=== PATIENT | female | born 1960 | race Caucasian/White ===

== ENCOUNTER 2021-08-14 13:55 | Inpatient (IN) | payer BC, OTHER ==
[2021-08-14] VITALS (10 sets, daily range): BP systolic 138–186; BP diastolic 81–96
[~2021-08-14] VITALS: Ht 165 cm; Wt 87.2 kg
--- OUTSIDE RECORDS SUMMARY | 2021-08-14 17:59 | XMS REPORT ---
Author Author [place] - [facility], Nursing Organization [facility], Nursing Address [address] [place] [id number] Phone [phone] Care Team Providers Care Insurance Writer Name Role Phone Anisha Napier Terrell Menchaca Attending Jade Suárez NURSE Assessment Admit Date Assessm ent Date Assessment 08/11/2021 021 Chacho is a 60yoF who presented to the ED this evening via PV w/ complaint of difficulty breathing/SOB, recently swabbed + for covid at facility in [place], [place], and is now being admitted to hospital pending acceptance and transfer to outside facility for higher level of care.Severe Sepsis // COVID // Respiratory Pqbarbjh10/9/21:- cont supplemental O2 via FM and NC--instructed nurses to add up to 2 more NC's, and place at pts mouth, if needed to help maintain sats)- NS IVF at 250/hour for a total of 1L- dexamethasone 6mg QD; remdesivir 200mg x 1 today, followed by 100mg QD x 4d- enoxaparin 40mg QD for VTE prophylaxis- ceftriaxone 1g QD (broad spectrum abx coverage per sepsis protocol)- CT PE ordered for this morning to r/o embolism- repeat lactate, BMP, and trop this morning- rapid covid swab here in ED was negative, will thus contact [facility] to obtain pts recent positive swab results and have them fax to us- strict instructions provided to nursing with regards to when to contact provider--at this point in time we are trying to avoid intubation however, should pt desat/decompensate, then intubation will prove necessaryOther chronic ejdyjsnlqh84/9/21:- cont home meds (escitalopram, metoprolol, and levothyroxine)Disposition: Inpatient admission pending acceptance at outlying facility for transfer to higher level of care.COVID +FULL CODEDVT prophylaxis: EnoxaparinE/M: 88503.Supervising Physician: Dr. Terrell Menchaca. 08/11/2021 Anneliese Flor is a 60yoF who presented to the ED this evening via PV w/ complaint of difficulty breathing/SOB, recently swabbed + for covid at facility in [place], [place], and is now being admitted to hospital pending acceptance and transfer to outside facility for higher level of care.Severe Sepsis // COVID-19 // Hypoxic Respiratory Plcvlry77/9/21:- cont supplemental O2 via FM and NC--instructed nurses to add up to 2 more NC's, and place at pts mouth, if needed to help maintain sats)- NS IVF at 250/hour for a total of 1L- dexamethasone 6mg QD; remdesivir 200mg x 1 today, followed by 100mg QD x 4d- enoxaparin 40mg QD for VTE prophylaxis- ceftriaxone 1g QD (broad spectrum abx coverage per sepsis protocol)- CT PE ordered for this morning to r/o embolism- repeat lactate, BMP, and trop this morning- rapid covid swab here in ED was negative, will thus contact [facility] to obtain pts recent positive swab results and have them fax to us- strict instructions provided to nursing with regards to when to contact provider--at this point in time we are trying to avoid intubation however, should pt desat/decompensate, then intubation will prove /9/21 (update):- pt re-evaluated. This is a risky management situation. [facility] has been unable to find a medical ICU bed for this patient despite a multi-State search. She could yet decompensate further. Other options include trial of BiPAP and intubation. Either scenario is problematic if there is no ICU bed available for her elsewhere. This am, she desaturated to about 84%. But, with a duoneb and repositioning, her O2 sat recovered. Fortunately, her O2 sat has been holding in the mid-90's today on NRB at 15 lpm and NC at 8 to 10 liters per minute. We do not have a true high flow O2 setup at our facility.- flu swab to f/u concomitant influenza- we obtained a copy of her COVID-19 testing done a few days ago at [facility] and it confirms her COVID-19 positive state.- Troponin mildly elevated. This is consistent with her severe sepsis and present hypoxia. Start aspirin 81 mg daily.- D dimer elevated. I (Nikolai) had hoped she could have a CT chest PE protocol today. However, she is not stable enough to put through the CT scanner. She desaturates with mild movement. She will tolerate lying supine. Will fully anticoagulate empirically for now to cover possible PE.-Start Vitamin D3 and zinc supplements- I reviewed UpToDate for current inpatient recommendations. Will obtain baricitinib to start tomorrow. The following are not recommended: Ivermectin and fluvoxamine.- Lactic acid improving. She is perfusion extremities much better.- Give additional IVF (LR).- give scheduled duoneb and prn albuterol- repeat CMP, CBC, lactic acid tomorrow am.Other chronic jirqazhlwl96/9/21:- cont home meds (escitalopram, metoprolol, and levothyroxine)Disposition: Inpatient admission pending acceptance at outlying facility for transfer to higher level of care.COVID +FULL CODEDVT prophylaxis: EnoxaparinE/M: no additional code 08/11/2021 021 Chacho is a 60yoF who presented to the ED this evening via PV w/ complaint of difficulty breathing/SOB, recently swabbed + for covid at facility in [place], [place], and is now being admitted to hospital pending acceptance and transfer to outside facility for higher level of care.Severe Sepsis // COVID-19 // Hypoxic Respiratory Suubjgp08/9/21:- cont supplemental O2 via FM and NC--instructed nurses to add up to 2 more NC's, and place at pts mouth, if needed to help maintain sats)- NS IVF at 250/hour for a total of 1L- dexamethasone 6mg QD; remdesivir 200mg x 1 today, followed by 100mg QD x 4d- enoxaparin 40mg QD for VTE prophylaxis- ceftriaxone 1g QD (broad spectrum abx coverage per sepsis protocol)- CT PE ordered for this morning to r/o embolism- repeat lactate, BMP, and trop this morning- rapid covid swab here in ED was negative, will thus contact [facility] to obtain pts recent positive swab results and have them fax to us- strict instructions provided to nursing with regards to when to contact provider--at this point in time we are trying to avoid intubation however, should pt desat/decompensate, then intubation will prove enzjqytdy80/9/21 (update):- pt re-evaluated. This is a risky management situation. [facility] has been unable to find a medical ICU bed for this patient despite a multi-State search. She could yet decompensate further. Other options include trial of BiPAP and intubation. Either scenario is problematic if there is no ICU bed available for her elsewhere. This am, she desaturated to about 84%. But, with a duoneb and repositioning, her O2 sat recovered. Fortunately, her O2 sat has been holding in the mid-90's today on NRB at 15 lpm and NC at 8 to 10 liters per minute. We do not have a true high flow O2 setup at our facility.- flu swab to f/u concomitant influenza- we obtained a copy of her COVID-19 testing done a few days ago at [facility] and it confirms her COVID-19 positive state.- Troponin mildly elevated. This is consistent with her severe sepsis and present hypoxia. Start aspirin 81 mg daily.- D dimer elevated. I (Nikolai) had hoped she could have a CT chest PE protocol today. However, she is not stable enough to put through the CT scanner. She desaturates with mild movement. She will tolerate lying supine. Will fully anticoagulate empirically for now to cover possible PE.-Start Vitamin D3 and zinc supplements- I reviewed UpToDate for current inpatient recommendations. Will obtain baricitinib to start tomorrow. The following are not recommended: Ivermectin and fluvoxamine.- Lactic acid improving. She is perfusion extremities much better.- Give additional IVF (LR).- give scheduled duoneb and prn albuterol- repeat CMP, CBC, lactic acid tomorrow am.08/12/21:- She seems to be improved compared to yesterday. Subjectively starting to feel mildly stronger; photophobia improving; has been weaned off the nasal cannula O2 component; transaminase levels improving; anion gap has closed.- However, she is still quite ill: still requiring O2 by NRB at 15 lpm; desaturating easily with mild exertion; lactic acid still elevated; leukocytosis remains elevated; still having episodes of desaturation.- She is still at significant risk for decompensation and should still be at higher level of care in an ICU setting.- We thought we had an ICU bed available to her in [place], but it filled with another patient. Our nursing staff has been calling hospitals trying to find a bed, as has [facility]. We will continue t to treat her to best of our capabilities.- waiting for baricitinib to arrive- restart IVF support- repeat labs in am: cbc, bmp, lactic acid- add on troponin to this morning's blood work.Other chronic tuhmwcezll47/9/21:- cont home meds (escitalopram, metoprolol, and levothyroxine)Disposition: Inpatient admission pending acceptance at outlying facility for transfer to higher level of care.COVID +FULL CODEDVT prophylaxis: Enoxaparin anticoagulationE/M: 01487 08/11/2021 Anneliese Flor is a 60yoF who presented to the ED this evening via PV w/ complaint of difficulty breathing/SOB, recently swabbed + for covid at facility in [place], [place], and is now being admitted to hospital pending acceptance and transfer to outside facility for higher level of care.Severe Sepsis // COVID-19 // Hypoxic Respiratory Fpwbjsu82/9/21:- cont supplemental O2 via FM and NC--instructed nurses to add up to 2 more NC's, and place at pts mouth, if needed to help maintain sats)- NS IVF at 250/hour for a total of 1L- dexamethasone 6mg QD; remdesivir 200mg x 1 today, followed by 100mg QD x 4d- enoxaparin 40mg QD for VTE prophylaxis- ceftriaxone 1g QD (broad spectrum abx coverage per sepsis protocol)- CT PE ordered for this morning to r/o embolism- repeat lactate, BMP, and trop this morning- rapid covid swab here in ED was negative, will thus contact [facility] to obtain pts recent positive swab results and have them fax to us- strict instructions provided to nursing with regards to when to contact provider--at this point in time we are trying to avoid intubation however, should pt desat/decompensate, then intubation will prove nejxnvnli11/9/21 (update):- pt re-evaluated. This is a risky management situation. [employer] has been unable to find a medical ICU bed for this patient despite a multi-State search. She could yet decompensate further. Other options include trial of BiPAP and intubation. Either scenario is problematic if there is no ICU bed available for her elsewhere. This am, she desaturated to about 84%. But, with a duoneb and repositioning, her O2 sat recovered. Fortunately, her O2 sat has been holding in the mid-90's today on NRB at 15 lpm and NC at 8 to 10 liters per minute. We do not have a true high flow O2 setup at our facility.- flu swab to f/u concomitant influenza- we obtained a copy of her COVID-19 testing done a few days ago at [facility] and it confirms her COVID-19 positive state.- Troponin mildly elevated. This is consistent with her severe sepsis and present hypoxia. Start aspirin 81 mg daily.- D dimer elevated. I (Nikolai) had hoped she could have a CT chest PE protocol today. However, she is not stable enough to put through the CT scanner. She desaturates with mild movement. She will tolerate lying supine. Will fully anticoagulate empirically for now to cover possible PE.-Start Vitamin D3 and zinc supplements- I reviewed UpToDate for current inpatient recommendations. Will obtain baricitinib to start tomorrow. The following are not recommended: Ivermectin and fluvoxamine.- Lactic acid improving. She is perfusion extremities much better.- Give additional IVF (LR).- give scheduled duoneb and prn albuterol- repeat CMP, CBC, lactic acid tomorrow am.08/12/21:- She seems to be improved compared to yesterday. Subjectively starting to feel mildly stronger; photophobia improving; has been weaned off the nasal cannula O2 component; transaminase levels improving; anion gap has closed.- However, she is still quite ill: still requiring O2 by NRB at 15 lpm; desaturating easily with mild exertion; lactic acid still elevated; leukocytosis remains elevated; still having episodes of desaturation.- She is still at significant risk for decompensation and should still be at higher level of care in an ICU setting.- We thought we had an ICU bed available to her in [place], but it filled with another patient. Our nursing staff has been calling hospitals trying to find a bed, as has [facility]. We will continue t to treat her to best of our capabilities.- waiting for baricitinib to arrive- restart IVF support- repeat labs in am: cbc, bmp, lactic acid- add on troponin to this morning's blood work.08/13/21:- O2 requirement about the same (15 lpm NRB, 10 lpm NC). Repositioning seems to help when she desaturates.- lactic acid still mildly elevated at 2.4 today.- Not able to take much by mouth because desaturates when mask moved to side partially and briefly.- We still have not been able to secure an ICU bed for her in [place] or any surrounding state. [facility] tells us they have tried at over 160 hospitals. They will start again tomorrow.08/14/21:- Has worsened overnight. O2 need has increased. Hypoxic to mid 80's despite are attempt at 35 lpm O2 (we do not have a true high flow set up).- I opted to try 3/4 proning to see if this would improve her oxygenation.- SHe was given furosemide this am in setting of desaturation. The combination of diureseis and partial proning has worked well today with O2 sat into mid 90's and we have been able to stop one of the Nasal cannulas.- As of this afternoon, she has been accepted to [facility] in [place], [place] by Dr. Morton to the medical ICU. He advises we NOT intubate her, if at all possible, and to try to replicate for her transport what we are doing here.F/E/N:08/13/21:- Is at nutritional risk. Not taking in much orally. Albumin low. Try Ensure Clear sips.- URine concentrated. Start D5W at 60 ml/hr for some dextrose and free water.- check BMP and lactic acid in am.Other chronic gaphmsuidq54/9/21:- cont home meds (escitalopram, metoprolol, and levothyroxine)Disposition: Inpatient admission pending acceptance at outlying facility for transfer to higher level of care.COVID +FULL CODEDVT prophylaxis: Enoxaparin anticoagulationE/M: 02757 (over 30 minutes spent on this discharge). Patient Targets Encounter Date Ins tructions Goals 08/11/2021 n/a Hospital Discharge Diagnosis Diagnosis Name Leonie lua SNOMED-CT Code Diagnosis Effective Date(s) dyspnea [id number] 08/11/2021 - Active respiratory distress [id number] 08/11/2021 - Active SARS-CoV-2 [id number] 08/11/2021 - Active hypoxia [id number] 08/11/2021 - Active acute respiratory failure [id number] 08/11/2021 - Active sepsis [id number] 08/11/2021 - Active Hospital Course Admission Date: 08/11/21 Discharge Date: 08/14/21 HPI: per admission note: ""Chacho is a 60yoF who presents to the ED this evening via PV w/ complaint of difficulty breathing/SOB. Pt states that she tested positive for covid at an outside facility in [place], [place] this past Sunday (08/06/21) and, until tonight, she was feeling okay and had no significant complaints, however she awakened this evening with severe dyspnea. She endorses some recent diarrhea and a mild cough and ST, but is otherwise without complaint. Her regular PCP is Dr. Anjana Sosa ([place], [place]). Pt denies any PMH of significant cardiac, pulmonary, hematologic, or neurologic diseases. Only medications she is on are escitalopram, levothyroxine, and metoprolol. She is NOT covid immunized. She is a FULL CODE. She states that she is fine with transfer as well as intubation, if necessary." SUMMARY OF HOSPITAL COURSE: Chacho is a 60yoF who presented to the ED this evening via PV w/ complaint of difficulty breathing/SOB, recently swabbed + for covid at facility in [place], [place], and was admitted to [facility] for management of hypoxic respiratory failure due to COVID-19, pending acceptance and transfer to outside facility for higher level of care. Severe Sepsis // COVID-19 // Hypoxic Respiratory Failure. Admitted her after we were unable to find an ICU bed for her. Has been hypoxic this entire stay. We do not have a true high flow O2 setup. We have used NRB at 15 lpm PLUS nasal cannula at 10 lpm. This am, she was hypoxic to 83% despite the NRB PLUS 2 NC's under the mask for total of 35 lpm). We attempted 3/4 proning and gave her Furosemide. The combination of diuresis and partialy proning allowed O2 to rise to mid 90's and we were able to stop one of the NCs. We have attempted to find an ICU for three days. Today she has been accepted to [facility] in [place], [place], to ICU by Dr. Morton. - she has received dexamethasone, remdesivir, baricitinib, vitamin D3 and Zinc. - This physician was concerned about possibility of PE. She was never stable enough to go through our CT scanner. So has been empirically fulling anticoagulated with enoxaparin. - Has been on Ceftriaxone empirically - she is protein malnourished. Not taking in much orally - desaturates with brief attempts. Albumin low. Other chronic conditions 08/11/21: - continued home meds (escitalopram, metoprolol, and levothyroxine) Hospital Discharge Instructions Patient Instructions n/a Patient Goals None recorded. Plan of Treatment Reminders Order Date Submit Date Provider Details Appointments None recorded. Lab None recorded. Referral None recorded. Procedures None recorded. Surgeries None recorded. Imaging None recorded. Medications 1 ML enoxaparin sodium 100 MG/ML Prefilled Syringe 08/11/2021 12:56:23 08/11/2021 19:42:00 [id number] 76 milligram every 12 hours 1 ML enoxaparin sodium 100 MG/ML Prefilled Syringe 08/11/2021 12:56:23 08/12/2021 07:32:00 lhamel3 76 milligram every 12 hours 1 ML enoxaparin sodium 100 MG/ML Prefilled Syringe 08/11/2021 12:56:23 08/12/2021 20:35:00 [id number] 76 milligram every 12 hours 1 ML enoxaparin sodium 100 MG/ML Prefilled Syringe 08/11/2021 12:56:23 08/13/2021 08:15:00 zwands 7 6 milligram every 12 hours 1 ML enoxaparin sodium 100 MG/ML Prefilled Syringe 08/11/2021 12:56:23 08/13/2021 21:03:00 [email or web address] 76 milligram every 12 hours 1 ML enoxaparin sodium 100 MG/ML Prefilled Syringe 08/11/2021 12:56:23 08/14/2021 08:43:00 tbrack1 76 milligram every 12 hours 08/13/2021 04:39:51 08/12/2021 21:30:00 hmccollum 2 times per day 08/13/2021 04:39:51 08/13/2021 08:16:00 zwands 2 times per day 08/13/2021 04:39:51 08/13/2021 21:03:00 [email or web address] 2 times per day 08/13/2021 04:39:51 08/14/2021 08:51:00 tbrack1 2 times per day 24 HR metoprolol succinate 25 MG Extended Release Oral Tablet 08/11/2021 07:00:39 08/11/2021 07:35:00 clawellin 50 milligram every day 24 HR metoprolol succinate 25 MG Extended Release Oral Tablet 08/11/2021 07:00:39 08/12/2021 07:32:00 lhamel3 50 milligram every day 24 HR metoprolol succinate 25 MG Extended Release Oral Tablet 08/11/2021 07:00:39 08/13/2021 08:16:00 zwands 5 0 milligram every day 24 HR metoprolol succinate 25 MG Extended Release Oral Tablet 08/11/2021 07:00:39 08/14/2021 08:43:00 tbrack1 50 milligram every day albuterol 0.833 MG/ML / ipratropium bromide 0.167 MG/ML Inhalation Solution 08/11/2021 10:41:19 08/11/2021 09:08:00 clawellin 3 milliliter once 1 ML dexamethasone phosphate 10 MG/ML Injection 08/11/2021 05:55:10 08/12/2021 03:10:00 [email or web address] 6 milligram every day for 10 days 1 ML dexamethasone phosphate 10 MG/ML Injection 08/11/2021 05:55:10 08/13/2021 02:33:00 hmccollum 6 milligram every day for 10 days 1 ML dexamethasone phosphate 10 MG/ML Injection 08/11/2021 05:55:10 08/14/2021 03:05:00 [email or web address] 6 milligram every day for 10 days melatonin 3 MG Oral Tablet 08/14/2021 04:28:28 08/14/2021 03:29:00 [email or web address] 3 milligram once 08/11/2021 04:45:03 08/11/2021 04:14:00 [email or web address] 1 gram once 08/11/2021 04:44:39 08/11/2021 04:14:00 [email or web address] 500 milliliter once albuterol 0.833 MG/ML / ipratropium bromide 0.167 MG/ML Inhalation Solution 08/11/2021 12:56:32 08/11/2021 13:06:00 clawellin 3 milliliter 4 times per day albuterol 0.833 MG/ML / ipratropium bromide 0.167 MG/ML Inhalation Solution 08/11/2021 12:56:32 08/11/2021 17:04:00 clawellin 3 milliliter 4 times per day albuterol 0.833 MG/ML / ipratropium bromide 0.167 MG/ML Inhalation Solution 08/11/2021 12:56:32 08/11/2021 21:38:00 [id number] 3 milliliter 4 times per day albuterol 0.833 MG/ML / ipratropium bromide 0.167 MG/ML Inhalation Solution 08/11/2021 12:56:32 08/12/2021 07:32:00 lhamel3 3 milliliter 4 times per day albuterol 0.833 MG/ML / ipratropium bromide 0.167 MG/ML Inhalation Solution 08/11/2021 12:56:32 08/12/2021 20:35:00 [email or web address] 3 milliliter 4 times per day albuterol 0.833 MG/ML / ipratropium bromide 0.167 MG/ML Inhalation Solution 08/11/2021 12:56:32 08/13/2021 08:15:00 zwands 3 milliliter 4 times per day 08/11/2021 05:53:53 08/11/2021 06:20:00 zwands 200 milligram once 08/11/2021 06:29:56 08/12/2021 07:32:00 [email or web address] 100 milligram once 08/11/2021 05:58:15 08/12/2021 03:14:00 [email or web address] 1 gram every day 08/11/2021 05:58:15 08/13/2021 02:33:00 hmccollum 1 gram every day 08/11/2021 05:58:15 08/14/2021 03:05:00 [email or web address] 1 gram every day 08/12/2021 14:44:00 08/12/2021 13:46:00 [email or web address] 1000 milliliter once 08/11/2021 12:52:06 08/12/2021 14:00:00 lhamel3 4 milligram every day for 14 days 08/11/2021 12:52:06 08/13/2021 08:15:00 zwands 4 milligram every day for 14 days 08/11/2021 12:52:06 08/14/2021 08:43:00 tbrack1 4 milligram every day for 14 days 08/13/2021 19:42:23 08/13/2021 21:03:00 [email or web address] 100 milligram every 24 hours for 3 d oses 08/11/2021 12:56:27 08/11/2021 11:30:00 clawellin 50 milligram every day 08/11/2021 12:56:27 08/12/2021 07:33:00 lhamel3 50 milligram every day 08/11/2021 12:56:27 08/13/2021 08:16:00 zwands 50 milligram every day 08/11/2021 12:56:27 08/14/2021 08:43:00 tbrack1 50 milligram every day acetaminophen 325 MG Oral Tablet [Tylenol] 08/11/2021 07:10:45 08/11/2021 06:10:00 [id number] 650 milligram every 6 hours acetaminophen 325 MG Oral Tablet [Tylenol] 08/11/2021 07:10:45 08/14/2021 03:30:00 [email or web address] 650 milligram every 6 hours escitalopram 10 MG Oral Tablet 08/11/2021 07:00:30 08/11/2021 07:35:00 clawellin 10 milligram every day escitalopram 10 MG Oral Tablet 08/11/2021 07:00:30 08/12/2021 07:32:00 [email or web address] 10 milligram every day escitalopram 10 MG Oral Tablet 08/11/2021 07:00:30 08/13/2021 08:15:00 zwands 10 milligram every day escitalopram 10 MG Oral Tablet 08/11/2021 07:00:30 08/14/2021 08:43:00 tbrack1 10 milligram every day dexamethasone phosphate 4 MG/ML Injectable Solution 08/11/2021 04:14:06 08/11/2021 02:33:00 [email or web address] 6 milligram once levothyroxine sodium 0.025 MG Oral Tablet 08/11/2021 07:00:45 08/11/2021 07:35:00 clawellin 50 microgram every day levothyroxine sodium 0.025 MG Oral Tablet 08/11/2021 07:00:45 08/12/2021 07:32:00 lhamel3 50 microgram every day levothyroxine sodium 0.025 MG Oral Tablet 08/11/2021 07:00:45 08/13/2021 08:16:00 zwands 50 microgram every day levothyroxine sodium 0.025 MG Oral Tablet 08/11/2021 07:00:45 08/14/2021 08:43:00 tbrack1 50 microgram every day 4 ML furosemide 10 MG/ML Injection 08/14/2021 06:01:59 08/14/2021 05:04:00 [email or web address] 40 milligram once 08/13/2021 17:23:51 08/13/2021 16:42:00 [email or web address] 738 milliliter for 24 hours 120 ACTUAT albuterol 0.1 MG/ACTUAT / ipratropium bromide 0.02 MG/ACTUAT Inhalation Mercedita [Combivent] 08/13/2021 13:38:41 08/13/2021 12:50:00 zwands 1 puff 4 times per day 120 ACTUAT albuterol 0.1 MG/ACTUAT / ipratropium bromide 0.02 MG/ACTUAT Inhalation Mercedita [Combivent] 08/13/2021 13:38:41 08/13/2021 16:42:00 zwands 1 puff 4 times per day 120 ACTUAT albuterol 0.1 MG/ACTUAT / ipratropium bromide 0.02 MG/ACTUAT Inhalation Mercedita [Combivent] 08/13/2021 13:38:41 08/13/2021 21:02:00 [email or web address] 1 puff 4 times per day 120 ACTUAT albuterol 0.1 MG/ACTUAT / ipratropium bromide 0.02 MG/ACTUAT Inhalation Mercedita [Combivent] 08/13/2021 13:38:41 08/14/2021 08:43:00 tbrack1 1 puff 4 times per day 120 ACTUAT albuterol 0.1 MG/ACTUAT / ipratropium bromide 0.02 MG/ACTUAT Inhalation Mercedita [Combivent] 08/13/2021 13:38:41 08/14/2021 12:33:00 zwands 1 puff 4 times per day 08/12/2021 14:44:01 08/12/2021 19:15:00 clawellin 1000 milliliter once 0.4 ML enoxaparin sodium 100 MG/ML Prefilled Syringe 08/11/2021 05:30:17 08/11/2021 04:40:00 [id number] 40 milligram once 08/11/2021 12:56:11 08/11/2021 11:30:00 clawellin DAILY 08/11/2021 12:56:11 08/12/2021 07:33:00 [email or web address] DAILY 08/11/2021 12:56:11 08/13/2021 08:16:00 zwands DAILY 08/11/2021 12:56:11 08/14/2021 08:43:00 [email or web address] DAILY aspirin 81 MG Delayed Release Oral Tablet 08/11/2021 12:09:07 08/11/2021 11:30:00 [email or web address] 81 milligram every day aspirin 81 MG Delayed Release Oral Tablet 08/11/2021 12:09:07 08/12/2021 07:32:00 [email or web address] 81 milligram every day aspirin 81 MG Delayed Release Oral Tablet 08/11/2021 12:09:07 08/13/2021 08:15:00 zwands 81 milligram every day aspirin 81 MG Delayed Release Oral Tablet 08/11/2021 12:09:07 08/14/2021 08:42:00 [email or web address] 81 milligram every day [id number] 200 ACTUAT albuterol 0.09 MG/ACTUAT Metered Dose Inhaler 08/13/2021 13:39:18 08/13/2021 17:38:00 zwands 2 puff every 2 hours [id number] 200 ACTUAT albuterol 0.09 MG/ACTUAT Metered Dose Inhaler 08/13/2021 13:39:18 08/14/2021 05:04:00 [email or web address] 2 puff every 2 hours 08/11/2021 06:31:48 08/11/2021 06:40:00 [email or web address] 500 milliliter once 08/11/2021 12:09:20 08/11/2021 11:30:00 [email or web address] 1000 milliliter once Goals Section Goal Description Status Start Date Updated by Updated on Patient verbalizes strategies for coping with anxiety None Recorded Goal not achieved 08/11/2021 Bella Garcia 08/11 Patient states improved anxiety level None Recorded Goal not achieved 08/11/2021 [facility]21 Patient is free from dyspnea None Recorded Goal not achieved 08/11/2021 [facility] 08/11/2021 Patient is free from signs and symptoms of respiratory distress None Recorded Goal not achieved 08/11/2021 [facility] 08/11 Patient respiratory status at baseline None Recorded Goal not achieved 08/11/2021 [facility] 08/11/2021 Patient clears secretions independently None Recorded Goal not achieved 08/11/2021 [facility] 08/11/2021 Patient manages secretions with minimal assistance None Recorded Goal not achieved 08/11/2021 [facility] 08/11/2021 Patient performs ADLs at baseline ability None Recorded Goal not achieved 08/11/2021 [facility] 08/11/2021 Patient demonstrates increased activity tolerance each day None Recorded Goal not achieved 08/11/2021 [facility] 08/11 Patient or caregiver verbalizes understa nding of specific topic None Recorded Goal not achieved 08/11/2021 [facility] 08/11 Patient or caregiver is motivated to learn None Recorded Goal not achieved 08/11/2021 [facility] 08/11/2021 Health Concerns Section Related Observation None Recorded Concern Status Updated by Updated on Anxiety:Vague, uneasy feeling of discomf ort or dread accompanied by an autonomic response (the source often nonspecific or unknown to the individual); a feeling of apprehension caused by anticipation of danger. It is an alerting signal that warns of impending danger and enables the individual to take measures to deal with the threat.) Active Bella Garcia 08/11 Ineffective breathing pattern:Inspiratio n and/or expiration that does not provide adequate ventilation Active Bella Garcia 08/11/2021 Ineffective airway clearance:Inability t o clear secretions or obstructions from the respiratory tract to maintain a clear airway Active Bella Garcia tess 08/11/2021 Activity intolerance:Insufficient physio logical or psychological energy to endure or complete required or desired daily activities Active Bella Garcia tess 08/11/2021 Deficient knowledge:Absence or deficienc y of cognitive information related to a specific topic Active Bella Garcia 08/11 Results Date Name Description Value Unit Range Abnormal Flag Prov ider Detail 08/11/2021 Lactat e [Moles/volume] in Serum or Plasma LACTATE 8.8 mmol/L 0.5-2.1 [facility] [address] [place] [address], [id number], 08/11/2021 Manual Differential panel - Blood SEG. NEUTROPHILS 85 % 44-68 [facility] [address] [place] [address], [id number], 08/11/2021 Manual Differential panel - Blood BAND NEUTROPHILS 6 % 0-[address], [address], 08/11/2021 Manual Differential panel - Blood LYMPHOCYTES 4 % 25-44 [facility] [address] [place] [address], [address], 08/11/2021 Manual Differential panel - Blood MONOCYTE 5 % 0-8 [facility] [address] [place] [address], [id number], 08/11/2021 Manual Differential panel - Blood EOSINOPHIL 0 % 0-[address], [address], 08/11/2021 Manual Differential panel - Blood BASOPHILS 0 % 0-3 [facility] [address] [place], [address], 08/11/2021 SARS-C oV-2 (COVID-19) RNA [Presence] in Unspecified specimen by DEBBIE with probe detection RAPID COVID-19 NEGATIVE NEGATIVE [facility] [address] [place], [address], 08/11/2021 Fibrin D-dimer FEU [Mass/volume] in Platelet poor plasma DDIMER 4.77 mg/L 0.17-0.59 [facility] [address] [place], [address], 08/11/2021 Gas pa seferino - Arterial blood ABG DRAW SITE Right Radial [facility] [address] [place] [address], [id number], 08/11/2021 Gas pa seferino - Arterial blood PH 7.46 pH 7.35-7.45 [facility] [address] [place] [address], [address], 08/11/2021 Gas pa seferino - Arterial blood PCO2 31 mmHg 30-50 [facility] [address] [place] [address], 26[address], 08/11/2021 Gas pa seferino - Arterial blood PO2 61 mmHg 70-700 [facility] [address] [place], [address], 08/11/2021 Gas pa seferino - Arterial blood TOTAL CO2 23 mmol/L 22-29 [facility] [address] [place], [address], 08/11/2021 Gas pa seferino - Arterial blood HCO3- BICARBONATE 22 mmol/L 18-23 [facility] [address] [place] [address], [address], 08/11/2021 Gas pa seferino - Arterial blood BASE EXCESS - 1.1 mmol/L -2.0-3.0 [facility] [address] [place] [address], [address]80[address], 08/11/2021 Gas pa seferino - Arterial blood O2 SATURATION 93 % 90-100 [facility] [address] [place] [address], [address], 08/11/2021 CBC W Auto Differential panel - Blood WHITE BLOOD CELL COUNT 11.5 x10^3/UL 4.0-10.5 [facility] [address] [place] [address], [address], 08/11/2021 CBC W Auto Differential panel - Blood RED BLOOD CELL COUNT 4.47 x10^6/UL 3.90-5.20 [facility] [address] [place] [address], [address], 08/11/2021 CBC W Auto Differential panel - Blood HEMOGLOBIN 14.2 g/dL 12.0-16.0 [facility] [address] [place] [address], 298[address], 08/11/2021 CBC W Auto Differential panel - Blood HEMATOCRIT 43 % 37-47 [facility] [address] [place] [address], 490[address], 08/11/2021 CBC W Auto Differential panel - Blood MCV 95 fL 78- 100 [facility] [address] [place] [address], [address], 08/11/2021 CBC W Auto Differential panel - Blood MCH 32 pg 27- 31 [facility] [address] [place] [address], [address], 08/11/2021 CBC W Auto Differential panel - Blood MCHC 33 g/dL 32-36 [facility] [address] [place] [address], 6[address], 08/11/2021 CBC W Auto Differential panel - Blood RDW 14.1 % 11.5-14.0 [facility] [address] [place] [address], [address], 08/11/2021 CBC W Auto Differential panel - Blood PLATELET COUNT 202 x10^3/UL 150-400 [facility] [address] [place], [address], 08/11/2021 CBC W Auto Differential panel - Blood MPV 10.8 fL 7.5-11.5 [facility] [address] [place], [address], 08/11/2021 CBC W Auto Differential panel - Blood REFLEX DIFF YES YES [facility] [address] [place], [address], 08/11/2021 Compre hensive metabolic 1999 panel - Serum or Plasma SODIUM 136 mmol/L 137-145 [facility] [address] [place], [address], 08/11/2021 Compre hensive metabolic 1999 panel - Serum or Plasma POTASSIUM 4.3 mmol/L 3.5-5.1 [facility] [address] [place], [address], 08/11/2021 Compre hensive metabolic 2000 panel - Serum or Plasma CHLORIDE 102 mmol/L 98-107 [facility] [address] [place], [address], 08/11/2021 Compre hensive metabolic 1999 panel - Serum or Plasma CARBON DIOXIDE 15 mmol/L 22-30 [facility] [address] [place], [address], 08/11/2021 Compre hensive metabolic 2000 panel - Serum or Plasma ANION GAP 23 mmol/L 8-18 [facility] [address] [place], [address], 08/11/2021 Compre hensive metabolic 2000 panel - Serum or Plasma GLUCOSE 148 mg/dL 74-106 [facility] [address] [place], [address], 08/11/2021 Compre hensive metabolic 2000 panel - Serum or Plasma BUN 17 mg/dL 7-17 [facility] [address] [place], [address], 08/11/[address] metabolic [address] panel - Serum or Plasma CREATININE 1.20 mg/dL 0.52-1.04 [facility] [address] [place], [address], 08/11/[address] metabolic 1999 panel - Serum or Plasma BUN/CREAT RATIO 14.2 CALC 4.0-25.0 [facility] [address] [place], [address], 08/11/[address] metabolic 1999 panel - Serum or Plasma CALCIUM 8.8 mg/dL 8.4-10.2 [facility] [address] [place], [address], 08/11/[address] metabolic 1999 panel - Serum or Plasma TOTAL PROTEIN 7.2 g/dL 6.3-8.2 [facility] [address] [place], [address], 08/11/[address] metabolic 1999 panel - Serum or Plasma ALBUMIN 3.6 g/dL 3.5-5.0 [facility] [address] [place], [address], 08/11/[address] metabolic 1999 panel - Serum or Plasma GLOBULIN 3.6 g/dL_(calc) 2.0-5.0 [facility] [address] [place], [address], 08/11/[address] metabolic 1999 panel - Serum or Plasma ALBUMIN/GLOBULIN RATIO 1.0 CALC 1.1-2.5 [facility] [address] [place], [address], 08/11/[address] metabolic 1999 panel - Serum or Plasma ALTV (SGPT) 120 U/L <35 [facility] [address] [place], [address], 08/11/2021 Compre [address] metabolic 1999 panel - Serum or Plasma AST (SGOT) 222 U/L 14-36 [facility] [address] [place], [address], 08/11/[address] metabolic 1999 panel - Serum or Plasma ALK. PHOSPHATASE 213 U/L 38-126 [facility] [address] [place], [address], 08/11/[address] metabolic 1999 panel - Serum or Plasma TOTAL BILIRUBIN 1.1 mg/dL 0.2-1.3 [facility] [address] [place], [address], 08/11/2021 Compre [address] metabolic 1999 panel - Serum or Plasma OSMOLALITY 286 mOsm/Kg_(calc) 274-300 [facility] [address] [place], [address], 08/11/2021 Compre [address] metabolic 1999 panel - Serum or Plasma EGFR 59 mL/min/1.86m2 >59 [facility] [address] [place], [address], 08/11/2021 Compre [address] metabolic 1999 panel - Serum or Plasma EGFR NON 49 mL/min/1.86m2 >59 [facility] [address] [place], [address], 08/11/2021 Erythr ocyte sedimentation rate by Westergren method ESR 22 mm/hr 0-30 [facility] [address] [place], [address], 08/11/2021 Tropon in T.cardiac [Mass/volume] in Serum or Plasma TROPONIN-T 0.042 ng/mL <0.010 [facility] [address] [place], [address], 08/11/2021 Tropon in T.cardiac [Mass/volume] in Serum or Plasma TROPONIN-T 0.036 ng/mL <0.010 [facility] [address] [place], [address], 08/11/2021 Urinal ysis complete panel - Urine COLOR DARK YELLOW YELLOW [facility] [address] [place], [address], 08/11/2021 Urinal ysis complete panel - Urine APPEARANCE Slightly Cloudy CLEAR [facility] [address] [place], [address], 08/11/2021 Urinal ysis complete panel - Urine SPECIFIC GRAVITY 1.020 1.010-1.035 [facility] [address] [place], [address], 08/11/2021 Urinal ysis complete panel - Urine PH 6.0 5.0- 8.0 [facility] [address] [place], [address], 08/11/2021 Urinal ysis complete panel - Urine UGLUCOSE Negative NEGATIVE [facility] [address] [place], [address], 08/11/2021 Urinal ysis complete panel - Urine KETONE 1+ NEGATIVE [facility] [address] [place], [address], 08/11/2021 Urinal ysis complete panel - Urine UPROTEIN 2+ NEGATIVE [facility] [address] [place], [address], 08/11/2021 Urinal ysis complete panel - Urine UBILIRUBIN 1+ NEGATIVE [facility] [address] [place], [address], 08/11/2021 Urinal ysis complete panel - Urine UROBILINOGEN 1.0 E.U./dL 0.2 E.U./DL -1.0 E.U./DL [facility] [address] [place], [address], 08/11/2021 Urinal ysis complete panel - Urine UBLOOD Negative NEGATIVE [facility] [address] [place], [address], 08/11/2021 Urinal ysis complete panel - Urine NITRITE Negative NEGATIVE [facility] [address] [place], [address], 08/11/2021 Urinal ysis complete panel - Urine LEUKOCYTES Negative NEGATIVE [facility] [address] [place], [address], 08/11/2021 Urinal ysis complete panel - Urine URINE SOURCE: Catheter [facility] [address] [place], [address], 08/11/2021 Urinal ysis complete panel - Urine REFLEXED CULTURE NO NO [facility] [address] [place], [address], 08/11/2021 Urinal ysis complete panel - Urine URINE WBC 0-2 /HPF /HPF 0-5 /HPF [facility] [address] [place], [address], 08/11/2021 Urinal ysis complete panel - Urine URINE RBC 0-2 /HPF /HPF 0-2 /HPF [facility] [address] [place], [address], 08/11/2021 Urinal ysis complete panel - Urine EPITHELIAL CELLS RARE /LPF /LPF NONE SEEN-FEW /LPF [facility] [address] [place], [address], 08/11/2021 Urinal ysis complete panel - Urine BACTERIA NONE SEEN /HPF NONE SEEN [facility] [address] [place], [address], 08/11/2021 Urinal ysis complete panel - Urine MUCUS FEW /LPF /LPF NONE SEEN [facility] [address] [place], [address], 08/11/2021 Urinal ysis complete panel - Urine TRANSITIONAL EPITHELIAL RARE /LPF /LPF NONE SEEN [facility] [address] [place], [address], 08/11/2021 Magnes ium [Mass/volume] in Serum or Plasma MAGNESIUM 2.4 mg/dL 1.6-2.3 [facility] [address] [place], [address], 08/11/2021 Prothr ombin time (PT) PT 11.4 SEC 9.3-10.9 [facility] [address] [place], [address], 08/11/2021 Prothr ombin time (PT) INR 1.13 RATIO 1.00-3.50 [facility] [address] [place], [address], 08/11/2021 activa catie partial thromboplastin time PTT 23.4 SEC 22.9-28.7 [facility] [address] [place], [address], 08/11/2021 Basic metabolic 2000 panel - Serum or Plasma SODIUM 140 mmol/L 137-145 [facility] [address] [place], [address], 08/11/2021 Basic metabolic 2000 panel - Serum or Plasma POTASSIUM 3.8 mmol/L 3.5-5.1 [facility] [address] [place], [address], 08/11/2021 Basic metabolic 2000 panel - Serum or Plasma CHLORIDE 107 mmol/L 98-107 [facility] [address] [place], [address], 08/11/2021 Basic metabolic 2000 panel - Serum or Plasma CARBON DIOXIDE 22 mmol/L 22-30 [facility] [address] [place], [address], 08/11/2021 Basic metabolic 1999 panel - Serum or Plasma ANION GAP 15 mmol/L 8-18 [facility] [address] [place], [address], 08/11/2021 Basic metabolic 1999 panel - Serum or Plasma GLUCOSE 128 mg/dL 74-106 [facility] [address] [place], [address], 08/11/2021 Basic metabolic 1999 panel - Serum or Plasma BUN 17 mg/dL 7-17 [facility] [address] [place], [address], 08/11/2021 Basic metabolic 1999 panel - Serum or Plasma CREATININE 1.00 mg/dL 0.52-1.04 [facility] [address] [place] [address], [address], 08/11/2021 Basic metabolic 1999 panel - Serum or Plasma BUN/CREAT RATIO 17.0 CALC 4.0-25.0 [facility] [address] [place] [address], [address], 08/11/2021 Basic metabolic 1999 panel - Serum or Plasma CALCIUM 8.2 mg/dL 8.4-10.2 [facility] [address] [place] [address], [address], 08/11/2021 Basic metabolic 1999 panel - Serum or Plasma OSMOLALITY 293 mOsm/Kg_(calc) 274-300 [facility] [address] [place], [address], 08/11/2021 Basic metabolic 1999 panel - Serum or Plasma EGFR 73 mL/min/1.86m2 >59 [facility] [address] [place], [address], 08/11/2021 Basic metabolic 1999 panel - Serum or Plasma EGFR NON 60 mL/min/1.86m2 >59 [facility] [address] [place], [address], 08/11/2021 Lactat e [Moles/volume] in Serum or Plasma LACTATE 3.8 mmol/L 0.5-2.1 [facility] [address] [place], [address], 08/11/2021 Influe nza virus A+B Ag [Presence] in Unspecified specimen INFLUENZA A NEGATIVE NEGATIVE [facility] [address] [place], [address], 08/11/2021 Influe nza virus A+B Ag [Presence] in Unspecified specimen INFLUENZA B NEGATIVE NEGATIVE [facility] [address] [place], [address], 08/12/2021 Tropon in T.cardiac [Mass/volume] in Serum or Plasma TROPONIN-T <0.010 ng/mL <0.010 [facility] [address] [place] [address], [address], 08/12/2021 Manual Differential panel - Blood SEG. NEUTROPHILS 90 % 44-68 [facility] [address] [place] [address], [address], 08/12/2021 Manual Differential panel - Blood BAND NEUTROPHILS 5 % 0-6 [facility] [address] [place] [address], [address], 08/12/2021 Manual Differential panel - Blood LYMPHOCYTES 4 % 25-44 [facility] [address] [place] [address], [address], 08/12/2021 Manual Differential panel - Blood MONOCYTE 1 % 0-8 [facility] [address] [place] [address], [address], 08/12/2021 Manual Differential panel - Blood EOSINOPHIL 0 % 0-5 [facility] [address] [place] [address], [address], 08/12/2021 Manual Differential panel - Blood BASOPHILS 0 % 0-3 [facility] [address] [place] [address], [address], 08/12/2021 Lactat e [Moles/volume] in Serum or Plasma LACTATE 2.1 mmol/L 0.5-2.1 [facility] [address] [place] [address], [address], 08/12/2021 Manual Differential panel - Blood SEG. NEUTROPHILS 90 % 44-68 [facility] [address] [place] [address], 860[address], 08/12/2021 Manual Differential panel - Blood BAND NEUTROPHILS 5 % 0-6 [facility] [address] [place] [address], 880[address], 08/12/2021 Manual Differential panel - Blood LYMPHOCYTES 4 % 25-44 [facility] [address] [place] [address], 00102, 08/12/2021 Manual Differential panel - Blood MONOCYTE 1 % 0-8 [facility] [address] [place] [address], [address], 08/12/2021 Manual Differential panel - Blood EOSINOPHIL 0 % 0-5 [facility] [address] [place] [address], 13[address], 08/12/2021 Manual Differential panel - Blood BASOPHILS 0 % 0-3 [facility] [address] [place] [address], [address], 08/12/2021 CBC W Auto Differential panel - Blood WHITE BLOOD CELL COUNT 11.5 x10^3/UL 4.0-10.5 [facility] [address] [place] [address], [address], 08/12/2021 CBC W Auto Differential panel - Blood RED BLOOD CELL COUNT 4.08 x10^6/UL 3.90-5.20 [facility] [address] [place] [address], [address], 08/12/2021 CBC W Auto Differential panel - Blood HEMOGLOBIN 12.9 g/dL 12.0-16.0 [facility] [address] [place] [address], [address], 08/12/2021 CBC W Auto Differential panel - Blood HEMATOCRIT 39 % 37-47 [facility] [address] [place] [address], [address], 08/12/2021 CBC W Auto Differential panel - Blood MCV 96 fL 78- 100 [facility] [address] [place] [address], 130[address], 08/12/2021 CBC W Auto Differential panel - Blood MCH 32 pg 27- 31 [facility] [address] [place] [address], [address], 08/12/2021 CBC W Auto Differential panel - Blood MCHC 33 g/dL 32-36 [facility] [address] [place] [address], [address]99, 08/12/2021 CBC W Auto Differential panel - Blood RDW 14.2 % 11.5-14.0 [facility] [address] [place] [address], 00881, 08/12/2021 CBC W Auto Differential panel - Blood PLATELET COUNT 168 x10^3/UL 150-400 [facility] [address] [place] [address], 13279, 08/12/2021 CBC W Auto Differential panel - Blood MPV 10.6 fL 7.5-11.5 [facility] [address] [place] [address], 80770, 08/12/2021 CBC W Auto Differential panel - Blood REFLEX DIFF YES YES [facility] [address] [place] [address], 07903, 08/12/2021 CBC W Auto Differential panel - Blood WHITE BLOOD CELL COUNT 13.2 x10^3/UL 4.0-10.5 [facility] [address] [place], [address], 08/12/2021 CBC W Auto Differential panel - Blood RED BLOOD CELL COUNT 3.70 x10^6/UL 3.90-5.20 [facility] [address] [place], [address], 08/12/2021 CBC W Auto Differential panel - Blood HEMOGLOBIN 11.6 g/dL 12.0-16.0 [facility] [address] [place] [address], 29468, 08/12/2021 CBC W Auto Differential panel - Blood HEMATOCRIT 36 % 37-47 [facility] [address] [place] [address], 822[address], 08/12/2021 CBC W Auto Differential panel - Blood MCV 97 fL 78- 100 [facility] [address] [place] [address], 028[address], 08/12/2021 CBC W Auto Differential panel - Blood MCH 31 pg 27- 31 [facility] [address] [place] [address], 966[address], 08/12/2021 CBC W Auto Differential panel - Blood MCHC 32 g/dL 32-36 [facility] [address] [place] [address], 98[address], 08/12/2021 CBC W Auto Differential panel - Blood RDW 14.2 % 11.5-14.0 [facility] [address] [place] [address], [address], 08/12/2021 CBC W Auto Differential panel - Blood PLATELET COUNT 173 x10^3/UL 150-400 [facility] [address] [place] [address], 864[address], 08/12/2021 CBC W Auto Differential panel - Blood MPV 10.4 fL 7.5-11.5 [facility] [address] [place] [address], 80647, 08/12/2021 CBC W Auto Differential panel - Blood REFLEX DIFF YES YES [facility] [address] [place], [address], 08/12/2021 Lactat e [Moles/volume] in Serum or Plasma LACTATE 4.3 mmol/L 0.5-2.1 [facility] [address] [place], [address], 08/12/2021 Compre hensive metabolic 1999 panel - Serum or Plasma SODIUM 142 mmol/L 137-145 [facility] [address] [place], [address], 08/12/2021 Compre hensive metabolic 1999 panel - Serum or Plasma POTASSIUM 4.0 mmol/L 3.5-5.1 [facility] [address] [place], [address], 08/12/2021 Compre hensive metabolic 1999 panel - Serum or Plasma CHLORIDE 110 mmol/L 98-107 [facility] [address] [place], [address], 08/12/2021 Compre hensive metabolic 1999 panel - Serum or Plasma CARBON DIOXIDE 21 mmol/L 22-30 [facility] [address] [place], [address], 08/12/2021 Compre hensive metabolic 1999 panel - Serum or Plasma ANION GAP 15 mmol/L 8-18 [facility] [address] [place], [address], 08/12/2021 Compre hensive metabolic 1999 panel - Serum or Plasma GLUCOSE 133 mg/dL 74-106 [facility] [address] [place], [address], 08/12/2021 Compre hensive metabolic 1999 panel - Serum or Plasma BUN 19 mg/dL 7-17 [facility] [address] [place], [address], 08/12/[address] T[address] 1999 panel - Serum or Plasma CREATININE 0.80 mg/dL 0.52-1.04 [facility] [address] [place], [address], 08/12/[address] metabolic 1999 panel - Serum or Plasma BUN/CREAT RATIO 23.8 CALC 4.0-25.0 [facility] [address] [place], [address], 08/12/[address] metabolic 1999 panel - Serum or Plasma CALCIUM 8.1 mg/dL 8.4-10.2 [facility] [address] [place], [address], 08/12/[address] metabolic 1999 panel - Serum or Plasma TOTAL PROTEIN 5.6 g/dL 6.3-8.2 [facility] [address] [place], [address], 08/12/[address] T[address] 1999 panel - Serum or Plasma ALBUMIN 2.8 g/dL 3.5-5.0 [facility] [address] [place], [address], 08/12/[address] metabolic 1999 panel - Serum or Plasma GLOBULIN 2.8 g/dL_(calc) 2.0-5.0 [facility] [address] [place], [address], 08/12/[address] metabolic 1999 panel - Serum or Plasma ALBUMIN/GLOBULIN RATIO 1.0 CALC 1.1-2.5 [facility] [address] [place], [address], 08/12/[address] metabolic 1999 panel - Serum or Plasma ALTV (SGPT) 80 U/L <35 [facility] [address] [place], [address], 08/12/2021 Compre hensive metabolic 1999 panel - Serum or Plasma AST (SGOT) 80 U/L 14-36 [facility] [address] [place], [address], 08/12/2021 Compre [address] metabolic 1999 panel - Serum or Plasma ALK. PHOSPHATASE 223 U/L 38-126 [facility] [address] [place], [address], 08/12/[address] metabolic 1999 panel - Serum or Plasma TOTAL BILIRUBIN 0.7 mg/dL 0.2-1.3 [facility] [address] [place], [address], 08/12/[address] metabolic 1999 panel - Serum or Plasma OSMOLALITY 298 mOsm/Kg_(calc) 274-300 [facility] [address] [place], [address], 08/12/[address] metabolic 1999 panel - Serum or Plasma EGFR 95 mL/min/1.86m2 >59 [facility] [address] [place], [address], 08/12/2021 Compre [address] metabolic 1999 panel - Serum or Plasma EGFR NON 78 mL/min/1.86m2 >59 [facility] [address] [place], [address], 08/13/2021 Lactat e [Moles/volume] in Serum or Plasma LACTATE 2.4 mmol/L 0.5-2.1 [facility] [address] [place], [address], 08/13/2021 Manual Differential panel - Blood SEG. NEUTROPHILS 84 % 44-68 [facility] [address] [place], [address], 08/13/2021 Manual Differential panel - Blood BAND NEUTROPHILS 6 % 0-6 [facility] [address] [place], [address], 08/13/2021 Manual Differential panel - Blood LYMPHOCYTES 7 % 25-44 [facility] [address] [place] [address], [address], 08/13/2021 Manual Differential panel - Blood MONOCYTE 3 % 0-8 [facility] [address] [place] [address], [address], 08/13/2021 Manual Differential panel - Blood EOSINOPHIL 0 % 0-5 [facility] [address] [place] [address], [address], 08/13/2021 Manual Differential panel - Blood BASOPHILS 0 % 0-3 [facility] [address] [place] [address], [address], 08/13/2021 CBC W Auto Differential panel - Blood WHITE BLOOD CELL COUNT 13.8 x10^3/UL 4.0-10.5 [facility] [address] [place] [address], [address], 08/13/2021 CBC W Auto Differential panel - Blood RED BLOOD CELL COUNT 4.05 x10^6/UL 3.90-5.20 [facility] [address] [place] [address], [address], 08/13/2021 CBC W Auto Differential panel - Blood HEMOGLOBIN 12.6 g/dL 12.0-16.0 [facility] [address] [place] [address], [id number], 08/13/2021 CBC W Auto Differential panel - Blood HEMATOCRIT 39 % 37-47 [facility] [address] [place] [address], [address], 08/13/2021 CBC W Auto Differential panel - Blood MCV 95 fL 78- 100 [facility] [address] [place] [address], [address], 08/13/2021 CBC W Auto Differential panel - Blood MCH 31 pg 27- 31 [facility] [address] [place] [address], [address], 08/13/2021 CBC W Auto Differential panel - Blood MCHC 33 g/dL 32-36 [facility] [address] [place] [address], [address], 08/13/2021 CBC W Auto Differential panel - Blood RDW 14.2 % 11.5-14.0 [facility] [address] [place] [address], [address], 08/13/2021 CBC W Auto Differential panel - Blood PLATELET COUNT 217 x10^3/UL 150-400 [facility] [address] [place] [address], [address], 08/13/2021 CBC W Auto Differential panel - Blood MPV 10.6 fL 7.5-11.5 [facility] [address] [place] [address], [address], 08/13/2021 CBC W Auto Differential panel - Blood REFLEX DIFF YES YES [facility] [address] [place] [address], [address], 08/13/2021 Basic metabolic 1999 panel - Serum or Plasma SODIUM 141 mmol/L 137-145 [facility] [address] [place] [address], [address], 08/13/2021 Basic metabolic 2000 panel - Serum or Plasma POTASSIUM 3.7 mmol/L 3.5-5.1 [facility] [address] [place] [address], [address], 08/13/2021 Basic metabolic 2000 panel - Serum or Plasma CHLORIDE 108 mmol/L 98-107 [facility] [address] [place] [address], [address], 08/13/2021 Basic metabolic 2000 panel - Serum or Plasma CARBON DIOXIDE 27 mmol/L 22-30 [facility] [address] [place] [address], [address], 08/13/2021 Basic metabolic 2000 panel - Serum or Plasma ANION GAP 10 mmol/L 8-18 [facility] [address] [place], [address], 08/13/2021 Basic metabolic 1999 panel - Serum or Plasma GLUCOSE 144 mg/dL 74-106 [facility] [address] [place], [address], 08/13/2021 Basic metabolic 1999 panel - Serum or Plasma BUN 27 mg/dL 7-17 [facility] [address] [place], [address], 08/13/2021 Basic metabolic 1999 panel - Serum or Plasma CREATININE 0.90 mg/dL 0.52-1.04 [facility] [address] [place], [address], 08/13/2021 Basic metabolic 1999 panel - Serum or Plasma BUN/CREAT RATIO 30.0 CALC 4.0-25.0 [facility] [address] [place], [address], 08/13/2021 Basic metabolic 1999 panel - Serum or Plasma CALCIUM 8.5 mg/dL 8.4-10.2 [facility] [address] [place], [address], 08/13/2021 Basic metabolic 1999 panel - Serum or Plasma OSMOLALITY 300 mOsm/Kg_(calc) 274-300 [facility] [address] [place], [address], 08/13/2021 Basic metabolic 1999 panel - Serum or Plasma EGFR 83 mL/min/1.86m2 >59 [facility] [address] [place], [address], 08/13/2021 Basic metabolic 1999 panel - Serum or Plasma EGFR NON 68 mL/min/1.86m2 >59 [facility] [address] [place], [address], 08/14/2021 Basic metabolic 1999 panel - Serum or Plasma SODIUM 140 mmol/L 137-145 [facility] [address] [place], [address], 08/14/2021 Basic metabolic 1999 panel - Serum or Plasma POTASSIUM 4.2 mmol/L 3.5-5.1 [facility] [address] [place], [address], 08/14/2021 Basic metabolic 1999 panel - Serum or Plasma CHLORIDE 106 mmol/L 98-107 [facility] [address] [place], [address], 08/14/2021 Basic metabolic 1999 panel - Serum or Plasma CARBON DIOXIDE 27 mmol/L 22-30 [facility] [address] [place], [address], 08/14/2021 Basic metabolic 1999 panel - Serum or Plasma ANION GAP 11 mmol/L 8-18 [facility] [address] [place], [address], 08/14/2021 Basic metabolic 1999 panel - Serum or Plasma GLUCOSE 158 mg/dL 74-106 [facility] [address] [place], [address], 08/14/2021 Basic metabolic 1999 panel - Serum or Plasma BUN 27 mg/dL 7-17 [facility] [address] [place], [address], 08/14/2021 Basic metabolic 1999 panel - Serum or Plasma CREATININE 0.90 mg/dL 0.52-1.04 [facility] [address] [place], [address], 08/14/2021 Basic metabolic 1999 panel - Serum or Plasma BUN/CREAT RATIO 30.0 CALC 4.0-25.0 [facility] [address] [place], [address], 08/14/2021 Basic metabolic 1999 panel - Serum or Plasma CALCIUM 7.9 mg/dL 8.4-10.2 [facility] [address] [place], [address], 08/14/2021 Basic metabolic 2000 panel - Serum or Plasma OSMOLALITY 298 mOsm/Kg_(calc) 274-300 [facility] [address] [place], [address], 08/14/2021 Basic metabolic 2000 panel - Serum or Plasma EGFR 83 mL/min/1.86m2 >59 [facility] [address] [place], [address], 08/14/2021 Basic metabolic 2000 panel - Serum or Plasma EGFR NON 68 mL/min/1.86m2 >59 [facility] [address] [place], [address], 08/14/2021 Lactat e [Moles/volume] in Serum or Plasma LACTATE 3.0 mmol/L 0.5-2.1 [facility] [address] [place], [address], EKG study No observation recorded. XR Chest Single view PDF [facility] [address] [place], [address], EKG study No observation recorded. XR Chest Single view PDF [facility] [address] [place], [address], Problems Name Status Last Modified Date Onset Date Resolution Date Laterality Problem Type dyspnea Active 08/11/2021 021 respiratory distress Active 08/11/2021 021 SARS-CoV-2 Active 08/11/2021 021 hypoxia Active 08/11/2021 021 acute respiratory failure Active 08/11/2021 08/11/2021 sepsis Active 08/11/2021 021 Procedures Surgical History None recorded. Imaging Results Imaging Date Name Performed by Statu s 08/14/2021 XR Chest Single view active 08/11/2021 EKG study Information not available active 08/12/2021 EKG study Information not available active 08/11/2021 XR Chest Single view active Performed Procedures None recorded. Procedure Notes None recorded. Planned Procedures None recorded. Medical Equipment None Reported. Allergies Name Reaction Severity Status Onset Category morphine active Medication Allergy Admission Medications Name Sig Start Date Stop Da te Status Note escitalopram 10 MG Oral Tablet active estradiol micronized (bulk) 100 % powder active levothyroxine sodium 0.05 MG Oral Tablet active 24 HR metoprolol succinate 50 MG Extended Release Oral Tablet active mupirocin 0.02 MG/MG Topical Ointment active Hospital Discharge Medications Medication reconcillation has not been compl eted. Home medications Name Sig Start Date Stop Da te Status Note escitalopram 10 MG Oral Tablet active estradiol micronized (bulk) 100 % powder active levothyroxine sodium 0.05 MG Oral Tablet active 24 HR metoprolol succinate 50 MG Extended Release Oral Tablet active mupirocin 0.02 MG/MG Topical Ointment active Vitals Date Recorded Body weight Diastolic blood pressure Systolic blood pressure 6992-67-12H69:58 56963.96 g 81 149 Date Recorded Puls e rate Oxygen saturation in Arterial blood by P ulse oximetry Body temperature 4057-86-01G08:59 61 99 98.1 F Date Recorded Resp iratory rate 0274-66-44U85:46 30 breaths per minute Date Recorded Resp iratory rate 7038-52-96A63:01 24 breaths per minute Date Recorded Resp iratory rate 9650-04-49U84:55 32 breaths per minute Date Recorded Resp iratory rate Respiratory rate 7911-37-05S58:54 38 breaths per minute 38 breaths per minute Date Recorded Resp iratory rate 4743-72-81E77:58 24 breaths per minute Date Recorded Resp iratory rate 5581-45-17X90:52 20 breaths per minute Date Recorded Resp iratory rate 8531-91-22V05:40 16 breaths per minute Date Recorded Resp iratory rate 1031-06-30V09:28 22 breaths per minute Date Recorded Resp iratory rate 9607-43-41U47:40 28 breaths per minute Date Recorded Resp iratory rate 8675-53-15M65:50 26 breaths per minute Date Recorded Resp iratory rate 9660-92-66C87:19 24 breaths per minute Date Recorded Resp iratory rate 8566-60-98U94:57 26 breaths per minute Date Recorded Resp iratory rate 6502-65-90U96:27 36 breaths per minute Date Recorded Resp iratory rate 4613-29-77I56:43 30 breaths per minute Date Recorded Resp iratory rate 6800-58-60L65:52 24 breaths per minute Date Recorded Resp iratory rate 6501-85-40W34:39 30 breaths per minute Date Recorded Resp iratory rate 4546-37-87F52:43 24 breaths per minute Date Recorded Resp iratory rate 3212-42-30V44:57 26 breaths per minute Date Recorded Resp iratory rate 4747-29-32H60:29 24 breaths per minute Date Recorded Resp iratory rate 1238-24-08I67:12 22 breaths per minute Date Recorded Resp iratory rate 2606-48-69R52:24 22 breaths per minute Date Recorded Resp iratory rate 1259-08-21B58:31 24 breaths per minute Date Recorded Resp iratory rate 4795-59-32D23:24 26 breaths per minute Date Recorded Resp iratory rate 2482-77-56S61:37 24 breaths per minute Date Recorded Resp iratory rate 6606-84-69V77:31 28 breaths per minute Date Recorded Resp iratory rate 4421-67-50L32:30 24 breaths per minute Date Recorded Resp iratory rate 6292-97-31U33:54 26 breaths per minute Date Recorded Resp iratory rate 4319-93-88L72:45 26 breaths per minute Date Recorded Resp iratory rate 0724-68-29J95:45 28 breaths per minute Date Recorded Resp iratory rate 0377-43-15K18:20 24 breaths per minute Date Recorded Resp iratory rate 7337-46-77V98:21 20 breaths per minute Date Recorded Resp iratory rate 9055-85-22G89:21 28 breaths per minute Date Recorded Resp iratory rate 2815-55-19A84:21 24 breaths per minute Date Recorded Resp iratory rate 1028-28-25F17:24 28 breaths per minute Date Recorded Resp iratory rate 3915-72-28S39:56 40 breaths per minute Date Recorded Resp iratory rate 1124-81-78V51:01 33 breaths per minute Date Recorded Resp iratory rate 5887-30-65E49:47 38 breaths per minute Date Recorded Resp iratory rate 2116-35-02X83:56 24 breaths per minute Date Recorded Resp iratory rate 1635-57-15H36:40 38 breaths per minute Social History None recorded. Functional Status None recorded. Mental Status None recorded. Family History Nothing Reported. Immunizations None recorded. Past Encounters Encounter Date Leonie gnosis Name Diagnosis SNOMED-CT Code Diagnosis Effective Date(s) 08/11/2021 - 08/14/2021 [facility] [address], Ph. dyspnea [id number] 08/11/2021 - Active respiratory dist ress 739029539 08/11/20 21 - Active SARS-CoV-2 283822991 08/11/20 21 - Active hypoxia 855199430 08/11/20 21 - Active acute respirator y failure 61233156 1 - Active sepsis 23178683 1 - Active 04/15/2021 - 04/16/2021 [facility], Outpatient Lab/Rad: [address] [place] [address], Ph. 2020 - 08/27/2020 [facility], Outpatient Lab/Rad: [address] [place] [address], Ph. 02/11/2020 - 02/12/2020 [facility], Outpatient Lab/Rad: [address] [place] [address], Ph. 2019 - 08/27/2019 [facility], Outpatient Lab/Rad: [address] [place] [address], Ph. 02/19/2019 - 02/20/2019 [facility], Outpatient Lab/Rad: [address] [place] [address], Ph. 07/18/2018 - 07/19/2018 [facility], Outpatient Lab/Rad: [address] [place] [address], Ph. 01/30/2018 - 01/31/2018 [facility], Outpatient Lab/Rad: [address] [place] [address], Ph. 07/12/2017 - 07/13/2017 [facility], Outpatient Lab/Rad: [address] [place] [address], Ph.
--- NOTE | 2021-08-14 18:12 | Tele-ICU Consult ---
History of Present Illness History of Present Illness Date Seen by Provider: Aug 14, 2021 Time Seen by Provider: 17:49 Date of Admission This virtual visit was conducted using real time audio/video. Thank you for asking us to see this patient for respiratory insufficiency due to Covid pna. Unvaccinated. Recent events: Transferred from OSH PMH: htn SH: smoking history N FH: Non-contributory ROS: limited by patient's clinical condition, but as in HPI PE: Obese. Currently undistressed. VSS. O2 97% sat on BiPAP 15/7 100%. HEENT: No obvious masses, adenopathy or JVD. Chest: clear to auscultation. CV: RRR S1 S2 No murmur or added sounds. Abd: Non-tender. Bowel sounds Y. : Unremarkable. [employer] EXECUTIVE/psychiatric: Grossly intact. No obvious focal findings. Extremities: No edema. Capillary refill < 3 seconds. Skin: unremarkable. Results: none currently available.. Available chart/ vitals / labs / images to be reviewed. Video assessment done using teleICU camera, rest of exam as per RN. A/P: Respiratory insufficiency: Continue present management with Dex., Remdes. BDs, BiPAP Monitor for increasing oxygenation needs and/or need for intubation. Critical Care: critically ill patient. Add Esdras., PPI. Discussed with HERBERTH Kothari. Asked RN to reach out to eICU if any questions or concerns later. Time spent with patient/coordination of care with other health professionals (mins): Allergies and Home Medications Allergies Coded Allergies: No Allergy Information Available (Unverified , 08/14/21) Review of Systems Constitutional: see HPI EENTM: see HPI Respiratory: see HPI Cardiovascular: see HPI Gastrointestinal: see HPI Genitourinary: see HPI Musculoskeletal: see HPI Skin: see HPI Psychiatric/Neurological: See HPI All Other Systems Reviewed Negative Unless Noted: Yes Sepsis Event Evaluation Height, Weight, BMI Height: '" Weight: lbs. oz. kg; BMI Method: Exam Exam Patient acknowledged, consented, and participated in this virtual visit which was conducted using real time audio/video Height & Weight Height: '" Weight: lbs. oz. kg; BMI Method: General Appearance: Obese Peripheral Pulses: 1+ Dorsalis Pedis (R), 1+ Left Dors-Pedis (L) (See free text.) Assessment/Plan Assessment/Plan See free text. Critical Care: Critically Ill Patient TRACY ROWE MD Aug 14, 2021 18:12
[2021-08-14] MEDS ORDERED: MELATONIN 3 MG TABLET PO PRN (18:15)
[2021-08-14] MEDS ORDERED: ONDANSETRON 4 MG (ZOFRAN) ORAL DISSOLVE TAB PO PRN (18:15)
[2021-08-14] MEDS ORDERED: ANTACID SUSP 30 ML UDC (MYLANTA) PO PRN (18:15)
[2021-08-14] MEDS ORDERED: ONDANSETRON 4 MG/2 ML (SDV) Z0FRAN IV PRN (18:15)
[2021-08-14] MEDS ORDERED: guaiFENesin/DM (ROBITUSSIN DM) 10 ML UDC PO PRN (18:15)
[2021-08-14] MEDS ORDERED: diphenhydrAMINE 25 MG TAB (BENADRYL) PO PRN (18:15)
[2021-08-14] MEDS ORDERED: polyethylene glycoL POWDER 17 GM (MIRALAX) PACK PO PRN (18:15)
[2021-08-14 18:16] LABS: ABG BASE EXCESS -0.2 MMOL/L (-2.5-2.5); ABG OXYGEN SATURATION 98 % (94-100); ABG PCO2 36 MMHG (35-45); ABG PH 7.44 (7.37-7.43); ABG PO2 113 MMHG (79-93); ABG TCO2 24.6 MMOL/L (21.0-31.0)
[2021-08-14 18:17] LABS: ALLENS TEST POSITIVE; INSPIRED O2 100& BIPAP; PATIENT TEMP 37.1; VENTILATOR NO
[2021-08-14] MEDS ORDERED: RT-ALBUTEROL HFA 8.5 GM INHALER IH PRN (19:00)
--- NOTE | 2021-08-14 19:27 | Diagnostic Imaging Report ---
INDICATION: Covid infection. EXAMINATION: Portable AP view of the chest was obtained. COMPARISON: There is no previous study for comparison. FINDINGS: Heart size at the upper limits of normal. There is diffuse groundglass density throughout the lungs. No lobar consolidation, pneumothorax or definite pleural effusion is seen. IMPRESSION: Diffuse bilateral groundglass density would be compatible with pneumonitis from Covid infection. Dictated by: Dictated on workstation # [id number]
[2021-08-14] MEDS: DOCUSATE SODIUM 100 MG (COLACE) CAP PO SCH (20:05)
[2021-08-14] MEDS: SENNOSIDES 8.6 MG (SENOKOT) TAB PO SCH (20:06)
[2021-08-14] MEDS: inSUlin ASPART (NovoLOG) 1 UNIT/0.01 ML (CHARGE PER UNIT) SC SCH (20:06)
[2021-08-14 20:13] LABS: ABG BASE EXCESS 0.4 MMOL/L (-2.5-2.5); ABG OXYGEN SATURATION 96 % (94-100); ABG PCO2 31 MMHG (35-45); ABG PH 7.49 (7.37-7.43); ABG PO2 86 MMHG (79-93); ABG TCO2 24.3 MMOL/L (21.0-31.0)
[2021-08-14 20:15] LABS: ALLENS TEST YES-POS; INSPIRED O2 80%; PATIENT TEMP 37.5; VENTILATOR NO
[2021-08-14] MEDS ORDERED: ENOXAPARIN 40 MG/0.4 ML (LOVENOX) SYR SC SCH (21:00)
--- NOTE | 2021-08-14 21:08 | History & Physical-Hospitalist ---
History of Present Illness HPI/Chief Complaint Chacho Sandoval is a 60 year old female with PMH HTN, hypothyroidism, depression, who was transferred from [place], [place] with acute respiratory failure due to COVID-19. She was admitted there to a critical access hospital. Her oxygen requirement worsened and they could no longer support her. No beds were available anywhere near their facility and [facility] assisted with locating a bed at our facility. She was transferred by fixed wing plane to ambulance. She was transported on BiPAP. She has been sick for a little over a week. She has had fevers. She has been short of breath and coughing. She denies chest pain. She has not had nausea, vomiting, or diarrhea. Her appetite has been poor. She is unvaccinated. She was being treated with Decadron, Remdesivir, Baricitinib, and antibiotics. Source: patient Exam Limitations: no limitations Date Seen 08/14/21 Time Seen by a Provider: 19:15 Attending Physician Daria Alfonso MD PCP No,Local Physician Referring Physician Date of Admission Aug 14, 2021 at 17:49 Home Medications & Allergies Home Medications Reviewed patient Home Medication Reconciliation performed by pharmacy medication reconciliations nitriles lab technician and/or nursing. Patients Allergies have been reviewed. Allergies Allergies Coded Allergies No Allergy Information Available (Ezqdsfipeu63/12/21) Past Hglqfil-Zgwuaq-Hlkobn Hx Past Medical History Hypertension Hypothyroidsim Depression Family Medical History No Pertinent Family Hx Review of Systems Constitutional: fever, malaise EENTM: no symptoms reported Respiratory: cough, short of breath Cardiovascular: no symptoms reported Gastrointestinal: no symptoms reported Genitourinary: no symptoms reported Musculoskeletal: no symptoms reported Skin: no symptoms reported Psychiatric/Neurological: No Symptoms Reported Physical Exam Physical Exam Vital Signs Vital Signs - First Documented 08/14/21 08/14/21 08/14/21 17:56 18:00 18:20 Temp 37.1 Pulse 90 Resp 19 B/P (MAP) 186/87 (106) Pulse Ox 91 O2 Delivery NIV Bilevel O2 Flow Rate 100.00 FiO2 100 Capillary Refill : Height, Weight, BMI Height: '" Weight: lbs. oz. kg; 29.20 BMI Method: General Appearance: No Apparent Distress, WD/WN HEENT: PERRL/EOMI, Other (wearing BiPAP mask) Neck: Normal Inspection, Supple Respiratory: Lungs Clear, Normal Breath Sounds, No Respiratory Distress, Other (wearing BiPAP) Cardiovascular: Regular Rate, Rhythm, No Edema, No Murmur, Normal Peripheral Pulses Gastrointestinal: Normal Bowel Sounds, Non Tender, Soft Extremity: Normal Inspection, Non Tender, No Pedal Edema Neurologic/Psychiatric: Alert, No Motor/Sensory Deficits, Normal Mood/Affect Skin: Normal Color, Warm/Dry Results Results/Procedures Labs Patient resulted labs reviewed. Imaging: Reviewed Imaging Report Assessment/Plan Admission Diagnosis Acute respiratory failure due to COVID-19 Admission Status: Inpatient Order (span 2 midnights) Reason for Inpatient Admission: Respiratory failure Assessment and Plan Acute respiratory failure due to COVID-19 COVID+ at outside facility Decadron Stop Baricitinib Actemra ordered for tomorrow morning, risks/benefits/EUA use discussed and patient agrees Check procalcitonin Check ddimer Requiring BiPAP High risk for intubation TeleICU consulted HTN Hypothyroidism Depression Hold home meds for now DVT prophylaxis: Lovenox Critical Care Critically Ill Patient Diagnosis/Problems Diagnosis/Problems (1) Acute respiratory failure due to COVID-19 Status: Acute DARIA ALFONSO MD Aug 14, 2021 21:07
[2021-08-14] MEDS: RT-ALBUTEROL HFA 8.5 GM INHALER IH SCH (21:22)
--- NOTE | 2021-08-14 21:37 | Tele-ICU Progress Note ---
Progress Note Called by the nurse to review ABG. Reviewed. Ac hypoxic resp failure 2/2 COVID-19 pneumonia unvaccinated. On BIPAP. Continue on 100% O2 . Continue on BiPAP, no increased WOB. D/W the bedside nurse to encourage prone position. Interventions Major-Hypoxemia - evaluation and management Focused Exam Height, Weight, BMI Height: '" Weight: lbs. oz. kg; 29.20 BMI Method: FEDE LEES MD Aug 14, 2021 21:37
[2021-08-15] VITALS (49 sets, daily range): BP systolic 114–171; BP diastolic 64–104
[2021-08-15] MEDS: ACETAMINOPHEN 325 MG TABLET PO PRN ×2 (00:38→08:16)
[2021-08-15 01:16] LABS: BASOPHILS % (AUTO) 0 % (0-10); EOSINOPHILS % (AUTO) 0 % (0-10); HEMATOCRIT 38 % (35-52); HEMOGLOBIN 12.7 g/dL (11.5-16.0); LYMPHOCYTES # (AUTO) 1.1 10^3/uL (1.0-4.0); LYMPHOCYTES % (AUTO) 7 % (12-44); MEAN CORPUSCULAR HEMOGLOBIN 31 pg (25-34); MEAN CORPUSCULAR HGB CONC 33 g/dL (32-36); MEAN CORPUSCULAR VOLUME 94 fL (80-99); MEAN PLATELET VOLUME 10.7 fL (9.0-12.2); MONOCYTES # (AUTO) 0.6 10^3/uL (0.0-1.0); MONOCYTES % (AUTO) 4 % (0-12); NEUTROPHILS # (AUTO) 13.3 10^3/uL (1.8-7.8); NEUTROPHILS % (AUTO) 87 % (42-75); PLATELET COUNT 213 10^3/uL (130-400); WHITE BLOOD COUNT 15.3 10^3/uL (4.3-11.0)
[2021-08-15 01:19] LABS: POTASSIUM 3.9 MMOL/L (3.6-5.0)
[2021-08-15 01:25] LABS: CREATININE SERUM 0.87 MG/DL (0.60-1.30)
[2021-08-15 01:27] LABS: MAGNESIUM 2.5 MG/DL (1.6-2.4)
[2021-08-15 01:31] LABS: LYMPHOCYTES % (MANUAL) 7 %; MONOCYTES % (MANUAL) 2 %; NEUTROPHILS % (MANUAL) 91 %; RBC MORPH NORMAL
[2021-08-15] MEDS: RT-ALBUTEROL HFA 8.5 GM INHALER IH SCH ×6 (02:51→21:24)
[2021-08-15] MEDS: inSUlin ASPART (NovoLOG) 1 UNIT/0.01 ML (CHARGE PER UNIT) SC SCH ×4 (06:48→21:05)
[2021-08-15] MEDS: MAGNESIUM 1 GM/100 ML IVPB 100 ML IV SCH (06:48)
[2021-08-15] MEDS: KCL 20 MEQ TAB (K-DUR) PO SCH (06:48)
[2021-08-15] MEDS: POTASSIUM CL 10MEQ/50ML IVPB 50 ML IV SCH (06:48)
[2021-08-15] MEDS: ENOXAPARIN 80 MG/0.8 ML (LOVENOX) SYR SC SCH ×2 (08:17→21:05)
[2021-08-15] MEDS: DOCUSATE SODIUM 100 MG (COLACE) CAP PO SCH ×2 (08:17→21:04)
[2021-08-15] MEDS: SENNOSIDES 8.6 MG (SENOKOT) TAB PO SCH ×2 (08:17→21:04)
[2021-08-15] MEDS ORDERED: TOCILIZUMAB INJECTION (NON-FOR 400 MG, TOCILIZUMAB INJECTION 200 MG in NS (IVPB) 70 ML IV NR (09:00)
[2021-08-15] MEDS ORDERED: ENOXAPARIN 40 MG/0.4 ML (LOVENOX) SYR SC SCH (09:00)
[2021-08-15] MEDS ORDERED: TOCILIZUMAB INJECTION (NON-FOR 400 MG, TOCILIZUMAB INJECTION 200 MG in NS (IVPB) 70 ML IV ONE (09:00)
--- NOTE | 2021-08-15 09:57 | Progress Note - Hospitalist ---
Subjective HPI/CC On Admission Date Seen by Provider: Aug 15, 2021 Time Seen by Provider: 10:00 Chacho Sandoval is a 60 year old female with PMH HTN, hypothyroidism, depression, who was transferred from [place], [place] with acute respiratory failure due to COVID-19. She was admitted there to a critical access hospital. Her oxygen re quirement worsened and they could no longer support her. No beds were available anywhere near their facility and [place] [facility] assisted with locating a bed at our facility. She was transferred by fixed wing plane to ambulance. She was transported on BiPAP. She has been sick for a little over a week. She has had fevers. She has been short of breath and coughing. She denies chest pain. She has not had nausea, vomiting, or diarrhea. Her appetite has been poor. She is unvaccinated. She was being treated with Decadron, Remdesivir, Baricitinib, and antibiotics. Subjective/Events-last exam Pt had a picc line placed Flew in from [facility] Maxed on BiPAP Actemra was received Elevated D-dimer was noted and CT scan of the chest was ordered, results pending BiPAP settings were 17/03 Review of Systems General: Fatigue, Malaise Pulmonary: Dyspnea Focused Exam Lactate Level 08/15/21 00:46: Lactic Acid Level 2.06*H 08/15/21 05:36: Lactic Acid Level 1.99 Objective Exam Vital Signs Vital Signs Date Time Temp Pulse Resp B/P (MAP) Pulse Ox O2 Delivery O2 Flow Rate FiO2 08/16/21 04:00 96 NIV Bilevel 95 08/16/21 04:00 65 27 158/92 (122) 95.00 08/16/21 00:00 36.1 Capillary Refill : General Appearance: Anxious, Chronically ill, Mild Distress Respiratory: No Accessory Muscle Use, No Respiratory Distress, Decreased Breath Sounds, Other (BiPAP) Cardiovascular: Regular Rate, Rhythm Neurologic/Psychiatric: Alert Results/Procedures Lab Laboratory Tests 08/16/21 04:00 Patient resulted labs reviewed. Imaging: Reviewed Imaging Report Assessment/Plan Assessment and Plan Assess & Plan/Chief Complaint Acute respiratory failure due to COVID-19 COVID+ at outside facility Decadron Stopped Baricitinib Actemra given risks/benefits/EUA use discussed and patient agrees Check procalcitonin Checked ddimer and greater than [address] angio Requiring BiPAP High risk for intubation TeleICU consulted HTN Hypothyroidism Depression Hold home meds for now DVT prophylaxis: Lovenox Critical Care Critically Ill Patient NEREYDA WALDROP DO Aug 15, 2021 09:57
[2021-08-15] MEDS ORDERED: NS 100 ML (IVPB) BAG IV ONE (10:00)
[2021-08-15] MEDS ORDERED: HOLD METFORMIN - RECEIVED CONTRAST 20 ML VIAL IV SCH (10:00)
[2021-08-15] MEDS ORDERED: IOHEXOL 350 MG/ML 100 ML (OMNIPAQUE 350) VIAL IV ONE (10:00)
[2021-08-15] MEDS ORDERED: CATHETER FLUSH 10 ML SYR IV PRN (10:00)
--- NOTE | 2021-08-15 11:00 | Diagnostic Imaging Report ---
PROCEDURE: CT angiography of the chest with contrast. TECHNIQUE: Multiple contiguous axial images were obtained through the chest after uneventful bolus administration of intravenous contrast. 3D reconstructed CTA MIP acquisitions were also performed. Auto Exposure Controls were utilized during the CT exam to meet ALARA standards for radiation dose reduction. INDICATION: COVID 19 positive with elevated D-dimer. No prior studies are available for comparison. Evaluation of pulmonary arterial system is without evidence of thromboembolism. No definite filling defects are seen within central, lobar segmental branches. The thoracic aorta is of normal caliber. There is no dissection. There is trace bilateral effusions. No axillary lymphadenopathy is identified. There are some prominent lymph nodes within the mediastinum in the paratracheal and AP window. No hilar lymphadenopathy is seen. Parenchymal evaluation demonstrates extensive groundglass infiltrates involving bilateral upper lobes and bilateral lower lobes. There is some more significant parenchymal consolidation with air bronchograms in the right lower lobe. Upper abdomen is unremarkable. IMPRESSION: 1. No definite evidence of pulmonary embolus or thoracic aortic dissection. 2. Trace bilateral pleural effusions and mediastinal lymphadenopathy. 3. Extensive bilateral groundglass and airspace infiltrates in the upper and lower lobes consistent with COVID 19 pneumonia. Report was faxed to [facility] by carlos at 10:59AM. Dictated by: Dictated on workstation # [id number]
--- NOTE | 2021-08-15 12:12 | Tele-ICU Progress Note ---
Subjective Date Seen by a Provider: Aug 15, 2021 Time Seen by a Provider: 12:12 Sepsis Event Evaluation Height, Weight, BMI Height: '" Weight: lbs. oz. kg; 29.20 BMI Method: Focused Exam Lactate Level 08/15/21 00:46: Lactic Acid Level 2.06*H 08/15/21 05:36: Lactic Acid Level 1.99 Exam Exam Patient acknowledged, consented, and participated in this virtual visit which was conducted using real time audio/video Vital Signs Date Time Temp Pulse Resp B/P (MAP) Pulse Ox O2 Delivery O2 Flow Rate FiO2 08/15/21 11:30 35.6 08/15/21 10:27 70 34 97 100.00 08/15/21 10:16 36.3 08/15/21 08:30 NIV Bilevel 100 08/15/21 08:00 37.8 08/15/21 08:00 77 35 161/86 (102) 81 08/15/21 07:45 74 41 81 08/15/21 07:30 75 27 NIV Bilevel 100.00 08/15/21 07:07 78 32 94 100.00 08/15/21 07:00 71 08/15/21 07:00 74 39 155/82 (105) 92 NIV Bilevel 100.00 08/15/21 06:00 71 159/79 (105) 92 NIV Bilevel 100.00 08/15/21 05:00 74 12 142/85 (104) 92 NIV Bilevel 100.00 08/15/21 04:00 93 NIV Bilevel 100 08/15/21 04:00 65 37 131/76 (94) 92 NIV Bilevel 100.00 08/15/21 03:00 65 37 124/64 (79) 91 NIV Bilevel 100.00 08/15/21 02:52 67 30 94 100.00 08/15/21 02:00 65 37 116/80 (84) 93 NIV Bilevel 100.00 08/15/21 01:52 37.3 08/15/21 01:08 36.3 08/15/21 01:00 76 29 146/79 (91) 97 NIV Bilevel 100.00 08/15/21 01:00 79 08/15/21 00:38 37.7 08/15/21 00:00 61 33 145/84 (104) 91 NIV Bilevel 100.00 08/15/21 00:00 37.6 08/15/21 00:00 96 NIV Bilevel 100 08/14/21 23:00 61 34 151/94 (113) 91 NIV Bilevel 100.00 08/14/21 22:00 62 38 150/89 (106) 91 NIV Bilevel 100.00 08/14/21 21:30 64 38 138/87 (112) 94 NIV Bilevel 100.00 08/14/21 21:22 62 33 93 100.00 08/14/21 20:30 61 34 146/86 (109) 93 NIV Bilevel 100.00 08/14/21 20:07 37.5 NIV Bilevel 100.00 08/14/21 20:00 94 NIV Bilevel 100 08/14/21 19:15 62 40 153/88 (109) 91 NIV Bilevel 80.00 08/14/21 19:00 74 08/14/21 19:00 NIV Bilevel 80.00 08/14/21 18:30 NIV Bilevel 100 08/14/21 18:20 37.1 71 97 100 08/14/21 18:11 71 44 97 100.00 08/14/21 18:07 77 08/14/21 18:00 74 18 162/96 (123) 91 NIV Bilevel 100.00 08/14/21 17:56 90 19 186/87 (106) NIV Bilevel 100.00 I & O 08/15/21 07:00 Intake Total 700 ml Output Total 675 ml Balance 25 ml Height & Weight Height: '" Weight: lbs. oz. kg; 29.20 BMI Method: General Appearance: No Apparent Distress, WD/WN HEENT: PERRL/EOMI, Other (wearing BiPAP mask) Neck: Normal Inspection, Supple Respiratory: Lungs Clear, Normal Breath Sounds, No Respiratory Distress, Other (wearing BiPAP) Cardiovascular: Regular Rate, Rhythm, No Edema, No Murmur, Normal Peripheral Pulses Peripheral Pulses: 1+ Dorsalis Pedis (R), 1+ Left Dors-Pedis (L) (See free text.) Extremity: Normal Inspection, Non Tender, No Pedal Edema Neurologic/Psychiatric: Alert, No Motor/Sensory Deficits, Normal Mood/Affect Skin: Normal Color, Warm/Dry Results Lab Laboratory Tests 08/15/21 00:46 Assessment/Plan Assessment/Plan (Tele-ICU Physician , Progress Note ) Available chart/ vitals / labs / Images reviewed Video assessment done using teleICU camera, rest of exam as per RN Discussed with RN , EXAM PER RN Events overnight : FEBRILE FiO2 - 100% I/O = even Drips: Pressors: �, hemodynamically stable Consultants: Hospital course: (08/14) 60yr old female admitted with Covid pneumonia, TRANSFER [facility] OTHER FACILITY 08/03- BIPAP16/7 100%, RR 35 TV 700 , MV 25 , CTA - NO PE A/P AHRF / ARDS due to severe COVID19 - BIPAP16/7 100%, RR 35 TV 700 , MV 25 -prone position if able - conservative fluid strategy (aim for even or negative fluid balance [id number]-6/COVID-19 PNA - TRANSFER FTO OTHER FACILITY --Remdesivir ? no records --Dexamethasone / -- s/p [id number]/ 13 ( ? received Baricitinib on other hospital ? ( will start on Acyclovir for HSV/VZV prophylaxis after Tocilizumab- 30 days 400 po bid ) -Hypercoagulable state , DDIMER= 20 on -> ( no evidence of large PE on CT 08/15 ) monitor for superimposed bact PNA -PCT0.17 , OFF abx , CT with atelectasis vs RLL infiltrate - follow Hyperglycemia - ISS , close f/up on steroids Lines : PICC 08/15 (Central Line Necessity Reviewed) Wright: � OG: Nutrition: po Analgesia: Anxiety/ delirium VTE Prophylaxis: ulises 80 bid Stress Ulcer Prophylaxis: Plans in collaboration with bedside consultants and IM MDs. Discussed with RN to reach out if any questions or concerns A total of 35 minutes of critical care time was devoted to this patient today, required to treat and/or prevent further deterioration of critical care condition ( as above) . ZEB BERG MD Aug 15, 2021 12:12
[2021-08-15] MEDS: ACYCLOVIR 400 MG TABLET (ZOVIRAX) PO SCH (21:05)
[2021-08-16] VITALS (27 sets, daily range): BP systolic 132–168; BP diastolic 43–103
[2021-08-16] MEDS: RT-ALBUTEROL HFA 8.5 GM INHALER IH SCH ×6 (02:32→22:20)
[2021-08-16 04:11] LABS: BASOPHILS % (AUTO) 0 % (0-10); EOSINOPHILS % (AUTO) 0 % (0-10); HEMATOCRIT 37 % (35-52); HEMOGLOBIN 12.6 g/dL (11.5-16.0); LYMPHOCYTES # (AUTO) 0.8 10^3/uL (1.0-4.0); LYMPHOCYTES % (AUTO) 4 % (12-44); MEAN CORPUSCULAR HEMOGLOBIN 32 pg (25-34); MEAN CORPUSCULAR HGB CONC 34 g/dL (32-36); MEAN CORPUSCULAR VOLUME 94 fL (80-99); MEAN PLATELET VOLUME 11.2 fL (9.0-12.2); MONOCYTES # (AUTO) 0.6 10^3/uL (0.0-1.0); MONOCYTES % (AUTO) 3 % (0-12); NEUTROPHILS # (AUTO) 18.1 10^3/uL (1.8-7.8); NEUTROPHILS % (AUTO) 92 % (42-75); PLATELET COUNT 188 10^3/uL (130-400); WHITE BLOOD COUNT 19.7 10^3/uL (4.3-11.0)
[2021-08-16 04:53] LABS: ALBUMIN 2.7 GM/DL (3.2-4.5); BILIRUBIN,DIRECT 0.6 MG/DL (0.0-0.3); BILIRUBIN,INDIRECT 0.5 MG/DL; BILIRUBIN,TOTAL 1.1 MG/DL (0.1-1.0); CALCIUM 7.9 MG/DL (8.5-10.1); CREATININE SERUM 0.8 MG/DL (0.60-1.30); MAGNESIUM 2.7 MG/DL (1.6-2.4); POTASSIUM 4.2 MMOL/L (3.6-5.0); TOTAL PROTEIN 5.7 GM/DL (6.4-8.2)
[2021-08-16] MEDS: KCL 20 MEQ TAB (K-DUR) PO SCH (05:01)
[2021-08-16] MEDS: MAGNESIUM 1 GM/100 ML IVPB 100 ML IV SCH (05:01)
[2021-08-16] MEDS: POTASSIUM CL 10MEQ/50ML IVPB 50 ML IV SCH (05:01)
[2021-08-16] MEDS: inSUlin ASPART (NovoLOG) 1 UNIT/0.01 ML (CHARGE PER UNIT) SC SCH ×4 (05:01→20:25)
--- NOTE | 2021-08-16 07:07 | Progress Note - Hospitalist ---
Subjective HPI/CC On Admission Date Seen by Provider: Aug 16, 2021 Time Seen by Provider: 10:30 Chacho Sandoval is a 60 year old female with PMH HTN, hypothyroidism, depression, who was transferred from [place], [place] with acute respiratory failure due to COVID-19. She was admitted there to a critical access hospital. Her oxygen re quirement worsened and they could no longer support her. No beds were available anywhere near their facility and [place] [facility] assisted with locating a bed at our facility. She was transferred by fixed wing plane to ambulance. She was transported on BiPAP. She has been sick for a little over a week. She has had fevers. She has been short of breath and coughing. She denies chest pain. She has not had nausea, vomiting, or diarrhea. Her appetite has been poor. She is unvaccinated. She was being treated with Decadron, Remdesivir, Baricitinib, and antibiotics. Subjective/Events-last exam Pt awake today Bipap settings are 15/7 at 95% She did receive the Actemra Picc line was placed yesterday Wants some Ensure Review of Systems General: Fatigue, Malaise Pulmonary: Dyspnea, Cough Focused Exam Lactate Level 08/15/21 00:46: Lactic Acid Level 2.06*H 08/15/21 05:36: Lactic Acid Level 1.99 Objective Exam Vital Signs Vital Signs Date Time Temp Pulse Resp B/P (MAP) Pulse Ox O2 Delivery O2 Flow Rate FiO2 08/17/21 04:00 57 127/74 (91) 96 NIV Bilevel 75.00 08/17/21 03:20 36.0 08/17/21 03:20 80 08/17/21 03:00 29 Capillary Refill : General Appearance: No Apparent Distress, WD/WN, Anxious, Chronically ill, Other (BiPAP on) Respiratory: No Accessory Muscle Use, No Respiratory Distress, Decreased Breath Sounds Cardiovascular: Regular Rate, Rhythm Neurologic/Psychiatric: Alert, Oriented x3, No Motor/Sensory Deficits, Normal Mood/Affect Results/Procedures Lab Laboratory Tests 08/17/21 03:25 Patient resulted labs reviewed. Imaging: Reviewed Imaging Report Assessment/Plan Assessment and Plan Assess & Plan/Chief Complaint Acute respiratory failure due to COVID-19 COVID+ at outside facility Decadron Stopped Baricitinib Actemra given risks/benefits/EUA use discussed and patient agrees Check procalcitonin Checked ddimer and greater than [address] angio Requiring BiPAP High risk for intubation TeleICU consulted HTN Hypothyroidism Depression Hold home meds for now DVT prophylaxis: Lovenox 08/16/2021: BiPAP dependent High risk for intubation Supportive care Critical Care Critically Ill Patient NEREYDA WALDROP DO Aug 16, 2021 07:07
[2021-08-16] MEDS: ENOXAPARIN 80 MG/0.8 ML (LOVENOX) SYR SC SCH ×2 (08:11→20:39)
[2021-08-16] MEDS: ACYCLOVIR 400 MG TABLET (ZOVIRAX) PO SCH ×2 (08:11→20:39)
[2021-08-16] MEDS: SENNOSIDES 8.6 MG (SENOKOT) TAB PO SCH ×2 (08:12→20:38)
[2021-08-16] MEDS: DOCUSATE SODIUM 100 MG (COLACE) CAP PO SCH ×2 (08:12→20:38)
--- NOTE | 2021-08-16 10:25 | Tele-ICU Progress Note ---
Subjective Date Seen by a Provider: Aug 16, 2021 Time Seen by a Provider: 10:25 Sepsis Event Evaluation Height, Weight, BMI Height: '" Weight: lbs. oz. kg; 29.20 BMI Method: Focused Exam Lactate Level 08/15/21 00:46: Lactic Acid Level 2.06*H 08/15/21 05:36: Lactic Acid Level 1.99 Exam Exam Patient acknowledged, consented, and participated in this virtual visit which was conducted using real time audio/video Vital Signs Date Time Temp Pulse Resp B/P (MAP) Pulse Ox O2 Delivery O2 Flow Rate FiO2 08/16/21 08:00 95 NIV Bilevel 95 08/16/21 07:45 36.0 08/16/21 07:01 61 28 92 95.00 08/16/21 07:00 58 08/16/21 06:00 61 27 145/87 (106) 90 NIV Bilevel 95.00 08/16/21 05:00 67 29 145/81 (102) 96 NIV Bilevel 95.00 08/16/21 04:00 35.9 08/16/21 04:00 96 NIV Bilevel 95 08/16/21 04:00 65 27 158/92 (122) 94 NIV Bilevel 95.00 08/16/21 03:00 60 25 148/96 (113) 90 NIV Bilevel 95.00 08/16/21 02:37 NIV Bilevel 95.00 08/16/21 02:32 58 29 90 95.00 08/16/21 02:00 65 30 153/78 (103) 93 NIV Bilevel 90.00 08/16/21 01:10 64 08/16/21 01:00 65 27 153/83 (106) 88 NIV Bilevel 90.00 08/16/21 00:15 NIV Bilevel 90.00 08/16/21 00:00 36.1 08/16/21 00:00 57 28 137/84 (101) 92 NIV Bilevel 80.00 08/16/21 00:00 100 NIV Bilevel 90 08/15/21 23:00 64 32 153/91 (111) 95 NIV Bilevel 80.00 08/15/21 22:00 60 25 146/85 (105) 89 NIV Bilevel 80.00 08/15/21 21:41 NIV Bilevel 80.00 08/15/21 21:24 65 31 99 70.00 12/13/21 21:03 NIV Bilevel 90.00 08/15/21 21:00 60 29 139/90 (106) 97 NIV Bilevel 85.00 08/15/21 20:00 36.6 08/15/21 20:00 100 NIV Bilevel 90 08/15/21 20:00 61 31 160/98 (118) 93 NIV Bilevel 85.00 08/15/21 19:30 73 34 166/93 (117) 92 NIV Bilevel 85.00 08/15/21 19:00 68 08/15/21 19:00 68 37 158/91 (113) 89 NIV Bilevel 60.00 08/15/21 18:31 66 31 93 60.00 08/15/21 18:29 100 NIV Bilevel 100.00 08/15/21 18:00 78 23 164/89 (109) 91 Vapotherm 40.00 100.00 08/15/21 17:45 72 26 163/89 (122) 92 Vapotherm 40.00 100.00 08/15/21 17:30 76 21 171/104 (132) 91 Vapotherm 40.00 100.00 08/15/21 17:15 60 23 138/87 (105) 93 Vapotherm 40.00 100.00 08/15/21 17:10 Vapotherm 40.00 100.00 08/15/21 17:00 58 25 136/79 (90) 91 NIV Bilevel 08/15/21 16:45 59 33 154/80 (102) 90 NIV Bilevel 08/15/21 16:30 61 27 144/86 (114) 93 NIV Bilevel 08/15/21 16:15 58 28 140/84 (103) 90 NIV Bilevel 08/15/21 16:00 68 13 142/93 (108) 100 NIV Bilevel 08/15/21 15:45 73 29 143/82 (104) 100 NIV Bilevel 08/15/21 15:30 72 23 133/81 (100) 100 NIV Bilevel 08/15/21 15:25 100 NIV Bilevel 100 08/15/21 15:15 69 28 144/86 (109) 100 NIV Bilevel 08/15/21 15:00 76 33 141/86 (104) 97 NIV Bilevel 08/15/21 15:00 36.3 NIV Bilevel 100.00 08/15/21 14:45 65 22 126/82 (98) 85 NIV Bilevel 08/15/21 14:30 67 29 138/84 (108) 91 NIV Bilevel 08/15/21 14:15 135/80 (98) 08/15/21 14:11 67 65 97 100.00 08/15/21 14:00 64 46 126/80 (97) 95 NIV Bilevel 100.00 08/15/21 13:45 63 45 125/76 (93) 96 NIV Bilevel 100.00 08/15/21 13:30 67 50 126/83 (99) 97 NIV Bilevel 100.00 08/15/21 13:15 74 49 127/81 (92) 97 NIV Bilevel 100.00 08/15/21 13:00 71 29 128/81 (91) 98 NIV Bilevel 100.00 08/15/21 12:45 68 30 121/80 (92) 97 NIV Bilevel 100.00 08/15/21 12:30 69 31 131/79 (95) 97 NIV Bilevel 100.00 08/15/21 12:25 68 08/15/21 12:15 73 33 129/81 (95) 98 NIV Bilevel 100.00 08/15/21 12:00 77 32 132/87 (102) 96 NIV Bilevel 100.00 08/15/21 11:50 NIV Bilevel 100 08/15/21 11:45 70 31 114/72 (89) 79 NIV Bilevel 100.00 08/15/21 11:30 35.6 08/15/21 11:30 74 32 122/81 (95) NIV Bilevel 100.00 08/15/21 11:15 73 34 126/80 (92) 92 NIV Bilevel 100.00 08/15/21 11:00 86 24 131/82 (92) 97 NIV Bilevel 100.00 08/15/21 10:46 98 32 144/80 (103) 87 NIV Bilevel 100.00 08/15/21 10:27 70 34 97 100.00 I & O 08/16/21 07:00 Intake Total 990 ml Output Total 1075 ml Balance -85 ml Height & Weight Height: '" Weight: lbs. oz. kg; 29.20 BMI Method: General Appearance: Anxious, Chronically ill, Mild Distress HEENT: PERRL/EOMI, Other (wearing BiPAP mask) Neck: Normal Inspection, Supple Respiratory: No Accessory Muscle Use, No Respiratory Distress, Decreased Breath Sounds, Other (BiPAP) Cardiovascular: Regular Rate, Rhythm Peripheral Pulses: 1+ Dorsalis Pedis (R), 1+ Left Dors-Pedis (L) (See free text.) Extremity: Normal Inspection, Non Tender, No Pedal Edema Neurologic/Psychiatric: Alert Skin: Normal Color, Warm/Dry Results Lab Laboratory Tests 08/15/21 00:46 08/16/21 04:00 Assessment/Plan Assessment/Plan (Tele-ICU Physician , Progress Note ) Available chart/ vitals / labs / Images reviewed Video assessment done using teleICU camera, rest of exam as per RN Discussed with RN , EXAM PER RN Events overnight : FEBRILE FiO2 - 100% I/O = even Drips: Pressors: �, hemodynamically stable Consultants: Hospital course: (08/14) 60yr old female admitted with Covid pneumonia, TRANSFER FTO OTHER FACILITY 08/15- BIPAP16/7 100%, RR 35 TV 700 , MV 25 , CTA - NO PE 08/16 - BIPAP16/7 100%, RR 33 TV 800 , MV 27, added ROCEPHIN A/P AHRF / ARDS due to severe COVID19 - BIPAP16/7 100%, RR 35 TV 700 , MV 25 -prone position if able - conservative fluid strategy (aim for even or negative fluid balance [id number]-Nnbjajrqpli-8/COVID-19 PNA - TRANSFER FTON OTHER FACILITY --Remdesivir ? no records --Dexamethasone ? -- s/p Rozsijwatrx20/ 13 ( received one Baricitinib on other hospital ( will start on Acyclovir for HSV/VZV prophylaxis after Tocilizumab- 30 days 400 po bid ) -Hypercoagulable state , DDIMER= 20 on -> ( no evidence of large PE on CT 08/15 ) monitor for superimposed bact PNA -PCT0.17 , OFF abx , CT with atelectasis vs RLL infiltrate - PCT [id number] - started Rocephin 08/16 Hyperglycemia - ISS , close f/up on steroids Lines : PICC 08/15 (Central Line Necessity Reviewed) Wright: � OG: Nutrition: po Analgesia: Anxiety/ delirium VTE Prophylaxis: ulises 80 bid Stress Ulcer Prophylaxis: Plans in collaboration with bedside consultants and IM MDs. Discussed with RN to reach out if any questions or concerns A total of 35 minutes of critical care time was devoted to this patient today, required to treat and/or prevent further deterioration of critical care condition ( as above) . ZEB BERG MD Aug 16, 2021 10:25
[2021-08-16] MEDS: D5W 1000 ML IV SOLUTION 1,000 ML IV SCH (10:41)
[2021-08-16] MEDS: cefTRIAXone 1 GM PRE-MIX 50 ML IV SCH (10:41)
[2021-08-16] MEDS ORDERED: ESCI-2 PO (15:36)
[2021-08-16] MEDS ORDERED: LEVO50TA6 PO (15:36)
[2021-08-16] MEDS ORDERED: METO50TA7 PO (15:36)
[2021-08-17] VITALS (26 sets, daily range): BP systolic 113–145; BP diastolic 66–89
[2021-08-17] MEDS: RT-ALBUTEROL HFA 8.5 GM INHALER IH SCH ×6 (02:42→22:38)
[2021-08-17 03:35] LABS: BASOPHILS % (AUTO) 0 % (0-10); EOSINOPHILS % (AUTO) 0 % (0-10); HEMATOCRIT 39 % (35-52); HEMOGLOBIN 13.2 g/dL (11.5-16.0); LYMPHOCYTES # (AUTO) 0.5 10^3/uL (1.0-4.0); LYMPHOCYTES % (AUTO) 2 % (12-44); MEAN CORPUSCULAR HEMOGLOBIN 32 pg (25-34); MEAN CORPUSCULAR HGB CONC 34 g/dL (32-36); MEAN CORPUSCULAR VOLUME 93 fL (80-99); MEAN PLATELET VOLUME 11.5 fL (9.0-12.2); MONOCYTES % (AUTO) 4 % (0-12); NEUTROPHILS # (AUTO) 22.4 10^3/uL (1.8-7.8); NEUTROPHILS % (AUTO) 92 % (42-75); PLATELET COUNT 203 10^3/uL (130-400); WHITE BLOOD COUNT 24.3 10^3/uL (4.3-11.0)
[2021-08-17 03:43] LABS: POTASSIUM 4.2 MMOL/L (3.6-5.0)
[2021-08-17 03:44] LABS: CALCIUM 7.8 MG/DL (8.5-10.1)
[2021-08-17 03:48] LABS: CREATININE SERUM 0.8 MG/DL (0.60-1.30)
[2021-08-17 03:50] LABS: MAGNESIUM 2.4 MG/DL (1.6-2.4)
[2021-08-17] MEDS: POTASSIUM CL 10MEQ/50ML IVPB 50 ML IV SCH (03:51)
[2021-08-17] MEDS: MAGNESIUM 1 GM/100 ML IVPB 100 ML IV SCH (03:51)
[2021-08-17] MEDS: KCL 20 MEQ TAB (K-DUR) PO SCH (03:51)
[2021-08-17] MEDS: D5W 1000 ML IV SOLUTION 1,000 ML IV SCH ×2 (04:08→20:44)
[2021-08-17] MEDS: inSUlin ASPART (NovoLOG) 1 UNIT/0.01 ML (CHARGE PER UNIT) SC SCH ×4 (05:00→20:37)
--- NOTE | 2021-08-17 05:52 | Progress Note - Hospitalist ---
Subjective HPI/CC On Admission Date Seen by Provider: Aug 17, 2021 Time Seen by Provider: 11:15 Chacho Sandoval is a 60 year old female with PMH HTN, hypothyroidism, depression, who was transferred from [place], [place] with acute respiratory failure due to COVID-19. She was admitted there to a critical access hospital. Her oxygen re quirement worsened and they could no longer support her. No beds were available anywhere near their facility and [place] [facility] assisted with locating a bed at our facility. She was transferred by fixed wing plane to ambulance. She was transported on BiPAP. She has been sick for a little over a week. She has had fevers. She has been short of breath and coughing. She denies chest pain. She has not had nausea, vomiting, or diarrhea. Her appetite has been poor. She is unvaccinated. She was being treated with Decadron, Remdesivir, Baricitinib, and antibiotics. Subjective/Events-last exam Pt remains on BiPAP dependence 17/03 at 65% Pt coughing quite a bit Still tachypneic High risk for respiratory fatigue and intubation Review of Systems General: Fatigue Pulmonary: Dyspnea, Cough Focused Exam Lactate Level 08/15/21 05:36: Lactic Acid Level 1.99 Objective Exam Vital Signs Vital Signs Date Time Temp Pulse Resp B/P (MAP) Pulse Ox O2 Delivery O2 Flow Rate FiO2 08/18/21 03:50 36.6 69 31 95 NIV Bilevel 70.00 08/18/21 03:50 70 Capillary Refill : Less Than 3 Seconds General Appearance: Anxious, Chronically ill, Mild Distress Respiratory: Normal Breath Sounds, Accessory Muscle Use, Decreased Breath Sounds Cardiovascular: Regular Rate, Rhythm Neurologic/Psychiatric: Alert, Oriented x3, No Motor/Sensory Deficits, Normal Mood/Affect Results/Procedures Lab Laboratory Tests 08/18/21 03:57 Patient resulted labs reviewed. Imaging: Reviewed Imaging Report Assessment/Plan Assessment and Plan Assess & Plan/Chief Complaint Acute respiratory failure due to COVID-19 COVID+ at outside facility Decadron Stopped Baricitinib Actemra given risks/benefits/EUA use discussed and patient agrees Check procalcitonin Checked ddimer and greater than [address] angio Requiring BiPAP High risk for intubation TeleICU consulted HTN Hypothyroidism Depression Hold home meds for now DVT prophylaxis: Lovenox 08/16/2021: BiPAP dependent High risk for intubation Supportive care 08/17/2021: BiPAP dependent High risk for intubation Critical Care Critically Ill Patient NREEYDA WALDROP DO Aug 17, 2021 05:52
[2021-08-17] MEDS: SENNOSIDES 8.6 MG (SENOKOT) TAB PO SCH ×2 (08:31→19:50)
[2021-08-17] MEDS: ENOXAPARIN 80 MG/0.8 ML (LOVENOX) SYR SC SCH ×2 (08:31→20:44)
[2021-08-17] MEDS: DOCUSATE SODIUM 100 MG (COLACE) CAP PO SCH ×2 (08:31→19:50)
[2021-08-17] MEDS: ACYCLOVIR 400 MG TABLET (ZOVIRAX) PO SCH ×2 (08:31→20:44)
[2021-08-17] MEDS: cefTRIAXone 1 GM PRE-MIX 50 ML IV SCH (08:31)
--- NOTE | 2021-08-17 12:05 | Tele-ICU Progress Note ---
Subjective Date Seen by a Provider: Aug 17, 2021 Time Seen by a Provider: 12:05 Sepsis Event Evaluation Height, Weight, BMI Height: '" Weight: lbs. oz. kg; 29.20 BMI Method: Focused Exam Lactate Level 08/15/21 00:46: Lactic Acid Level 2.06*H 08/15/21 05:36: Lactic Acid Level 1.99 Exam Exam Patient acknowledged, consented, and participated in this virtual visit which was conducted using real time audio/video Vital Signs Date Time Temp Pulse Resp B/P (MAP) Pulse Ox O2 Delivery O2 Flow Rate FiO2 08/17/21 11:44 35.8 08/17/21 10:43 65 41 91 70.00 08/17/21 10:30 NIV Bilevel 70.00 08/17/21 08:35 90 NIV Bilevel 635 08/17/21 08:28 90 NIV Bilevel 65.00 08/17/21 07:50 35.9 08/17/21 07:17 65 34 92 75.00 08/17/21 07:00 63 08/17/21 04:00 57 127/74 (91) 96 NIV Bilevel 75.00 08/17/21 03:20 36.0 NIV Bilevel 75.00 08/17/21 03:20 98 NIV Bilevel 80 08/17/21 03:00 65 29 128/73 (91) 96 NIV Bilevel 75.00 08/17/21 02:44 NIV Bilevel 75.00 08/17/21 02:43 62 30 98 75.00 08/17/21 02:00 62 21 130/79 (100) 97 NIV Bilevel 80.00 08/17/21 01:00 64 29 126/89 (113) 94 NIV Bilevel 80.00 08/17/21 01:00 67 08/17/21 00:00 68 35 120/66 (84) 86 NIV Bilevel 80.00 08/16/21 23:35 93 NIV Bilevel 80 08/16/21 23:30 36.7 NIV Bilevel 80.00 08/16/21 23:00 64 39 135/77 (96) 94 NIV Bilevel 80.00 08/16/21 22:20 70 28 96 80.00 08/16/21 22:05 NIV Bilevel 80.00 08/16/21 22:00 65 35 132/79 (105) 94 NIV Bilevel 80.00 08/16/21 21:00 64 35 148/81 (104) 94 NIV Bilevel 80.00 08/16/21 20:00 68 32 146/102 (117) 97 NIV Bilevel 80.00 08/16/21 19:25 97 NIV Bilevel 80 08/16/21 19:25 147/43 (77) 08/16/21 19:23 72 33 147/43 (65) 98 NIV Bilevel 80.00 08/16/21 19:14 78 32 98 80.00 08/16/21 19:00 36.7 73 34 160/87 (111) 97 NIV Bilevel 80.00 08/16/21 19:00 63 08/16/21 18:00 NIV Bilevel 85.00 08/16/21 17:00 67 32 153/84 (107) 97 NIV Bilevel 95.00 08/16/21 16:00 36.0 08/16/21 16:00 63 144/85 (104) 97 NIV Bilevel 95.00 08/16/21 15:19 94 NIV Bilevel 95 08/16/21 15:00 74 151/82 (105) 97 NIV Bilevel 95.00 08/16/21 14:47 72 29 100 95.00 08/16/21 14:00 70 25 160/103 (126) 94 NIV Bilevel 95.00 08/16/21 13:00 63 32 161/90 (111) 90 NIV Bilevel 95.00 08/16/21 13:00 60 08/16/21 12:09 96 NIV Bilevel 95 I & O 08/17/21 07:00 Intake Total 1525 ml Output Total 995 ml Balance 530 ml Height & Weight Height: '" Weight: lbs. oz. kg; 29.20 BMI Method: General Appearance: No Apparent Distress, WD/WN, Anxious, Chronically ill, Other (BiPAP on) HEENT: PERRL/EOMI, Other (wearing BiPAP mask) Neck: Normal Inspection, Supple Respiratory: No Accessory Muscle Use, No Respiratory Distress, Decreased Breath Sounds Cardiovascular: Regular Rate, Rhythm Capillary Refill: Less Than 3 Seconds Peripheral Pulses: 1+ Dorsalis Pedis (R), 1+ Left Dors-Pedis (L) (See free text.) Extremity: Normal Inspection, Non Tender, No Pedal Edema Neurologic/Psychiatric: Alert, Oriented x3, No Motor/Sensory Deficits, Normal Mood/Affect Skin: Normal Color, Warm/Dry Results Lab Laboratory Tests 08/16/21 04:00 08/17/21 03:25 Assessment/Plan Assessment/Plan (Tele-ICU Physician , Progress Note ) Available chart/ vitals / labs / Images reviewed Video assessment done using teleICU camera, rest of exam as per RN Discussed with RN , EXAM PER RN Events overnight : AFEBRILE FiO2 - 100% I/O = even Drips: Pressors: �, hemodynamically stable Consultants: Hospital course: (08/14) 60yr old female admitted with Covid pneumonia, TRANSFER [facility] OTHER FACILITY 08/15- BIPAP16/7 100%, RR 35 TV 700 , MV 25 , CTA - NO PE 08/16 - BIPAP16/7 100%, RR 33 TV 800 , MV 27, added ROCEPHIN 08/17 - BIPAP 18/10 - 70% rr33 tv 800 mv 29L A/P AHRF / ARDS due to severe COVID19 - - IMPROVED FIO2 - BIPAP 18/10 - 70% rr33 tv 800 mv 29L -prone position if able - conservative fluid strategy (aim for even or negative fluid balance JBIC-Jqcwhhioiad-3/COVID-19 PNA - TRANSFER [facility] F[facility] --Dexamethasone -- s/p Mzbzcycglok20/ 13 ( received one Baricitinib on other hospital (on Acyclovir - 30 days ) -Hypercoagulable state , DDIMER= 20 on -> ( no evidence of large PE on CT 08/15 ) monitor for superimposed bact PNA -CT with atelectasis vs RLL infiltrate - started Rocephin 08/16 Hyperglycemia - ISS , close f/up on steroids POOR PO INTAKE - follow closely Lines : PICC 08/15 (Central Line Necessity Reviewed) Wright: � OG: Nutrition: po - MINIMAL Analgesia: Anxiety/ delirium VTE Prophylaxis: ulises 80 bid Stress Ulcer Prophylaxis: Plans in collaboration with bedside consultants and IM MDs. Discussed with RN to reach out if any questions or concerns A total of 35 minutes of critical care time was devoted to this patient today, required to treat and/or prevent further deterioration of critical care condition ( as above) . ZEB BERG MD Aug 17, 2021 12:05
--- NOTE | 2021-08-17 12:46 | Diagnostic Imaging Report ---
INDICATION: Covid positive. COMPARISON: 08/14/2021. FINDINGS: Single view of the chest demonstrates persistent but slightly decreased bilateral pulmonary infiltrates. The heart remains prominent, but there is no pneumothorax or effusion. The PICC line is stable. IMPRESSION: Slightly improved aeration. Dictated by: Dictated on workstation # [id number]
[2021-08-18] VITALS (33 sets, daily range): BP systolic 72–183; BP diastolic 45–111
[2021-08-18] MEDS: RT-ALBUTEROL HFA 8.5 GM INHALER IH SCH ×6 (02:50→22:15)
[2021-08-18 04:05] LABS: BASOPHILS % (AUTO) 0 % (0-10); EOSINOPHILS % (AUTO) 0 % (0-10); HEMATOCRIT 39 % (35-52); HEMOGLOBIN 13.5 g/dL (11.5-16.0); LYMPHOCYTES # (AUTO) 0.8 10^3/uL (1.0-4.0); LYMPHOCYTES % (AUTO) 3 % (12-44); MEAN CORPUSCULAR HEMOGLOBIN 32 pg (25-34); MEAN CORPUSCULAR HGB CONC 34 g/dL (32-36); MEAN CORPUSCULAR VOLUME 92 fL (80-99); MONOCYTES # (AUTO) 1.2 10^3/uL (0.0-1.0); MONOCYTES % (AUTO) 5 % (0-12); NEUTROPHILS # (AUTO) 21.8 10^3/uL (1.8-7.8); NEUTROPHILS % (AUTO) 90 % (42-75); PLATELET COUNT 186 10^3/uL (130-400); WHITE BLOOD COUNT 24.1 10^3/uL (4.3-11.0)
[2021-08-18 04:13] LABS: POTASSIUM 4.3 MMOL/L (3.6-5.0)
[2021-08-18 04:14] LABS: CALCIUM 7.9 MG/DL (8.5-10.1)
[2021-08-18 04:18] LABS: CREATININE SERUM 0.77 MG/DL (0.60-1.30)
[2021-08-18 04:20] LABS: MAGNESIUM 2.3 MG/DL (1.6-2.4)
[2021-08-18] MEDS: POTASSIUM CL 10MEQ/50ML IVPB 50 ML IV SCH (05:20)
[2021-08-18] MEDS: MAGNESIUM 1 GM/100 ML IVPB 100 ML IV SCH (05:21)
[2021-08-18] MEDS: inSUlin ASPART (NovoLOG) 1 UNIT/0.01 ML (CHARGE PER UNIT) SC SCH ×4 (05:21→22:25)
[2021-08-18] MEDS: KCL 20 MEQ TAB (K-DUR) PO SCH (05:21)
[2021-08-18] MEDS: DOCUSATE SODIUM 100 MG (COLACE) CAP PO SCH ×2 (05:45→21:43)
[2021-08-18] MEDS: SENNOSIDES 8.6 MG (SENOKOT) TAB PO SCH ×2 (05:45→21:43)
--- NOTE | 2021-08-18 05:59 | Progress Note - Hospitalist ---
Subjective HPI/CC On Admission Date Seen by Provider: Aug 18, 2021 Time Seen by Provider: 11:00 Chacho Sandoval is a 60 year old female with PMH HTN, hypothyroidism, depression, who was transferred from [place], [place] with acute respiratory failure due to COVID-19. She was admitted there to a critical access hospital. Her oxygen re quirement worsened and they could no longer support her. No beds were available anywhere near their facility and [place] [facility] assisted with locating a bed at our facility. She was transferred by fixed wing plane to ambulance. She was transported on BiPAP. She has been sick for a little over a week. She has had fevers. She has been short of breath and coughing. She denies chest pain. She has not had nausea, vomiting, or diarrhea. Her appetite has been poor. She is unvaccinated. She was being treated with Decadron, Remdesivir, Baricitinib, and antibiotics. Subjective/Events-last exam Pt remains tachypneic BiPAP dependent May be getting close to intubation EICU will be notified after ABG known Pt resting on Precedex with higher dose Updated daughter Skylar in depth Review of Systems General: Fatigue, Malaise Focused Exam Lactate Level 08/19/21 02:06: Lactic Acid Level 3.50*H 08/19/21 04:05: Lactic Acid Level 3.75*H Lactic Acid Level Laboratory Tests Test 08/19/21 02:06 08/19/21 04:05 Lactic Acid Level 3.50 MMOL/L (0.50-2.00) *H 3.75 MMOL/L (0.50-2.00) *H Objective Exam Vital Signs Vital Signs Date Time Temp Pulse Resp B/P (MAP) Pulse Ox O2 Delivery O2 Flow Rate FiO2 08/19/21 04:00 92 28 136/77 (96) 95 Mechanical Ventilator 100.00 08/19/21 02:39 100 08/18/21 16:33 35.6 Capillary Refill : Less Than 3 Seconds General Appearance: No Apparent Distress, WD/WN, Anxious, Chronically ill, Other (On BiPAP) Respiratory: No Accessory Muscle Use, No Respiratory Distress, Decreased Breath Sounds Cardiovascular: Regular Rate, Rhythm Results/Procedures Lab Laboratory Tests 08/18/21 09:40 08/19/21 02:06 12/17/21 04:05 Patient resulted labs reviewed. Imaging: Reviewed Imaging Report Assessment/Plan Assessment and Plan Assess & Plan/Chief Complaint Acute respiratory failure due to COVID-19 COVID+ at outside facility Decadron Stopped Baricitinib Actemra given risks/benefits/EUA use discussed and patient agrees Check procalcitonin Checked ddimer and greater than [address] angio Requiring BiPAP High risk for intubation TeleICU consulted HTN Hypothyroidism Depression Hold home meds for now DVT prophylaxis: Lovenox 08/16/2021: BiPAP dependent High risk for intubation Supportive care 08/17/2021: BiPAP dependent High risk for intubation 08/18/2021: May need to be intubated Updated daughter Critical Care Critically Ill Patient NEREYDA WALDROP DO Aug 18, 2021 05:59
[2021-08-18] MEDS: ENOXAPARIN 80 MG/0.8 ML (LOVENOX) SYR SC SCH ×2 (08:57→21:31)
[2021-08-18] MEDS: cefTRIAXone 1 GM PRE-MIX 50 ML IV SCH (08:57)
[2021-08-18] MEDS: ACYCLOVIR 400 MG TABLET (ZOVIRAX) PO SCH ×2 (08:57→21:31)
[2021-08-18] MEDS ORDERED: DexMEDEtomidine 250 ML DRIP 250 ML IV ONE (09:29)
[2021-08-18] MEDS: DexMEDEtomidine 250 ML DRIP 250 ML IV SCH ×2 (09:31→23:01)
--- NOTE | 2021-08-18 09:37 | Tele-ICU Progress Note ---
Subjective Date Seen by a Provider: Aug 18, 2021 Time Seen by a Provider: 09:37 Sepsis Event Evaluation Height, Weight, BMI Height: '" Weight: lbs. oz. kg; 29.20 BMI Method: Exam Exam Patient acknowledged, consented, and participated in this virtual visit which was conducted using real time audio/video Vital Signs Date Time Temp Pulse Resp B/P (MAP) Pulse Ox O2 Delivery O2 Flow Rate FiO2 08/18/21 09:31 78 147/86 08/18/21 09:00 NIV Bilevel 80.00 08/18/21 07:45 35.6 08/18/21 07:12 75 34 93 75.00 08/18/21 07:00 74 08/18/21 06:43 NIV Bilevel 75.00 08/18/21 06:00 79 33 141/71 (94) 96 NIV Bilevel 80.00 08/18/21 05:40 NIV Bilevel 80.00 08/18/21 05:00 64 37 149/73 (98) 94 NIV Bilevel 70.00 08/18/21 04:00 77 28 156/92 (113) 94 NIV Bilevel 70.00 08/18/21 03:50 36.6 69 31 95 NIV Bilevel 70.00 08/18/21 03:50 95 NIV Bilevel 70 08/18/21 03:00 64 143/70 (94) 98 NIV Bilevel 75.00 08/18/21 02:50 62 30 96 75.00 08/18/21 02:00 66 33 126/74 (91) 99 NIV Bilevel 75.00 08/18/21 01:00 71 25 146/83 (104) 97 NIV Bilevel 75.00 08/18/21 00:29 59 08/18/21 00:00 62 35 140/69 (92) 96 NIV Bilevel 75.00 08/17/21 23:35 97 NIV Bilevel 75 08/17/21 23:30 36.7 74 31 97 NIV Bilevel 75.00 08/17/21 23:00 60 34 137/75 (95) 95 NIV Bilevel 75.00 08/17/21 22:38 61 31 96 75.00 08/17/21 22:00 63 34 119/70 (86) 96 NIV Bilevel 75.00 08/17/21 21:00 66 32 130/78 (95) 98 NIV Bilevel 75.00 08/17/21 20:00 71 32 135/80 (98) 98 NIV Bilevel 75.00 08/17/21 19:40 94 NIV Bilevel 75 08/17/21 19:00 63 08/17/21 19:00 36.2 72 33 145/86 (105) 96 NIV Bilevel 75.00 08/17/21 18:44 63 32 93 75.00 08/17/21 18:12 NIV Bilevel 75.00 08/17/21 18:00 64 30 136/82 (100) 87 08/17/21 17:59 66 31 86 08/17/21 17:44 77 37 90 08/17/21 17:42 93 NIV Bilevel 60.00 08/17/21 17:29 67 35 98 08/17/21 17:14 68 32 100 08/17/21 17:00 67 30 117/70 (82) 100 08/17/21 16:59 66 29 100 08/17/21 16:44 73 33 100 08/17/21 16:14 61 32 95 08/17/21 16:00 36.5 08/17/21 16:00 64 19 134/86 (96) 95 08/17/21 16:00 100 NIV Bilevel 90 08/17/21 15:59 63 32 95 08/17/21 15:44 63 41 94 08/17/21 15:29 65 33 93 08/17/21 15:28 93 NIV Bilevel 70.00 08/17/21 15:14 70 33 93 08/17/21 15:00 70 31 129/73 (90) 94 08/17/21 14:59 71 31 94 08/17/21 14:55 70 34 94 60.00 08/17/21 14:50 97 NIV Bilevel 60.00 08/17/21 14:48 95 NIV Bilevel 70.00 08/17/21 14:46 100 NIV Bilevel 90.00 08/17/21 14:44 66 33 100 08/17/21 14:29 70 43 95 08/17/21 14:14 84 22 99 08/17/21 13:00 72 08/17/21 12:00 73 23 129/72 (91) 91 NIV Bilevel 100.00 08/17/21 12:00 100 NIV Bilevel 65 08/17/21 11:44 35.8 08/17/21 11:30 90 NIV Bilevel 100.00 08/17/21 11:00 67 36 145/73 (97) 90 NIV Bilevel 70.00 08/17/21 10:43 65 41 91 70.00 08/17/21 10:30 NIV Bilevel 70.00 08/17/21 10:00 71 35 140/73 (95) 92 NIV Bilevel 65.00 I & O 08/18/21 06:59 Intake Total 1450 ml Output Total 1105 ml Balance 345 ml Height & Weight Height: '" Weight: lbs. oz. kg; 29.20 BMI Method: General Appearance: Anxious, Chronically ill, Mild Distress HEENT: PERRL/EOMI, Other (wearing BiPAP mask) Neck: Normal Inspection, Supple Respiratory: Normal Breath Sounds, Accessory Muscle Use, Decreased Breath Sounds Cardiovascular: Regular Rate, Rhythm Capillary Refill: Less Than 3 Seconds Peripheral Pulses: 1+ Dorsalis Pedis (R), 1+ Left Dors-Pedis (L) (See free text.) Extremity: Normal Inspection, Non Tender, No Pedal Edema Neurologic/Psychiatric: Alert, Oriented x3, No Motor/Sensory Deficits, Normal Mood/Affect Skin: Normal Color, Warm/Dry Results Lab Laboratory Tests 08/17/21 03:25 08/18/21 03:57 Assessment/Plan Assessment/Plan (Tele-ICU Physician , Progress Note ) Available chart/ vitals / labs / Images reviewed Video assessment done using teleICU camera, rest of exam as per RN Discussed with RN , EXAM PER RN Events overnight : AFEBRILE FiO2 - 100% I/O = Drips: Pressors: �, hemodynamically stable Consultants: Hospital course: (08/14) 60yr old female admitted with Covid pneumonia, TRANSFER [facility] OTHER FACILITY 08/15- BIPAP16/7 100%, RR 35 TV 700 , MV 25 , CTA - NO PE 08/16 - BIPAP16/7 100%, RR 33 TV 800 , MV 27, added ROCEPHIN 08/17 - BIPAP 18/10 - 70% rr33 tv 800 mv 29L 08/18-BIPAP 18/10 - 75% rr39 tv 1000 , add precedex , DIARRHEA A/P AHRF / ARDS due to severe COVID19 - worcening FIO2 - BIPAP 18/10 - 75% rr39 tv 1000- ADD PRECEDEX - HIGH RISK FOR INTUBATION -prone position if able - conservative fluid strategy (aim for even or negative fluid balance PLSS-Fyyjsqmegjn-1/COVID-19 PNA - TRANSFER [facility] OTHER FACILITY --Dexamethasone -- s/p Emegjmodwkx99/ 13 ( received one Baricitinib on other hospital (on Acyclovir - 30 days ) -Hypercoagulable state , DDIMER= 20 on -> ( no evidence of large PE on CT 08/15 ) monitor for superimposed bact PNA -CT with atelectasis vs RLL infiltrate - started Rocephin 08/16 Hyperglycemia - ISS , close f/up on steroids Diarrhea 08/18 - monitor POOR PO INTAKE - follow closely Lines : PICC 08/15 (Central Line Necessity Reviewed) Wright: � OG: Nutrition: po - MINIMAL Analgesia: Anxiety/ delirium VTE Prophylaxis: ulises 80 bid Stress Ulcer Prophylaxis: Plans in collaboration with bedside consultants and IM MDs. Discussed with RN to reach out if any questions or concerns A total of 35 minutes of critical care time was devoted to this patient today, required to treat and/or prevent further deterioration of critical care condition ( as above) . ZEB BERG MD Aug 18, 2021 09:37
[2021-08-18 10:48] LABS: CALCIUM 7.9 MG/DL (8.5-10.1)
[2021-08-18 10:52] LABS: BILIRUBIN,TOTAL 1.1 MG/DL (0.1-1.0)
[2021-08-18 10:54] LABS: CREATININE SERUM 0.75 MG/DL (0.60-1.30)
[2021-08-18 12:01] LABS: ABG BASE EXCESS -3.3 MMOL/L (-2.5-2.5); ABG OXYGEN SATURATION 92 % (94-100); ABG PCO2 26 MMHG (35-45); ABG PH 7.49 (7.37-7.43); ABG PO2 57 MMHG (79-93); ABG TCO2 20.7 MMOL/L (21.0-31.0)
[2021-08-18 12:03] LABS: ALLENS TEST YES-POS; INSPIRED O2 80%; PATIENT TEMP 35.1; VENTILATOR YES
[2021-08-18] MEDS: D5W 1000 ML IV SOLUTION 1,000 ML IV SCH (17:53)
[2021-08-18] MEDS ORDERED: PROPOFOL DRIP (ICU) 100 ML IV ONE (20:05)
[2021-08-18] MEDS ORDERED: DexMEDEtomidine 250 ML DRIP 250 ML IV SCH (20:15)
[2021-08-18] MEDS: PROPOFOL DRIP (ICU) 100 ML IV SCH (20:46)
--- NOTE | 2021-08-18 20:48 | Diagnostic Imaging Report ---
INDICATION: Respiratory failure, intubation Frontal chest obtained at 8:25 p.m. and is compared to 10/18/2020. There is a new ET tube in place, tip overlying mid trachea. The heart is mildly enlarged. There is central vascular congestion with diffuse interstitial infiltrate. There is no pneumothorax or pleural fluid. NG tube tip overlies mid stomach. Right-sided PICC line overlies distal SVC. IMPRESSION: New ET tube in place as above as well as new NG tube. Mild cardiomegaly with central vascular congestion and diffuse residual infiltrates are similar to the prior study. Dictated by: Dictated on workstation # [id number]
[2021-08-18 21:01] LABS: ABG BASE EXCESS -5.3 MMOL/L (-2.5-2.5); ABG OXYGEN SATURATION 93 % (94-100); ABG PCO2 66 MMHG (35-45); ABG PO2 112 MMHG (79-93); ABG TCO2 24.2 MMOL/L (21.0-31.0)
[2021-08-18 21:04] LABS: ABG PH 7.16 (7.37-7.43); ALLENS TEST POS; INSPIRED O2 100%; VENTILATOR YES
[2021-08-18 21:05] LABS: PATIENT TEMP 37.3
[2021-08-18] MEDS ORDERED: fentaNYL DRIP PRE-MIX 250 ML IV ONE (21:07)
[2021-08-18] MEDS: fentaNYL DRIP PRE-MIX 250 ML IV SCH (21:36)
[2021-08-18] MEDS ORDERED: NOREPINEPHRINE 8 MG/250 ML 250 ML IV ONE (21:54)
[2021-08-18] MEDS ORDERED: LACTATED RINGERS 1,000 ML IV SCH (22:00)
[2021-08-18] MEDS ORDERED: D5W 1000 ML IV SOLUTION 1,000 ML IV SCH (22:00)
[2021-08-18] MEDS ORDERED: NS IV 1000 ML 1,000 ML ONE (22:02)
[2021-08-18] MEDS ORDERED: SODIUM BICARB 8.4% 50 MEQ/50 ML (ABBOTT) SYR ONE (22:08)
[2021-08-18] MEDS ORDERED: ROCURONIUM 10 MG/ML 5 ML SYRINGE IV ONE (22:16)
--- NOTE | 2021-08-18 22:30 | Anesthesia-Procedure Note ---
Procedures/Interventions Procedure Start/Stop/Diagnosis Date of Procedure: Aug 18, 2021 Start Time: 21:15 Stop Time: 21:30 Arterial Line Arterial Line Catheter: 20G Type: Radial Location: Right Procedure: prepped, draped in sterile fashion, 1% lidocaine used to numb region, good wave-form was obtained, patient tolerated procedure well, no immediate complications, post procedure area cleaned, post procedure dressing applied VIDHYA RODRIGUEZ CRNA Aug 18, 2021 22:30
[2021-08-19] VITALS (74 sets, daily range): BP systolic 83–181; BP diastolic 47–86
[2021-08-19] MEDS: NOREPINEPHRINE 8 MG/250 ML 250 ML IV SCH ×2 (01:55→20:27)
[2021-08-19 02:24] LABS: POTASSIUM 5.2 MMOL/L (3.6-5.0)
[2021-08-19 02:25] LABS: CALCIUM 7.8 MG/DL (8.5-10.1)
[2021-08-19 02:30] LABS: CREATININE SERUM 0.87 MG/DL (0.60-1.30)
[2021-08-19] MEDS: RT-ALBUTEROL HFA 8.5 GM INHALER IH SCH ×6 (02:31→21:51)
[2021-08-19] MEDS: PROPOFOL DRIP (ICU) 100 ML IV SCH ×3 (02:47→11:40)
[2021-08-19 04:15] LABS: BASOPHILS % (AUTO) 0 % (0-10); EOSINOPHILS % (AUTO) 0 % (0-10); HEMATOCRIT 43 % (35-52); HEMOGLOBIN 14.2 g/dL (11.5-16.0); LYMPHOCYTES # (AUTO) 0.9 10^3/uL (1.0-4.0); LYMPHOCYTES % (AUTO) 4 % (12-44); MEAN CORPUSCULAR HEMOGLOBIN 32 pg (25-34); MEAN CORPUSCULAR HGB CONC 33 g/dL (32-36); MEAN CORPUSCULAR VOLUME 95 fL (80-99); MEAN PLATELET VOLUME 11.2 fL (9.0-12.2); MONOCYTES # (AUTO) 0.5 10^3/uL (0.0-1.0); MONOCYTES % (AUTO) 3 % (0-12); NEUTROPHILS # (AUTO) 18.4 10^3/uL (1.8-7.8); NEUTROPHILS % (AUTO) 92 % (42-75); PLATELET COUNT 132 10^3/uL (130-400); WHITE BLOOD COUNT 20.1 10^3/uL (4.3-11.0)
[2021-08-19 04:20] LABS: ABG BASE EXCESS -1.9 MMOL/L (-2.5-2.5); ABG OXYGEN SATURATION 95 % (94-100); ABG PCO2 52 MMHG (35-45); ABG PO2 98 MMHG (79-93); ABG TCO2 25.6 MMOL/L (21.0-31.0); ALLENS TEST ART LINE
[2021-08-19 04:21] LABS: INSPIRED O2 100%; PATIENT TEMP 36.3; VENTILATOR YES
[2021-08-19 04:23] LABS: POTASSIUM 4.7 MMOL/L (3.6-5.0)
[2021-08-19 04:24] LABS: CALCIUM 7.6 MG/DL (8.5-10.1)
[2021-08-19 04:29] LABS: CREATININE SERUM 0.83 MG/DL (0.60-1.30); PHOSPHORUS 4.4 MG/DL (2.3-4.7)
[2021-08-19 04:31] LABS: MAGNESIUM 2.3 MG/DL (1.6-2.4)
[2021-08-19 04:33] LABS: ABG PH 7.28 (7.37-7.43)
--- NOTE | 2021-08-19 04:47 | Inpatient Code Blue ---
General Stated Complaint: ACUTE RESP FAILURE DUE TO COVID 19 Source: RN/MD History of Present Illness Date Seen by Provider: Aug 19, 2021 Time Seen by Provider: 03:00 Initial Comments Notified by nursing supervisor/port director that the patient had self extubated, requested to come to the ICU for intubation. On arrival patient is sedated with respirations being assisted by BVM at 100%. Oxygen saturations in the mid to upper 80s. Blood pressure quite hypertensive. RSI with 20 mg of etomidate and 50 mg of rocuronium and glide scope used to visualize the cords. Patient reintubated with a 7.5 ET tube, 22 at the lips. Positive color change on CO2 detector. Equal rise and fall of the chest. Bilateral breath sounds auscultated. Oxygen saturations dropped to about 70%. It took her several minutes to start to climb back up once she was reconnected to the ventilator. Blood pressure normalized to systolic of 140. Patient appeared to tolerate well. Allergies and Home Medications Allergies Coded Allergies: morphine (Verified Allergy, Unknown, Rash, 08/15/21) Patient Home Medication List Home Medication List Reviewed: Yes Escitalopram Oxalate (Escitalopram Oxalate) 10 Mg Tablet, 10 MG PO DAILY, (Reported) Entered as Reported by: STEVO TOBAR on 08/16/211535 Last Action: Reviewed Levothyroxine Sodium (Levothyroxine Sodium) 50 Mcg Tablet, 50 MCG PO DAILY, (Reported) Entered as Reported by: STEVO TOBAR on 08/16/211535 Last Action: Reviewed Metoprolol Succinate (Metoprolol Succinate) 50 Mg Tab.er.24h, 50 MG PO DAILY, (Reported) Entered as Reported by: STEVO TOBAR on 08/16/211535 Last Action: Reviewed Physical Exam Vital Signs Vital Signs - First Documented 08/14/21 08/14/21 08/14/21 17:56 18:00 18:20 Temp 37.1 Pulse 90 Resp 19 B/P (MAP) 186/87 (106) Pulse Ox 91 O2 Delivery NIV Bilevel O2 Flow Rate 100.00 FiO2 100 Capillary Refill : Less Than 3 Seconds Height, Weight, BMI Height: '" Weight: lbs. oz. kg; 29.20 BMI Method: General Appearance: WD/WN, no apparent distress Eyes: Bilateral Eye Normal Inspection Neck: normal inspection Respiratory: lungs clear Cardiovascular: tachycardia Extremities: normal inspection Neurologic/Psychiatric: other (sedated) Skin: pallor Procedures/Interventions Date of ETT Placement: Aug 18, 2021 Time of ETT Placement: 2019 Tube Size: 7.50 Medications: Etomidate, Rocuronium Positive End Tide CO2: Yes Breath Sounds after Intubation: bilateral-equal Intubation Complications: no complications Critical Care Note Critical Care Start Time: 21:15 Stop Time: 21:30 Progress/Results/Core Measures Results/Orders Lab Results Laboratory Tests Test 08/14/21 18:10 08/14/21 19:56 08/14/21 20:05 08/15/21 00:46 Range/Units Blood Gas Puncture Site RIGHT RADIAL RIGHT RADIAL Blood Gas Patient Temperature 37.1 37.5 Arterial Blood pH 7.44 H 7.49 H 7.37-7.43 Arterial Blood Partial Pressure CO2 36 31 L 35-45 MMHG Arterial Blood Partial Pressure O2 113 H 86 79-93 MMHG Arterial Blood HCO3 24 23 23-27 MMOL/L Arterial Blood Total CO2 24.6 24.3 21.0-31.0 MMOL/L Arterial Blood Oxygen Saturation 98 96 94-100 % Arterial Blood Base Excess -0.2 0.4 -2.5-2.5 MMOL/L Roque Test POSITIVE YES-POS Blood Gas Ventilator Setting NO NO Blood Gas Inspired Oxygen 100& BIPAP 80% Glucometer 87 70-110 MG/DL White Blood Count 15.3 H 4.3-11.0 10^3/uL Red Blood Count 4.09 3.80-5.11 10^6/uL Hemoglobin 12.7 11.5-16.0 g/dL Hematocrit 38 35-52 % Mean Corpuscular Volume 94 80-99 fL Mean Corpuscular Hemoglobin 31 25-34 pg Mean Corpuscular Hemoglobin Concent 33 32-36 g/dL Red Cell Distribution Width 13.5 10.0-14.5 % Platelet Count 213 130-400 10^3/uL Mean Platelet Volume 10.7 9.0-12.2 fL Immature Granulocyte % (Auto) 1 % Neutrophils (%) (Auto) 87 H 42-75 % Lymphocytes (%) (Auto) 7 L 12-44 % Monocytes (%) (Auto) 4 0-12 % Eosinophils (%) (Auto) 0 0-10 % Basophils (%) (Auto) 0 0-10 % Neutrophils # (Auto) 13.3 H 1.8-7.8 10^3/uL Lymphocytes # (Auto) 1.1 1.0-4.0 10^3/uL Monocytes # (Auto) 0.6 0.0-1.0 10^3/uL Eosinophils # (Auto) 0.0 0.0-0.3 10^3/uL Basophils # (Auto) 0.0 0.0-0.1 10^3/uL Immature Granulocyte # (Auto) 0.2 H 0.0-0.1 10^3/uL Neutrophils % (Manual) 91 % Lymphocytes % (Manual) 7 % Monocytes % (Manual) 2 % Blood Morphology Comment NORMAL D-Dimer > 20.00 H 0.00-0.49 UG/ML Sodium Level 142 135-145 MMOL/L Potassium Level 3.9 3.6-5.0 MMOL/L Chloride Level 107 98-107 MMOL/L Carbon Dioxide Level 22 21-32 MMOL/L Anion Gap 13 5-14 MMOL/L Blood Urea Nitrogen 25 H 7-18 MG/DL Creatinine 0.87 0.60-1.30 MG/DL Estimat Glomerular Filtration Rate 67 BUN/Creatinine Ratio 29 Glucose Level 106 H 70-105 MG/DL Lactic Acid Level 2.06 *H 0.50-2.00 MMOL/L Calcium Level 8.0 L 8.5-10.1 MG/DL Magnesium Level 2.5 H 1.6-2.4 MG/DL Procalcitonin 0.17 H <0.10 NG/ML Test 08/15/21 05:36 08/15/21 10:53 08/15/21 17:18 08/15/21 20:13 Range/Units Lactic Acid Level 1.99 0.50-2.00 MMOL/L Glucometer 140 H 139 H 147 H 70-110 MG/DL Test 08/16/21 04:00 08/16/21 11:11 08/16/21 15:41 08/16/21 20:22 Range/Units White Blood Count 19.7 H 4.3-11.0 10^3/uL Red Blood Count 3.99 3.80-5.11 10^6/uL Hemoglobin 12.6 11.5-16.0 g/dL Hematocrit 37 35-52 % Mean Corpuscular Volume 94 80-99 fL Mean Corpuscular Hemoglobin 32 25-34 pg Mean Corpuscular Hemoglobin Concent 34 32-36 g/dL Red Cell Distribution Width 13.3 10.0-14.5 % Platelet Count 188 130-400 10^3/uL Mean Platelet Volume 11.2 9.0-12.2 fL Immature Granulocyte % (Auto) 1 % Neutrophils (%) (Auto) 92 H 42-75 % Lymphocytes (%) (Auto) 4 L 12-44 % Monocytes (%) (Auto) 3 0-12 % Eosinophils (%) (Auto) 0 0-10 % Basophils (%) (Auto) 0 0-10 % Neutrophils # (Auto) 18.1 H 1.8-7.8 10^3/uL Lymphocytes # (Auto) 0.8 L 1.0-4.0 10^3/uL Monocytes # (Auto) 0.6 0.0-1.0 10^3/uL Eosinophils # (Auto) 0.0 0.0-0.3 10^3/uL Basophils # (Auto) 0.0 0.0-0.1 10^3/uL Immature Granulocyte # (Auto) 0.2 H 0.0-0.1 10^3/uL Sodium Level 144 135-145 MMOL/L Potassium Level 4.2 3.6-5.0 MMOL/L Chloride Level 110 H 98-107 MMOL/L Carbon Dioxide Level 21 21-32 MMOL/L Anion Gap 13 5-14 MMOL/L Blood Urea Nitrogen 29 H 7-18 MG/DL Creatinine 0.80 0.60-1.30 MG/DL Estimat Glomerular Filtration Rate 73 BUN/Creatinine Ratio 36 Glucose Level 125 H 70-105 MG/DL Calcium Level 7.9 L 8.5-10.1 MG/DL Magnesium Level 2.7 H 1.6-2.4 MG/DL Total Bilirubin 1.1 H 0.1-1.0 MG/DL Direct Bilirubin 0.6 H 0.0-0.3 MG/DL Indirect Bilirubin 0.5 MG/DL Aspartate Amino Transf (AST/SGOT) 57 H 5-34 U/L Alanine Aminotransferase (ALT/SGPT) 61 H 0-55 U/L Alkaline Phosphatase 420 H 40-136 U/L Total Protein 5.7 L 6.4-8.2 GM/DL Albumin 2.7 L 3.2-4.5 GM/DL Procalcitonin 0.32 H <0.10 NG/ML Glucometer 120 H 143 H 127 H 70-110 MG/DL Test 08/17/21 03:25 08/17/21 10:59 08/17/21 15:58 08/17/21 20:29 Range/Units White Blood Count 24.3 H 4.3-11.0 10^3/uL Red Blood Count 4.16 3.80-5.11 10^6/uL Hemoglobin 13.2 11.5-16.0 g/dL Hematocrit 39 35-52 % Mean Corpuscular Volume 93 80-99 fL Mean Corpuscular Hemoglobin 32 25-34 pg Mean Corpuscular Hemoglobin Concent 34 32-36 g/dL Red Cell Distribution Width 13.2 10.0-14.5 % Platelet Count 203 130-400 10^3/uL Mean Platelet Volume 11.5 9.0-12.2 fL Immature Granulocyte % (Auto) 1 % Neutrophils (%) (Auto) 92 H 42-75 % Lymphocytes (%) (Auto) 2 L 12-44 % Monocytes (%) (Auto) 4 0-12 % Eosinophils (%) (Auto) 0 0-10 % Basophils (%) (Auto) 0 0-10 % Neutrophils # (Auto) 22.4 H 1.8-7.8 10^3/uL Lymphocytes # (Auto) 0.5 L 1.0-4.0 10^3/uL Monocytes # (Auto) 1.0 0.0-1.0 10^3/uL Eosinophils # (Auto) 0.0 0.0-0.3 10^3/uL Basophils # (Auto) 0.0 0.0-0.1 10^3/uL Immature Granulocyte # (Auto) 0.3 H 0.0-0.1 10^3/uL Sodium Level 141 135-145 MMOL/L Potassium Level 4.2 3.6-5.0 MMOL/L Chloride Level 108 H 98-107 MMOL/L Carbon Dioxide Level 20 L 21-32 MMOL/L Anion Gap 13 5-14 MMOL/L Blood Urea Nitrogen 29 H 7-18 MG/DL Creatinine 0.80 0.60-1.30 MG/DL Estimat Glomerular Filtration Rate 73 BUN/Creatinine Ratio 36 Glucose Level 126 H 70-105 MG/DL Calcium Level 7.8 L 8.5-10.1 MG/DL Magnesium Level 2.4 1.6-2.4 MG/DL Glucometer 110 113 H 116 H 70-110 MG/DL Test 08/18/21 03:57 08/18/21 09:40 08/18/21 11:03 08/18/21 11:50 Range/Units White Blood Count 24.1 H 4.3-11.0 10^3/uL Red Blood Count 4.26 3.80-5.11 10^6/uL Hemoglobin 13.5 11.5-16.0 g/dL Hematocrit 39 35-52 % Mean Corpuscular Volume 92 80-99 fL Mean Corpuscular Hemoglobin 32 25-34 pg Mean Corpuscular Hemoglobin Concent 34 32-36 g/dL Red Cell Distribution Width 12.8 10.0-14.5 % Platelet Count 186 130-400 10^3/uL Mean Platelet Volume 11.0 9.0-12.2 fL Immature Granulocyte % (Auto) 1 % Neutrophils (%) (Auto) 90 H 42-75 % Lymphocytes (%) (Auto) 3 L 12-44 % Monocytes (%) (Auto) 5 0-12 % Eosinophils (%) (Auto) 0 0-10 % Basophils (%) (Auto) 0 0-10 % Neutrophils # (Auto) 21.8 H 1.8-7.8 10^3/uL Lymphocytes # (Auto) 0.8 L 1.0-4.0 10^3/uL Monocytes # (Auto) 1.2 H 0.0-1.0 10^3/uL Eosinophils # (Auto) 0.0 0.0-0.3 10^3/uL Basophils # (Auto) 0.0 0.0-0.1 10^3/uL Immature Granulocyte # (Auto) 0.3 H 0.0-0.1 10^3/uL Sodium Level 138 138 135-145 MMOL/L Potassium Level 4.3 4.0 3.6-5.0 MMOL/L Chloride Level 107 105 98-107 MMOL/L Carbon Dioxide Level 19 L 20 L 21-32 MMOL/L Anion Gap 12 13 5-14 MMOL/L Blood Urea Nitrogen 23 H 22 H 7-18 MG/DL Creatinine 0.77 0.75 0.60-1.30 MG/DL Estimat Glomerular Filtration Rate 77 79 BUN/Creatinine Ratio 30 29 Glucose Level 110 H 108 H 70-105 MG/DL Calcium Level 7.9 L 7.9 L 8.5-10.1 MG/DL Phosphorus Level 3.3 2.3-4.7 MG/DL Magnesium Level 2.3 1.6-2.4 MG/DL Corrected Calcium 8.7 8.5-10.1 MG/DL Total Bilirubin 1.1 H 0.1-1.0 MG/DL Aspartate Amino Transf (AST/SGOT) 67 H 5-34 U/L Alanine Aminotransferase (ALT/SGPT) 73 H 0-55 U/L Alkaline Phosphatase 487 H 40-136 U/L Total Protein 6.0 L 6.4-8.2 GM/DL Albumin 3.0 L 3.2-4.5 GM/DL Glucometer 115 H 70-110 MG/DL Blood Gas Puncture Site L RADIAL Blood Gas Patient Temperature 35.1 Arterial Blood pH 7.49 H 7.37-7.43 Arterial Blood Partial Pressure CO2 26 L 35-45 MMHG Arterial Blood Partial Pressure O2 57 L 79-93 MMHG Arterial Blood HCO3 20 L 23-27 MMOL/L Arterial Blood Total CO2 20.7 L 21.0-31.0 MMOL/L Arterial Blood Oxygen Saturation 92 L 94-100 % Arterial Blood Base Excess -3.3 L -2.5-2.5 MMOL/L Roque Test YES-POS Blood Gas Ventilator Setting YES Blood Gas Inspired Oxygen 80% Test 08/18/21 16:29 08/18/21 20:50 08/18/21 21:29 08/19/21 02:06 Range/Units Glucometer 176 H 161 H 70-110 MG/DL Blood Gas Puncture Site LTRAD Blood Gas Patient Temperature 37.3 Arterial Blood pH 7.16 *L 7.37-7.43 Arterial Blood Partial Pressure CO2 66 H 35-45 MMHG Arterial Blood Partial Pressure O2 112 H 79-93 MMHG Arterial Blood HCO3 22 L 23-27 MMOL/L Arterial Blood Total CO2 24.2 21.0-31.0 MMOL/L Arterial Blood Oxygen Saturation 93 L 94-100 % Arterial Blood Base Excess -5.3 L -2.5-2.5 MMOL/L Roque Test POS Blood Gas Ventilator Setting YES Blood Gas Inspired Oxygen 100% Sodium Level 138 135-145 MMOL/L Potassium Level 5.2 H 3.6-5.0 MMOL/L Chloride Level 107 98-107 MMOL/L Carbon Dioxide Level 18 L 21-32 MMOL/L Anion Gap 13 5-14 MMOL/L Blood Urea Nitrogen 27 H 7-18 MG/DL Creatinine 0.87 0.60-1.30 MG/DL Estimat Glomerular Filtration Rate 67 BUN/Creatinine Ratio 31 Glucose Level 151 H 70-105 MG/DL Lactic Acid Level 3.50 *H 0.50-2.00 MMOL/L Calcium Level 7.8 L 8.5-10.1 MG/DL Test 08/19/21 04:05 Range/Units White Blood Count 20.1 H 4.3-11.0 10^3/uL Red Blood Count 4.49 3.80-5.11 10^6/uL Hemoglobin 14.2 11.5-16.0 g/dL Hematocrit 43 35-52 % Mean Corpuscular Volume 95 80-99 fL Mean Corpuscular Hemoglobin 32 25-34 pg Mean Corpuscular Hemoglobin Concent 33 32-36 g/dL Red Cell Distribution Width 13.0 10.0-14.5 % Platelet Count 132 130-400 10^3/uL Mean Platelet Volume 11.2 9.0-12.2 fL Immature Granulocyte % (Auto) 1 % Neutrophils (%) (Auto) 92 H 42-75 % Lymphocytes (%) (Auto) 4 L 12-44 % Monocytes (%) (Auto) 3 0-12 % Eosinophils (%) (Auto) 0 0-10 % Basophils (%) (Auto) 0 0-10 % Neutrophils # (Auto) 18.4 H 1.8-7.8 10^3/uL Lymphocytes # (Auto) 0.9 L 1.0-4.0 10^3/uL Monocytes # (Auto) 0.5 0.0-1.0 10^3/uL Eosinophils # (Auto) 0.0 0.0-0.3 10^3/uL Basophils # (Auto) 0.0 0.0-0.1 10^3/uL Immature Granulocyte # (Auto) 0.2 H 0.0-0.1 10^3/uL Blood Gas Puncture Site R CRIS Blood Gas Patient Temperature 36.3 Arterial Blood pH 7.28 *L 7.37-7.43 Arterial Blood Partial Pressure CO2 52 H 35-45 MMHG Arterial Blood Partial Pressure O2 98 H 79-93 MMHG Arterial Blood HCO3 24 23-27 MMOL/L Arterial Blood Total CO2 25.6 21.0-31.0 MMOL/L Arterial Blood Oxygen Saturation 95 94-100 % Arterial Blood Base Excess -1.9 -2.5-2.5 MMOL/L Roque Test ART LINE Blood Gas Ventilator Setting YES Blood Gas Inspired Oxygen 100% Sodium Level 140 135-145 MMOL/L Potassium Level 4.7 3.6-5.0 MMOL/L Chloride Level 106 98-107 MMOL/L Carbon Dioxide Level 20 L 21-32 MMOL/L Anion Gap 14 5-14 MMOL/L Blood Urea Nitrogen 25 H 7-18 MG/DL Creatinine 0.83 0.60-1.30 MG/DL Estimat Glomerular Filtration Rate 70 BUN/Creatinine Ratio 30 Glucose Level 136 H 70-105 MG/DL Lactic Acid Level 3.75 *H 0.50-2.00 MMOL/L Calcium Level 7.6 L 8.5-10.1 MG/DL Phosphorus Level 4.4 2.3-4.7 MG/DL Magnesium Level 2.3 1.6-2.4 MG/DL Triglycerides Level 358 H <150 MG/DL Micro Results Microbiology 08/14/21 MRSA Screen - Final, Complete Vital Signs/I&O 08/14/21 08/14/21 08/14/21 08/14/21 17:56 18:00 18:07 18:11 Pulse 90 74 77 71 Resp 19 18 44 B/P (MAP) 186/87 (106) 162/96 (123) Pulse Ox 91 97 O2 Delivery NIV Bilevel NIV Bilevel O2 Flow Rate 100.00 100.00 100.00 08/14/21 08/14/21 08/14/21 08/14/21 18:20 18:30 19:00 19:00 Temp 37.1 Pulse 71 74 Pulse Ox 97 O2 Delivery NIV Bilevel NIV Bilevel O2 Flow Rate 80.00 FiO2 100 100 08/14/21 08/14/21 08/14/21 08/14/21 19:15 20:00 20:07 20:30 Temp 37.5 Pulse 62 61 Resp 40 34 B/P (MAP) 153/88 (109) 146/86 (109) Pulse Ox 91 94 93 O2 Delivery NIV Bilevel NIV Bilevel NIV Bilevel NIV Bilevel O2 Flow Rate 80.00 100.00 100.00 FiO2 100 12/12/21 12/12/21 12/12/21 12/12/21 21:22 21:30 22:00 23:00 Pulse 62 64 62 61 Resp 33 38 38 34 B/P (MAP) 138/87 (112) 150/89 (106) 151/94 (113) Pulse Ox 93 94 91 91 O2 Delivery NIV Bilevel NIV Bilevel NIV Bilevel O2 Flow Rate 100.00 100.00 100.00 100.00 08/15/21 08/15/21 08/15/21 08/15/21 00:00 00:00 00:00 00:38 Temp 37.6 37.7 Pulse 61 Resp 33 B/P (MAP) 145/84 (104) Pulse Ox 96 91 O2 Delivery NIV Bilevel NIV Bilevel O2 Flow Rate 100.00 FiO2 100 08/15/21 08/15/21 08/15/21 08/15/21 01:00 01:00 01:08 01:52 Temp 36.3 37.3 Pulse 79 76 Resp 29 B/P (MAP) 146/79 (91) Pulse Ox 97 O2 Delivery NIV Bilevel O2 Flow Rate 100.00 08/15/21 08/15/21 08/15/21 08/15/21 02:00 02:52 03:00 04:00 Pulse 65 67 65 65 Resp 37 30 37 37 B/P (MAP) 116/80 (84) 124/64 (79) 131/76 (94) Pulse Ox 93 94 91 92 O2 Delivery NIV Bilevel NIV Bilevel NIV Bilevel O2 Flow Rate 100.00 100.00 100.00 100.00 08/15/21 08/15/21 08/15/21 08/15/21 04:00 05:00 06:00 07:00 Pulse 74 71 74 Resp 12 39 B/P (MAP) 142/85 (104) 159/79 (105) 155/82 (105) Pulse Ox 93 92 92 92 O2 Delivery NIV Bilevel NIV Bilevel NIV Bilevel NIV Bilevel O2 Flow Rate 100.00 100.00 100.00 FiO2 100 08/15/21 08/15/21 08/15/21 08/15/21 07:00 07:07 07:30 07:45 Pulse 71 78 75 74 Resp 32 27 41 Pulse Ox 94 81 O2 Delivery NIV Bilevel O2 Flow Rate 100.00 100.00 08/15/21 08/15/21 08/15/21 08/15/21 08:00 08:00 08:30 10:16 Temp 37.8 36.3 Pulse 77 Resp 35 B/P (MAP) 161/86 (102) Pulse Ox 81 O2 Delivery NIV Bilevel FiO2 100 08/15/21 08/15/21 08/15/21 08/15/21 10:27 10:46 11:00 11:15 Pulse 70 98 86 73 Resp 34 32 24 34 B/P (MAP) 144/80 (103) 131/82 (92) 126/80 (92) Pulse Ox 97 87 97 92 O2 Delivery NIV Bilevel NIV Bilevel NIV Bilevel O2 Flow Rate 100.00 100.00 100.00 100.00 08/15/21 08/15/21 08/15/21 08/15/21 11:30 11:30 11:45 11:50 Temp 35.6 Pulse 74 70 Resp 32 31 B/P (MAP) 122/81 (95) 114/72 (89) Pulse Ox 79 O2 Delivery NIV Bilevel NIV Bilevel NIV Bilevel O2 Flow Rate 100.00 100.00 FiO2 100 08/15/21 08/15/21 08/15/21 08/15/21 12:00 12:15 12:25 12:30 Pulse 77 73 68 69 Resp 32 33 31 B/P (MAP) 132/87 (102) 129/81 (95) 131/79 (95) Pulse Ox 96 98 97 O2 Delivery NIV Bilevel NIV Bilevel NIV Bilevel O2 Flow Rate 100.00 100.00 100.00 08/15/21 08/15/21 08/15/21 08/15/21 12:45 13:00 13:15 13:30 Pulse 68 71 74 67 Resp 30 29 49 50 B/P (MAP) 121/80 (92) 128/81 (91) 127/81 (92) 126/83 (99) Pulse Ox 97 98 97 97 O2 Delivery NIV Bilevel NIV Bilevel NIV Bilevel NIV Bilevel O2 Flow Rate 100.00 100.00 100.00 100.00 08/15/21 08/15/21 08/15/21 08/15/21 13:45 14:00 14:11 14:15 Pulse 63 64 67 Resp 45 46 65 B/P (MAP) 125/76 (93) 126/80 (97) 135/80 (98) Pulse Ox 96 95 97 O2 Delivery NIV Bilevel NIV Bilevel O2 Flow Rate 100.00 100.00 100.00 08/15/21 08/15/21 08/15/21 08/15/21 14:30 14:45 15:00 15:00 Temp 36.3 Pulse 67 65 76 Resp 29 22 33 B/P (MAP) 138/84 (108) 126/82 (98) 141/86 (104) Pulse Ox 91 85 97 O2 Delivery NIV Bilevel NIV Bilevel NIV Bilevel NIV Bilevel O2 Flow Rate 100.00 08/15/21 08/15/21 08/15/21 08/15/21 15:15 15:25 15:30 15:45 Pulse 69 72 73 Resp 28 23 29 B/P (MAP) 144/86 (109) 133/81 (100) 143/82 (104) Pulse Ox 100 100 100 100 O2 Delivery NIV Bilevel NIV Bilevel NIV Bilevel NIV Bilevel FiO2 100 08/15/21 08/15/21 08/15/21 08/15/21 16:00 16:15 16:30 16:45 Pulse 68 58 61 59 Resp 13 28 27 33 B/P (MAP) 142/93 (108) 140/84 (103) 144/86 (114) 154/80 (102) Pulse Ox 100 90 93 90 O2 Delivery NIV Bilevel NIV Bilevel NIV Bilevel NIV Bilevel 08/15/21 08/15/21 08/15/21 08/15/21 17:00 17:10 17:15 17:30 Pulse 58 60 76 Resp 25 23 21 B/P (MAP) 136/79 (90) 138/87 (105) 171/104 (132) Pulse Ox 91 93 91 O2 Delivery NIV Bilevel Vapotherm Vapotherm Vapotherm O2 Flow Rate 40.00 40.00 40.00 100.00 100.00 100.00 08/15/21 08/15/21 08/15/21 08/15/21 17:45 18:00 18:29 18:31 Pulse 72 78 66 Resp 26 23 31 B/P (MAP) 163/89 (122) 164/89 (109) Pulse Ox 92 91 100 93 O2 Delivery Vapotherm Vapotherm NIV Bilevel O2 Flow Rate 40.00 40.00 100.00 60.00 100.00 100.00 08/15/21 08/15/21 08/15/21 08/15/21 19:00 19:00 19:30 20:00 Pulse 68 68 73 61 Resp 37 34 31 B/P (MAP) 158/91 (113) 166/93 (117) 160/98 (118) Pulse Ox 89 92 93 O2 Delivery NIV Bilevel NIV Bilevel NIV Bilevel O2 Flow Rate 60.00 85.00 85.00 08/15/21 08/15/21 08/15/21 08/15/21 20:00 20:00 21:00 21:03 Temp 36.6 Pulse 60 Resp 29 B/P (MAP) 139/90 (106) Pulse Ox 100 97 O2 Delivery NIV Bilevel NIV Bilevel NIV Bilevel O2 Flow Rate 85.00 90.00 FiO2 90 08/15/21 08/15/21 08/15/21 08/15/21 21:24 21:41 22:00 23:00 Pulse 65 60 64 Resp 31 25 32 B/P (MAP) 146/85 (105) 153/91 (111) Pulse Ox 99 89 95 O2 Delivery NIV Bilevel NIV Bilevel NIV Bilevel O2 Flow Rate 70.00 80.00 80.00 80.00 08/16/21 08/16/21 08/16/21 08/16/21 00:00 00:00 00:00 00:15 Temp 36.1 Pulse 57 Resp 28 B/P (MAP) 137/84 (101) Pulse Ox 100 92 O2 Delivery NIV Bilevel NIV Bilevel NIV Bilevel O2 Flow Rate 80.00 90.00 FiO2 90 08/16/21 08/16/21 08/16/21 08/16/21 01:00 01:10 02:00 02:32 Pulse 65 64 65 58 Resp 27 30 29 B/P (MAP) 153/83 (106) 153/78 (103) Pulse Ox 88 93 90 O2 Delivery NIV Bilevel NIV Bilevel O2 Flow Rate 90.00 90.00 95.00 08/16/21 08/16/21 08/16/21 08/16/21 02:37 03:00 04:00 04:00 Pulse 60 65 Resp 25 27 B/P (MAP) 148/96 (113) 158/92 (122) Pulse Ox 90 94 96 O2 Delivery NIV Bilevel NIV Bilevel NIV Bilevel NIV Bilevel O2 Flow Rate 95.00 95.00 95.00 FiO2 95 08/16/21 08/16/21 08/16/21 08/16/21 04:00 05:00 06:00 07:00 Temp 35.9 Pulse 67 61 58 Resp 29 27 B/P (MAP) 145/81 (102) 145/87 (106) Pulse Ox 96 90 O2 Delivery NIV Bilevel NIV Bilevel O2 Flow Rate 95.00 95.00 08/16/21 08/16/21 08/16/21 08/16/21 07:00 07:01 07:45 08:00 Temp 36.0 Pulse 62 61 Resp 17 28 B/P (MAP) 157/88 (111) Pulse Ox 93 92 95 O2 Delivery NIV Bilevel NIV Bilevel O2 Flow Rate 95.00 95.00 FiO2 95 08/16/21 08/16/21 08/16/21 08/16/21 08:00 09:00 10:00 10:29 Pulse 68 80 64 66 Resp 24 16 30 29 B/P (MAP) 148/88 (108) 162/94 (116) 165/90 (115) Pulse Ox 96 95 97 96 O2 Delivery NIV Bilevel NIV Bilevel NIV Bilevel O2 Flow Rate 95.00 95.00 95.00 95.00 08/16/21 08/16/21 08/16/21 08/16/21 11:00 11:30 12:00 12:09 Temp 37.0 Pulse 66 66 Resp 31 30 B/P (MAP) 156/95 (115) 168/96 (123) Pulse Ox 98 97 96 O2 Delivery NIV Bilevel NIV Bilevel NIV Bilevel O2 Flow Rate 95.00 95.00 FiO2 95 08/16/21 08/16/21 08/16/21 08/16/21 13:00 13:00 14:00 14:47 Pulse 60 63 70 72 Resp 32 25 29 B/P (MAP) 161/90 (111) 160/103 (126) Pulse Ox 90 94 100 O2 Delivery NIV Bilevel NIV Bilevel O2 Flow Rate 95.00 95.00 95.00 08/16/21 08/16/21 08/16/21 08/16/21 15:00 15:19 16:00 16:00 Temp 36.0 Pulse 74 63 B/P (MAP) 151/82 (105) 144/85 (104) Pulse Ox 97 94 97 O2 Delivery NIV Bilevel NIV Bilevel NIV Bilevel O2 Flow Rate 95.00 95.00 FiO2 95 08/16/21 08/16/21 08/16/21 08/16/21 17:00 18:00 19:00 19:00 Temp 36.7 Pulse 67 63 73 Resp 32 34 B/P (MAP) 153/84 (107) 160/87 (111) Pulse Ox 97 97 O2 Delivery NIV Bilevel NIV Bilevel NIV Bilevel O2 Flow Rate 95.00 85.00 80.00 08/16/21 08/16/21 08/16/21 08/16/21 19:14 19:23 19:25 19:25 Pulse 78 72 Resp 32 33 B/P (MAP) 147/43 (65) 147/43 (77) Pulse Ox 98 98 97 O2 Delivery NIV Bilevel NIV Bilevel O2 Flow Rate 80.00 80.00 FiO2 80 08/16/21 08/16/21 08/16/21 08/16/21 20:00 21:00 22:00 22:05 Pulse 68 64 65 Resp 32 35 35 B/P (MAP) 146/102 (117) 148/81 (104) 132/79 (105) Pulse Ox 97 94 94 O2 Delivery NIV Bilevel NIV Bilevel NIV Bilevel NIV Bilevel O2 Flow Rate 80.00 80.00 80.00 80.00 08/16/21 08/16/21 08/16/21 08/16/21 22:20 23:00 23:30 23:35 Temp 36.7 Pulse 70 64 Resp 28 39 B/P (MAP) 135/77 (96) Pulse Ox 96 94 93 O2 Delivery NIV Bilevel NIV Bilevel NIV Bilevel O2 Flow Rate 80.00 80.00 80.00 FiO2 80 08/17/21 08/17/21 08/17/21 08/17/21 00:00 01:00 01:00 02:00 Pulse 68 67 64 62 Resp 35 29 21 B/P (MAP) 120/66 (84) 126/89 (113) 130/79 (100) Pulse Ox 86 94 97 O2 Delivery NIV Bilevel NIV Bilevel NIV Bilevel O2 Flow Rate 80.00 80.00 80.00 08/17/21 08/17/21 08/17/21/15/21 02:43 02:44 03:00 03:20 Pulse 62 65 Resp 30 29 B/P (MAP) 128/73 (91) Pulse Ox 98 96 98 O2 Delivery NIV Bilevel NIV Bilevel NIV Bilevel O2 Flow Rate 75.00 75.00 75.00 FiO2 80 08/17/21 08/17/21 08/17/21 08/17/21 03:20 04:00 07:00 07:00 Temp 36.0 Pulse 57 63 60 Resp 29 B/P (MAP) 127/74 (91) 125/71 (89) Pulse Ox 96 92 O2 Delivery NIV Bilevel NIV Bilevel NIV Bilevel O2 Flow Rate 75.00 75.00 75.00 08/17/21 08/17/21 08/17/21 08/17/21 07:17 07:50 08:00 08:28 Temp 35.9 Pulse 65 61 Resp 34 37 B/P (MAP) 132/72 (92) Pulse Ox 92 92 90 O2 Delivery NIV Bilevel NIV Bilevel O2 Flow Rate 75.00 75.00 65.00 08/17/21 08/17/21 08/17/21 08/17/21 08:35 09:00 10:00 10:30 Pulse 68 71 Resp 39 35 B/P (MAP) 138/74 (95) 140/73 (95) Pulse Ox 90 86 92 O2 Delivery NIV Bilevel NIV Bilevel NIV Bilevel NIV Bilevel O2 Flow Rate 65.00 65.00 70.00 FiO2 635 08/17/21 08/17/21 08/17/21 08/17/21 10:43 11:00 11:30 11:44 Temp 35.8 Pulse 65 67 Resp 41 36 B/P (MAP) 145/73 (97) Pulse Ox 91 90 90 O2 Delivery NIV Bilevel NIV Bilevel O2 Flow Rate 70.00 70.00 100.00 08/17/21 08/17/21 08/17/21 08/17/21 12:00 12:00 13:00 14:14 Pulse 73 72 84 Resp 23 22 B/P (MAP) 129/72 (91) Pulse Ox 100 91 99 O2 Delivery NIV Bilevel NIV Bilevel O2 Flow Rate 100.00 FiO2 65 08/17/21 08/17/21 08/17/21 08/17/21 14:29 14:44 14:46 14:48 Pulse 70 66 Resp 43 33 Pulse Ox 95 100 100 95 O2 Delivery NIV Bilevel NIV Bilevel O2 Flow Rate 90.00 70.00 08/17/21 08/17/21 08/17/21 08/17/21 14:50 14:55 14:59 15:00 Pulse 70 71 70 Resp 34 31 31 B/P (MAP) 129/73 (90) Pulse Ox 97 94 94 94 O2 Delivery NIV Bilevel O2 Flow Rate 60.00 60.00 08/17/21 08/17/21 08/17/21 08/17/21 15:14 15:28 15:29 15:44 Pulse 70 65 63 Resp 33 33 41 Pulse Ox 93 93 93 94 O2 Delivery NIV Bilevel O2 Flow Rate 70.00 08/17/21 08/17/21 08/17/21 08/17/21 15:59 16:00 16:00 16:00 Temp 36.5 Pulse 63 64 Resp 32 19 B/P (MAP) 134/86 (96) Pulse Ox 95 100 95 O2 Delivery NIV Bilevel FiO2 90 08/17/21 08/17/21 08/17/21 08/17/21 16:14 16:44 16:59 17:00 Pulse 61 73 66 67 Resp 32 33 29 30 B/P (MAP) 117/70 (82) Pulse Ox 95 100 100 100 08/17/21 08/17/21 08/17/21 08/17/21 17:14 17:29 17:42 17:44 Pulse 68 67 77 Resp 32 35 37 Pulse Ox 100 98 93 90 O2 Delivery NIV Bilevel O2 Flow Rate 60.00 08/17/21 08/17/21 08/17/21 08/17/21 17:59 18:00 18:12 18:44 Pulse 66 64 63 Resp 31 30 32 B/P (MAP) 136/82 (100) Pulse Ox 86 87 93 O2 Delivery NIV Bilevel O2 Flow Rate 75.00 75.00 08/17/21 08/17/21 08/17/21 08/17/21 19:00 19:00 19:40 20:00 Temp 36.2 Pulse 72 63 71 Resp 33 32 B/P (MAP) 145/86 (105) 135/80 (98) Pulse Ox 96 94 98 O2 Delivery NIV Bilevel NIV Bilevel NIV Bilevel O2 Flow Rate 75.00 75.00 FiO2 75 08/17/21 08/17/21 08/17/21 08/17/21 21:00 22:00 22:38 23:00 Pulse 66 63 61 60 Resp 32 34 31 34 B/P (MAP) 130/78 (95) 119/70 (86) 137/75 (95) Pulse Ox 98 96 96 95 O2 Delivery NIV Bilevel NIV Bilevel NIV Bilevel O2 Flow Rate 75.00 75.00 75.00 75.00 08/17/21 08/17/21 08/18/21 08/18/21 23:30 23:35 00:00 00:29 Temp 36.7 Pulse 74 62 59 Resp 31 35 B/P (MAP) 140/69 (92) Pulse Ox 97 97 96 O2 Delivery NIV Bilevel NIV Bilevel NIV Bilevel O2 Flow Rate 75.00 75.00 FiO2 75 08/18/21 08/18/21 08/18/21 08/18/21 01:00 02:00 02:50 03:00 Pulse 71 66 62 64 Resp 25 33 30 B/P (MAP) 146/83 (104) 126/74 (91) 143/70 (94) Pulse Ox 97 99 96 98 O2 Delivery NIV Bilevel NIV Bilevel NIV Bilevel O2 Flow Rate 75.00 75.00 75.00 75.00 08/18/21 08/18/21 08/18/21 08/18/21 03:50 03:50 04:00 05:00 Temp 36.6 Pulse 69 77 64 Resp 31 28 37 B/P (MAP) 156/92 (113) 149/73 (98) Pulse Ox 95 95 94 94 O2 Delivery NIV Bilevel NIV Bilevel NIV Bilevel NIV Bilevel O2 Flow Rate 70.00 70.00 70.00 FiO2 70 08/18/21 08/18/21 08/18/21 08/18/21 05:40 06:00 06:43 07:00 Pulse 79 77 Resp 33 33 B/P (MAP) 141/71 (94) 141/71 (94) Pulse Ox 96 92 O2 Delivery NIV Bilevel NIV Bilevel NIV Bilevel NIV Bilevel O2 Flow Rate 80.00 80.00 75.00 75.00 08/18/21 08/18/21 08/18/21 08/18/21 07:00 07:12 07:45 08:00 Temp 35.6 Pulse 74 75 68 Resp 34 38 B/P (MAP) 141/75 (97) Pulse Ox 93 89 O2 Delivery NIV Bilevel O2 Flow Rate 75.00 75.00 08/18/21 08/18/21 08/18/21 08/18/21 08:00 09:00 09:00 09:31 Pulse 68 78 B/P (MAP) 147/86 (106) 147/86 Pulse Ox 92 91 O2 Delivery NIV Bilevel NIV Bilevel NIV Bilevel O2 Flow Rate 80.00 80.00 FiO2 75 08/18/21 08/18/21 08/18/21 08/18/21 10:00 10:21 11:00 11:15 Temp 35.1 Pulse 70 61 64 Resp 37 42 B/P (MAP) 125/86 (99) 105/56 (72) Pulse Ox 94 92 91 O2 Delivery NIV Bilevel NIV Bilevel O2 Flow Rate 80.00 80.00 80.00 08/18/21 08/18/21 08/18/21 08/18/21 11:26 11:50 12:00 12:00 Pulse 50 48 Resp 29 B/P (MAP) 110/48 (68) Pulse Ox 91 92 O2 Delivery NIV Bilevel NIV Bilevel NIV Bilevel O2 Flow Rate 90.00 90.00 FiO2 90 08/18/21 08/18/21 08/18/21 08/18/21 13:00 13:00 14:00 14:31 Pulse 47 47 58 50 Resp 25 23 24 B/P (MAP) 114/71 (85) 126/72 (90) Pulse Ox 95 96 90 O2 Delivery NIV Bilevel NIV Bilevel O2 Flow Rate 90.00 90.00 90.00 08/18/21 08/18/21 08/18/21 08/18/21 15:00 16:00 16:00 16:14 Temp 37.1 Pulse 49 49 71 Resp 25 23 B/P (MAP) 127/74 (91) 140/81 (100) Pulse Ox 89 90 92 97 O2 Delivery NIV Bilevel NIV Bilevel NIV Bilevel O2 Flow Rate 90.00 90.00 FiO2 90 100 08/18/21 08/18/21 08/18/21 08/18/21 16:33 17:00 18:16 18:30 Temp 35.6 Pulse 46 49 Resp 23 24 B/P (MAP) 147/66 (93) Pulse Ox 90 93 O2 Delivery NIV Bilevel NIV Bilevel O2 Flow Rate 90.00 90.00 100.00 08/18/21 08/18/21 08/18/21 08/18/21 19:00 19:00 20:00 20:00 Pulse 80 68 80 Resp 42 42 B/P (MAP) 134/53 (80) 175/111 (132) Pulse Ox 91 82 81 O2 Delivery NIV Bilevel NIV Bilevel NIV Bilevel O2 Flow Rate 100.00 100.00 FiO2 100 08/18/21 08/18/21 08/18/21 08/18/21 20:20 20:23 20:45 20:46 Pulse 96 92 Resp 24 24 B/P (MAP) 183/111 (135) 118/79 Pulse Ox 94 94 O2 Delivery Mechanical Ventilator Mechanical Ventilator O2 Flow Rate 100.00 100.00 FiO2 100 08/18/21 08/18/21 08/18/21 08/18/21 21:00 21:15 21:30 21:45 Pulse 91 92 92 83 Resp 24 23 24 26 B/P (MAP) 175/107 (129) 155/104 (121) 129/73 (91) 72/45 (54) Pulse Ox 93 93 93 91 O2 Delivery Mechanical Ventilator Mechanical Ventilator Mechanical Ventilator Mechanical Ventilator O2 Flow Rate 100.00 100.00 100.00 100.00 08/18/21 08/18/21 08/18/21 08/19/21 22:00 23:00 23:01 00:00 Pulse 70 80 80 72 Resp 34 27 24 B/P (MAP) 92/63 (73) 92/63 (73) 98/63 99/58 (72) 90/56 (67) Pulse Ox 88 86 95 O2 Delivery Mechanical Ventilator Mechanical Ventilator Mechanical Ventilator O2 Flow Rate 100.00 100.00 100.00 08/19/21 08/19/21 08/19/21 08/19/21 01:00 01:00 01:55 02:00 Pulse 73 72 71 67 Resp 27 33 B/P (MAP) 83/47 (59) 66/45 181/86 (117) Pulse Ox 93 91 O2 Delivery Mechanical Ventilator Mechanical Ventilator O2 Flow Rate 100.00 100.00 08/19/21 08/19/21 08/19/21 08/19/21 02:39 02:47 03:00 04:00 Pulse 65 73 72 92 Resp 32 26 28 B/P (MAP) 103/61 99/72 (81) 136/77 (96) Pulse Ox 97 99 95 O2 Delivery Mechanical Ventilator Mechanical Ventilator O2 Flow Rate 100.00 100.00 FiO2 100 08/19/21 00:00 Intake Total 250 ml Output Total 675 ml Balance -425 ml Blood Pressure Mean: 96 FSBG Bedside Testing Finger Stick Blood Glucose: 161 Blood Glucose Action Taken: RN NOTIFIED HUMAIRA CAMARGO MD Aug 19, 2021 04:47
[2021-08-19] MEDS: POTASSIUM CL 10MEQ/50ML IVPB 50 ML IV SCH (05:26)
[2021-08-19] MEDS: inSUlin ASPART (NovoLOG) 1 UNIT/0.01 ML (CHARGE PER UNIT) SC SCH ×3 (05:26→16:52)
[2021-08-19] MEDS: MAGNESIUM 1 GM/100 ML IVPB 100 ML IV SCH (05:26)
[2021-08-19] MEDS: KCL 20 MEQ TAB (K-DUR) PO SCH (05:26)
--- NOTE | 2021-08-19 05:55 | Progress Note - Hospitalist ---
Subjective HPI/CC On Admission Date Seen by Provider: Aug 19, 2021 Time Seen by Provider: 10:00 Chacho Sandoval is a 60 year old female with PMH HTN, hypothyroidism, depression, who was transferred from [place], [place] with acute respiratory failure due to COVID-19. She was admitted there to a critical access hospital. Her oxygen re quirement worsened and they could no longer support her. No beds were available anywhere near their facility and [facility] assisted with locating a bed at our facility. She was transferred by fixed wing plane to ambulance. She was transported on BiPAP. She has been sick for a little over a week. She has had fevers. She has been short of breath and coughing. She denies chest pain. She has not had nausea, vomiting, or diarrhea. Her appetite has been poor. She is unvaccinated. She was being treated with Decadron, Remdesivir, Baricitinib, and antibiotics. Subjective/Events-last exam Pt required intubation then she self extubated and was re-intubated at 3:00 in the morning Diprivan and Precedex maintained an Fentanyl Vent settings are 375/28/15/100% D5W with 3 amps of bicarb initiated Levophed initiated for hypotension Complex case Prognosis guarded Focused Exam Lactate Level 08/19/21 10:55: Lactic Acid Level 3.68*H 08/19/21 16:48: Lactic Acid Level 4.31*H 08/20/21 03:58: Lactic Acid Level 2.93*H Lactic Acid Level Laboratory Tests Test 08/20/21 03:58 Lactic Acid Level 2.93 MMOL/L (0.50-2.00) *H Objective Exam Vital Signs Vital Signs Date Time Temp Pulse Resp B/P (MAP) Pulse Ox O2 Delivery O2 Flow Rate FiO2 08/20/21 05:15 75 21 131/67 (88) 96 Mechanical Ventilator 70.00 08/20/21 03:16 60 08/19/21 12:18 35.9 Capillary Refill : Less Than 3 Seconds General Appearance: No Apparent Distress, WD/WN, Chronically ill, Other (Sedated and intubated) Respiratory: Lungs Clear, Accessory Muscle Use, Decreased Breath Sounds Cardiovascular: Regular Rate, Rhythm Results/Procedures Lab Laboratory Tests 08/19/21 17:38 08/20/21 03:58 Patient resulted labs reviewed. Imaging: Reviewed Imaging Report Assessment/Plan Assessment and Plan Assess & Plan/Chief Complaint Acute respiratory failure due to COVID-19 COVID+ at outside facility Decadron Stopped Baricitinib Actemra given risks/benefits/EUA use discussed and patient agrees Check procalcitonin Checked ddimer and greater than [address] angio Requiring BiPAP High risk for intubation TeleICU consulted Intubated on 08/19/2021 HTN Hypothyroidism Depression Hold home meds for now DVT prophylaxis: Lovenox 08/16/2021: BiPAP dependent High risk for intubation Supportive care 08/17/2021: BiPAP dependent High risk for intubation 08/18/2021: May need to be intubated Updated daughter 08/19/2021: Intubated Guarded prognosis Critical Care Critically Ill Patient NEREYDA WALDROP DO Aug 19, 2021 05:55
--- NOTE | 2021-08-19 06:38 | Diagnostic Imaging Report ---
EXAMINATION: Chest radiograph, portable AP view. DATE: 08/19/2021 4:58 AM INDICATION: 60-year-old female, intubation. COVID positive. COMPARISON: August 18, 2021. FINDINGS: The endotracheal tube is approximately 6 cm above the sherice. The right-sided PIC line overlies the mid SVC. The nasogastric tube extends to the inferior margin of the included [id number]. There is unchanged multifocal bilateral lung consolidation. IMPRESSION: 1. Unchanged multifocal bilateral lung consolidation. 2. Support lines and tubes as above. Report was faxed to [facility] by carlos at 7:03AM.[facility] Dictated by: Dictated on workstation # [id number]
[2021-08-19] MEDS ORDERED: ETOMIDATE IV SOLN 20 MG/10 ML VIAL IV ONE (07:07)
[2021-08-19] MEDS ORDERED: ROCURONIUM 10 MG/ML 5 ML SYRINGE IV ONE (07:07)
--- NOTE | 2021-08-19 07:34 | Occ Therapy Progress Note ---
Therapy Progress Note OT orders received. Pt is currently intubated/sedated. OT will continue to monitor pt status and initiate tx when pt is medically stable and able to actively participate in skilled therapy. JOSEPH JASSO OT Aug 19, 2021 07:34
[2021-08-19] MEDS: ENOXAPARIN 80 MG/0.8 ML (LOVENOX) SYR SC SCH ×2 (08:16→20:27)
[2021-08-19] MEDS: SENNOSIDES 8.6 MG (SENOKOT) TAB PO SCH ×2 (08:17→20:27)
[2021-08-19] MEDS: ACYCLOVIR 400 MG TABLET (ZOVIRAX) PO SCH ×2 (08:17→20:27)
[2021-08-19] MEDS: DOCUSATE SODIUM 100 MG (COLACE) CAP PO SCH ×2 (08:17→20:27)
[2021-08-19] MEDS: cefTRIAXone 1 GM PRE-MIX 50 ML IV SCH (08:17)
[2021-08-19] MEDS ORDERED: SODIUM BICARBONATE 8.4% VIAL 150 MEQ in D5W 1000 ML IV SOLUTION 1,000 ML IV SCH (08:30)
--- NOTE | 2021-08-19 09:02 | Physical Therapy Progress Note ---
Therapy Progress Note Order for PT evaluation received. Patient is currently intubated and sedated, will monitor patient and start when appropriate. LUCINA VILLEGAS PT Aug 19, 2021 09:02
[2021-08-19] MEDS: fentaNYL DRIP PRE-MIX 250 ML IV SCH ×2 (09:41→20:29)
--- NOTE | 2021-08-19 10:50 | Procedure/Intervention Note ---
Procedures/Interventions Date of ETT Placement: Aug 18, 2021 Time of ETT Placement: 2019 Tube Size: 7.50 Medications: Etomidate, Rocuronium Positive End Tide CO2: Yes Breath Sounds after Intubation: bilateral-equal Intubation Complications: no complications 08/18/2021@2019 I was called by household chores to ICU to intubate this patient due to hypoxia while maxed on BiPAP settings. On arrival oxygen saturation was about 80% SPO2 on BiPAP. We gave 20 mg of etomidate, 50 mg of rocuronium, she desaturated down to about 50% and was then abated x1 attempt with a size 7.5 endotracheal tube. Equal breath sounds bilaterally, fogging the endotracheal tube and color change on the CO2 detector. After intubation sats climbed up into the mid 80s by the time I had left the room. Propofol started for sedation. JIMMY IYER APRN Aug 19, 2021 10:50
[2021-08-19] MEDS: MIDAZOLAM DRIP PRE-MIX 100 ML IV SCH (11:33)
--- NOTE | 2021-08-19 12:11 | Tele-ICU Progress Note ---
Subjective Date Seen by a Provider: Aug 19, 2021 Time Seen by a Provider: 10:29 Sepsis Event Evaluation Height, Weight, BMI Height: '" Weight: lbs. oz. kg; 29.20 BMI Method: Focused Exam Lactate Level 08/19/21 06:05: Lactic Acid Level 3.63*H 08/19/21 08:28: Lactic Acid Level 3.79*H 08/19/21 10:55: Lactic Acid Level 3.68*H Lactic Acid Level Laboratory Tests Test 08/19/21 08:28 08/19/21 10:55 Lactic Acid Level 3.79 MMOL/L (0.50-2.00) *H 3.68 MMOL/L (0.50-2.00) *H Exam Exam Patient acknowledged, consented, and participated in this virtual visit which was conducted using real time audio/video Vital Signs Date Time Temp Pulse Resp B/P (MAP) Pulse Ox O2 Delivery O2 Flow Rate FiO2 08/19/21 11:40 73 135/69 08/19/21 11:33 73 42 135/69 08/19/21 11:31 Mechanical Ventilator 90.00 08/19/21 11:00 73 42 135/69 (91) 100 Mechanical Ventilator 100.00 08/19/21 10:45 73 39 137/69 (91) 100 Mechanical Ventilator 100.00 08/19/21 10:30 73 42 139/69 (92) 99 Mechanical Ventilator 100.00 08/19/21 10:15 71 42 133/67 (89) 99 Mechanical Ventilator 100.00 08/19/21 10:00 68 39 124/62 (82) 97 Mechanical Ventilator 100.00 08/19/21 09:45 64 42 124/67 (86) 98 Mechanical Ventilator 100.00 08/19/21 09:30 56 105/58 (74) 94 Mechanical Ventilator 100.00 08/19/21 09:27 68 40 96 100 08/19/21 09:15 65 43 104/58 (73) 98 Mechanical Ventilator 100.00 08/19/21 09:00 66 43 105/57 (73) 99 Mechanical Ventilator 100.00 08/19/21 08:45 63 40 102/54 (70) 98 Mechanical Ventilator 100.00 08/19/21 08:30 59 37 100/51 (67) 98 Mechanical Ventilator 100.00 08/19/21 08:15 58 39 104/48 (66) 99 Mechanical Ventilator 100.00 08/19/21 08:11 35.7 08/19/21 08:00 61 39 91/48 (62) 98 Mechanical Ventilator 100.00 08/19/21 08:00 98 Mechanical Ventilator 100 08/19/21 07:45 62 34 93/48 (63) 97 Mechanical Ventilator 100.00 08/19/21 07:30 61 33 95/51 (66) 96 Mechanical Ventilator 100.00 08/19/21 07:23 60 105/52 08/19/21 07:15 60 34 103/53 (70) 95 Mechanical Ventilator 100.00 08/19/21 07:00 60 08/19/21 07:00 60 132/64 (86) 93 Mechanical Ventilator 100.00 08/19/21 06:50 61 34 98 100 08/19/21 06:45 61 34 102/53 (69) 97 Mechanical Ventilator 100.00 08/19/21 06:30 62 30 100/54 (69) 97 Mechanical Ventilator 100.00 08/19/21 06:15 60 30 102/53 (69) 98 Mechanical Ventilator 100.00 08/19/21 06:00 65 32 96/66 (76) 96 Mechanical Ventilator 100.00 08/19/21 05:00 72 31 118/63 (81) 94 Mechanical Ventilator 100.00 08/19/21 04:00 92 28 136/77 (96) 95 Mechanical Ventilator 100.00 08/19/21 04:00 81 Mechanical Ventilator 100 08/19/21 03:43 100 08/19/21 03:00 72 26 99/72 (81) 99 Mechanical Ventilator 100.00 08/19/21 02:47 73 103/61 08/19/21 02:39 65 32 97 100 08/19/21 02:00 67 33 181/86 (117) 91 Mechanical Ventilator 100.00 08/19/21 01:55 71 66/45 08/19/21 01:00 72 27 83/47 (59) 93 Mechanical Ventilator 100.00 08/19/21 01:00 73 08/19/21 00:00 81 Mechanical Ventilator 100 08/19/21 00:00 72 24 99/58 (72) 95 Mechanical Ventilator 100.00 08/18/21 23:01 80 98/63 08/18/21 23:00 80 27 92/63 (73) 86 Mechanical Ventilator 100.00 90/56 (67) 08/18/21 22:45 86 28 90 100 08/18/21 22:00 70 34 92/63 (73) 88 Mechanical Ventilator 100.00 08/18/21 21:45 83 26 72/45 (54) 91 Mechanical Ventilator 100.00 08/18/21 21:30 92 24 129/73 (91) 93 Mechanical Ventilator 100.00 08/18/21 21:15 92 23 155/104 (121) 93 Mechanical Ventilator 100.00 08/18/21 21:00 91 24 175/107 (129) 93 Mechanical Ventilator 100.00 08/18/21 20:46 92 118/79 08/18/21 20:45 96 24 183/111 (135) 94 Mechanical Ventilator 100.00 08/18/21 20:23 24 94 100 08/18/21 20:20 Mechanical Ventilator 100.00 08/18/21 20:00 81 NIV Bilevel 100 08/18/21 20:00 80 42 175/111 (132) 82 NIV Bilevel 100.00 08/18/21 19:00 68 08/18/21 19:00 80 42 134/53 (80) 91 NIV Bilevel 100.00 08/18/21 18:30 NIV Bilevel 100.00 08/18/21 18:16 49 24 93 90.00 08/18/21 17:00 46 23 147/66 (93) 90 NIV Bilevel 90.00 08/18/21 16:33 35.6 08/18/21 16:14 37.1 71 97 100 08/18/21 16:00 92 NIV Bilevel 90 08/18/21 16:00 49 23 140/81 (100) 90 NIV Bilevel 90.00 08/18/21 15:00 49 25 127/74 (91) 89 NIV Bilevel 90.00 08/18/21 14:31 50 24 90 90.00 08/18/21 14:00 58 23 126/72 (90) 96 NIV Bilevel 90.00 08/18/21 13:00 47 08/18/21 13:00 47 25 114/71 (85) 95 NIV Bilevel 90.00 I & O 08/19/21 07:00 Intake Total 380 ml Output Total 1250 ml Balance -870 ml Height & Weight Height: '" Weight: lbs. oz. kg; 29.20 BMI Method: General Appearance: No Apparent Distress, WD/WN, Anxious, Chronically ill, Other (On BiPAP) HEENT: PERRL/EOMI, Other (wearing BiPAP mask) Neck: Normal Inspection, Supple Respiratory: No Accessory Muscle Use, No Respiratory Distress, Decreased Breath Sounds Cardiovascular: Regular Rate, Rhythm Capillary Refill: Less Than 3 Seconds Peripheral Pulses: 1+ Dorsalis Pedis (R), 1+ Left Dors-Pedis (L) (See free text.) Extremity: Normal Inspection, Non Tender, No Pedal Edema Neurologic/Psychiatric: Alert, Oriented x3, No Motor/Sensory Deficits, Normal Mood/Affect Skin: Normal Color, Warm/Dry Results Lab Laboratory Tests 08/18/21 03:57 08/18/21 09:40 08/19/21 02:06 08/19/21 04:05 Assessment/Plan Assessment/Plan (Tele-ICU Physician , Progress Note ) Available chart/ vitals / labs / Images reviewed Video assessment done using teleICU camera, rest of exam as per RN Discussed with RN , EXAM PER RN Events overnight : AFEBRILE FiO2 - 100% I/O = neg Drips: bicarn 150 eq 100/h Pressors:LEVO Sedation gtt: fentalyl , propofol ( RASS ) VENT SETTINGS and ABG reviewed Not candidate for SBT today �REVIEWED Cardiovascular Stability / Sedation Score / FI02/PEEP / ABG / CXR Consultants: Hospital course: (08/14) 60yr old female admitted with Covid pneumonia, TRANSFER [facility] 08/15- BIPAP16/7 100%, RR 35 TV 700 , MV 25 , CTA - NO PE 08/16 - BIPAP16/7 100%, RR 33 TV 800 , MV 27, added ROCEPHIN 08/17 - BIPAP 18/10 - 70% rr33 tv 800 mv 29L 08/18-BIPAP 18/10 - 75% rr39 tv 1000 , add precedex , DIARRHEA 08/19 intubated AC 375 28 +10 100% A/P AHRF / ARDS due to severe COVID19 - 08/19 intubated AC 375 28 +10 100% -prone protocol Shock, sepsis/ meds - on levo 08/19 [id number]/COVID-19 PNA - TRANSFER FTON OTHER FACILITY --Dexamethasone -- s/p Jdvoczzueso13/ 13 ( received one Baricitinib on other hospital (on Acyclovir - 30 days ) -Hypercoagulable state , DDIMER= 20 on -> ( no evidence of large PE on CT 08/15 ) monitor for superimposed bact PNA -CT with atelectasis vs RLL infiltrate - started Rocephin 08/16 elev LACTATE with shock - started on BICAB gtt at night - reassess , cont for now with acidosis Elev TGL - sedation with propofol , changing to versed Hyperglycemia - ISS , close f/up on steroids Diarrhea 08/18 - resol;laya - monitor Lines : PICC 08/15 (Central Line Necessity Reviewed) Wright: 08/18 OG: Nutrition: TF Analgesia: Anxiety/ delirium VTE Prophylaxis: ulises 80 bid Stress Ulcer Prophylaxis: ppi Plans in collaboration with bedside consultants and IM MDs. Discussed with RN to reach out if any questions or concerns A total of 40 minutes of critical care time was devoted to this patient today, required to treat and/or prevent further deterioration of critical care cond ition ( as above) . ZEB BERG MD Aug 19, 2021 12:11
[2021-08-19] MEDS: D5W 1000 ML IV SOLUTION 1,000 ML IV SCH (16:07)
[2021-08-19] MEDS: DexMEDEtomidine 250 ML DRIP 250 ML IV SCH (16:08)
[2021-08-19 17:59] LABS: CALCIUM 7.5 MG/DL (8.5-10.1); CREATININE SERUM 0.85 MG/DL (0.60-1.30); POTASSIUM 4.3 MMOL/L (3.6-5.0)
[2021-08-19] MEDS: NS IV 1000 ML 1,000 ML IV SCH (20:28)
[2021-08-20] VITALS (93 sets, daily range): BP systolic 80–160; BP diastolic 44–77
[2021-08-20] MEDS: RT-ALBUTEROL HFA 8.5 GM INHALER IH SCH ×5 (02:17→18:39)
[2021-08-20] MEDS: inSUlin ASPART (NovoLOG) 1 UNIT/0.01 ML (CHARGE PER UNIT) SC SCH ×4 (03:47→18:33)
[2021-08-20] MEDS: fentaNYL DRIP PRE-MIX 250 ML IV SCH ×6 (04:01→22:57)
[2021-08-20 04:09] LABS: BASOPHILS % (AUTO) 0 % (0-10); EOSINOPHILS # (AUTO) 0.2 10^3/uL (0.0-0.3); EOSINOPHILS % (AUTO) 1 % (0-10); HEMATOCRIT 37 % (35-52); HEMOGLOBIN 12.4 g/dL (11.5-16.0); LYMPHOCYTES # (AUTO) 1.3 10^3/uL (1.0-4.0); LYMPHOCYTES % (AUTO) 6 % (12-44); MEAN CORPUSCULAR HEMOGLOBIN 32 pg (25-34); MEAN CORPUSCULAR HGB CONC 33 g/dL (32-36); MEAN CORPUSCULAR VOLUME 95 fL (80-99); MEAN PLATELET VOLUME 11.7 fL (9.0-12.2); MONOCYTES # (AUTO) 0.6 10^3/uL (0.0-1.0); MONOCYTES % (AUTO) 3 % (0-12); NEUTROPHILS % (AUTO) 88 % (42-75); PLATELET COUNT 155 10^3/uL (130-400); WHITE BLOOD COUNT 20.4 10^3/uL (4.3-11.0)
[2021-08-20 04:12] LABS: ABG BASE EXCESS 2.2 MMOL/L (-2.5-2.5); ABG OXYGEN SATURATION 88 % (94-100); ABG PCO2 38 MMHG (35-45); ABG PH 7.45 (7.37-7.43); ABG PO2 63 MMHG (79-93); ABG TCO2 27.1 MMOL/L (21.0-31.0); ALLENS TEST ARTLINE; INSPIRED O2 70%; PATIENT TEMP 36.9; VENTILATOR YES
[2021-08-20 04:25] LABS: POTASSIUM 4.1 MMOL/L (3.6-5.0)
[2021-08-20 04:26] LABS: CALCIUM 7.2 MG/DL (8.5-10.1)
[2021-08-20 04:30] LABS: CREATININE SERUM 0.77 MG/DL (0.60-1.30); PHOSPHORUS 2.2 MG/DL (2.3-4.7)
[2021-08-20 04:33] LABS: MAGNESIUM 2.4 MG/DL (1.6-2.4)
[2021-08-20] MEDS: MAGNESIUM 1 GM/100 ML IVPB 100 ML IV SCH (06:01)
[2021-08-20] MEDS: POTASSIUM CL 10MEQ/50ML IVPB 50 ML IV SCH (06:01)
[2021-08-20] MEDS: KCL 20 MEQ TAB (K-DUR) PO SCH (06:01)
[2021-08-20] MEDS: DexMEDEtomidine 250 ML DRIP 250 ML IV SCH ×2 (06:04→15:42)
--- NOTE | 2021-08-20 06:44 | Diagnostic Imaging Report ---
Indication: Dyspnea, follow-up COVID pneumonia.. Comparison: 08/19/2021. Discussion: Single portable upright view of the chest was obtained. Stable normal heart size. Endotracheal tube, enteric tube, and right-sided PICC line are stable. Diffuse severe pulmonary infiltrates are increased from the prior exam. No pleural fluid or pneumothorax. No osseous abnormality. Impression: 1. Stable support lines and catheter. 2. Severe pulmonary infiltrates, increased. Dictated by: Dictated on workstation # [id number]
[2021-08-20] MEDS: NS IV 1000 ML 1,000 ML IV SCH ×3 (07:46→21:55)
[2021-08-20] MEDS: SENNOSIDES 8.6 MG (SENOKOT) TAB PO SCH ×2 (07:47→21:51)
[2021-08-20] MEDS: ACYCLOVIR 400 MG TABLET (ZOVIRAX) PO SCH ×2 (07:47→21:51)
[2021-08-20] MEDS: DOCUSATE SODIUM 100 MG (COLACE) CAP PO SCH ×2 (07:48→21:51)
[2021-08-20] MEDS: ENOXAPARIN 80 MG/0.8 ML (LOVENOX) SYR SC SCH ×2 (07:48→21:50)
[2021-08-20] MEDS: cefTRIAXone 1 GM PRE-MIX 50 ML IV SCH (07:48)
[2021-08-20] MEDS: PANTOPRAZOLE 40 MG (PROTONIX) VIAL IV SCH (07:51)
--- NOTE | 2021-08-20 08:16 | Progress Note - Hospitalist ---
Subjective HPI/CC On Admission Date Seen by Provider: Aug 20, 2021 Time Seen by Provider: 11:00 Chacho Sandoval is a 60 year old female with PMH HTN, hypothyroidism, depression, who was transferred from [place], [place] with acute respiratory failure due to COVID-19. She was admitted there to a critical access hospital. Her oxygen re quirement worsened and they could no longer support her. No beds were available anywhere near their facility and [facility] assisted with locating a bed at our facility. She was transferred by fixed wing plane to ambulance. She was transported on BiPAP. She has been sick for a little over a week. She has had fevers. She has been short of breath and coughing. She denies chest pain. She has not had nausea, vomiting, or diarrhea. Her appetite has been poor. She is unvaccinated. She was being treated with Decadron, Remdesivir, Baricitinib, and antibiotics. Subjective/Events-last exam Patient maintained on the vent Prone position is really helped her Lactic acid is improved from hypoxic status when she was on BiPAP and failed ABG is 7.4 Maintain on Levophed FiO2 65% Requiring a lot of sedation Fentanyl and Versed Focused Exam Lactate Level 08/19/21 10:55: Lactic Acid Level 3.68*H 08/19/21 16:48: Lactic Acid Level 4.31*H 08/20/21 03:58: Lactic Acid Level 2.93*H Objective Exam Vital Signs Vital Signs Date Time Temp Pulse Resp B/P (MAP) Pulse Ox O2 Delivery O2 Flow Rate FiO2 08/21/21 04:39 60 28 120/64 08/21/21 04:01 90 50 08/21/21 01:45 Mechanical Ventilator 55.00 08/20/21 22:58 37.1 Capillary Refill : Less Than 3 Seconds General Appearance: Chronically ill, Other (Sedated and intubated and prone) Respiratory: No Accessory Muscle Use, No Respiratory Distress, Decreased Breath Sounds Cardiovascular: Regular Rate, Rhythm Results/Procedures Lab Laboratory Tests 08/21/21 05:00 Patient resulted labs reviewed. Imaging: Reviewed Imaging Report Assessment/Plan Assessment and Plan Assess & Plan/Chief Complaint Acute respiratory failure due to COVID-19 COVID+ at outside facility Decadron Stopped Baricitinib Actemra given risks/benefits/EUA use discussed and patient agrees Check procalcitonin Checked ddimer and greater than [address] angio Requiring BiPAP High risk for intubation TeleICU consulted Intubated on 08/19/2021 HTN Hypothyroidism Depression Hold home meds for now DVT prophylaxis: Lovenox 08/16/2021: BiPAP dependent High risk for intubation Supportive care 08/17/2021: BiPAP dependent High risk for intubation 08/18/2021: May need to be intubated Updated daughter 08/19/2021: Intubated Guarded prognosis 08/20/2021: Maintain intubation Prone position is helpful Aggressive sedation required Updated daughter Critical Care Critically Ill Patient NEREYDA WALDROP DO Aug 20, 2021 08:16
--- NOTE | 2021-08-20 08:48 | Tele-ICU Progress Note ---
Progress Note video ounds completed 80 y/o with Covid PNA Now intubated settings: 28/375/70%/15 pe: COMFORTABLE ON VENT, SEDATED pULSE: 84 bp: 119/59 o2 SAT 95% oN Lovenox and Stress ulcer px CXR today: Single portable upright view of the chest was obtained. Stable normal heart size. Endotracheal tube, enteric tube, and right-sided PICC line are stable. Diffuse severe pulmonary infiltrates are increased from the prior exam. No pleural fluid or pneumothorax. No osseous abnormality. Impression: 1. Stable support lines and catheter. 2. Severe pulmonary infiltrates, increased. Plan: continue vent support and sedation as needed Focused Exam Lactate Level 08/19/21 10:55: Lactic Acid Level 3.68*H 08/19/21 16:48: Lactic Acid Level 4.31*H 08/20/21 03:58: Lactic Acid Level 2.93*H Height, Weight, BMI Height: '" Weight: lbs. oz. kg; 29.20 BMI Method: Laboratory Tests 08/19/21 17:38 08/20/21 03:58 Labs Labs Laboratory Tests 08/19/21 10:55: Lactic Acid Level 3.68*H 08/19/21 11:34: Glucometer 194H 08/19/21 16:47: Glucometer 197H 08/19/21 16:48: Lactic Acid Level 4.31*H 08/19/21 17:38: Sodium Level 141, Potassium Level 4.3, Chloride Level 103, Carbon Dioxide Level 25, Anion Gap 13, Blood Urea Nitrogen 22H, Creatinine 0.85, Estimat Glomerular Filtration Rate 68, BUN/Creatinine Ratio 26, Glucose Level 170H, Calcium Level 7.5L 08/20/21 03:58: Sodium Level 141, Potassium Level 4.1, Chloride Level 107, Carbon Dioxide Level 24, Anion Gap 10, Blood Urea Nitrogen 24H, Creatinine 0.77, Estimat Glomerular Filtration Rate 77, BUN/Creatinine Ratio 31, Glucose Level 121H, Calcium Level 7.2L, White Blood Count 20.4H, Red Blood Count 3.93, Hemoglobin 12.4, Hematocrit 37, Mean Corpuscular Volume 95, Mean Corpuscular Hemoglobin 32, Mean Corpuscular Hemoglobin Concent 33, Red Cell Distribution Width 12.9, Platelet Count 155, Me an Platelet Volume 11.7, Immature Granulocyte % (Auto) 1, Neutrophils (%) (Auto) 88H, Lymphocytes (%) (Auto) 6L, Monocytes (%) (Auto) 3, Eosinophils (%) (Auto) 1, Basophils (%) (Auto) 0, Neutrophils # (Auto) 18.0H, Lymphocytes # (Auto) 1.3, Monocytes # (Auto) 0.6, Eosinophils # (Auto) 0.2, Basophils # (Auto) 0.0, Immature Granulocyte # (Auto) 0.2H, Blood Gas Puncture Site ARTLINE, Blood Gas Patient Temperature 36.9, Arterial Blood pH 7.45H, Arterial Blood Partial Pressure CO2 38, Arterial Blood Partial Pressure O2 63L, Arterial Blood HCO3 26, Arterial Blood Total CO2 27.1, Arterial Blood Oxygen Saturation 88L, Arterial Blood Base Excess 2.2, Roque Test ARTLINE, Blood Gas Ventilator Setting YES, Blood Gas Inspired Oxygen 70%, Lactic Acid Level 2.93*H, Phosphorus Level 2.2L, Magnesium Level 2.4 Microbiology 08/14/21 MRSA Screen - Final, Complete ELLIOTT DANIELS MD Aug 20, 2021 08:48
[2021-08-20] MEDS: MIDAZOLAM DRIP PRE-MIX 100 ML IV SCH ×2 (09:11→18:45)
[2021-08-20 11:58] LABS: ALBUMIN 2.6 GM/DL (3.2-4.5)
[2021-08-20 12:00] LABS: TOTAL PROTEIN 4.9 GM/DL (6.4-8.2)
[2021-08-20 12:02] LABS: BILIRUBIN,TOTAL 0.8 MG/DL (0.1-1.0)
[2021-08-20 12:06] LABS: BILIRUBIN,DIRECT 0.4 MG/DL (0.0-0.3); BILIRUBIN,INDIRECT 0.4 MG/DL
--- NOTE | 2021-08-20 12:25 | Physical Therapy Progress Note ---
Therapy Progress Note Order for PT evaluation received. Patient is currently intubated and sedated, will monitor patient and start when appropriate. CHANDLER SOLIMAN PT Aug 20, 2021 12:25
[2021-08-20] MEDS: NOREPINEPHRINE 8 MG/250 ML 250 ML IV SCH ×2 (14:09→14:46)
[2021-08-20] MEDS: ACETAMINOPHEN 325 MG TABLET PO PRN (21:51)
[2021-08-21] VITALS (82 sets, daily range): BP systolic 92–159; BP diastolic 47–79
[2021-08-21] MEDS: DexMEDEtomidine 250 ML DRIP 250 ML IV SCH ×2 (02:27→15:20)
[2021-08-21] MEDS: RT-ALBUTEROL HFA 8.5 GM INHALER IH SCH ×6 (03:10→22:20)
[2021-08-21] MEDS: fentaNYL DRIP PRE-MIX 250 ML IV SCH ×6 (03:35→21:05)
[2021-08-21] MEDS: MIDAZOLAM DRIP PRE-MIX 100 ML IV SCH ×3 (04:39→23:23)
[2021-08-21 05:12] LABS: ABG BASE EXCESS -2.1 MMOL/L (-2.5-2.5); ABG OXYGEN SATURATION 94 % (94-100); ABG PCO2 48 MMHG (35-45); ABG PO2 83 MMHG (79-93); ABG TCO2 24.9 MMOL/L (21.0-31.0); BASOPHILS % (AUTO) 0 % (0-10); HEMOGLOBIN 11.1 g/dL (11.5-16.0); MEAN PLATELET VOLUME 11.5 fL (9.0-12.2)
[2021-08-21 05:14] LABS: EOSINOPHILS # (AUTO) 0.1 10^3/uL (0.0-0.3); EOSINOPHILS % (AUTO) 1 % (0-10); HEMATOCRIT 34 % (35-52); LYMPHOCYTES % (AUTO) 7 % (12-44); MEAN CORPUSCULAR HEMOGLOBIN 32 pg (25-34); MEAN CORPUSCULAR HGB CONC 33 g/dL (32-36); MEAN CORPUSCULAR VOLUME 99 fL (80-99); MONOCYTES # (AUTO) 0.5 10^3/uL (0.0-1.0); MONOCYTES % (AUTO) 4 % (0-12); NEUTROPHILS # (AUTO) 11.3 10^3/uL (1.8-7.8); NEUTROPHILS % (AUTO) 86 % (42-75); PLATELET COUNT 126 10^3/uL (130-400); WHITE BLOOD COUNT 13.1 10^3/uL (4.3-11.0)
[2021-08-21 05:20] LABS: ABG PH 7.31 (7.37-7.43); ALLENS TEST ARTLINE; PATIENT TEMP 36.4; VENTILATOR YES
[2021-08-21 05:33] LABS: POTASSIUM 4.6 MMOL/L (3.6-5.0)
[2021-08-21 05:35] LABS: CALCIUM 6.9 MG/DL (8.5-10.1)
[2021-08-21 05:39] LABS: CREATININE SERUM 0.69 MG/DL (0.60-1.30)
[2021-08-21 05:41] LABS: MAGNESIUM 2.4 MG/DL (1.6-2.4)
[2021-08-21] MEDS: inSUlin ASPART (NovoLOG) 1 UNIT/0.01 ML (CHARGE PER UNIT) SC SCH ×5 (06:17→23:22)
[2021-08-21] MEDS: KCL 20 MEQ TAB (K-DUR) PO SCH (06:17)
[2021-08-21] MEDS: MAGNESIUM 1 GM/100 ML IVPB 100 ML IV SCH (06:17)
[2021-08-21] MEDS: POTASSIUM CL 10MEQ/50ML IVPB 50 ML IV SCH (06:17)
[2021-08-21 06:29] LABS: BAND NEUTROPHILS 2 %; LYMPHOCYTES % (MANUAL) 6 %; MONOCYTES % (MANUAL) 7 %; NEUTROPHILS % (MANUAL) 85 %
--- NOTE | 2021-08-21 07:31 | Diagnostic Imaging Report ---
INDICATION: Covid-19 positive and ventilator support. TIME OF EXAM: 3:13 AM Correlation is made with prior chest one day earlier. ET tube has tip above the sherice. NG tube passes below the diaphragm. Right upper extremity PICC line has tip overlying the SVC right atrial junction. Extensive bilateral pulmonary infiltrates persist and are similar to yesterday's study. There is no effusion or pneumothorax. IMPRESSION: Continued extensive bilateral pulmonary infiltrates. Dictated by: Dictated on workstation # [id number]
[2021-08-21] MEDS: ENOXAPARIN 80 MG/0.8 ML (LOVENOX) SYR SC SCH ×2 (08:23→20:38)
[2021-08-21] MEDS: SENNOSIDES 8.6 MG (SENOKOT) TAB PO SCH ×2 (08:23→20:38)
[2021-08-21] MEDS: PANTOPRAZOLE 40 MG (PROTONIX) VIAL IV SCH (08:23)
[2021-08-21] MEDS: ACYCLOVIR 400 MG TABLET (ZOVIRAX) PO SCH ×2 (08:23→20:38)
[2021-08-21] MEDS: NS IV 1000 ML 1,000 ML IV SCH ×2 (09:30→23:23)
--- NOTE | 2021-08-21 10:33 | Tele-ICU Consult ---
History of Present Illness History of Present Illness Date Seen by Provider: Aug 21, 2021 Time Seen by Provider: 09:41 Date of Admission Allergies and Home Medications Allergies Coded Allergies: morphine (Verified Allergy, Unknown, Rash, 08/15/21) Home Medications Escitalopram Oxalate 10 Mg Tablet, 10 MG PO DAILY, (Reported) Levothyroxine Sodium 50 Mcg Tablet, 50 MCG PO DAILY, (Reported) Metoprolol Succinate 50 Mg Tab.er.24h, 50 MG PO DAILY, (Reported) Past Medical/Social/Family Hx Immunizations Up To Date Influenza Vaccine Up-to-Date: No; Not Current Review of Systems Constitutional: see HPI Focused Exam Lactate Level 08/19/21 10:55: Lactic Acid Level 3.68*H 08/19/21 16:48: Lactic Acid Level 4.31*H 08/20/21 03:58: Lactic Acid Level 2.93*H Height, Weight, BMI Height: '" Weight: lbs. oz. kg; 29.20 BMI Method: Exam Exam Patient acknowledged, consented, and participated in this virtual visit which was conducted using real time audio/video Vital Signs Date Time Temp Pulse Resp B/P (MAP) Pulse Ox O2 Delivery O2 Flow Rate FiO2 08/21/21 10:00 65 27 120/58 (78) 93 Mechanical Ventilator 55.00 08/21/21 09:45 63 27 130/60 (83) 95 Mechanical Ventilator 55.00 08/21/21 09:30 63 27 126/60 (82) 94 Mechanical Ventilator 55.00 08/21/21 09:15 65 28 117/57 (77) 95 Mechanical Ventilator 55.00 08/21/21 09:00 64 27 121/58 (79) 94 Mechanical Ventilator 55.00 08/21/21 08:45 67 28 114/55 (74) 94 Mechanical Ventilator 55.00 08/21/21 08:34 Mechanical Ventilator 55.00 08/21/21 08:31 94 Mechanical Ventilator 55 08/21/21 08:30 66 27 123/57 (79) 94 Mechanical Ventilator 65.00 08/21/21 08:15 67 27 120/57 (78) 92 Mechanical Ventilator 65.00 08/21/21 08:00 73 27 105/49 (67) 91 Mechanical Ventilator 65.00 08/21/21 07:45 69 27 111/54 (73) 93 Mechanical Ventilator 65.00 08/21/21 07:44 69 28 92 55 08/21/21 07:30 68 27 117/57 (77) 93 Mechanical Ventilator 65.00 08/21/21 07:15 69 28 110/55 (73) 94 Mechanical Ventilator 65.00 08/21/21 07:00 71 08/21/21 07:00 67 28 101/58 (72) 96 Mechanical Ventilator 65.00 08/21/21 06:45 67 27 126/60 (82) 99 Mechanical Ventilator 65.00 08/21/21 06:30 65.00 08/21/21 06:30 68 27 120/59 (79) 95 Mechanical Ventilator 50.00 08/21/21 06:15 72 28 92/47 (62) 86 Mechanical Ventilator 50.00 08/21/21 06:00 63 27 113/57 (75) 94 Mechanical Ventilator 50.00 08/21/21 05:45 61 27 100/52 (68) 94 Mechanical Ventilator 50.00 08/21/21 05:30 60 27 102/56 (71) 95 Mechanical Ventilator 50.00 08/21/21 05:15 61 27 109/63 (78) 95 Mechanical Ventilator 50.00 08/21/21 05:00 62 28 111/59 (76) 96 Mechanical Ventilator 50.00 08/21/21 04:39 60 28 120/64 08/21/21 04:30 64 27 103/55 (71) 92 Mechanical Ventilator 50.00 08/21/21 04:15 61 28 117/63 (81) 93 Mechanical Ventilator 50.00 08/21/21 04:01 88 28 90 50 08/21/21 04:00 94 Mechanical Ventilator 55 08/21/21 04:00 36.4 08/21/21 04:00 64 27 119/62 (81) 93 Mechanical Ventilator 50.00 08/21/21 03:45 67 27 119/61 (80) 93 Mechanical Ventilator 50.00 08/21/21 03:40 50.00 08/21/21 03:30 68 27 119/58 (78) 94 Mechanical Ventilator 55.00 08/21/21 03:15 71 26 114/63 (80) 81 Mechanical Ventilator 55.00 08/21/21 02:45 75 27 128/68 (88) 91 Mechanical Ventilator 55.00 08/21/21 02:30 75 27 134/68 (90) 92 Mechanical Ventilator 55.00 08/21/21 02:27 75 133/68 08/21/21 02:15 74 27 139/70 (93) 92 Mechanical Ventilator 55.00 08/21/21 02:00 75 27 135/70 (91) 92 Mechanical Ventilator 55.00 08/21/21 01:45 75 28 133/69 (90) 92 Mechanical Ventilator 55.00 08/21/21 01:30 76 28 130/68 (88) 93 Mechanical Ventilator 55.00 08/21/21 01:15 78 28 129/67 (87) 92 Mechanical Ventilator 55.00 08/21/21 01:00 76 28 158/75 (102) 92 Mechanical Ventilator 55.00 08/21/21 01:00 80 08/21/21 00:45 79 28 153/73 (99) 92 Mechanical Ventilator 55.00 08/21/21 00:30 82 27 141/69 (93) 91 Mechanical Ventilator 55.00 08/21/21 00:15 82 27 127/64 (85) 91 Mechanical Ventilator 55.00 08/21/21 00:00 94 Mechanical Ventilator 50 08/21/21 00:00 36.4 08/21/21 00:00 80 28 134/67 (89) 92 Mechanical Ventilator 55.00 08/20/21 23:45 81 24 125/66 (85) 92 Mechanical Ventilator 55.00 08/20/21 23:30 80 28 135/68 (90) 92 Mechanical Ventilator 55.00 08/20/21 23:15 81 28 112/65 (81) 91 Mechanical Ventilator 55.00 08/20/21 23:00 83 27 121/60 (80) 88 Mechanical Ventilator 55.00 08/20/21 22:58 37.1 08/20/21 22:45 86 29 99/50 (66) 89 Mechanical Ventilator 55.00 08/20/21 22:30 85 27 110/55 (73) 89 Mechanical Ventilator 55.00 08/20/21 22:15 83 27 113/59 (77) 100 Mechanical Ventilator 55.00 08/20/21 22:00 82 28 115/59 (77) 90 Mechanical Ventilator 55.00 08/20/21 21:51 38.4 08/20/21 21:45 80 19 122/63 (82) 91 Mechanical Ventilator 55.00 08/20/21 21:30 79 27 133/68 (89) 91 Mechanical Ventilator 55.00 08/20/21 21:15 80 27 124/64 (84) 91 Mechanical Ventilator 55.00 08/20/21 21:00 80 28 128/65 (86) 91 Mechanical Ventilator 55.00 08/20/21 20:45 82 27 115/59 (77) 90 Mechanical Ventilator 55.00 08/20/21 20:30 81 28 121/64 (83) 91 Mechanical Ventilator 55.00 08/20/21 20:15 81 28 122/64 (83) 92 Mechanical Ventilator 55.00 08/20/21 20:00 38.4 08/20/21 20:00 38.4 08/20/21 20:00 92 Mechanical Ventilator 50 08/20/21 20:00 80 28 157/76 (103) 92 Mechanical Ventilator 55.00 08/20/21 19:45 82 28 143/71 (95) 91 Mechanical Ventilator 55.00 08/20/21 19:30 80 27 160/77 (104) 91 Mechanical Ventilator 55.00 08/20/21 19:15 81 27 144/72 (96) 91 Mechanical Ventilator 55.00 08/20/21 19:00 82 08/20/21 19:00 81 27 151/74 (99) 92 Mechanical Ventilator 55.00 08/20/21 18:45 84 28 141/69 08/20/21 18:39 84 28 92 50 08/20/21 18:00 82 24 158/76 (103) 92 Mechanical Ventilator 55.00 08/20/21 17:45 84 28 155/76 (102) 92 Mechanical Ventilator 55.00 08/20/21 17:30 83 28 148/74 (98) 92 Mechanical Ventilator 55.00 08/20/21 17:15 82 27 148/75 (99) 92 Mechanical Ventilator 55.00 08/20/21 17:00 82 24 151/76 (101) 92 Mechanical Ventilator 55.00 08/20/21 16:45 84 19 149/75 (99) 92 Mechanical Ventilator 55.00 08/20/21 16:30 83 21 148/75 (99) 92 Mechanical Ventilator 55.00 08/20/21 16:15 84 20 145/73 (97) 92 Mechanical Ventilator 55.00 08/20/21 16:00 38.3 12/18/21 16:00 94 Mechanical Ventilator 50 08/20/21 16:00 87 18 121/63 (82) 92 Mechanical Ventilator 55.00 08/20/21 15:45 86 24 135/70 (91) 92 Mechanical Ventilator 55.00 08/20/21 15:42 81 140/70 08/20/21 15:30 87 19 123/63 (83) 92 Mechanical Ventilator 55.00 08/20/21 15:15 84 24 134/69 (90) 92 Mechanical Ventilator 55.00 08/20/21 15:00 81 28 140/70 (93) 91 Mechanical Ventilator 55.00 08/20/21 14:46 86 145/73 08/20/21 14:45 90 21 120/68 (85) 89 Mechanical Ventilator 55.00 08/20/21 14:30 86 28 149/75 (99) 94 Mechanical Ventilator 55.00 08/20/21 14:25 86 29 93 50 08/20/21 14:15 87 28 131/69 (89) 93 Mechanical Ventilator 55.00 08/20/21 14:09 85 135/68 08/20/21 14:00 85 23 149/76 (100) 94 Mechanical Ventilator 55.00 08/20/21 13:45 84 27 142/73 (96) 93 Mechanical Ventilator 55.00 08/20/21 13:30 86 24 122/64 (83) 93 Mechanical Ventilator 55.00 08/20/21 13:15 82 27 150/76 (100) 95 Mechanical Ventilator 55.00 08/20/21 13:00 83 08/20/21 13:00 85 27 135/68 (90) 94 Mechanical Ventilator 55.00 08/20/21 12:45 81 28 145/72 (96) 95 Mechanical Ventilator 55.00 08/20/21 12:30 86 27 117/61 (79) 94 Mechanical Ventilator 55.00 08/20/21 12:18 Mechanical Ventilator 55.00 08/20/21 12:15 81 27 136/69 (91) 98 Mechanical Ventilator 65.00 08/20/21 12:00 94 Mechanical Ventilator 55 08/20/21 12:00 76 27 141/74 (96) 93 Mechanical Ventilator 65.00 08/20/21 11:45 81 27 141/71 (94) 98 Mechanical Ventilator 65.00 08/20/21 11:30 80 24 146/75 (98) 98 Mechanical Ventilator 65.00 08/20/21 11:15 85 29 124/65 (84) 97 Mechanical Ventilator 65.00 08/20/21 11:06 Mechanical Ventilator 65.00 08/20/21 11:00 81 27 144/72 (96) 97 Mechanical Ventilator 70.00 08/20/21 10:45 81 27 143/72 (95) 97 Mechanical Ventilator 70.00 I & O 08/21/21 07:00 Intake Total 3870 ml Output Total 1375 ml Balance 2495 ml Height & Weight Height: '" Weight: lbs. oz. kg; 29.20 BMI Method: General Appearance: Chronically ill, Other (Sedated and intubated and prone) HEENT: PERRL/EOMI, Other (wearing BiPAP mask) Neck: Normal Inspection, Supple Respiratory: No Accessory Muscle Use, No Respiratory Distress, Decreased Breath Sounds Cardiovascular: Regular Rate, Rhythm Capillary Refill: Less Than 3 Seconds Peripheral Pulses: 1+ Dorsalis Pedis (R), 1+ Left Dors-Pedis (L) (See free text.) Extremity: Normal Inspection, Non Tender, No Pedal Edema Neurologic/Psychiatric: Alert, Oriented x3, No Motor/Sensory Deficits, Normal Mood/Affect Skin: Normal Color, Warm/Dry Results Lab Laboratory Tests 08/19/21 17:38 08/20/21 03:58 08/21/21 05:00 Assessment/Plan Assessment/Plan (Tele-ICU Physician , Progress Note ) Available chart/ vitals / labs / Images reviewed Video assessment done using teleICU camera, rest of exam as per RN Discussed with RN , EXAM PER RN Events overnight : AFEBRILE FiO2 - 100% I/O =pos Drips: NS 75 Pressors:LEVO PRN Sedation gtt: fentalyl , versed 10 precedex 1.2 ( RASS -3 ) VENT SETTINGS and ABG reviewed Not candidate for SBT today �REVIEWED Cardiovascular Stability / Sedation Score / FI02/PEEP / ABG / CXR Consultants: Hospital course: (08/14) 60yr old female admitted with Covid pneumonia, TRANSFER FTON OTHER FACILITY 08/15- BIPAP16/7 100%, RR 35 TV 700 , MV 25 , CTA - NO PE 08/16 - BIPAP16/7 100%, RR 33 TV 800 , MV 27, added ROCEPHIN 12/15 - BIPAP 18 - 70% rr33 tv 800 mv 29L 08/18-BIPAP 18 - 75% rr39 tv 1000 , add precedex , DIARRHEA 08/19 intubated AC 375 28 +10 100% 08/21 - peep 12 , fio2 55% A/P AHRF / ARDS due to severe COVID19 - 08/19 intubated , today peep 12 , fio2 55% -prone protocol to cont Shock, sepsis/ meds - on levo 08/19- PRN last 24 h HFSS-Iocpqsyfnkw-6/COVID-19 PNA - TRANSFER FTON OTHER FACILITY --Dexamethasone -- s/p Epaijnjtkur93/ 13 ( received one Baricitinib on other hospital (on Acyclovir - 30 days ) -Hypercoagulable state , DDIMER= 20 on -> ( no evidence of large PE on CT 08/15 ) monitor for superimposed bact PNA -CT with atelectasis vs RLL infiltrate - started Rocephin 08/16 -08/20 = OFF aBX now elev LACTATE with shock - off BICAb - resolved Thrombocytopenia - monitor Elev TGL - sedation with propofol , changed to versed Hyperglycemia - ISS , close f/up on steroids Diarrhea 08/18 - resol;laya - monitor Lines : PICC 08/15 (Central Line Necessity Reviewed) Wright: 08/18 OG: Nutrition: TF Analgesia: Anxiety/ delirium VTE Prophylaxis: ulises 80 bid Stress Ulcer Prophylaxis: ppi Plans in collaboration with bedside consultants and IM MDs. Discussed with RN to reach out if any questions or concerns A total of 40 minutes of critical care time was devoted to this patient today, required to treat and/or prevent further deterioration of critical care condition ( as above) . ZEB BERG MD Aug 21, 2021 10:33
--- NOTE | 2021-08-21 12:02 | Progress Note - Hospitalist ---
Subjective HPI/CC On Admission Date Seen by Provider: Aug 21, 2021 Time Seen by Provider: 11:30 Chacho Sandoval is a 60 year old female with PMH HTN, hypothyroidism, depression, who was transferred from [place], [place] with acute respiratory failure due to COVID-19. She was admitted there to a critical access hospital. Her oxygen requirement worsened and they could no longer support her. No beds were available anywhere near their facility and [facility] assisted with locating a bed at our facility. She was transferred by fixed wing plane to ambulance. She was transported on BiPAP. She has been sick for a little over a week. She has had fevers. She has been short of breath and coughing. She denies chest pain. She has not had nausea, vomiting, or diarrhea. Her appetite has been poor. She is unvaccinated. She was being treated with Decadron, Remdesivir, Baricitinib, and antibiotics. Subjective/Events-last exam Patient still critical but stable Management appreciated FiO2 55% and PEEP is 12 Precedex and fentanyl and Versed maintained Prone position is helpful Levophed to maintain Updated daughter Checked meds and labs Focused Exam Lactate Level 08/19/21 10:55: Lactic Acid Level 3.68*H 08/19/21 16:48: Lactic Acid Level 4.31*H 08/20/21 03:58: Lactic Acid Level 2.93*H Objective Exam Vital Signs Vital Signs Date Time Temp Pulse Resp B/P (MAP) Pulse Ox O2 Delivery O2 Flow Rate FiO2 08/22/21 04:00 64 24 144/68 (93) 95 Mechanical Ventilator 75.00 08/22/21 02:49 60 08/21/21 20:00 36.3 Capillary Refill : Less Than 3 Seconds General Appearance: Chronically ill, Other (Sedated and intubated) Respiratory: No Accessory Muscle Use, No Respiratory Distress, Decreased Breath Sounds Cardiovascular: Regular Rate, Rhythm Results/Procedures Lab Patient resulted labs reviewed. Imaging: Reviewed Imaging Report Assessment/Plan Assessment and Plan Assess & Plan/Chief Complaint Acute respiratory failure due to COVID-19 COVID+ at outside facility Decadron Stopped Baricitinib Actemra given risks/benefits/EUA use discussed and patient agrees Check procalcitonin Checked ddimer and greater than [address] angio Requiring BiPAP High risk for intubation TeleICU consulted Intubated on 08/19/2021 HTN Hypothyroidism Depression Hold home meds for now DVT prophylaxis: Lovenox 08/16/2021: BiPAP dependent High risk for intubation Supportive care 08/17/2021: BiPAP dependent High risk for intubation 08/18/2021: May need to be intubated Updated daughter 08/19/2021: Intubated Guarded prognosis 08/20/2021: Maintain intubation Prone position is helpful Aggressive sedation required Updated daughter 08/21/2021: Maintain intubation Prognosis guarded Critical Care Critically Ill Patient NEREYDA WALDROP DO Aug 21, 2021 12:02
[2021-08-21] MEDS: NOREPINEPHRINE 8 MG/250 ML 250 ML IV SCH (23:22)
[2021-08-22] VITALS (60 sets, daily range): BP systolic 12–178; BP diastolic 16–85
[2021-08-22] MEDS: fentaNYL DRIP PRE-MIX 250 ML IV SCH ×6 (01:22→21:20)
[2021-08-22] MEDS: RT-ALBUTEROL HFA 8.5 GM INHALER IH SCH ×6 (02:49→21:31)
[2021-08-22 05:12] LABS: ABG BASE EXCESS -1.4 MMOL/L (-2.5-2.5); ABG OXYGEN SATURATION 95 % (94-100); ABG PCO2 45 MMHG (35-45); ABG PO2 70 MMHG (79-93); ABG TCO2 25.1 MMOL/L (21.0-31.0)
[2021-08-22 05:16] LABS: ALLENS TEST ARTLINE; INSPIRED O2 75%; PATIENT TEMP 36.4; VENTILATOR YES
[2021-08-22 05:18] LABS: ABG PH 7.34 (7.37-7.43)
[2021-08-22 05:19] LABS: BASOPHILS % (AUTO) 0 % (0-10); EOSINOPHILS % (AUTO) 0 % (0-10); HEMOGLOBIN 10.9 g/dL (11.5-16.0); MEAN CORPUSCULAR HEMOGLOBIN 31 pg (25-34); MEAN CORPUSCULAR VOLUME 97 fL (80-99); MEAN PLATELET VOLUME 11.7 fL (9.0-12.2)
[2021-08-22 05:20] LABS: HEMATOCRIT 34 % (35-52); LYMPHOCYTES # (AUTO) 1.3 10^3/uL (1.0-4.0); LYMPHOCYTES % (AUTO) 9 % (12-44); MEAN CORPUSCULAR HGB CONC 32 g/dL (32-36); MONOCYTES % (AUTO) 7 % (0-12); NEUTROPHILS # (AUTO) 11.8 10^3/uL (1.8-7.8); NEUTROPHILS % (AUTO) 81 % (42-75); PLATELET COUNT 134 10^3/uL (130-400); WHITE BLOOD COUNT 14.7 10^3/uL (4.3-11.0)
[2021-08-22 05:21] LABS: MONOCYTES # (AUTO) 1.1 10^3/uL (0.0-1.0)
[2021-08-22] MEDS: DexMEDEtomidine 250 ML DRIP 250 ML IV SCH ×2 (05:41→18:20)
[2021-08-22 05:45] LABS: ALBUMIN 2.6 GM/DL (3.2-4.5); POTASSIUM 4.7 MMOL/L (3.6-5.0)
[2021-08-22 05:47] LABS: CALCIUM 7.3 MG/DL (8.5-10.1)
[2021-08-22 05:48] LABS: TOTAL PROTEIN 4.8 GM/DL (6.4-8.2)
[2021-08-22 05:50] LABS: BILIRUBIN,TOTAL 0.6 MG/DL (0.1-1.0)
[2021-08-22 05:51] LABS: PHOSPHORUS 2.9 MG/DL (2.3-4.7)
[2021-08-22 05:52] LABS: CREATININE SERUM 0.65 MG/DL (0.60-1.30)
[2021-08-22 05:53] LABS: BILIRUBIN,DIRECT 0.3 MG/DL (0.0-0.3); BILIRUBIN,INDIRECT 0.3 MG/DL
[2021-08-22 05:54] LABS: MAGNESIUM 2.3 MG/DL (1.6-2.4)
[2021-08-22] MEDS: POTASSIUM CL 10MEQ/50ML IVPB 50 ML IV SCH (05:55)
[2021-08-22] MEDS: KCL 20 MEQ TAB (K-DUR) PO SCH (05:55)
[2021-08-22] MEDS: MAGNESIUM 1 GM/100 ML IVPB 100 ML IV SCH (05:55)
[2021-08-22] MEDS: inSUlin ASPART (NovoLOG) 1 UNIT/0.01 ML (CHARGE PER UNIT) SC SCH ×3 (05:55→17:45)
--- NOTE | 2021-08-22 06:10 | Diagnostic Imaging Report ---
INDICATION: Covid patient on ventilator. FINDINGS: ET tube mid trachea. Right PICC at the lower SVC. 5 lobe mixed interstitial and airspace opacities similar to the prior and not clearly changed. No effusion or pneumothorax. IMPRESSION: Unchanged 5 lobe infiltrates and support apparatus. Dictated by: Dictated on workstation # [id number]
--- NOTE | 2021-08-22 06:54 | Occ Therapy Progress Note ---
Therapy Progress Note Pt is currently intubated. OT to monitor pt's status and will initiate treatment when pt is medically stable to actively participate in skilled therapy. TRACE WAN Aug 22, 2021 06:54
[2021-08-22] MEDS: SENNOSIDES 8.6 MG (SENOKOT) TAB PO SCH ×2 (07:57→21:20)
[2021-08-22] MEDS: ENOXAPARIN 80 MG/0.8 ML (LOVENOX) SYR SC SCH ×2 (07:57→21:20)
[2021-08-22] MEDS: ACYCLOVIR 400 MG TABLET (ZOVIRAX) PO SCH ×2 (07:57→21:20)
[2021-08-22] MEDS: PANTOPRAZOLE 40 MG (PROTONIX) VIAL IV SCH (07:57)
--- NOTE | 2021-08-22 09:06 | Physical Therapy Progress Note ---
Therapy Progress Note Order for PT evaluation received. Patient is currently intubated and sedated, will monitor patient and start when appropriate. CHANDLER SOLIMAN PT Aug 22, 2021 09:06
--- NOTE | 2021-08-22 09:35 | Tele-ICU Progress Note ---
Subjective Date Seen by a Provider: Aug 22, 2021 Time Seen by a Provider: 09:34 Sepsis Event Evaluation Height, Weight, BMI Height: '" Weight: lbs. oz. kg; 29.20 BMI Method: Focused Exam Lactate Level 08/19/21 10:55: Lactic Acid Level 3.68*H 08/19/21 16:48: Lactic Acid Level 4.31*H 08/20/21 03:58: Lactic Acid Level 2.93*H Exam Exam Patient acknowledged, consented, and participated in this virtual visit which was conducted using real time audio/video Vital Signs Date Time Temp Pulse Resp B/P (MAP) Pulse Ox O2 Delivery O2 Flow Rate FiO2 08/22/21 09:13 Mechanical Ventilator 75.00 08/22/21 09:00 68 28 131/66 (87) 95 Mechanical Ventilator 90.00 08/22/21 08:48 Mechanical Ventilator 90.00 08/22/21 08:45 72 25 114/63 (80) 95 Mechanical Ventilator 75.00 08/22/21 08:30 67 30 84 100 08/22/21 08:30 73 25 114/58 (76) 94 Mechanical Ventilator 75.00 08/22/21 08:27 95 Mechanical Ventilator 90 08/22/21 08:15 55 16 129/58 (81) 84 Mechanical Ventilator 75.00 08/22/21 08:00 36.5 08/22/21 08:00 63 20 117/57 (77) 92 Mechanical Ventilator 75.00 08/22/21 07:45 67 27 115/58 (77) 93 Mechanical Ventilator 75.00 08/22/21 07:30 66 19 118/56 (76) 93 Mechanical Ventilator 75.00 08/22/21 07:00 67 30 93 75 08/22/21 07:00 68 23 120/58 (78) 93 Mechanical Ventilator 75.00 08/22/21 07:00 67 08/22/21 06:45 69 28 127/60 (82) 93 Mechanical Ventilator 75.00 08/22/21 06:30 65 26 138/64 (88) 95 Mechanical Ventilator 75.00 08/22/21 06:15 66 21 137/61 (86) 95 Mechanical Ventilator 75.00 08/22/21 06:00 69 28 132/60 (84) 95 Mechanical Ventilator 75.00 08/22/21 05:41 69 08/22/21 05:00 71 26 121/59 (79) 96 Mechanical Ventilator 75.00 08/22/21 04:00 36.4 08/22/21 04:00 64 24 144/68 (93) 95 Mechanical Ventilator 75.00 08/22/21 04:00 92 Mechanical Ventilator 75 08/22/21 03:24 Mechanical Ventilator 75.00 08/22/21 03:00 62 27 157/77 (103) 100 Mechanical Ventilator 60.00 08/22/21 02:49 68 28 93 60 08/22/21 02:00 70 24 152/75 (100) 93 Mechanical Ventilator 60.00 08/22/21 01:00 73 08/22/21 01:00 73 25 122/62 (82) 88 Mechanical Ventilator 60.00 08/22/21 00:00 37.0 08/22/21 00:00 92 Mechanical Ventilator 60 08/22/21 00:00 76 28 123/62 (82) 90 Mechanical Ventilator 60.00 08/21/21 23:23 76 28 156/72 08/21/21 23:00 78 28 149/73 (98) 91 Mechanical Ventilator 60.00 08/21/21 22:21 80 30 90 60 08/21/21 22:00 79 32 144/72 (96) 91 Mechanical Ventilator 60.00 08/21/21 21:00 84 22 130/65 (86) 89 Mechanical Ventilator 60.00 08/21/21 20:00 36.3 08/21/21 20:00 92 Mechanical Ventilator 60 08/21/21 20:00 79 30 130/66 (87) 90 Mechanical Ventilator 60.00 08/21/21 19:00 81 08/21/21 19:00 81 30 123/65 (84) 91 Mechanical Ventilator 60.00 08/21/21 18:36 78 29 91 50 08/21/21 18:00 76 28 126/67 (86) 90 Mechanical Ventilator 60.00 08/21/21 17:45 73 28 133/69 (90) 91 Mechanical Ventilator 60.00 08/21/21 17:30 75 22 134/70 (91) 91 Mechanical Ventilator 60.00 08/21/21 17:15 74 32 134/70 (91) 92 Mechanical Ventilator 60.00 08/21/21 17:00 75 25 138/70 (92) 90 Mechanical Ventilator 60.00 08/21/21 16:45 76 24 132/66 (88) 91 Mechanical Ventilator 60.00 08/21/21 16:30 80 30 124/61 (82) 91 Mechanical Ventilator 60.00 08/21/21 16:15 79 28 118/57 (77) 91 Mechanical Ventilator 60.00 08/21/21 16:09 92 Mechanical Ventilator 60 08/21/21 16:00 36.7 08/21/21 16:00 85 30 109/57 (74) 91 Mechanical Ventilator 60.00 08/21/21 15:45 82 30 113/58 (76) 93 Mechanical Ventilator 60.00 08/21/21 15:30 81 18 124/62 (82) 91 Mechanical Ventilator 60.00 08/21/21 15:23 Mechanical Ventilator 60.00 08/21/21 15:20 84 114/57 08/21/21 15:15 85 26 112/56 (74) 89 Mechanical Ventilator 55.00 08/21/21 15:00 84 27 114/57 (76) 88 Mechanical Ventilator 55.00 08/21/21 14:46 55 08/21/21 14:45 74 16 132/63 (86) 97 Mechanical Ventilator 55.00 08/21/21 14:38 78 29 93 55 08/21/21 14:30 74 28 133/66 (88) 92 Mechanical Ventilator 55.00 08/21/21 14:15 75 24 127/64 (85) 92 Mechanical Ventilator 55.00 08/21/21 14:00 71 25 140/69 (92) 93 Mechanical Ventilator 55.00 08/21/21 13:45 74 27 139/69 (92) 92 Mechanical Ventilator 55.00 08/21/21 13:30 74 21 138/68 (91) 92 Mechanical Ventilator 55.00 08/21/21 13:15 75 27 130/64 (86) 93 Mechanical Ventilator 55.00 08/21/21 13:14 74 22 129/64 08/21/21 13:00 73 28 142/70 (94) 93 Mechanical Ventilator 55.00 08/21/21 12:45 75 27 133/66 (88) 92 Mechanical Ventilator 55.00 08/21/21 12:42 74 08/21/21 12:30 73 27 134/68 (90) 93 Mechanical Ventilator 55.00 08/21/21 12:15 74 23 114/65 (81) 93 Mechanical Ventilator 55.00 08/21/21 12:00 76 22 129/64 (85) 92 Mechanical Ventilator 55.00 08/21/21 11:45 75 23 138/68 (91) 92 Mechanical Ventilator 55.00 08/21/21 11:30 77 22 134/66 (88) 93 Mechanical Ventilator 55.00 08/21/21 11:27 94 Mechanical Ventilator 55 08/21/21 11:15 74 24 159/74 (102) 92 Mechanical Ventilator 55.00 08/21/21 11:00 67 24 131/62 (85) 91 Mechanical Ventilator 55.00 08/21/21 10:52 65 29 98 55 08/21/21 10:45 62 28 117/56 (76) 93 Mechanical Ventilator 55.00 08/21/21 10:30 61 22 138/63 (88) 92 Mechanical Ventilator 55.00 08/21/21 10:15 64 22 132/61 (84) 93 Mechanical Ventilator 55.00 08/21/21 10:00 65 27 120/58 (78) 93 Mechanical Ventilator 55.00 08/21/21 09:45 63 27 130/60 (83) 95 Mechanical Ventilator 55.00 I & O 08/22/21 06:59 Intake Total 4780 ml Output Total 2540 ml Balance 2240 ml Height & Weight Height: '" Weight: lbs. oz. kg; 29.20 BMI Method: General Appearance: Chronically ill, Other (Sedated and intubated) HEENT: PERRL/EOMI, Other (wearing BiPAP mask) Neck: Normal Inspection, Supple Respiratory: No Accessory Muscle Use, No Respiratory Distress, Decreased Breath Sounds Cardiovascular: Regular Rate, Rhythm Capillary Refill: Less Than 3 Seconds Peripheral Pulses: 1+ Dorsalis Pedis (R), 1+ Left Dors-Pedis (L) (See free text.) Extremity: Normal Inspection, Non Tender, No Pedal Edema Neurologic/Psychiatric: Alert, Oriented x3, No Motor/Sensory Deficits, Normal Mood/Affect Skin: Normal Color, Warm/Dry Results Lab Laboratory Tests 08/21/21 05:00 08/22/21 04:55 Assessment/Plan Assessment/Plan (Tele-ICU Physician , Progress Note ) Available chart/ vitals / labs / Images reviewed Video assessment done using teleICU camera, rest of exam as per RN Discussed with RN , EXAM PER RN Events overnight : AFEBRILE FiO2 - 100% I/O =pos Drips: NS 75 Pressors:LEVO PRN Sedation gtt: fentalyl , versed 10 precedex 1.2 ( RASS -3 ) VENT SETTINGS and ABG reviewed Not candidate for SBT today �REVIEWED Cardiovascular Stability / Sedation Score / FI02/PEEP / ABG / CXR Consultants: Hospital course: (08/14) 60yr old female admitted with Covid pneumonia, TRANSFER FTON OTHER FACILITY 08/15- BIPAP16/7 100%, RR 35 TV 700 , MV 25 , CTA - NO PE 08/16 - BIPAP16/7 100%, RR 33 TV 800 , MV 27, added ROCEPHIN 08/17 - BIPAP 18/10 - 70% rr33 tv 800 mv 29L 08/18-BIPAP 18/ - 75% rr39 tv 1000 , add precedex , DIARRHEA 08/19 intubated AC 375 28 +10 100% 08/21 - peep 12 , fio2 55% 08/22 peep 12 fio2 85% A/P AHRF / ARDS due to severe COVID19 - 08/19 intubated , try diuresis today bumex x 1 -prone protocol to cont Shock, sepsis/ meds - on levo 08/19- PRN last 24 h KQUE-Zzevgfkrqvs-7/COVID-19 PNA - TRANSFER FTON OTHER FACILITY --Dexamethasone -- s/p Bnliejdygst29/ 13 ( received one Baricitinib on other hospital (on Acyclovir - 30 days ) -Hypercoagulable state , DDIMER= 20 on -> ( no evidence of large PE on CT 08/15 ) monitor for superimposed bact PNA -CT with atelectasis vs RLL infiltrate - started Rocephin 08/16 -08/20 = OFF aBX now elev LACTATE with shock - off BICAb - resolved Thrombocytopenia - monitor Elev TGL - sedation with propofol , changed to versed Hyperglycemia - ISS , close f/up on steroids Diarrhea 08/18 - resol;laya - monitor Lines : PICC 08/15 (Central Line Necessity Reviewed) Wright: 08/18 OG: Nutrition: TF Analgesia: Anxiety/ delirium VTE Prophylaxis: ulises 80 bid Stress Ulcer Prophylaxis: ppi Plans in collaboration with bedside consultants and IM MDs. Discussed with RN to reach out if any questions or concerns A total of 40 minutes of critical care time was devoted to this patient today, required to treat and/or prevent further deterioration of critical care condition ( as above) . ZEB BERG MD Aug 22, 2021 09:35
[2021-08-22] MEDS ORDERED: BUMETANIDE 1 MG/4 ML (BUMEX) VIAL IV ONE (09:45)
[2021-08-22] MEDS: MIDAZOLAM DRIP PRE-MIX 100 ML IV SCH ×2 (09:55→18:21)
--- NOTE | 2021-08-22 13:41 | Progress Note - Hospitalist ---
Subjective HPI/CC On Admission Date Seen by Provider: Aug 22, 2021 Time Seen by Provider: 09:30 Chacho Sandoval is a 60 year old female with PMH HTN, hypothyroidism, depression, who was transferred from [place], [place] with acute respiratory failure due to COVID-19. She was admitted there to a critical access hospital. Her oxygen re quirement worsened and they could no longer support her. No beds were available anywhere near their facility and [facility] assisted with locating a bed at our facility. She was transferred by fixed wing plane to ambulance. She was transported on BiPAP. She has been sick for a little over a week. She has had fevers. She has been short of breath and coughing. She denies chest pain. She has not had nausea, vomiting, or diarrhea. Her appetite has been poor. She is unvaccinated. She was being treated with Decadron, Remdesivir, Baricitinib, and antibiotics. Subjective/Events-last exam She remains intubated and sedated. Focused Exam Lactate Level 08/19/21 16:48: Lactic Acid Level 4.31*H 08/20/21 03:58: Lactic Acid Level 2.93*H Objective Exam Vital Signs Vital Signs Date Time Temp Pulse Resp B/P (MAP) Pulse Ox O2 Delivery O2 Flow Rate FiO2 08/22/21 13:29 Mechanical Ventilator 50.00 08/22/21 13:00 57 24 131/69 (89) 93 08/22/21 11:45 35.5 08/22/21 11:34 70 Capillary Refill : Less Than 3 Seconds General Appearance: No Apparent Distress, Obese, Other (intubated and sedated) Respiratory: Lungs Clear, Normal Breath Sounds, No Respiratory Distress, Other (intubated and mechanically ventilated) Cardiovascular: Regular Rate, Rhythm, No Edema, No Murmur Gastrointestinal: Normal Bowel Sounds, Soft Extremity: Normal Inspection, No Pedal Edema Neurologic/Psychiatric: Other (sedated) Skin: Normal Color, Warm/Dry Results/Procedures Lab Laboratory Tests 08/22/21 04:55 Patient resulted labs reviewed. Imaging: Reviewed Imaging Report Assessment/Plan Assessment and Plan Assess & Plan/Chief Complaint Acute respiratory failure due to COVID-19 Hypercoagulable state associated with COVID-19 Endotracheally intubated COVID+ at outside facility Remains intubated Decadron s/p Actemra s/p antibiotics TeleICU following HTN Hypothyroidism Depression Hold home meds DVT prophylaxis: Lovenox Secondary bacterial pneumonia, resolved Critical Care Critically Ill Patient Diagnosis/Problems Diagnosis/Problems (1) Acute respiratory failure due to COVID-19 Status: Acute (2) Hypercoagulable state associated with COVID-19 Status: Acute (3) Secondary bacterial pneumonia Status: Acute (4) Endotracheally intubated Status: Acute (5) Obesity Status: Chronic (6) HTN (hypertension) Status: Chronic (7) Hypothyroidism Status: Chronic (8) Depression Status: Chronic JANELLE ALFONSO MD Aug 22, 2021 13:41
[2021-08-22] MEDS: NOREPINEPHRINE 8 MG/250 ML 250 ML IV SCH (17:05)
[2021-08-23] VITALS (30 sets, daily range): BP systolic 100–193; BP diastolic 48–86
[2021-08-23] MEDS: fentaNYL DRIP PRE-MIX 250 ML IV SCH ×6 (01:43→22:32)
[2021-08-23] MEDS: inSUlin ASPART (NovoLOG) 1 UNIT/0.01 ML (CHARGE PER UNIT) SC SCH ×4 (01:43→18:09)
[2021-08-23] MEDS: RT-ALBUTEROL HFA 8.5 GM INHALER IH SCH ×6 (02:07→21:37)
[2021-08-23 04:02] LABS: ABG BASE EXCESS 3.4 MMOL/L (-2.5-2.5); ABG OXYGEN SATURATION 92 % (94-100); ABG PCO2 58 MMHG (35-45); ABG PO2 65 MMHG (79-93)
[2021-08-23 04:03] LABS: ALLENS TEST ARTLINE; INSPIRED O2 50%; PATIENT TEMP 36.4; VENTILATOR YES
[2021-08-23 04:04] LABS: ABG PH 7.32 (7.37-7.43)
[2021-08-23 04:05] LABS: BASOPHILS # (AUTO) 0.1 10^3/uL (0.0-0.1); BASOPHILS % (AUTO) 0 % (0-10); EOSINOPHILS # (AUTO) 0.1 10^3/uL (0.0-0.3); EOSINOPHILS % (AUTO) 0 % (0-10); HEMATOCRIT 37 % (35-52); LYMPHOCYTES # (AUTO) 1.3 10^3/uL (1.0-4.0); LYMPHOCYTES % (AUTO) 6 % (12-44); MEAN CORPUSCULAR HEMOGLOBIN 32 pg (25-34); MEAN CORPUSCULAR HGB CONC 32 g/dL (32-36); MEAN CORPUSCULAR VOLUME 98 fL (80-99); MEAN PLATELET VOLUME 11.4 fL (9.0-12.2); MONOCYTES # (AUTO) 1.6 10^3/uL (0.0-1.0); MONOCYTES % (AUTO) 8 % (0-12); NEUTROPHILS # (AUTO) 17.5 10^3/uL (1.8-7.8); NEUTROPHILS % (AUTO) 82 % (42-75); PLATELET COUNT 159 10^3/uL (130-400); WHITE BLOOD COUNT 21.4 10^3/uL (4.3-11.0)
[2021-08-23 04:18] LABS: POTASSIUM 4.9 MMOL/L (3.6-5.0)
[2021-08-23 04:19] LABS: CALCIUM 7.9 MG/DL (8.5-10.1)
[2021-08-23 04:23] LABS: CREATININE SERUM 0.62 MG/DL (0.60-1.30); PHOSPHORUS 3.9 MG/DL (2.3-4.7)
[2021-08-23 04:26] LABS: MAGNESIUM 2.4 MG/DL (1.6-2.4)
[2021-08-23] MEDS: MIDAZOLAM DRIP PRE-MIX 100 ML IV SCH ×3 (04:54→22:32)
[2021-08-23 04:58] LABS: BAND NEUTROPHILS 2 %; LYMPHOCYTES % (MANUAL) 8 %; METAMYELOCYTES % 1 %; MONOCYTES % (MANUAL) 11 %; MYELOCYTES % 1 %; NEUTROPHILS % (MANUAL) 77 %
[2021-08-23] MEDS: KCL 20 MEQ TAB (K-DUR) PO SCH (05:18)
[2021-08-23] MEDS: MAGNESIUM 1 GM/100 ML IVPB 100 ML IV SCH (05:18)
[2021-08-23] MEDS: POTASSIUM CL 10MEQ/50ML IVPB 50 ML IV SCH (05:18)
--- NOTE | 2021-08-23 06:48 | Occ Therapy Progress Note ---
Therapy Progress Note Pt is currently intubated. OT to monitor pt's status and will initiate treatment when pt is medically stable and able to actively participate in skilled therapy. TRACE WAN Aug 23, 2021 06:48
--- NOTE | 2021-08-23 06:52 | Diagnostic Imaging Report ---
INDICATION: Pneumonia, intubated COMPARISON: 08/22/2021 FINDINGS: Single view of the chest demonstrates stable support devices. Cardiac enlargement with interstitial infiltrates are unchanged. There is no pneumothorax. IMPRESSION: Unchanged aeration. Dictated by: Dictated on workstation # [id number]
[2021-08-23] MEDS: NOREPINEPHRINE 8 MG/250 ML 250 ML IV SCH (07:50)
--- NOTE | 2021-08-23 08:06 | Physical Therapy Progress Note ---
Therapy Progress Note Order for PT evaluation received. Patient is currently intubated and sedated, will monitor patient and start when appropriate. CHANDLER SOLIMAN PT Aug 23, 2021 08:06
[2021-08-23] MEDS: PANTOPRAZOLE 40 MG (PROTONIX) VIAL IV SCH (08:19)
[2021-08-23] MEDS: ACYCLOVIR 400 MG TABLET (ZOVIRAX) PO SCH ×2 (08:19→20:00)
[2021-08-23] MEDS: SENNOSIDES 8.6 MG (SENOKOT) TAB PO SCH ×2 (08:19→20:00)
[2021-08-23] MEDS: ENOXAPARIN 80 MG/0.8 ML (LOVENOX) SYR SC SCH ×2 (08:20→20:00)
--- NOTE | 2021-08-23 09:58 | Tele-ICU Progress Note ---
Subjective Date Seen by a Provider: Aug 23, 2021 Time Seen by a Provider: 09:57 Sepsis Event Evaluation Height, Weight, BMI Height: '" Weight: lbs. oz. kg; 29.20 BMI Method: Exam Exam Patient acknowledged, consented, and participated in this virtual visit which was conducted using real time audio/video Vital Signs Date Time Temp Pulse Resp B/P (MAP) Pulse Ox O2 Delivery O2 Flow Rate FiO2 08/23/21 07:55 36.1 08/23/21 07:05 60 28 91 50 08/23/21 06:17 68 25 105/48 (67) 91 Mechanical Ventilator 50.00 08/23/21 05:00 64 28 162/56 (91) 92 Mechanical Ventilator 50.00 08/23/21 04:54 60 28 160/75 08/23/21 04:00 61 27 156/54 (88) 93 Mechanical Ventilator 50.00 08/23/21 04:00 92 Mechanical Ventilator 50 08/23/21 03:00 64 27 142/59 (86) 96 Mechanical Ventilator 50.00 08/23/21 02:07 63 33 95 50 08/23/21 02:00 64 27 135/57 (83) 95 Mechanical Ventilator 50.00 08/23/21 01:00 65 28 140/57 (84) 95 Mechanical Ventilator 50.00 08/23/21 01:00 67 08/23/21 00:00 63 25 131/56 (81) 94 Mechanical Ventilator 50.00 08/23/21 00:00 92 Mechanical Ventilator 50 08/22/21 23:00 62 28 135/56 (82) 95 Mechanical Ventilator 50.00 08/22/21 22:00 58 30 142/58 (86) 93 Mechanical Ventilator 50.00 08/22/21 21:31 59 31 93 50 08/22/21 21:00 57 28 12/57 (42) 92 Mechanical Ventilator 50.00 08/22/21 20:00 36.0 08/22/21 20:00 92 Mechanical Ventilator 60 08/22/21 20:00 58 25 110/54 (72) 92 Mechanical Ventilator 50.00 08/22/21 19:00 50 08/22/21 19:00 56 25 124/61 (82) 93 Mechanical Ventilator 50.00 08/22/21 18:31 57 36 92 50 08/22/21 18:21 58 28 137/68 08/22/21 18:20 58 137/68 08/22/21 18:00 58 28 137/68 (91) 93 Mechanical Ventilator 50.00 08/22/21 17:45 57 23 138/67 (90) 93 Mechanical Ventilator 50.00 08/22/21 17:30 57 28 139/68 (91) 93 Mechanical Ventilator 50.00 08/22/21 17:15 58 22 138/68 (91) 92 Mechanical Ventilator 50.00 08/22/21 17:05 59 109/55 08/22/21 17:00 57 21 136/67 (90) 92 Mechanical Ventilator 50.00 08/22/21 16:45 58 23 113/56 (75) 92 Mechanical Ventilator 50.00 08/22/21 16:30 58 35 115/58 (77) 91 Mechanical Ventilator 50.00 08/22/21 16:15 58 32 111/55 (73) 91 Mechanical Ventilator 50.00 08/22/21 16:00 59 22 109/55 (73) 91 Mechanical Ventilator 50.00 08/22/21 16:00 36.1 08/22/21 15:45 57 31 120/62 (81) 91 Mechanical Ventilator 50.00 08/22/21 15:30 58 23 136/68 (90) 93 Mechanical Ventilator 50.00 08/22/21 15:27 93 Mechanical Ventilator 50 08/22/21 15:15 59 25 136/69 (91) 93 Mechanical Ventilator 50.00 08/22/21 15:00 59 23 135/69 (91) 93 Mechanical Ventilator 50.00 08/22/21 14:45 58 25 136/68 (90) 93 Mechanical Ventilator 50.00 08/22/21 14:30 59 25 134/69 (90) 93 Mechanical Ventilator 50.00 08/22/21 14:15 58 23 136/68 (90) 92 Mechanical Ventilator 50.00 08/22/21 14:04 58 33 91 50 08/22/21 14:00 57 27 131/67 (88) 91 Mechanical Ventilator 50.00 08/22/21 13:45 57 23 131/68 (89) 91 Mechanical Ventilator 50.00 08/22/21 13:30 59 30 135/68 (90) 91 Mechanical Ventilator 50.00 08/22/21 13:29 Mechanical Ventilator 50.00 12/20/21 13:15 58 28 136/69 (91) 95 Mechanical Ventilator 70.00 08/22/21 13:00 57 24 131/69 (89) 93 Mechanical Ventilator 70.00 08/22/21 12:45 61 33 129/66 (87) 94 Mechanical Ventilator 70.00 08/22/21 12:36 61 08/22/21 12:30 59 25 136/70 (92) 98 Mechanical Ventilator 70.00 08/22/21 12:15 60 25 138/72 (94) 97 Mechanical Ventilator 70.00 08/22/21 12:00 61 33 133/71 (91) 97 Mechanical Ventilator 70.00 08/22/21 11:45 35.5 08/22/21 11:45 61 26 144/75 (98) 96 Mechanical Ventilator 70.00 08/22/21 11:34 99 Mechanical Ventilator 70 08/22/21 11:33 Mechanical Ventilator 70.00 08/22/21 11:15 62 28 142/75 (97) 100 Mechanical Ventilator 75.00 08/22/21 11:00 61 35 140/73 (95) 100 Mechanical Ventilator 75.00 08/22/21 10:51 61 30 100 90 08/22/21 10:45 60 26 143/75 (97) 93 Mechanical Ventilator 75.00 08/22/21 10:30 58 25 139/70 (93) 95 Mechanical Ventilator 75.00 08/22/21 10:15 62 25 137/67 (90) 93 Mechanical Ventilator 75.00 08/22/21 10:00 63 35 130/64 (86) 92 Mechanical Ventilator 75.00 I & O 08/23/21 07:00 Intake Total 3280 ml Output Total 5225 ml Balance -1945 ml Height & Weight Height: '" Weight: lbs. oz. kg; 29.20 BMI Method: General Appearance: No Apparent Distress, Obese, Other (intubated and sedated) HEENT: PERRL/EOMI, Other (wearing BiPAP mask) Neck: Normal Inspection, Supple Respiratory: Lungs Clear, Normal Breath Sounds, No Respiratory Distress, Other (intubated and mechanically ventilated) Cardiovascular: Regular Rate, Rhythm, No Edema, No Murmur Capillary Refill: Less Than 3 Seconds Peripheral Pulses: 1+ Dorsalis Pedis (R), 1+ Left Dors-Pedis (L) (See free text.) Extremity: Normal Inspection, No Pedal Edema Neurologic/Psychiatric: Other (sedated) Skin: Normal Color, Warm/Dry Results Lab Laboratory Tests 08/22/21 04:55 08/23/21 03:44 Assessment/Plan Assessment/Plan (Tele-ICU Physician , Progress Note ) Available chart/ vitals / labs / Images reviewed Video assessment done using teleICU camera, rest of exam as per RN Discussed with RN , EXAM PER RN Events overnight : AFEBRILE FiO2 - 100% I/O =neg 2 l Drips: NS 75 Pressors:LEVO PRN Sedation gtt: fentalyl , versed 10 precedex OFF for bradycrdia ( RASS - 3 ) VENT SETTINGS and ABG reviewed Not candidate for SBT today �REVIEWED Cardiovascular Stability / Sedation Score / FI02/PEEP / ABG / CXR Consultants: Hospital course: (08/14) 60yr old female admitted with Covid pneumonia, TRANSFER FTON OTHER FACILITY 08/15- BIPAP16/7 100%, RR 35 TV 700 , MV 25 , CTA - NO PE 08/16 - BIPAP16/7 100%, RR 33 TV 800 , MV 27, added ROCEPHIN 08/17 - BIPAP 18/10 - 70% rr33 tv 800 mv 29L 08/18-BIPAP 18/10 - 75% rr39 tv 1000 , add precedex , DIARRHEA 08/19 intubated AC 375 28 +10 100% 08/20 - FINISHED Rocephin 08/21 - peep 12 , fio2 55% 08/22 peep 12 fio2 85% 08/23- s/p 6 L diuresis- AC 45-809-ascw28 60% A/P AHRF / ARDS due to severe COVID19 - 08/19 intubated diuresis after bumex x 1 -6L on 08/22 - AC 45-067-wsab35 60% -prone protocol to cont - gentle diuresis today - decrease sedation - ? SBT tomorrow if tolerates Shock, sepsis/ meds - on levo 08/19- OFF last 24 h [facility]-Cfgoqecngim-9/COVID-19 PNA - TRANSFER from OTHER FACILITY --Dexamethasone -- s/p [id number]/ 13 ( received one Baricitinib on other hospital (on Acyclovir - 30 days ) -Hypercoagulable state , DDIMER= 20 on -> ( no evidence of large PE on CT 08/15 ) monitor for superimposed bact PNA -CT with atelectasis vs RLL infiltrate -s/p Rocephin 08/16 -08/20 = OFF aBX now Thrombocytopenia - monitor Elev TGL - sedation with propofol , changed to versed Hyperglycemia - ISS , close f/up on steroids Diarrhea 08/18 - resolbumved - monitor ELV TGL - off propofol Lines : PICC 08/15 (Central Line Necessity Reviewed) Wright: 08/18 OG: Nutrition: TF - Analgesia: Anxiety/ delirium VTE Prophylaxis: ulises 80 bid Stress Ulcer Prophylaxis: ppi Plans in collaboration with bedside consultants and IM MDs. Discussed with RN to reach out if any questions or concerns A total of 40 minutes of critical care time was devoted to this patient today, required to treat and/or prevent further deterioration of critical care condition ( as above) . ZEB BERG MD Aug 23, 2021 09:58
[2021-08-23] MEDS ORDERED: METOCLOPRAMIDE INJ 10 MG/2 ML (REGLAN) IVP PRN (10:00)
[2021-08-23] MEDS ORDERED: BUMETANIDE 1 MG/4 ML (BUMEX) VIAL IV ONE (10:00)
--- NOTE | 2021-08-23 17:19 | Progress Note - Hospitalist ---
Subjective HPI/CC On Admission Date Seen by Provider: Aug 23, 2021 Time Seen by Provider: 10:00 Chacho Sandoval is a 60 year old female with PMH HTN, hypothyroidism, depression, who was transferred from [place], [place] with acute respiratory failure due to COVID-19. She was admitted there to a critical access hospital. Her oxygen re quirement worsened and they could no longer support her. No beds were available anywhere near their facility and [facility] assisted with locating a bed at our facility. She was transferred by fixed wing plane to ambulance. She was transported on BiPAP. She has been sick for a little over a week. She has had fevers. She has been short of breath and coughing. She denies chest pain. She has not had nausea, vomiting, or diarrhea. Her appetite has been poor. She is unvaccinated. She was being treated with Decadron, Remdesivir, Baricitinib, and antibiotics. Subjective/Events-last exam She remains intubated and sedated. She is in prone position. Objective Exam Vital Signs Vital Signs Date Time Temp Pulse Resp B/P (MAP) Pulse Ox O2 Delivery O2 Flow Rate FiO2 08/23/21 16:08 35.8 08/23/21 15:00 65 15 110/59 (76) 96 Mechanical Ventilator 50.00 08/23/21 14:47 60 Capillary Refill : Less Than 3 Seconds General Appearance: No Apparent Distress, Obese, Other (prone) Respiratory: Lungs Clear, Normal Breath Sounds, No Respiratory Distress, Other (intubated and mechanically ventilated) Cardiovascular: Regular Rate, Rhythm, No Edema, No Murmur Gastrointestinal: Normal Bowel Sounds, Soft Extremity: Normal Inspection, No Pedal Edema Neurologic/Psychiatric: Other (sedated) Skin: Normal Color, Warm/Dry Results/Procedures Lab Laboratory Tests 08/23/21 03:44 Patient resulted labs reviewed. Imaging: Reviewed Imaging Report Assessment/Plan Assessment and Plan Assess & Plan/Chief Complaint Acute respiratory failure due to COVID-19 Hypercoagulable state associated with COVID-19 Endotracheally intubated COVID+ at outside facility Remains intubated Decadron Therapeutic Lovenox s/p Actemra s/p antibiotics TeleICU following HTN Hypothyroidism Depression Hold home meds DVT prophylaxis: already receiving therapeutic anticoagulation Secondary bacterial pneumonia, resolved Critical Care Critically Ill Patient Diagnosis/Problems Diagnosis/Problems (1) Acute respiratory failure due to COVID-19 Status: Acute (2) Hypercoagulable state associated with COVID-19 Status: Acute (3) Secondary bacterial pneumonia Status: Acute (4) Endotracheally intubated Status: Acute (5) Obesity Status: Chronic (6) HTN (hypertension) Status: Chronic (7) Hypothyroidism Status: Chronic (8) Depression Status: Chronic JANELLE ALFONSO MD Aug 23, 2021 17:19
[2021-08-23] MEDS: DexMEDEtomidine 250 ML DRIP 250 ML IV SCH (22:42)
[2021-08-24] VITALS (30 sets, daily range): BP systolic 98–221; BP diastolic 54–105
[2021-08-24] MEDS: inSUlin ASPART (NovoLOG) 1 UNIT/0.01 ML (CHARGE PER UNIT) SC SCH ×4 (00:10→18:00)
[2021-08-24] MEDS: NOREPINEPHRINE 8 MG/250 ML 250 ML IV SCH ×2 (01:45→19:34)
[2021-08-24] MEDS: fentaNYL DRIP PRE-MIX 250 ML IV SCH ×5 (02:56→18:39)
[2021-08-24] MEDS: RT-ALBUTEROL HFA 8.5 GM INHALER IH SCH ×6 (03:15→22:23)
[2021-08-24 03:31] LABS: ABG OXYGEN SATURATION 100 % (94-100); ABG PCO2 43 MMHG (35-45); ABG PH 7.43 (7.37-7.43); ABG TCO2 29.5 MMOL/L (21.0-31.0)
[2021-08-24 03:32] LABS: BASOPHILS # (AUTO) 0.1 10^3/uL (0.0-0.1); BASOPHILS % (AUTO) 0 % (0-10); EOSINOPHILS # (AUTO) 0.1 10^3/uL (0.0-0.3); EOSINOPHILS % (AUTO) 0 % (0-10); HEMATOCRIT 39 % (35-52); HEMOGLOBIN 12.9 g/dL (11.5-16.0); LYMPHOCYTES # (AUTO) 1.8 10^3/uL (1.0-4.0); LYMPHOCYTES % (AUTO) 7 % (12-44); MEAN CORPUSCULAR HEMOGLOBIN 32 pg (25-34); MEAN CORPUSCULAR HGB CONC 33 g/dL (32-36); MEAN CORPUSCULAR VOLUME 97 fL (80-99); MONOCYTES # (AUTO) 1.2 10^3/uL (0.0-1.0); MONOCYTES % (AUTO) 5 % (0-12); NEUTROPHILS # (AUTO) 21.5 10^3/uL (1.8-7.8); NEUTROPHILS % (AUTO) 85 % (42-75); PLATELET COUNT 177 10^3/uL (130-400); WHITE BLOOD COUNT 25.5 10^3/uL (4.3-11.0)
[2021-08-24 03:34] LABS: ALLENS TEST ARTLINE
[2021-08-24 03:35] LABS: PATIENT TEMP 36.8; VENTILATOR YES
[2021-08-24 03:37] LABS: ABG PO2 166 MMHG (79-93)
[2021-08-24 03:48] LABS: POTASSIUM 4.8 MMOL/L (3.6-5.0)
[2021-08-24 03:49] LABS: CALCIUM 8.1 MG/DL (8.5-10.1)
[2021-08-24 03:53] LABS: CREATININE SERUM 0.64 MG/DL (0.60-1.30); PHOSPHORUS 3.8 MG/DL (2.3-4.7)
[2021-08-24 03:56] LABS: MAGNESIUM 2.3 MG/DL (1.6-2.4)
--- NOTE | 2021-08-24 04:06 | Progress Note ---
Standard Progress Note Progress Notes/Assess & Plan Date Seen by a Provider: Aug 24, 2021 Time Seen by a Provider: 04:04 Progress/Assessment & Plan called for agitation, despite IV Fentanyl@ 300 and IV Versed @ 10 on full vent support for COVID PNA, will give 1 mg of IVP Ativan, if helps will continue MD SHANE Tran JOSEPH K MD Aug 24, 2021 04:06
[2021-08-24] MEDS: POTASSIUM CL 10MEQ/50ML IVPB 50 ML IV SCH (04:24)
[2021-08-24] MEDS: KCL 20 MEQ TAB (K-DUR) PO SCH (04:25)
[2021-08-24] MEDS: MAGNESIUM 1 GM/100 ML IVPB 100 ML IV SCH (04:25)
[2021-08-24] MEDS ORDERED: LORazepam INJ 2 MG/ML (ATIVAN) VIAL IVP ONE (04:30)
--- NOTE | 2021-08-24 05:10 | Diagnostic Imaging Report ---
EXAMINATION: Chest 1 view HISTORY: Intubation COMPARISON: 08/23/2021 FINDINGS: Heart size and pulmonary vasculature are stable. Diffuse interstitial opacities are seen throughout both lungs. No significant pleural effusion or pneumothorax. Endotracheal tube is present approximately 5.5 cm above the sherice. Enteric catheter and right-sided PICC line are unchanged. The osseous structures are intact. IMPRESSION: 1. Endotracheal tube approximately 5.5 cm above the sherice. Medical support lines and tubes otherwise unchanged. 2. Stable diffuse interstitial opacities throughout the lungs. Dictated by: Dictated on workstation # [id number]
[2021-08-24] MEDS: MIDAZOLAM DRIP PRE-MIX 100 ML IV SCH ×3 (06:33→21:59)
--- NOTE | 2021-08-24 06:48 | Occ Therapy Progress Note ---
Therapy Progress Note Pt is currently intubated. OT to monitor pt's status and will initiate treatment when pt is medically stable and able to actively participate in skilled therapy. TRACE WAN Aug 24, 2021 06:48
--- NOTE | 2021-08-24 08:04 | Physical Therapy Progress Note ---
Therapy Progress Note Order for PT evaluation received. Patient is currently intubated and sedated, will monitor patient and start when appropriate. CHANDLER SOLIMAN PT Aug 24, 2021 08:04
[2021-08-24] MEDS: ACYCLOVIR 400 MG TABLET (ZOVIRAX) PO SCH ×2 (08:26→20:53)
[2021-08-24] MEDS: ENOXAPARIN 80 MG/0.8 ML (LOVENOX) SYR SC SCH ×2 (08:26→20:53)
[2021-08-24] MEDS: PANTOPRAZOLE 40 MG (PROTONIX) VIAL IV SCH (08:26)
[2021-08-24] MEDS: SENNOSIDES 8.6 MG (SENOKOT) TAB PO SCH ×2 (08:26→20:53)
[2021-08-24] MEDS ORDERED: MIDAZOLAM 5 MG/5 ML (VERSED) VIAL ONE (09:27)
[2021-08-24] MEDS ORDERED: MIDAZOLAM 5 MG/5 ML (VERSED) VIAL IVP ONE (09:30)
--- NOTE | 2021-08-24 09:53 | Tele-ICU Progress Note ---
Subjective Date Seen by a Provider: Aug 24, 2021 Time Seen by a Provider: 09:52 Sepsis Event Evaluation Height, Weight, BMI Height: '" Weight: lbs. oz. kg; 29.20 BMI Method: Exam Exam Patient acknowledged, consented, and participated in this virtual visit which was conducted using real time audio/video Vital Signs Date Time Temp Pulse Resp B/P (MAP) Pulse Ox O2 Delivery O2 Flow Rate FiO2 08/24/21 07:52 70 28 93 55 08/24/21 07:45 36.1 08/24/21 06:33 65 14 124/67 08/24/21 06:00 65 14 124/67 (86) 92 Mechanical Ventilator 55.00 08/24/21 05:00 64 14 140/68 (92) 95 Mechanical Ventilator 55.00 08/24/21 04:15 95 Mechanical Ventilator 55 08/24/21 04:00 70 23 191/84 (119) 100 Mechanical Ventilator 55.00 08/24/21 03:28 105 28 99 55 08/24/21 03:00 51 27 106/54 (71) 95 Mechanical Ventilator 55.00 08/24/21 03:00 36.8 Mechanical Ventilator 55.00 08/24/21 02:00 58 13 116/62 (80) 95 Mechanical Ventilator 55.00 08/24/21 01:45 57 116/63 08/24/21 01:00 56 18 123/64 (83) 95 Mechanical Ventilator 55.00 08/24/21 01:00 57 08/24/21 00:12 94 Mechanical Ventilator 55 08/24/21 00:12 36.4 Mechanical Ventilator 55.00 08/24/21 00:00 57 13 116/63 (80) 95 Mechanical Ventilator 55.00 08/23/21 23:00 58 15 120/64 (82) 95 Mechanical Ventilator 55.00 08/23/21 22:42 50 139/68 08/23/21 22:32 50 28 139/68 08/23/21 22:00 57 12 136/68 (90) 94 Mechanical Ventilator 55.00 08/23/21 22:00 Mechanical Ventilator 55.00 08/23/21 21:37 50 28 99 60 08/23/21 21:00 60 18 119/63 (81) 97 Mechanical Ventilator 60.00 08/23/21 20:12 95 Mechanical Ventilator 60 08/23/21 20:00 61 15 127/60 (82) 96 Mechanical Ventilator 60.00 08/23/21 19:57 36.2 Mechanical Ventilator 60.00 08/23/21 19:00 70 08/23/21 19:00 62 13 123/65 (84) 96 Mechanical Ventilator 50.00 08/23/21 18:29 54 28 98 60 08/23/21 18:00 62 13 114/61 (78) 96 Mechanical Ventilator 50.00 08/23/21 17:00 65 14 111/59 (76) 96 Mechanical Ventilator 50.00 08/23/21 16:15 94 Mechanical Ventilator 60 08/23/21 16:08 35.8 08/23/21 16:00 65 14 118/61 (80) 96 Mechanical Ventilator 50.00 08/23/21 15:00 65 15 110/59 (76) 96 Mechanical Ventilator 50.00 08/23/21 14:47 65 28 97 60 08/23/21 14:00 63 22 112/59 (76) 96 Mechanical Ventilator 50.00 08/23/21 13:29 118/60 08/23/21 13:00 66 15 122/63 (82) 95 Mechanical Ventilator 50.00 08/23/21 13:00 65 08/23/21 12:00 66 15 133/67 (89) 96 Mechanical Ventilator 50.00 08/23/21 11:20 36.0 08/23/21 11:16 94 Mechanical Ventilator 60 08/23/21 11:00 63 16 133/62 (85) 95 Mechanical Ventilator 50.00 08/23/21 10:29 64 28 93 50 08/23/21 10:00 64 13 163/68 (99) 94 Mechanical Ventilator 50.00 I & O 08/24/21 07:00 Intake Total 2610 ml Output Total 5100 ml Balance -2490 ml Height & Weight Height: '" Weight: lbs. oz. kg; 29.20 BMI Method: General Appearance: No Apparent Distress, Obese, Other (prone) HEENT: PERRL/EOMI, Other (wearing BiPAP mask) Neck: Normal Inspection, Supple Respiratory: Lungs Clear, Normal Breath Sounds, No Respiratory Distress, Other (intubated and mechanically ventilated) Cardiovascular: Regular Rate, Rhythm, No Edema, No Murmur Capillary Refill: Less Than 3 Seconds Peripheral Pulses: 1+ Dorsalis Pedis (R), 1+ Left Dors-Pedis (L) (See free text.) Extremity: Normal Inspection, No Pedal Edema Neurologic/Psychiatric: Other (sedated) Skin: Normal Color, Warm/Dry Results Lab Laboratory Tests 08/23/21 03:44 08/24/21 03:20 Assessment/Plan Assessment/Plan (Tele-ICU Physician , Progress Note ) Available chart/ vitals / labs / Images reviewed Video assessment done using teleICU camera, rest of exam as per RN Discussed with RN , EXAM PER RN Events overnight : AFEBRILE FiO2 - 100% I/O =neg 2 l Drips: NS 75 Pressors:LEVO PRN Sedation gtt: fentalyl , versed 10, precedex OFF for bradycrdia ( RASS -3 ) VENT SETTINGS and ABG reviewed Not candidate for SBT today �REVIEWED Cardiovascular Stability / Sedation Score / FI02/PEEP / ABG / CXR NEEDED FURTHER DEEP SEDATION SHE IS FIGHTING VENT. Consultants: Hospital course: (08/14) 60yr old female admitted with Covid pneumonia, TRANSFER FTON OTHER FACILITY 08/15- BIPAP16/7 100%, RR 35 TV 700 , MV 25 , CTA - NO PE 08/16 - BIPAP16/7 100%, RR 33 TV 800 , MV 27, added ROCEPHIN 08/17 - BIPAP 18/10 - 70% rr33 tv 800 mv 29L 08/18-BIPAP 18/10 - 75% rr39 tv 1000 , add precedex , DIARRHEA 08/19 intubated AC 375 28 +10 100% 08/20 - FINISHED Rocephin 08/21 - peep 12 , fio2 55% 08/22 peep 12 fio2 85% 08/23- s/p 6 L diuresis- AC 56-114-vixz32 60% A/P AHRF / ARDS due to severe COVID19 - 08/19 intubated diuresis after bumex x 1 -6L on 08/22 - AC 49-689-ntli19 70% -prone protocol to cont - gentle diuresis today - INCREASE SEDATION SHE IS FIGHTING VENT. Shock, sepsis/ meds - on levo 08/19- OFF last 24 h OFFL-Adrwnecifma-6/COVID-19 PNA - TRANSFER from OTHER FACILITY --Dexamethasone -- s/p Qabyyadkbqq49/ 13 ( received one Baricitinib on other hospital (on Acyclovir - 30 days ) -Hypercoagulable state , DDIMER= 20 on -> ( no evidence of large PE on CT 08/15 ) ON FULL DOSE LOVENOX monitor for superimposed bact PNA -CT with atelectasis vs RLL infiltrate -s/p Rocephin 08/16 -08/20 = OFF aBX now Thrombocytopenia - monitor Elev TGL - sedation with propofol NOW D/C'D, changed to versed Hyperglycemia - ISS , close f/up on steroids Diarrhea 08/18 - resolved - monitor ELV TGL - off propofol Lines : PICC 08/15 (Central Line Necessity Reviewed) Wright: 08/18 OG: Nutrition: TF - Analgesia: Anxiety/ delirium VTE Prophylaxis: ulises 80 bid Stress Ulcer Prophylaxis: ppi Plans in collaboration with bedside consultants and IM MDs. Discussed with RN to reach out if any questions or concerns A total of 30 minutes of critical care time was devoted to this patient today, required to treat and/or prevent further deterioration of critical care condition ( as above) . Critical Care: Ventilator Management MAGDA PINTO MD Aug 24, 2021 09:52
[2021-08-24] MEDS: fentaNYL INJ 100 MCG/2 ML AMP IVP PRN ×2 (11:00→19:25)
--- NOTE | 2021-08-24 12:38 | Progress Note - Hospitalist ---
Subjective HPI/CC On Admission Date Seen by Provider: Aug 24, 2021 Time Seen by Provider: 09:50 Chacho Sandoval is a 60 year old female with PMH HTN, hypothyroidism, depression, who was transferred from [place], [place] with acute respiratory failure due to COVID-19. She was admitted there to a critical access hospital. Her oxygen re quirement worsened and they could no longer support her. No beds were available anywhere near their facility and [facility] assisted with locating a bed at our facility. She was transferred by fixed wing plane to ambulance. She was transported on BiPAP. She has been sick for a little over a week. She has had fevers. She has been short of breath and coughing. She denies chest pain. She has not had nausea, vomiting, or diarrhea. Her appetite has been poor. She is unvaccinated. She was being treated with Decadron, Remdesivir, Baricitinib, and antibiotics. Subjective/Events-last exam She remains intubated and sedated. Objective Exam Vital Signs Vital Signs Date Time Temp Pulse Resp B/P (MAP) Pulse Ox O2 Delivery O2 Flow Rate FiO2 08/24/21 12:18 95 Mechanical Ventilator 80 08/24/21 11:20 36.2 08/24/21 11:10 80.00 08/24/21 11:00 80 29 164/82 (109) Capillary Refill : Less Than 3 Seconds General Appearance: No Apparent Distress, WD/WN Respiratory: Decreased Breath Sounds, Other (intubated and sedated) Cardiovascular: Regular Rate, Rhythm, No Murmur Gastrointestinal: Normal Bowel Sounds, Soft Extremity: Normal Inspection, No Pedal Edema Neurologic/Psychiatric: Other (sedated) Skin: Warm/Dry, Other (facial lesions) Results/Procedures Lab Laboratory Tests 08/24/21 03:20 Patient resulted labs reviewed. Imaging: Reviewed Imaging Report Assessment/Plan Assessment and Plan Assess & Plan/Chief Complaint Acute respiratory failure due to COVID-19 Hypercoagulable state associated with COVID-19 Endotracheally intubated COVID+ at outside facility Remains intubated Decadron Therapeutic Lovenox s/p Actemra s/p antibiotics TeleICU following [facility] HTN Hypothyroidism Depression Hold home meds DVT prophylaxis: already receiving therapeutic anticoagulation Secondary bacterial pneumonia, resolved Critical Care Critically Ill Patient Diagnosis/Problems Diagnosis/Problems (1) Acute respiratory failure due to COVID-19 Status: Acute (2) Hypercoagulable state associated with COVID-19 Status: Acute (3) Secondary bacterial pneumonia Status: Acute (4) Endotracheally intubated Status: Acute (5) Obesity Status: Chronic (6) HTN (hypertension) Status: Chronic (7) Hypothyroidism Status: Chronic (8) Depression Status: Chronic JANELLE ALFONSO MD Aug 24, 2021 12:38
[2021-08-25] VITALS (30 sets, daily range): BP systolic 101–144; BP diastolic 50–75
[2021-08-25] MEDS: inSUlin ASPART (NovoLOG) 1 UNIT/0.01 ML (CHARGE PER UNIT) SC SCH ×5 (00:13→23:27)
[2021-08-25] MEDS: fentaNYL DRIP PRE-MIX 250 ML IV SCH ×7 (00:14→23:40)
[2021-08-25] MEDS: RT-ALBUTEROL HFA 8.5 GM INHALER IH SCH ×6 (03:00→22:37)
[2021-08-25] MEDS: fentaNYL INJ 100 MCG/2 ML AMP IVP PRN (03:01)
[2021-08-25] MEDS: MIDAZOLAM DRIP PRE-MIX 100 ML IV SCH ×4 (03:19→23:40)
[2021-08-25 04:11] LABS: BASOPHILS % (AUTO) 0 % (0-10); MEAN PLATELET VOLUME 11.1 fL (9.0-12.2)
[2021-08-25 04:13] LABS: EOSINOPHILS % (AUTO) 0 % (0-10); HEMATOCRIT 31 % (35-52); LYMPHOCYTES # (AUTO) 0.9 10^3/uL (1.0-4.0); LYMPHOCYTES % (AUTO) 4 % (12-44); MEAN CORPUSCULAR HEMOGLOBIN 32 pg (25-34); MEAN CORPUSCULAR HGB CONC 33 g/dL (32-36); MEAN CORPUSCULAR VOLUME 99 fL (80-99); MONOCYTES # (AUTO) 0.7 10^3/uL (0.0-1.0); MONOCYTES % (AUTO) 3 % (0-12); NEUTROPHILS # (AUTO) 17.7 10^3/uL (1.8-7.8); NEUTROPHILS % (AUTO) 89 % (42-75); PLATELET COUNT 122 10^3/uL (130-400); WHITE BLOOD COUNT 19.9 10^3/uL (4.3-11.0)
[2021-08-25 04:21] LABS: POTASSIUM 4.2 MMOL/L (3.6-5.0)
[2021-08-25 04:22] LABS: CALCIUM 6.6 MG/DL (8.5-10.1)
[2021-08-25 04:26] LABS: PHOSPHORUS 3.2 MG/DL (2.3-4.7)
[2021-08-25 04:27] LABS: CREATININE SERUM 0.52 MG/DL (0.60-1.30)
[2021-08-25] MEDS: POTASSIUM CL 10MEQ/50ML IVPB 50 ML IV SCH (05:14)
[2021-08-25] MEDS: KCL 20 MEQ TAB (K-DUR) PO SCH (05:14)
[2021-08-25] MEDS: MAGNESIUM 1 GM/100 ML IVPB 100 ML IV SCH (05:14)
--- NOTE | 2021-08-25 06:21 | Diagnostic Imaging Report ---
INDICATION: Covid positive. On a ventilator. Follow-up. EXAMINATION: Chest 08/25/2021. COMPARISON: 08/24/2021 FINDINGS: The ET tube appears somewhat high similar to previous imaging near the thoracic inlet. There is a right PICC line with the tip unchanged near the junction of SVC and right atrium. The heart is stable. Pulmonary vasculature appears congested. There are increased interstitial and airspace opacities diffusely throughout both lungs consistent with infiltrates. Mild superimposed edema suspected. There are no effusions. There is no pneumothorax. There is subcutaneous air within the left neck vaguely seen on previous imaging of uncertain etiology. Correlate for attempted line placement. No definite pneumomediastinum or pneumothorax seen at this time. IMPRESSION: 1. Persistent bilateral infiltrates and likely edema. 2. Nonspecific subcutaneous air within the left neck and possibly in the right as well with no pneumomediastinum or pneumothorax appreciated. Dictated by: Dictated on workstation # [id number]
[2021-08-25] MEDS: DexMEDEtomidine 250 ML DRIP 250 ML IV SCH ×2 (06:27→20:16)
--- NOTE | 2021-08-25 06:54 | Occ Therapy Progress Note ---
Therapy Progress Note Pt is currently intubated. OT to monitor pt's status and will initiate treatment when pt is medically stable and able to actively participate in skilled therapy. TRACE WAN Aug 25, 2021 06:54
--- NOTE | 2021-08-25 07:58 | Physical Therapy Progress Note ---
Therapy Progress Note Patient is currently intubated and sedated, will monitor patient and start when appropriate. BARRY BURDICK PT Aug 25, 2021 07:58
--- NOTE | 2021-08-25 08:33 | Tele-ICU Progress Note ---
Subjective Date Seen by a Provider: Aug 25, 2021 Time Seen by a Provider: 08:33 Subjective/Events-last exam REMAINED INTUBATED AND SEDATED. HEMODYNAMICALLY STABLE Review of Systems ROS PER RN Sepsis Event Evaluation Height, Weight, BMI Height: '" Weight: lbs. oz. kg; 29.20 BMI Method: Exam Exam Patient acknowledged, consented, and participated in this virtual visit which was conducted using real time audio/video Vital Signs Date Time Temp Pulse Resp B/P (MAP) Pulse Ox O2 Delivery O2 Flow Rate FiO2 08/25/21 08:00 36.0 08/25/21 07:17 64 08/25/21 07:15 84 32 98 55 08/25/21 06:27 62 114/54 08/25/21 06:00 65 13 111/59 (76) Mechanical Ventilator 75.00 08/25/21 05:00 63 17 111/58 (75) Mechanical Ventilator 75.00 08/25/21 04:00 35.9 Mechanical Ventilator 75.00 08/25/21 04:00 62 13 144/60 (88) Mechanical Ventilator 75.00 08/25/21 04:00 99 Mechanical Ventilator 75 08/25/21 03:30 Mechanical Ventilator 75.00 08/25/21 03:19 65 18 131/70 08/25/21 03:05 80 31 100 65 08/25/21 03:00 70 27 138/74 (95) Mechanical Ventilator 80.00 08/25/21 02:00 71 22 139/75 (96) Mechanical Ventilator 80.00 08/25/21 01:00 73 25 132/72 (92) Mechanical Ventilator 80.00 08/25/21 01:00 73 08/25/21 00:00 99 Mechanical Ventilator 80 08/25/21 00:00 36.0 Mechanical Ventilator 80.00 08/24/21 23:00 73 25 127/70 (89) Mechanical Ventilator 80.00 08/24/21 22:23 73 34 100 80 08/24/21 22:00 73 26 130/72 (91) Mechanical Ventilator 80.00 08/24/21 21:59 74 22 134/74 08/24/21 21:00 80 25 119/68 (85) Mechanical Ventilator 80.00 08/24/21 20:00 Mechanical Ventilator 80.00 08/24/21 20:00 95 27 120/67 (84) 100 Mechanical Ventilator 80.00 08/24/21 20:00 35.8 08/24/21 20:00 98 Mechanical Ventilator 80 08/24/21 19:02 67 33 92 50 08/24/21 19:00 73 08/24/21 19:00 87 16 143/77 (99) 100 Mechanical Ventilator 80.00 08/24/21 18:00 73 22 120/67 (84) 97 Mechanical Ventilator 80.00 08/24/21 17:00 75 27 118/67 (84) 97 Mechanical Ventilator 80.00 08/24/21 16:00 75 27 114/64 (81) 96 Mechanical Ventilator 80.00 08/24/21 16:00 96 Mechanical Ventilator 60 08/24/21 16:00 36.0 08/24/21 15:00 71 23 111/64 (80) 93 Mechanical Ventilator 80.00 08/24/21 14:47 71 30 94 60 08/24/21 14:08 80 29 164/82 08/24/21 14:00 73 106/64 (78) 98 Mechanical Ventilator 80.00 08/24/21 13:00 73 26 111/65 (80) 96 Mechanical Ventilator 80.00 08/24/21 13:00 75 08/24/21 12:18 95 Mechanical Ventilator 80 08/24/21 12:00 73 36 113/66 (82) 96 Mechanical Ventilator 80.00 08/24/21 11:20 36.2 08/24/21 11:10 Mechanical Ventilator 80.00 08/24/21 11:00 80 29 164/82 (109) 90 Mechanical Ventilator 55.00 08/24/21 10:53 50 08/24/21 10:39 70 34 92 70 08/24/21 10:00 75 16 121/61 (81) 91 Mechanical Ventilator 55.00 08/24/21 09:00 76 19 160/75 (103) 88 Mechanical Ventilator 55.00 I & O 08/25/21 07:00 Intake Total 1830 ml Output Total 2350 ml Balance -520 ml Height & Weight Height: '" Weight: lbs. oz. kg; 29.20 BMI Method: General Appearance: No Apparent Distress, WD/WN HEENT: PERRL/EOMI, Other (wearing BiPAP mask) Neck: Normal Inspection, Supple Respiratory: Decreased Breath Sounds, Other (intubated and sedated) Cardiovascular: Regular Rate, Rhythm, No Murmur Capillary Refill: Less Than 3 Seconds Peripheral Pulses: 1+ Dorsalis Pedis (R), 1+ Left Dors-Pedis (L) (See free text.) Extremity: Normal Inspection, No Pedal Edema Neurologic/Psychiatric: Other (sedated) Skin: Warm/Dry, Other (facial lesions) Other comments PE PER RN Results Lab Laboratory Tests 08/24/21 03:20 08/25/21 03:58 Radiology CXR REVIEWED Assessment/Plan Assessment/Plan (Tele-ICU Physician , Progress Note ) Available chart/ vitals / labs / Images reviewed Video assessment done using teleICU camera, rest of exam as per RN Discussed with RN , EXAM PER RN Events overnight : AFEBRILE FiO2 - 55% I/O =2200/2525 Drips: Pressors:LEVO PRN Sedation gtt: fentalyl , versed 10, precedex OFF for bradycrdia ( RASS -3 ) VENT SETTINGS and ABG reviewed Not candidate for SBT today �REVIEWED Cardiovascular Stability / Sedation Score / FI02/PEEP / ABG / CXR NEEDED FURTHER DEEP SEDATION SHE IS FIGHTING VENT. Consultants: Hospital course: (08/14) 60yr old female admitted with Covid pneumonia, TRANSFER FTON OTHER FACILITY 08/15- BIPAP16/7 100%, RR 35 TV 700 , MV 25 , CTA - NO PE 08/16 - BIPAP16/7 100%, RR 33 TV 800 , MV 27, added ROCEPHIN 08/17 - BIPAP 18/10 - 70% rr33 tv 800 mv 29L 08/18-BIPAP 18/10 - 75% rr39 tv 1000 , add precedex , DIARRHEA 08/19 intubated AC 375 28 +10 100% 08/20 - FINISHED Rocephin 08/21 - peep 12 , fio2 55% 08/22 peep 12 fio2 85% 08/23- s/p 6 L diuresis- AC 31-537-ficu04 60% 08/25 AC 28/375/55%/PEEP12 A/P AHRF / ARDS due to severe COVID19 - 08/19 intubated diuresis after bumex x 1 -6L on 08/22 - AC 60-365-[id number] 70% -prone protocol to cont - gentle diuresis today - NOT READY FOR SBT. CXR ABOUT THE SAME Shock, sepsis/ meds - on levo 08/19- OFF FGNL-Qpemtwgdjup-1/COVID-19 PNA - TRANSFER from OTHER FACILITY --Dexamethasone -- s/p [id number]/ 13 ( received one Baricitinib on other hospital (on Acyclovir - 30 days ) -Hypercoagulable state , DDIMER= 20 on -> ( no evidence of large PE on CT 08/15 ) ON FULL DOSE LOVENOX monitor for superimposed bact PNA -CT with atelectasis vs RLL infiltrate -s/p Rocephin 08/16 -08/20 = OFF aBX now Thrombocytopenia - monitor Elev TGL - sedation with propofol NOW D/C'D, changed to versed Hyperglycemia - ISS , close f/up on steroids Diarrhea 08/18 - resolved - monitor ELV TGL - off propofol Lines : PICC 08/15 (Central Line Necessity Reviewed) Wright: 08/18 OG: Nutrition: TF - Analgesia: Anxiety/ delirium VTE Prophylaxis: ulises 80 bid Stress Ulcer Prophylaxis: ppi Plans in collaboration with bedside consultants and IM MDs. Discussed with RN to reach out if any questions or concerns A total of 30 minutes of critical care time was devoted to this patient today, required to treat and/or prevent further deterioration of critical care condition ( as above) . Critical Care: Ventilator Management Time spent with patient (mins): 30 MAGDA PINTO MD Aug 25, 2021 08:33
[2021-08-25] MEDS: PANTOPRAZOLE 40 MG (PROTONIX) VIAL IV SCH (08:37)
[2021-08-25] MEDS: ENOXAPARIN 80 MG/0.8 ML (LOVENOX) SYR SC SCH ×2 (08:38→21:52)
[2021-08-25] MEDS: SENNOSIDES 8.6 MG (SENOKOT) TAB PO SCH ×2 (08:38→21:52)
[2021-08-25] MEDS: ACYCLOVIR 400 MG TABLET (ZOVIRAX) PO SCH ×2 (08:38→21:52)
[2021-08-25] MEDS: NOREPINEPHRINE 8 MG/250 ML 250 ML IV SCH (13:00)
--- NOTE | 2021-08-25 19:10 | Progress Note - Hospitalist ---
Subjective HPI/CC On Admission Date Seen by Provider: Aug 25, 2021 Time Seen by Provider: 09:30 Chacho Sandoval is a 60 year old female with PMH HTN, hypothyroidism, depression, who was transferred from [place], [place] with acute respiratory failure due to COVID-19. She was admitted there to a critical access hospital. Her oxygen re quirement worsened and they could no longer support her. No beds were available anywhere near their facility and [facility] assisted with locating a bed at our facility. She was transferred by fixed wing plane to ambulance. She was transported on BiPAP. She has been sick for a little over a week. She has had fevers. She has been short of breath and coughing. She denies chest pain. She has not had nausea, vomiting, or diarrhea. Her appetite has been poor. She is unvaccinated. She was being treated with Decadron, Remdesivir, Baricitinib, and antibiotics. Subjective/Events-last exam She remains intubated and sedated. Objective Exam Vital Signs Vital Signs Date Time Temp Pulse Resp B/P (MAP) Pulse Ox O2 Delivery O2 Flow Rate FiO2 08/25/21 18:44 77 38 90 50 08/25/21 18:36 Mechanical Ventilator 40.00 08/25/21 18:00 111/58 (75) 08/25/21 16:00 36.5 Capillary Refill : Less Than 3 Seconds General Appearance: No Apparent Distress, WD/WN Respiratory: Lungs Clear, Other (intubated and mechanically ventilated) Cardiovascular: Regular Rate, Rhythm, No Murmur Gastrointestinal: Normal Bowel Sounds, Soft Extremity: Normal Inspection, No Pedal Edema Neurologic/Psychiatric: Other (sedated) Skin: Normal Color, Warm/Dry Results/Procedures Lab Laboratory Tests 08/25/21 03:58 Patient resulted labs reviewed. Imaging: Reviewed Imaging Report Assessment/Plan Assessment and Plan Assess & Plan/Chief Complaint Acute respiratory failure due to COVID-19 Hypercoagulable state associated with COVID-19 Endotracheally intubated COVID+ at outside facility Remains intubated Decadron Therapeutic Lovenox s/p Actemra s/p antibiotics TeleICU following Likely transfer to [facility] tomorrow HTN Hypothyroidism Depression Hold home meds DVT prophylaxis: already receiving therapeutic anticoagulation Secondary bacterial pneumonia, resolved Critical Care Critically Ill Patient Diagnosis/Problems Diagnosis/Problems (1) Acute respiratory failure due to COVID-19 Status: Acute (2) Hypercoagulable state associated with COVID-19 Status: Acute (3) Secondary bacterial pneumonia Status: Acute (4) Endotracheally intubated Status: Acute (5) Obesity Status: Chronic (6) HTN (hypertension) Status: Chronic (7) Hypothyroidism Status: Chronic (8) Depression Status: Chronic JANELLE ALFONSO MD Aug 25, 2021 19:10
[2021-08-26] VITALS (28 sets, daily range): BP systolic 112–153; BP diastolic 40–75
[2021-08-26] MEDS: RT-ALBUTEROL HFA 8.5 GM INHALER IH SCH ×6 (02:26→22:09)
[2021-08-26] MEDS: fentaNYL DRIP PRE-MIX 250 ML IV SCH ×5 (03:36→20:42)
[2021-08-26 04:45] LABS: BASOPHILS % (AUTO) 0 % (0-10); HEMATOCRIT 31 % (35-52); HEMOGLOBIN 9.9 g/dL (11.5-16.0); MEAN CORPUSCULAR HEMOGLOBIN 32 pg (25-34); MEAN CORPUSCULAR HGB CONC 32 g/dL (32-36); MEAN CORPUSCULAR VOLUME 100 fL (80-99); WHITE BLOOD COUNT 21.3 10^3/uL (4.3-11.0)
[2021-08-26 04:47] LABS: BASOPHILS # (AUTO) 0.1 10^3/uL (0.0-0.1); EOSINOPHILS % (AUTO) 0 % (0-10); LYMPHOCYTES # (AUTO) 1.1 10^3/uL (1.0-4.0); LYMPHOCYTES % (AUTO) 5 % (12-44); MEAN PLATELET VOLUME 11.1 fL (9.0-12.2); MONOCYTES # (AUTO) 0.8 10^3/uL (0.0-1.0); MONOCYTES % (AUTO) 4 % (0-12); NEUTROPHILS # (AUTO) 18.2 10^3/uL (1.8-7.8); NEUTROPHILS % (AUTO) 86 % (42-75); PLATELET COUNT 119 10^3/uL (130-400)
[2021-08-26 04:56] LABS: POTASSIUM 4.8 MMOL/L (3.6-5.0)
[2021-08-26 04:58] LABS: CALCIUM 6.9 MG/DL (8.5-10.1)
[2021-08-26 05:02] LABS: CREATININE SERUM 0.58 MG/DL (0.60-1.30)
[2021-08-26 05:04] LABS: MAGNESIUM 2.1 MG/DL (1.6-2.4)
[2021-08-26] MEDS: MIDAZOLAM DRIP PRE-MIX 100 ML IV SCH ×3 (06:14→20:42)
[2021-08-26] MEDS: MAGNESIUM 1 GM/100 ML IVPB 100 ML IV SCH (06:29)
[2021-08-26] MEDS: inSUlin ASPART (NovoLOG) 1 UNIT/0.01 ML (CHARGE PER UNIT) SC SCH ×4 (06:29→23:24)
[2021-08-26] MEDS: POTASSIUM CL 10MEQ/50ML IVPB 50 ML IV SCH (06:29)
[2021-08-26] MEDS: KCL 20 MEQ TAB (K-DUR) PO SCH (06:29)
[2021-08-26] MEDS: NOREPINEPHRINE 8 MG/250 ML 250 ML IV SCH ×2 (06:30→22:15)
--- NOTE | 2021-08-26 06:45 | Occ Therapy Progress Note ---
Therapy Progress Note Pt is currently intubated. OT to monitor pt's status and will initiate treatment when pt is medically stable and able to participate in skilled therapy. Per notes, pt may be transferring to [facility] 08/26/2021. TRACE WAN Aug 26, 2021 06:45
--- NOTE | 2021-08-26 07:25 | Diagnostic Imaging Report ---
Portable semierect AP chest at 6:15. Indication: Respiratory distress, COVID positive. The heart is stable in size when compared to the prior exam of 08/25/2021. The previous study did note bilateral alveolar/interstitial pulmonary infiltrates. Those findings are again evident and not significantly changed. If anything, the right lung is perhaps slightly better aerated. There does appear to be a small amount of fluid now present in the right lung base. The mediastinum is not widened. The osseous structures are intact. The supportive tubes and lines seen previously are stable in position. There continues to be a small amount of subcutaneous emphysema in the soft tissues of the left neck. Impression: The overall appearance the chest has not changed significantly since the prior exam. The right lung may be somewhat better aerated but there is now a small right pleural effusion present. A followup exam would be recommended for continued evaluation. Dictated by: Dictated on workstation # [id number]
--- NOTE | 2021-08-26 07:25 | Physical Therapy Progress Note ---
Therapy Progress Note Patient is currently intubated and sedated, will monitor patient and start when appropriate. Likely to transfer to [facility] for continued care on this date per report. BARRY BURDICK PT Aug 26, 2021 07:25
[2021-08-26] MEDS: PANTOPRAZOLE 40 MG (PROTONIX) VIAL IV SCH (09:15)
[2021-08-26] MEDS: DexMEDEtomidine 250 ML DRIP 250 ML IV SCH ×2 (09:15→23:25)
[2021-08-26] MEDS: ACYCLOVIR 400 MG TABLET (ZOVIRAX) PO SCH ×2 (09:16→20:43)
[2021-08-26] MEDS: ENOXAPARIN 80 MG/0.8 ML (LOVENOX) SYR SC SCH ×2 (09:16→20:43)
[2021-08-26] MEDS: SENNOSIDES 8.6 MG (SENOKOT) TAB PO SCH ×2 (09:16→20:43)
--- NOTE | 2021-08-26 13:45 | Tele-ICU Progress Note ---
Subjective Date Seen by a Provider: Aug 26, 2021 Time Seen by a Provider: 13:45 Sepsis Event Evaluation Height, Weight, BMI Height: '" Weight: lbs. oz. kg; 29.20 BMI Method: Exam Exam Patient acknowledged, consented, and participated in this virtual visit which was conducted using real time audio/video Vital Signs Date Time Temp Pulse Resp B/P (MAP) Pulse Ox O2 Delivery O2 Flow Rate FiO2 08/26/21 13:00 61 08/26/21 12:12 60 35 124/59 08/26/21 12:07 36.4 08/26/21 12:00 95 Mechanical Ventilator 50 08/26/21 11:00 61 30 95 50 08/26/21 10:00 62 14 131/63 (85) 96 Mechanical Ventilator 50.00 08/26/21 09:15 61 08/26/21 09:00 64 13 129/60 (83) 95 Mechanical Ventilator 50.00 08/26/21 08:00 67 14 130/61 (84) 95 Mechanical Ventilator 50.00 08/26/21 08:00 96 Mechanical Ventilator 50 08/26/21 07:45 66 28 96 50 08/26/21 07:44 37.8 08/26/21 07:00 70 08/26/21 07:00 68 28 134/63 (86) 97 Mechanical Ventilator 50.00 08/26/21 06:14 66 18 133/59 08/26/21 06:00 71 13 125/60 (81) 96 Mechanical Ventilator 50.00 08/26/21 05:00 70 14 135/55 (81) 94 Mechanical Ventilator 50.00 08/26/21 04:00 96 Mechanical Ventilator 50 08/26/21 04:00 36.5 08/26/21 04:00 72 23 125/61 (82) 96 Mechanical Ventilator 50.00 08/26/21 03:00 77 12 113/50 (71) 93 Mechanical Ventilator 50.00 08/26/21 02:26 74 31 94 50 08/26/21 02:00 66 15 131/61 (84) 95 Mechanical Ventilator 50.00 08/26/21 01:00 68 08/26/21 01:00 68 18 128/62 (84) 96 Mechanical Ventilator 50.00 08/26/21 00:00 36.5 Mechanical Ventilator 50.00 08/26/21 00:00 96 Mechanical Ventilator 50 08/26/21 00:00 67 15 133/63 (86) 95 Mechanical Ventilator 50.00 08/25/21 23:40 65 24 131/60 08/25/21 23:00 70 13 129/62 (84) 96 Mechanical Ventilator 50.00 08/25/21 22:37 69 30 96 50 08/25/21 22:00 74 17 128/63 (84) 96 Mechanical Ventilator 50.00 08/25/21 21:00 76 14 125/62 (83) 97 Mechanical Ventilator 50.00 08/25/21 20:16 84 118/58 08/25/21 20:00 96 Mechanical Ventilator 50 08/25/21 20:00 96 Mechanical Ventilator 50.00 08/25/21 20:00 86 15 108/54 (72) 97 Mechanical Ventilator 50.00 08/25/21 19:30 36.0 08/25/21 19:00 80 08/25/21 19:00 79 13 123/60 (81) 95 Mechanical Ventilator 50.00 08/25/21 18:44 77 38 90 50 08/25/21 18:36 Mechanical Ventilator 40.00 08/25/21 18:00 85 17 111/58 (75) 93 Mechanical Ventilator 55.00 08/25/21 17:00 92 18 101/54 (70) 93 Mechanical Ventilator 55.00 08/25/21 16:10 96 Mechanical Ventilator 50 08/25/21 16:00 36.5 08/25/21 16:00 87 19 105/53 (70) 93 Mechanical Ventilator 55.00 08/25/21 15:32 78 14 112/55 08/25/21 15:00 78 14 112/55 (74) 93 Mechanical Ventilator 55.00 08/25/21 14:00 82 14 130/60 (83) 100 Mechanical Ventilator 55.00 08/25/21 13:53 80 29 97 50 I & O 08/26/21 07:00 Intake Total 1830 ml Output Total 2800 ml Balance -970 ml Height & Weight Height: '" Weight: lbs. oz. kg; 29.20 BMI Method: General Appearance: No Apparent Distress, WD/WN HEENT: PERRL/EOMI, Other (wearing BiPAP mask) Neck: Normal Inspection, Supple Respiratory: Lungs Clear, Other (intubated and mechanically ventilated) Cardiovascular: Regular Rate, Rhythm, No Murmur Capillary Refill: Less Than 3 Seconds Peripheral Pulses: 1+ Dorsalis Pedis (R), 1+ Left Dors-Pedis (L) (See free text.) Extremity: Normal Inspection, No Pedal Edema Neurologic/Psychiatric: Other (sedated) Skin: Normal Color, Warm/Dry Results Lab Laboratory Tests 08/25/21 03:58 08/26/21 04:33 Assessment/Plan Assessment/Plan (Tele-ICU Physician , Progress Note ) Available chart/ vitals / labs / Images reviewed Video assessment done using teleICU camera, rest of exam as per RN Discussed with RN , EXAM PER RN Events overnight : AFEBRILE FiO2 - 100% I/O =neg 2 l Drips: NS 75 Pressors:LEVO PRN Sedation gtt: fentalyl , versed 10 precedex OFF for bradycrdia ( RASS - 3 ) VENT SETTINGS and ABG reviewed Not candidate for SBT today �REVIEWED Cardiovascular Stability / Sedation Score / FI02/PEEP / ABG / CXR Consultants: Hospital course: (08/14) 60yr old female admitted with Covid pneumonia, TRANSFER FTON OTHER FACILITY 08/15- BIPAP16/7 100%, RR 35 TV 700 , MV 25 , CTA - NO PE 08/16 - BIPAP16/7 100%, RR 33 TV 800 , MV 27, added ROCEPHIN 08/17 - BIPAP 18/10 - 70% rr33 tv 800 mv 29L 08/18-BIPAP 18/10 - 75% rr39 tv 1000 , add precedex , DIARRHEA 08/19 intubated AC 375 28 +10 100% 08/20 - FINISHED Rocephin 08/21 - peep 12 , fio2 55% 08/22 peep 12 fio2 85% 08/23- s/p 6 L diuresis- AC [id number] 60% A/P AHRF / ARDS due to severe COVID19 - 08/19 intubated diuresis after bumex x 1 -6L on 08/22 - AC 79-726-stam15 60% -prone protocol to cont - gentle diuresis today - PLAN TO TRY TO decrease sedation Shock, sepsis/ meds - on levo 08/19- OFF last 24 h JYJA-Okqereqpfrp-6/COVID-19 PNA - TRANSFER from OTHER FACILITY --Dexamethasone -- s/p Imdyyvtbwbz26/ 13 ( received one Baricitinib on other hospital (on Acyclovir - 30 days ) -Hypercoagulable state , DDIMER= 20 on -> ( no evidence of large PE on CT 08/15 ) monitor for superimposed bact PNA -CT with atelectasis vs RLL infiltrate -s/p Rocephin 08/16 -08/20 = OFF aBX now Thrombocytopenia - monitor Elev TGL - sedation with propofol , changed to versed Hyperglycemia - ISS , close f/up on steroids Diarrhea 08/18 - resolved - monitor ELV TGL - off propofol Lines : PICC 08/15 (Central Line Necessity Reviewed) Wright: 08/18 OG: Nutrition: TF - Analgesia: Anxiety/ delirium VTE Prophylaxis: ulises 80 bid Stress Ulcer Prophylaxis: ppi Plans in collaboration with bedside consultants and IM MDs. Discussed with RN to reach out if any questions or concerns A total of 40 minutes of critical care time was devoted to this patient today, required to treat and/or prevent further deterioration of critical care condition ( as above) . ZEB BERG MD Aug 26, 2021 13:45
--- NOTE | 2021-08-26 18:22 | Progress Note - Hospitalist ---
Subjective HPI/CC On Admission Date Seen by Provider: Aug 26, 2021 Time Seen by Provider: 09:45 Chacho Sandoval is a 60 year old female with PMH HTN, hypothyroidism, depression, who was transferred from [place], [place] with acute respiratory failure due to COVID-19. She was admitted there to a critical access hospital. Her oxygen re quirement worsened and they could no longer support her. No beds were available anywhere near their facility and [facility] assisted with locating a bed at our facility. She was transferred by fixed wing plane to ambulance. She was transported on BiPAP. She has been sick for a little over a week. She has had fevers. She has been short of breath and coughing. She denies chest pain. She has not had nausea, vomiting, or diarrhea. Her appetite has been poor. She is unvaccinated. She was being treated with Decadron, Remdesivir, Baricitinib, and antibiotics. Subjective/Events-last exam She remains intubated and sedated. Objective Exam Vital Signs Vital Signs Date Time Temp Pulse Resp B/P (MAP) Pulse Ox O2 Delivery O2 Flow Rate FiO2 08/26/21 18:00 55 19 145/73 (97) 96 Mechanical Ventilator 50.00 08/26/21 16:00 50 08/26/21 15:58 35.7 Capillary Refill : Less Than 3 Seconds General Appearance: No Apparent Distress, Obese Respiratory: Lungs Clear, Other (intubated and mechanically ventilated) Cardiovascular: Regular Rate, Rhythm, No Murmur Gastrointestinal: Normal Bowel Sounds, Soft Extremity: Normal Inspection, No Pedal Edema Neurologic/Psychiatric: Other (sedated) Skin: Normal Color, Warm/Dry Results/Procedures Lab Laboratory Tests 08/26/21 04:33 Patient resulted labs reviewed. Imaging: Reviewed Imaging Report Assessment/Plan Assessment and Plan Assess & Plan/Chief Complaint Acute respiratory failure due to COVID-19 Hypercoagulable state associated with COVID-19 Endotracheally intubated COVID+ at outside facility Remains intubated Decadron Therapeutic Lovenox s/p Actemra s/p antibiotics TeleICU following Likely transfer to [facility] Sunday HTN Hypothyroidism Depression Hold home meds DVT prophylaxis: already receiving therapeutic anticoagulation Secondary bacterial pneumonia, resolved Critical Care Critically Ill Patient Diagnosis/Problems Diagnosis/Problems (1) Acute respiratory failure due to COVID-19 Status: Acute (2) Hypercoagulable state associated with COVID-19 Status: Acute (3) Secondary bacterial pneumonia Status: Acute (4) Endotracheally intubated Status: Acute (5) Obesity Status: Chronic (6) HTN (hypertension) Status: Chronic (7) Hypothyroidism Status: Chronic (8) Depression Status: Chronic JANELLE ALFONSO MD Aug 26, 2021 18:22
[2021-08-27] VITALS (67 sets, daily range): BP systolic 71–167; BP diastolic 33–84
[2021-08-27] MEDS: RT-ALBUTEROL HFA 8.5 GM INHALER IH SCH ×6 (01:23→21:28)
[2021-08-27] MEDS: MIDAZOLAM DRIP PRE-MIX 100 ML IV SCH ×3 (04:31→18:36)
[2021-08-27] MEDS: fentaNYL DRIP PRE-MIX 250 ML IV SCH ×4 (05:09→22:58)
[2021-08-27 05:29] LABS: BASOPHILS # (AUTO) 0.1 10^3/uL (0.0-0.1); BASOPHILS % (AUTO) 1 % (0-10); EOSINOPHILS # (AUTO) 0.1 10^3/uL (0.0-0.3); EOSINOPHILS % (AUTO) 0 % (0-10); HEMATOCRIT 37 % (35-52); HEMOGLOBIN 12.1 g/dL (11.5-16.0); LYMPHOCYTES # (AUTO) 1.4 10^3/uL (1.0-4.0); LYMPHOCYTES % (AUTO) 7 % (12-44); MEAN CORPUSCULAR HEMOGLOBIN 32 pg (25-34); MEAN CORPUSCULAR HGB CONC 32 g/dL (32-36); MEAN CORPUSCULAR VOLUME 100 fL (80-99); MONOCYTES # (AUTO) 0.6 10^3/uL (0.0-1.0); MONOCYTES % (AUTO) 3 % (0-12); NEUTROPHILS # (AUTO) 17.1 10^3/uL (1.8-7.8); NEUTROPHILS % (AUTO) 85 % (42-75); PLATELET COUNT 141 10^3/uL (130-400)
[2021-08-27 05:59] LABS: POTASSIUM 3.9 MMOL/L (3.6-5.0)
[2021-08-27 06:00] LABS: CALCIUM 7.1 MG/DL (8.5-10.1)
[2021-08-27 06:04] LABS: CREATININE SERUM 0.51 MG/DL (0.60-1.30)
[2021-08-27 06:07] LABS: MAGNESIUM 1.8 MG/DL (1.6-2.4)
[2021-08-27] MEDS: KCL 20 MEQ TAB (K-DUR) PO SCH (06:26)
[2021-08-27] MEDS: POTASSIUM CL 10MEQ/50ML IVPB 50 ML IV SCH (06:26)
[2021-08-27] MEDS: MAGNESIUM 1 GM/100 ML IVPB 100 ML IV SCH (06:26)
[2021-08-27] MEDS: inSUlin ASPART (NovoLOG) 1 UNIT/0.01 ML (CHARGE PER UNIT) SC SCH ×4 (06:27→23:49)
--- NOTE | 2021-08-27 07:24 | Diagnostic Imaging Report ---
INDICATION: Intubated, respiratory failure COMPARISON: 08/26/2021 TECHNIQUE: Single frontal radiograph of the chest dated 08/27/2021. FINDINGS: Right-sided PICC line, endotracheal tube, and enteric catheter are again identified. Surgical clips within the right upper quadrant of the abdomen. The cardiac silhouette is stable. Extensive right greater than left pulmonary infiltrates are again identified. These have slightly worsened within the right midlung. No large-volume pleural effusion. No pneumothorax. Soft tissue gas is suggested within the left neck, appearing similar to the prior exam. No acute osseous abnormality. IMPRESSION: Slightly worsened significant right greater than left pulmonary opacities, most concerning for infectious infiltrate, though edema is an additional consideration. Persistent potential soft tissue gas within the left neck. This could relate to subcutaneous gas from a potential pneumomediastinum. No significant pneumothorax seen. If further evaluation is desired, a CT of the chest would help to further evaluate. Dictated by: Dictated on workstation # [id number]
[2021-08-27] MEDS ORDERED: VANCOMYCIN INJECTION 0.1 MG in NS (IVPB) 250 ML IV SCH (08:15)
[2021-08-27] MEDS ORDERED: VANCOMYCIN 1500 MG/NS 500 ML IVPB IV NR ×2 (08:30)
[2021-08-27] MEDS: CEFEPIME INJECTION 1,000 MG in NS (IVPB) 50 ML IV SCH ×3 (09:01→20:40)
[2021-08-27] MEDS: PANTOPRAZOLE 40 MG (PROTONIX) VIAL IV SCH (09:05)
[2021-08-27] MEDS: ENOXAPARIN 80 MG/0.8 ML (LOVENOX) SYR SC SCH (09:06)
[2021-08-27] MEDS: ACYCLOVIR 400 MG TABLET (ZOVIRAX) PO SCH ×2 (09:06→21:11)
[2021-08-27] MEDS: SENNOSIDES 8.6 MG (SENOKOT) TAB PO SCH ×2 (09:10→21:11)
[2021-08-27] MEDS ORDERED: LACTATED RINGERS 1,000 ML IV ONE ×2 (09:17→10:15)
[2021-08-27] MEDS: LACTATED RINGERS 1,000 ML IV SCH ×2 (09:34→16:19)
--- NOTE | 2021-08-27 11:18 | Diagnostic Imaging Report ---
Single AP view of the neck. INDICATION: Evaluate for subcutaneous emphysema Correlation made with chest radiograph the same day. FINDINGS: Streaky lucencies demonstrated in the soft tissue the neck. On the single view it is not possible to distinguish between soft tissue gas and some air trapped within skin folds. IMPRESSION: 1. Streaky lucencies within the left neck. The possibility of gas is not completely excluded. Would not be possible on this examination to distinguish true gas within the soft tissue of the neck versus air trapped within skin folds. Dictated by: Dictated on workstation # [id number]
[2021-08-27] MEDS: fentaNYL INJ 100 MCG/2 ML AMP IVP PRN (11:27)
[2021-08-27] MEDS: DexMEDEtomidine 250 ML DRIP 250 ML IV SCH ×2 (11:33→23:53)
[2021-08-27] MEDS ORDERED: LORazepam INJ 2 MG/ML (ATIVAN) VIAL IVP NR (12:45)
[2021-08-27] MEDS ORDERED: ALBUMIN 25% 25 GM/100 ML 100 ML IV NR (12:45)
[2021-08-27] MEDS ORDERED: LORazepam INJ 2 MG/ML (ATIVAN) VIAL ONE (12:46)
[2021-08-27] MEDS ORDERED: ALBUMIN 5% 12.5 GM/250 ML 250 ML IV ONE (12:48)
[2021-08-27] MEDS ORDERED: ROCURONIUM 10 MG/ML 5 ML SYRINGE IV ONE (13:03)
--- NOTE | 2021-08-27 13:03 | Tele-ICU Progress Note ---
Subjective Date Seen by a Provider: Aug 27, 2021 Time Seen by a Provider: 13:03 Sepsis Event Evaluation Height, Weight, BMI Height: '" Weight: lbs. oz. kg; 29.20 BMI Method: Focused Exam Lactate Level 08/27/21 09:25: Lactic Acid Level 3.08*H 08/27/21 11:06: Lactic Acid Level 2.99*H Lactic Acid Level Laboratory Tests Test 08/27/21 09:25 08/27/21 11:06 Lactic Acid Level 3.08 MMOL/L (0.50-2.00) *H 2.99 MMOL/L (0.50-2.00) *H Exam Exam Patient acknowledged, consented, and participated in this virtual visit which was conducted using real time audio/video Vital Signs Date Time Temp Pulse Resp B/P (MAP) Pulse Ox O2 Delivery O2 Flow Rate FiO2 08/27/21 12:51 93 08/27/21 12:00 94 36 83/50 (60) 95 Mechanical Ventilator 100.00 08/27/21 11:56 08/27/21 11:45 99 29 86/52 (61) 94 Mechanical Ventilator 100.00 08/27/21 11:33 99 106/45 08/27/21 11:33 94 08/27/21 11:30 82 12 106/45 (70) Mechanical Ventilator 100.00 08/27/21 11:15 101 31 101/55 (69) 92 Mechanical Ventilator 100.00 08/27/21 11:10 37.5 08/27/21 11:00 111 41 93/51 (60) 93 Mechanical Ventilator 100.00 08/27/21 10:45 105 34 93/52 (69) 90 Mechanical Ventilator 100.00 08/27/21 10:30 113 32 90/62 (68) 90 Mechanical Ventilator 100.00 08/27/21 10:15 118 34 90/54 (63) 90 Mechanical Ventilator 100.00 08/27/21 10:12 120 35 90 100 08/27/21 10:00 122 34 102/65 (76) 89 Mechanical Ventilator 100.00 08/27/21 09:50 123 34 87/69 (75) 88 Mechanical Ventilator 100.00 08/27/21 09:45 118 35 71/50 (54) 89 Mechanical Ventilator 100.00 08/27/21 09:30 121 34 119/68 (82) 89 Mechanical Ventilator 100.00 08/27/21 09:15 112 36 100/53 (70) 86 Mechanical Ventilator 100.00 08/27/21 09:00 113 36 98/52 (70) 87 Mechanical Ventilator 50.00 08/27/21 09:00 Mechanical Ventilator 100.00 08/27/21 08:45 114 36 105/51 (70) 87 Mechanical Ventilator 50.00 08/27/21 08:30 120 34 97/61 (74) 88 Mechanical Ventilator 50.00 08/27/21 08:15 120 35 101/60 (73) 89 Mechanical Ventilator 50.00 08/27/21 08:00 123 34 105/60 (77) 88 Mechanical Ventilator 50.00 08/27/21 08:00 90 Mechanical Ventilator 75 08/27/21 07:45 118 36 116/56 (77) 85 Mechanical Ventilator 50.00 08/27/21 07:35 38.4 08/27/21 07:30 116 34 132/73 (83) 85 Mechanical Ventilator 50.00 08/27/21 07:15 113 36 136/71 (94) 85 Mechanical Ventilator 50.00 08/27/21 07:00 120 32 129/66 (86) 89 Mechanical Ventilator 50.00 08/27/21 07:00 127 08/27/21 06:45 113 39 151/59 (89) 87 Mechanical Ventilator 50.00 08/27/21 06:30 105 35 150/74 (92) 89 Mechanical Ventilator 50.00 08/27/21 06:15 110 35 165/84 (106) 91 Mechanical Ventilator 50.00 08/27/21 06:00 96 31 150/74 (99) 91 Mechanical Ventilator 50.00 08/27/21 05:54 103 39 91 75 08/27/21 05:00 91 28 148/77 (100) 100 Mechanical Ventilator 50.00 08/27/21 04:31 70 26 134/86 08/27/21 04:00 74 26 167/78 (107) 91 Mechanical Ventilator 50.00 08/27/21 04:00 36.9 Mechanical Ventilator 50.00 08/27/21 04:00 96 Mechanical Ventilator 50 08/27/21 03:00 64 25 165/83 (110) 90 Mechanical Ventilator 50.00 08/27/21 02:00 75 28 156/80 (105) 93 Mechanical Ventilator 50.00 08/27/21 01:23 53 34 94 50 08/27/21 01:00 60 08/27/21 01:00 58 13 133/68 (89) 94 Mechanical Ventilator 50.00 08/27/21 00:00 96 Mechanical Ventilator 50 08/27/21 00:00 61 14 143/73 (96) 91 Mechanical Ventilator 50.00 08/26/21 23:59 36.7 Mechanical Ventilator 50.00 08/26/21 23:25 57 148/73 08/26/21 23:00 58 23 142/71 (94) 93 Mechanical Ventilator 50.00 08/26/21 22:09 61 30 93 50 08/26/21 22:00 36.4 08/26/21 22:00 63 14 128/66 (86) 92 Mechanical Ventilator 50.00 08/26/21 21:00 62 13 142/70 (94) 92 Mechanical Ventilator 50.00 08/26/21 20:42 60 18 154/70 08/26/21 20:00 Mechanical Ventilator 50.00 08/26/21 20:00 50 14 145/70 (95) 92 Mechanical Ventilator 50.00 08/26/21 20:00 93 Mechanical Ventilator 50 08/26/21 19:46 55 30 95 50 08/26/21 19:00 53 23 152/75 (100) 96 Mechanical Ventilator 50.00 08/26/21 19:00 60 08/26/21 18:00 55 19 145/73 (97) 96 Mechanical Ventilator 50.00 08/26/21 17:00 54 13 153/73 (99) 94 Mechanical Ventilator 50.00 08/26/21 16:00 93 Mechanical Ventilator 50 08/26/21 16:00 59 27 122/60 (80) 95 Mechanical Ventilator 50.00 08/26/21 15:58 35.7 08/26/21 15:00 65 14 112/52 (72) 92 Mechanical Ventilator 50.00 08/26/21 14:30 60 28 95 50 08/26/21 14:00 61 21 114/53 (73) 95 Mechanical Ventilator 50.00 I & O 08/27/21 07:00 Intake Total 1830 ml Output Total 3250 ml Balance -1420 ml Height & Weight Height: '" Weight: lbs. oz. kg; 29.20 BMI Method: General Appearance: No Apparent Distress, Obese HEENT: PERRL/EOMI, Other (wearing BiPAP mask) Neck: Normal Inspection, Supple Respiratory: Lungs Clear, Other (intubated and mechanically ventilated) Cardiovascular: Regular Rate, Rhythm, No Murmur Capillary Refill: Less Than 3 Seconds Peripheral Pulses: 1+ Dorsalis Pedis (R), 1+ Left Dors-Pedis (L) (See free text.) Extremity: Normal Inspection, No Pedal Edema Neurologic/Psychiatric: Other (sedated) Skin: Normal Color, Warm/Dry Results Lab Laboratory Tests 08/26/21 04:33 08/27/21 05:07 Assessment/Plan Assessment/Plan (Tele-ICU Physician , Progress Note ) Available chart/ vitals / labs / Images reviewed Video assessment done using teleICU camera, rest of exam as per RN Discussed with RN , EXAM PER RN Events overnight : AFEBRILE FiO2 - 100% I/O =neg 2 l Drips: NS 75 Pressors:LEVO PRN Sedation gtt: fentalyl , versed 10 precedex OFF for bradycrdia ( RASS - 3 ) VENT SETTINGS and ABG reviewed Not candidate for SBT today �REVIEWED Cardiovascular Stability / Sedation Score / FI02/PEEP / ABG / CXR Consultants: Hospital course: (08/14) 60yr old female admitted with Covid pneumonia, TRANSFER FTON OTHER FACILITY 08/15- BIPAP16/7 100%, RR 35 TV 700 , MV 25 , CTA - NO PE 08/16 - BIPAP16/7 100%, RR 33 TV 800 , MV 27, added ROCEPHIN 08/17 - BIPAP 18/10 - 70% rr33 tv 800 mv 29L 08/18-BIPAP 18/10 - 75% rr39 tv 1000 , add precedex , DIARRHEA 08/19 intubated AC 375 28 +10 100% 08/20 - FINISHED Rocephin 08/21 - peep 12 , fio2 55% 08/22 peep 12 fio2 85% 08/23- s/p 6 L diuresis- AC [id number] 60% - increased Fio2 100. peep 16 , lactate up - A/P AHRF / ARDS due to severe COVID19 - 08/19 intubated , worsenign today Fio2 100. peep 16 - has new hemoptysis on [id number] - checjked ddimer - trmding down - will change lovenox to proph dose 08/27 Shock, sepsis/ meds - on levo 08/19 WOXV-Qyekvxvayfu-3/COVID-19 PNA - TRANSFER from OTHER FACILITY --Dexamethasone -- s/p Pxeizsrywgj37/ 13 ( received one Baricitinib on other hospital (on Acyclovir - 30 days ) -Hypercoagulable state , DDIMER= 20 on -> ( no evidence of large PE on CT 08/15 ) monitor for superimposed bact PNA -CT with atelectasis vs RLL infiltrate -s/p Rocephin 08/16 -08/20 = RESUMED ABX 08/27 Thrombocytopenia - monitor Elev TGL - sedation with versed and fentanyl now Hyperglycemia - ISS , close f/up on steroids Diarrhea 08/18 - resolved - monitor ELV TGL - off propofol Lines : PICC 08/15 (Central Line Necessity Reviewed) Wright: 08/18 OG: Nutrition: TF - Analgesia: Anxiety/ delirium VTE Prophylaxis: ulises 80 bid Stress Ulcer Prophylaxis: ppi Plans in collaboration with bedside consultants and IM MDs. Discussed with RN to reach out if any questions or concerns A total of 40 minutes of critical care time was devoted to this patient today, required to treat and/or prevent further deterioration of critical care condition ( as above) . ZEB BERG MD Aug 27, 2021 13:03
[2021-08-27 13:19] LABS: ABG BASE EXCESS 1.5 MMOL/L (-2.5-2.5); ABG OXYGEN SATURATION 95 % (94-100); ABG PCO2 54 MMHG (35-45); ABG PO2 87 MMHG (79-93)
[2021-08-27 13:20] LABS: ALLENS TEST POSITIVE; INSPIRED O2 100%; PATIENT TEMP 35.8; VENTILATOR YES
[2021-08-27 13:21] LABS: ABG PH 7.32 (7.37-7.43)
[2021-08-27] MEDS ORDERED: ALBUMIN 25% 25 GM/100 ML 100 ML IV ONE ×2 (14:33→15:00)
[2021-08-27] MEDS ORDERED: ROCURONIUM 10 MG/ML 5 ML SYRINGE IV PRN (14:45)
--- NOTE | 2021-08-27 15:03 | Diagnostic Imaging Report ---
EXAMINATION: Portable chest. COMPARISON: Prior study from August 27, 2021. INDICATION: Intubation. FINDINGS: Endotracheal tube is appropriately positioned. An enteric tube extends to the stomach. There is a right-sided PICC line in place. There are diffuse interstitial and alveolar pulmonary opacities present compatible with pneumonia. There is progressive consolidation demonstrated within the right lung base. IMPRESSION: Progressive pulmonary opacities, particularly at the right lung base, compatible with multifocal pneumonia. Dictated by: Dictated on workstation # [id number]
[2021-08-27] MEDS: CISATRACURIUM DRIP 250 ML IV SCH ×3 (15:11→23:48)
[2021-08-27 15:14] LABS: POTASSIUM 4.5 MMOL/L (3.6-5.0)
[2021-08-27 15:15] LABS: CALCIUM 7.1 MG/DL (8.5-10.1)
[2021-08-27 15:19] LABS: CREATININE SERUM 0.63 MG/DL (0.60-1.30)
[2021-08-27] MEDS: NOREPINEPHRINE 8 MG/250 ML 250 ML IV SCH (16:19)
--- NOTE | 2021-08-27 18:35 | Progress Note - Hospitalist ---
Subjective HPI/CC On Admission Date Seen by Provider: Aug 27, 2021 Time Seen by Provider: 09:10 Chacho Sandoval is a 60 year old female with PMH HTN, hypothyroidism, depression, who was transferred from [place], [place] with acute respiratory failure due to COVID-19. She was admitted there to a critical access hospital. Her oxygen re quirement worsened and they could no longer support her. No beds were available anywhere near their facility and [facility] assisted with locating a bed at our facility. She was transferred by fixed wing plane to ambulance. She was transported on BiPAP. She has been sick for a little over a week. She has had fevers. She has been short of breath and coughing. She denies chest pain. She has not had nausea, vomiting, or diarrhea. Her appetite has been poor. She is unvaccinated. She was being treated with Decadron, Remdesivir, Baricitinib, and antibiotics. Subjective/Events-last exam She remains intubated and sedated. She has become tachycardia and tachypnic. She is having fevers. Focused Exam Lactate Level 08/27/21 13:05: Lactic Acid Level 2.79*H 08/27/21 14:50: Lactic Acid Level 2.15*H 08/27/21 17:30: Lactic Acid Level 1.67 Lactic Acid Level Laboratory Tests Test 08/27/21 14:50 08/27/21 17:30 Lactic Acid Level 2.15 MMOL/L (0.50-2.00) *H 1.67 MMOL/L (0.50-2.00) Objective Exam Vital Signs Vital Signs Date Time Temp Pulse Resp B/P (MAP) Pulse Ox O2 Delivery O2 Flow Rate FiO2 08/27/21 18:25 94 28 96 80 08/27/21 18:18 Mechanical Ventilator 80.00 08/27/21 18:00 141/71 (92) 08/27/21 15:31 35.5 Capillary Refill : Less Than 3 Seconds General Appearance: Moderate Distress, Obese Respiratory: Decreased Breath Sounds, Other (intubated and mechanically ventilated) Cardiovascular: No Edema, No Murmur, Tachycardia Gastrointestinal: Normal Bowel Sounds, Soft Extremity: Normal Inspection, No Pedal Edema Neurologic/Psychiatric: Other (sedated) Skin: Normal Color, Diaphoresis Results/Procedures Lab Laboratory Tests 08/27/21 05:07 08/27/21 14:50 Patient resulted labs reviewed. Imaging: Reviewed Imaging Report Assessment/Plan Assessment and Plan Assess & Plan/Chief Complaint Severe sepsis Pneumonia Fevers, tachycardia, tachypnea, leukocytosis Begin Vancomycin and Cefepime Obtain sputum and blood cultures Lactic acid elevated Given fluid bolus, being cautious with high oxygen requirements Maintenance fluids ordered Possible pneumomediastinum Chest xray with possible pneumomediastinum Repeat imaging ordered Acute respiratory failure due to COVID-19 Hypercoagulable state associated with COVID-19 Endotracheally intubated COVID+ at outside facility Remains intubated Increasing ventilator requirements, tachypnea Decadron Therapeutic Lovenox s/p Actemra s/p antibiotics TeleICU following HTN Hypothyroidism Depression Hold home meds DVT prophylaxis: already receiving therapeutic anticoagulation Secondary bacterial pneumonia, resolved Critical Care Critically Ill Patient Diagnosis/Problems Diagnosis/Problems (1) Acute respiratory failure due to COVID-19 Status: Acute (2) Hypercoagulable state associated with COVID-19 Status: Acute (3) Secondary bacterial pneumonia Status: Acute (4) Endotracheally intubated Status: Acute (5) Obesity Status: Chronic (6) HTN (hypertension) Status: Chronic (7) Hypothyroidism Status: Chronic (8) Depression Status: Chronic (9) Severe sepsis Status: Acute (10) PNA (pneumonia) Status: Acute (11) Lactic acidosis Status: Acute (12) Abnormal chest xray Status: Acute JANELLE ALFONSO MD Aug 27, 2021 18:35
[2021-08-27] MEDS: VANCOMYCIN 1250 MG/NS 250 ML IVPB IV SCH ×2 (20:41)
[2021-08-28] VITALS (66 sets, daily range): BP systolic 83–141; BP diastolic 44–76
[2021-08-28] MEDS: MIDAZOLAM DRIP PRE-MIX 100 ML IV SCH ×4 (01:56→22:44)
[2021-08-28] MEDS: CEFEPIME INJECTION 1,000 MG in NS (IVPB) 50 ML IV SCH ×4 (01:56→20:40)
[2021-08-28] MEDS: RT-ALBUTEROL HFA 8.5 GM INHALER IH SCH ×6 (02:35→22:23)
[2021-08-28] MEDS: fentaNYL DRIP PRE-MIX 250 ML IV SCH ×6 (03:15→22:44)
[2021-08-28 04:45] LABS: ABG BASE EXCESS 2.1 MMOL/L (-2.5-2.5); ABG OXYGEN SATURATION 95 % (94-100); ABG PCO2 52 MMHG (35-45); ABG PO2 74 MMHG (79-93); ABG TCO2 29.3 MMOL/L (21.0-31.0)
[2021-08-28 04:46] LABS: EOSINOPHILS % (AUTO) 0 % (0-10)
[2021-08-28 04:48] LABS: BASOPHILS # (AUTO) 0.1 10^3/uL (0.0-0.1); BASOPHILS % (AUTO) 1 % (0-10); HEMATOCRIT 28 % (35-52); HEMOGLOBIN 8.9 g/dL (11.5-16.0); LYMPHOCYTES % (AUTO) 5 % (12-44); MEAN CORPUSCULAR HGB CONC 32 g/dL (32-36); MEAN CORPUSCULAR VOLUME 103 fL (80-99); MEAN PLATELET VOLUME 10.6 fL (9.0-12.2); MONOCYTES % (AUTO) 5 % (0-12); NEUTROPHILS # (AUTO) 18.6 10^3/uL (1.8-7.8); NEUTROPHILS % (AUTO) 87 % (42-75); PLATELET COUNT 82 10^3/uL (130-400); WHITE BLOOD COUNT 21.4 10^3/uL (4.3-11.0)
[2021-08-28 04:51] LABS: ABG PH 7.35 (7.37-7.43); ALLENS TEST YES-POS; INSPIRED O2 75%; PATIENT TEMP 35.7; VENTILATOR YES
[2021-08-28 04:52] LABS: MEAN CORPUSCULAR HEMOGLOBIN 32 pg (25-34)
[2021-08-28 05:38] LABS: CREATININE SERUM 0.92 MG/DL (0.60-1.30)
[2021-08-28 05:40] LABS: MAGNESIUM 2.3 MG/DL (1.6-2.4)
[2021-08-28] MEDS: CISATRACURIUM DRIP 250 ML IV SCH ×3 (06:13→22:44)
--- NOTE | 2021-08-28 07:15 | Diagnostic Imaging Report ---
EXAMINATION: Chest 1 view HISTORY: Intubation COMPARISON: 08/27/2021 FINDINGS: Heart size and pulmonary vasculature are normal. Medical support lines and tubes are unchanged. Stable patchy interstitial opacities are seen throughout both lungs. No significant pleural effusion or pneumothorax. The osseous structures are intact. IMPRESSION: 1. Stable patchy interstitial opacities greatest within the right mid and lower lung. Dictated by: Dictated on workstation # [id number]
[2021-08-28] MEDS ORDERED: TROUGH ORDER-PHARMACY XX NR ×3 (08:00→20:00)
[2021-08-28] MEDS ORDERED: ENOXAPARIN 80 MG/0.8 ML (LOVENOX) SYR SC SCH (09:00)
[2021-08-28] MEDS: ACYCLOVIR 400 MG TABLET (ZOVIRAX) PO SCH ×2 (09:13→20:40)
[2021-08-28] MEDS: ENOXAPARIN 40 MG/0.4 ML (LOVENOX) SYR SC SCH (09:13)
[2021-08-28] MEDS: PANTOPRAZOLE 40 MG (PROTONIX) VIAL IV SCH (09:13)
[2021-08-28] MEDS: MAGNESIUM 1 GM/100 ML IVPB 100 ML IV SCH (09:19)
[2021-08-28] MEDS: inSUlin ASPART (NovoLOG) 1 UNIT/0.01 ML (CHARGE PER UNIT) SC SCH ×4 (09:19→23:51)
[2021-08-28] MEDS: KCL 20 MEQ TAB (K-DUR) PO SCH (09:19)
[2021-08-28] MEDS: POTASSIUM CL 10MEQ/50ML IVPB 50 ML IV SCH (09:19)
[2021-08-28] MEDS: SENNOSIDES 8.6 MG (SENOKOT) TAB PO SCH ×2 (09:20→20:40)
[2021-08-28] MEDS: VANCOMYCIN 1250 MG/NS 250 ML IVPB IV SCH ×4 (09:54→17:37)
--- NOTE | 2021-08-28 09:58 | Tele-ICU Progress Note ---
Subjective Date Seen by a Provider: Aug 28, 2021 Time Seen by a Provider: 09:58 Sepsis Event Evaluation Height, Weight, BMI Height: '" Weight: lbs. oz. kg; 29.20 BMI Method: Focused Exam Lactate Level 08/27/21 13:05: Lactic Acid Level 2.79*H 08/27/21 14:50: Lactic Acid Level 2.15*H 08/27/21 17:30: Lactic Acid Level 1.67 Exam Exam Patient acknowledged, consented, and participated in this virtual visit which was conducted using real time audio/video Vital Signs Date Time Temp Pulse Resp B/P (MAP) Pulse Ox O2 Delivery O2 Flow Rate FiO2 08/28/21 09:13 77 121/74 08/28/21 09:00 68 28 121/74 (91) 96 Mechanical Ventilator 75.00 08/28/21 08:45 68 27 120/75 (94) 96 Mechanical Ventilator 75.00 08/28/21 08:30 69 27 122/73 (91) 95 Mechanical Ventilator 75.00 08/28/21 08:15 70 28 120/71 (90) 95 Mechanical Ventilator 75.00 08/28/21 08:00 98 Mechanical Ventilator 75 08/28/21 08:00 70 27 125/73 (95) 96 Mechanical Ventilator 75.00 08/28/21 07:55 36.3 08/28/21 07:45 70 27 123/72 (94) 95 Mechanical Ventilator 75.00 08/28/21 07:30 72 27 123/73 (94) 95 Mechanical Ventilator 75.00 08/28/21 07:21 72 28 95 75 08/28/21 07:15 71 27 123/74 (93) 95 Mechanical Ventilator 75.00 08/28/21 07:00 70 27 124/76 (94) 95 Mechanical Ventilator 75.00 08/28/21 07:00 72 08/28/21 06:45 68 22 121/73 (87) 95 Mechanical Ventilator 75.00 08/28/21 06:30 70 28 122/72 (90) 95 Mechanical Ventilator 75.00 08/28/21 06:15 72 28 120/73 (93) 95 Mechanical Ventilator 75.00 08/28/21 06:00 70 28 120/75 (90) 96 Mechanical Ventilator 75.00 08/28/21 05:00 73 28 118/63 (81) 95 Mechanical Ventilator 75.00 08/28/21 04:00 74 28 119/69 (86) 95 Mechanical Ventilator 75.00 08/28/21 04:00 97 Mechanical Ventilator 72 08/28/21 04:00 35.7 08/28/21 03:00 78 28 120/68 (85) 94 Mechanical Ventilator 75.00 08/28/21 02:35 77 28 94 75 08/28/21 02:00 82 27 115/68 (84) 94 Mechanical Ventilator 75.00 08/28/21 01:56 86 25 123/73 08/28/21 01:00 84 27 121/71 (88) 94 Mechanical Ventilator 75.00 08/28/21 01:00 84 08/28/21 00:49 36.0 08/28/21 00:00 Mechanical Ventilator 75.00 08/28/21 00:00 97 Mechanical Ventilator 72 08/28/21 00:00 88 26 123/72 (89) 93 Mechanical Ventilator 75.00 08/27/21 23:53 86 123/73 08/27/21 23:00 86 25 123/73 (90) 93 Mechanical Ventilator 80.00 08/27/21 22:00 92 27 127/75 (92) 93 Mechanical Ventilator 80.00 08/27/21 21:28 91 28 95 75 08/27/21 21:00 90 27 118/73 (88) 94 Mechanical Ventilator 80.00 08/27/21 20:00 97 Mechanical Ventilator 80 08/27/21 20:00 96 27 123/67 (85) 92 Mechanical Ventilator 80.00 08/27/21 19:47 35.2 08/27/21 19:00 100 08/27/21 19:00 99 27 129/68 (88) 93 Mechanical Ventilator 80.00 08/27/21 18:36 119/67 08/27/21 18:25 94 28 96 80 08/27/21 18:18 Mechanical Ventilator 80.00 08/27/21 18:00 87 29 141/71 (92) 96 Mechanical Ventilator 90.00 08/27/21 17:45 79 22 115/68 (85) 97 Mechanical Ventilator 90.00 08/27/21 17:30 79 29 101/50 (69) 99 Mechanical Ventilator 90.00 08/27/21 17:15 74 27 98/56 (70) 100 Mechanical Ventilator 90.00 08/27/21 17:00 73 18 97/56 (72) 99 Mechanical Ventilator 90.00 08/27/21 16:45 75 18 99/52 (74) 99 Mechanical Ventilator 90.00 08/27/21 16:33 64 18 126/80 (94) 96 Mechanical Ventilator 90.00 08/27/21 16:30 70 27 101/59 (73) 98 Mechanical Ventilator 90.00 08/27/21 16:27 70 28 96/67 (78) 98 Mechanical Ventilator 90.00 08/27/21 16:21 Mechanical Ventilator 90.00 08/27/21 16:19 84/41 08/27/21 16:15 73 28 84/41 (55) 97 Mechanical Ventilator 100.00 08/27/21 16:00 98 Mechanical Ventilator 100 08/27/21 16:00 78 27 87/41 (57) 99 Mechanical Ventilator 100.00 08/27/21 15:45 82 28 88/43 (58) 99 Mechanical Ventilator 100.00 08/27/21 15:31 35.5 08/27/21 15:30 83 27 97/40 (63) 100 Mechanical Ventilator 100.00 08/27/21 15:15 87 28 94/33 (66) 100 Mechanical Ventilator 100.00 08/27/21 15:00 81 32 95/54 (68) 77 Mechanical Ventilator 100.00 08/27/21 14:45 81 33 75/43 (54) 98 Mechanical Ventilator 100.00 08/27/21 14:30 81 33 75/43 (57) 98 Mechanical Ventilator 100.00 08/27/21 14:15 83 38 77/37 (54) 96 Mechanical Ventilator 100.00 08/27/21 14:00 85 32 74/47 (57) 97 Mechanical Ventilator 100.00 08/27/21 13:58 87 34 96 100 08/27/21 13:45 90 30 81/42 (62) 96 Mechanical Ventilator 100.00 08/27/21 13:30 93 27 87/43 (67) 96 Mechanical Ventilator 100.00 08/27/21 13:15 105 28 82/53 (66) 96 Mechanical Ventilator 100.00 08/27/21 13:06 35.8 08/27/21 13:00 89 77/45 (55) 93 Mechanical Ventilator 100.00 08/27/21 12:51 93 08/27/21 12:45 93 77/52 (62) 93 Mechanical Ventilator 100.00 08/27/21 12:30 93 73/54 (60) 94 Mechanical Ventilator 100.00 08/27/21 12:15 95 81/35 (59) 94 Mechanical Ventilator 100.00 08/27/21 12:00 96 Mechanical Ventilator 100 08/27/21 12:00 94 36 83/50 (60) 95 Mechanical Ventilator 100.00 08/27/21 11:56 08/27/21 11:45 99 29 86/52 (61) 94 Mechanical Ventilator 100.00 08/27/21 11:33 99 106/45 08/27/21 11:33 94 08/27/21 11:30 82 12 106/45 (70) Mechanical Ventilator 100.00 08/27/21 11:15 101 31 101/55 (69) 92 Mechanical Ventilator 100.00 08/27/21 11:10 37.5 08/27/21 11:00 111 41 93/51 (60) 93 Mechanical Ventilator 100.00 08/27/21 10:45 105 34 93/52 (69) 90 Mechanical Ventilator 100.00 08/27/21 10:30 113 32 90/62 (68) 90 Mechanical Ventilator 100.00 08/27/21 10:15 118 34 90/54 (63) 90 Mechanical Ventilator 100.00 08/27/21 10:12 120 35 90 100 08/27/21 10:00 122 34 102/65 (76) 89 Mechanical Ventilator 100.00 I & O 08/28/21 06:59 Intake Total 4480 ml Output Total 1125 ml Balance 3355 ml Height & Weight Height: '" Weight: lbs. oz. kg; 29.20 BMI Method: General Appearance: Moderate Distress, Obese HEENT: PERRL/EOMI, Other (wearing BiPAP mask) Neck: Normal Inspection, Supple Respiratory: Decreased Breath Sounds, Other (intubated and mechanically ventilated) Cardiovascular: No Edema, No Murmur, Tachycardia Capillary Refill: Less Than 3 Seconds Peripheral Pulses: 1+ Dorsalis Pedis (R), 1+ Left Dors-Pedis (L) (See free te xt.) Extremity: Normal Inspection, No Pedal Edema Neurologic/Psychiatric: Other (sedated) Skin: Normal Color, Diaphoresis Results Lab Laboratory Tests 08/27/21 05:07 08/27/21 14:50 08/28/21 04:15 Assessment/Plan Assessment/Plan (Tele-ICU Physician , Progress Note ) Available chart/ vitals / labs / Images reviewed Video assessment done using teleICU camera, rest of exam as per RN Discussed with RN , EXAM PER RN Events overnight : AFEBRILE FiO2 - 100% I/O =2 l positive Drips: NS 75 Pressors:LEVO PRN Sedation gtt: fentalyl , versed 10 precedex OFF for bradycrdia ( RASS - 3 ) VENT SETTINGS and ABG reviewed Not candidate for SBT today �REVIEWED Cardiovascular Stability / Sedation Score / FI02/PEEP / ABG / CXR Consultants: Hospital course: (08/14) 60yr old female admitted with Covid pneumonia, TRANSFER FTON OTHER FACILITY 08/15- BIPAP16/7 100%, RR 35 TV 700 , MV 25 , CTA - NO PE 08/16 - BIPAP16/7 100%, RR 33 TV 800 , MV 27, added ROCEPHIN 08/17 - BIPAP 18/10 - 70% rr33 tv 800 mv 29L 08/18-BIPAP 18/10 - 75% rr39 tv 1000 , add precedex , DIARRHEA 08/19 INTUBATED AC 375 28 +10 100% 08/20 - FINISHED Rocephin 08/21 - peep 12 , fio2 55% 08/22 peep 12 fio2 85% 08/23- s/p 6 L diuresis- AC [id number] 60% - increased Fio2 100. peep 16 , lactate up - 2 L NS boluses, suspecter mediast air by cxr , HEMOPTYSIS - lovenox ? to proph dose, PARALIZED 08/28 - Fio2 75%. peep 10m, still paralized , still hemoptysis - but less A/P AHRF / ARDS due to severe COVID19 - 08/19 intubated , Fio2 75%. peep 10 - has new hemoptysis on suctionng 08/27 - checjked ddimer - trmding down - will change lovenox to proph dose 08/27 - better today Shock, sepsis/ meds - on levo 08/19- try to wean suspecter mediast air by cxr 08/25 - seems worse 08/27 @ left neck - not seen 08/28 HJMD-Jzdrwbyjdul-6/COVID-19 PNA - TRANSFER from OTHER FACILITY --Dexamethasone - TO STOP SOON IF OFF PRESSORS -- s/p Ouibhtleeit79/ 13 ( received one Baricitinib on other hospital (on Acyclovir - 30 days ) -Hypercoagulable state , DDIMER= 20 on -> ( no evidence of large PE on CT 08/15 ) - lovenox to proph dose 08/27 due to hemoptysios , with ddimer 13 monitor for superimposed bact PNA -CT with atelectasis vs RLL infiltrate -s/p Rocephin 08/16 -08/20 = RESUMED ABX 08/27 Thrombocytopenia and anemia 08/28 - after 2 L positive fluid balance - monitor Elev TGL - sedation with versed and fentanyl now Hyperglycemia - ISS , close f/up on steroids Diarrhea 08/18 - resolved - monitor ELV TGL - off propofol Lines : PICC 08/15 (Central Line Necessity Reviewed) Wright: 08/18 OG: Nutrition: TF - tolerate s Analgesia: Anxiety/ delirium VTE Prophylaxis: ulises 40 qd Stress Ulcer Prophylaxis: ppi Plans in collaboration with bedside consultants and IM MDs. Discussed with RN to reach out if any questions or concerns A total of 40 minutes of critical care time was devoted to this patient today, required to treat and/or prevent further deterioration of critical care condition ( as above) . ZEB BERG MD Aug 28, 2021 09:58
[2021-08-28] MEDS: NOREPINEPHRINE 8 MG/250 ML 250 ML IV SCH (10:43)
[2021-08-28] MEDS: DexMEDEtomidine 250 ML DRIP 250 ML IV SCH (11:45)
[2021-08-28] MEDS ORDERED: ANIDULAFUNGIN INJECTION 200 MG in NS (IVPB) 250 ML IV ONE (21:00)
--- NOTE | 2021-08-28 23:54 | Progress Note - Hospitalist ---
Subjective HPI/CC On Admission Date Seen by Provider: Aug 28, 2021 Time Seen by Provider: 09:20 Chacho Sandoval is a 60 year old female with PMH HTN, hypothyroidism, depression, who was transferred from [place], [place] with acute respiratory failure due to COVID-19. She was admitted there to a critical access hospital. Her oxygen re quirement worsened and they could no longer support her. No beds were available anywhere near their facility and [facility] assisted with locating a bed at our facility. She was transferred by fixed wing plane to ambulance. She was transported on BiPAP. She has been sick for a little over a week. She has had fevers. She has been short of breath and coughing. She denies chest pain. She has not had nausea, vomiting, or diarrhea. Her appetite has been poor. She is unvaccinated. She was being treated with Decadron, Remdesivir, Baricitinib, and antibiotics. Subjective/Events-last exam She remains intubated and sedated. Focused Exam Lactate Level 08/27/21 13:05: Lactic Acid Level 2.79*H 08/27/21 14:50: Lactic Acid Level 2.15*H 08/27/21 17:30: Lactic Acid Level 1.67 Objective Exam Vital Signs Vital Signs Date Time Temp Pulse Resp B/P (MAP) Pulse Ox O2 Delivery O2 Flow Rate FiO2 08/28/21 22:44 66 28 107/65 08/28/21 22:23 94 60 08/28/21 20:00 Mechanical Ventilator 08/28/21 19:57 35.8 08/28/21 19:00 60.00 Capillary Refill : Less Than 3 Seconds General Appearance: No Apparent Distress, Obese Respiratory: Lungs Clear, Other (intubated and mechanically ventilated) Cardiovascular: Regular Rate, Rhythm, No Murmur Gastrointestinal: Normal Bowel Sounds, Non Tender, Soft Extremity: Normal Inspection, Non Tender, Pedal Edema Neurologic/Psychiatric: Other (sedated) Skin: Normal Color, Warm/Dry Results/Procedures Lab Laboratory Tests 08/28/21 04:15 Patient resulted labs reviewed. Imaging: Reviewed Imaging Report Assessment/Plan Assessment and Plan Assess & Plan/Chief Complaint Severe sepsis Pneumonia Gram positive cocci bacteremia Fungemia Fevers, tachycardia, tachypnea, leukocytosis Continue Vancomycin and Cefepime Blood cultures with gram positive cocci and yeast Begin Eraxis Acute respiratory failure due to COVID-19 Hypercoagulable state associated with COVID-19 Endotracheally intubated COVID+ at outside facility Remains intubated Increasing ventilator requirements, tachypnea Decadron Transitioned to prophylactic Lovenox s/p Actemra TeleICU following HTN Hypothyroidism Depression Hold home meds DVT prophylaxis: already receiving therapeutic anticoagulation Secondary bacterial pneumonia, resolved Lactic acidosis, resolved Critical Care Critically Ill Patient Diagnosis/Problems Diagnosis/Problems (1) Acute respiratory failure due to COVID-19 Status: Acute (2) Hypercoagulable state associated with COVID-19 Status: Acute (3) Secondary bacterial pneumonia Status: Acute (4) Endotracheally intubated Status: Acute (5) Obesity Status: Chronic (6) HTN (hypertension) Status: Chronic (7) Hypothyroidism Status: Chronic (8) Depression Status: Chronic (9) Severe sepsis Status: Acute (10) PNA (pneumonia) Status: Acute (11) Lactic acidosis Status: Acute (12) Abnormal chest xray Status: Acute JANELLE ALFONSO MD Aug 28, 2021 23:53
[2021-08-29] VITALS (31 sets, daily range): BP systolic 113–137; BP diastolic 53–97
[2021-08-29] MEDS: RT-ALBUTEROL HFA 8.5 GM INHALER IH SCH ×2 (02:37→07:32)
[2021-08-29] MEDS: CEFEPIME INJECTION 1,000 MG in NS (IVPB) 50 ML IV SCH ×4 (02:52→20:02)
[2021-08-29] MEDS: fentaNYL DRIP PRE-MIX 250 ML IV SCH ×6 (02:52→21:57)
[2021-08-29] MEDS: NOREPINEPHRINE 8 MG/250 ML 250 ML IV SCH ×2 (03:23→20:02)
[2021-08-29 03:31] LABS: ABG BASE EXCESS 0.5 MMOL/L (-2.5-2.5); ABG OXYGEN SATURATION 90 % (94-100); ABG PCO2 63 MMHG (35-45); ABG PO2 66 MMHG (79-93); ABG TCO2 28.9 MMOL/L (21.0-31.0); BASOPHILS % (AUTO) 1 % (0-10); MEAN CORPUSCULAR HGB CONC 31 g/dL (32-36); MEAN CORPUSCULAR VOLUME 104 fL (80-99)
[2021-08-29 03:33] LABS: BASOPHILS # (AUTO) 0.1 10^3/uL (0.0-0.1); EOSINOPHILS % (AUTO) 0 % (0-10); HEMATOCRIT 32 % (35-52); LYMPHOCYTES # (AUTO) 0.5 10^3/uL (1.0-4.0); LYMPHOCYTES % (AUTO) 4 % (12-44); MEAN CORPUSCULAR HEMOGLOBIN 32 pg (25-34); MEAN PLATELET VOLUME 11.2 fL (9.0-12.2); MONOCYTES # (AUTO) 0.5 10^3/uL (0.0-1.0); MONOCYTES % (AUTO) 4 % (0-12); NEUTROPHILS # (AUTO) 11.3 10^3/uL (1.8-7.8); NEUTROPHILS % (AUTO) 88 % (42-75); PLATELET COUNT 86 10^3/uL (130-400); WHITE BLOOD COUNT 12.7 10^3/uL (4.3-11.0)
[2021-08-29 03:36] LABS: ABG PH 7.25 (7.37-7.43)
[2021-08-29 03:37] LABS: ALLENS TEST YES-POS; INSPIRED O2 65%; PATIENT TEMP 36.8; VENTILATOR YES
[2021-08-29 03:43] LABS: ALBUMIN 3.1 GM/DL (3.2-4.5)
[2021-08-29 03:44] LABS: CALCIUM 7.8 MG/DL (8.5-10.1)
[2021-08-29 03:45] LABS: TOTAL PROTEIN 5.3 GM/DL (6.4-8.2)
[2021-08-29 03:47] LABS: BILIRUBIN,TOTAL 0.4 MG/DL (0.1-1.0)
[2021-08-29 03:49] LABS: CREATININE SERUM 0.72 MG/DL (0.60-1.30); PHOSPHORUS 3.3 MG/DL (2.3-4.7)
[2021-08-29 03:52] LABS: MAGNESIUM 2.5 MG/DL (1.6-2.4)
[2021-08-29] MEDS: MAGNESIUM 1 GM/100 ML IVPB 100 ML IV SCH (04:16)
[2021-08-29] MEDS: POTASSIUM CL 10MEQ/50ML IVPB 50 ML IV SCH (04:16)
[2021-08-29] MEDS: KCL 20 MEQ TAB (K-DUR) PO SCH (04:16)
[2021-08-29] MEDS: inSUlin ASPART (NovoLOG) 1 UNIT/0.01 ML (CHARGE PER UNIT) SC SCH ×3 (04:17→17:56)
[2021-08-29] MEDS ORDERED: RT-ALBUTEROL/IPRATROPIUM 3 ML (DUONEB) VIAL ONE (04:32)
[2021-08-29] MEDS: RT-ALBUTEROL/IPRATROPIUM 3 ML (DUONEB) VIAL INH SCH ×5 (04:40→22:47)
[2021-08-29] MEDS: MIDAZOLAM DRIP PRE-MIX 100 ML IV SCH ×3 (05:35→18:17)
[2021-08-29] MEDS: CISATRACURIUM DRIP 250 ML IV SCH ×5 (05:36→23:24)
--- NOTE | 2021-08-29 06:44 | Occ Therapy Progress Note ---
Therapy Progress Note Pt is currently intubated. OT to monitor pt's status and will initiate treatment when pt is medically stable and able to participate in skilled therapy. TRACE WAN Aug 29, 2021 06:44
--- NOTE | 2021-08-29 06:49 | Diagnostic Imaging Report ---
EXAMINATION: Chest 1 view HISTORY: Intubated. Pneumonia. COMPARISON: 08/28/2021. FINDINGS: Stable support devices. Increasing hazy and consolidative opacities are seen in the mid and lower lungs bilaterally. Possible developing small right pleural effusion. No evidence of pneumothorax. Stable cardiac silhouette. IMPRESSION: 1. Increasing hazy and consolidative opacities in the mid and lower lungs bilaterally, concerning for increasing infection and/or edema. 2. Possible small developing right pleural effusion. 3. Stable support devices. Dictated by: Dictated on workstation # [id number]
--- NOTE | 2021-08-29 07:57 | Physical Therapy Progress Note ---
Therapy Progress Note Patient currently sedated and intubated. PT will continue to monitor patient status. BARRY BURDICK PT Aug 29, 2021 07:57
[2021-08-29] MEDS: ENOXAPARIN 40 MG/0.4 ML (LOVENOX) SYR SC SCH (08:03)
[2021-08-29] MEDS: PANTOPRAZOLE 40 MG (PROTONIX) VIAL IV SCH (08:03)
[2021-08-29] MEDS: SENNOSIDES 8.6 MG (SENOKOT) TAB PO SCH ×2 (08:04→20:02)
[2021-08-29] MEDS: ACYCLOVIR 400 MG TABLET (ZOVIRAX) PO SCH ×2 (08:04→20:02)
[2021-08-29] MEDS ORDERED: ANIDULAFUNGIN INJECTION 200 MG in NS (IVPB) 250 ML IV NR (09:00)
--- NOTE | 2021-08-29 09:48 | Tele-ICU Progress Note ---
Subjective Date Seen by a Provider: Aug 29, 2021 Time Seen by a Provider: 07:00 Subjective/Events-last exam This virtual visit was conducted using real time audio/video. Thank you for asking us to see this patient for respiratory insufficiency due to Covid pna. Also positive BC w yeast and bacteria. Recent events: none PE: VSS. Sedated on vent. O2 sat 93% on 65%/+8 HEENT: No obvious masses, adenopathy or JVD. Chest: clear to auscultation. Diminished. CV: RRR S1 S2 No murmur or added sounds. Abd: Non-tender. Bowel sounds Y. : Unremarkable. Wright Y. GAMB CUTTER/psychiatric: Sedated. Grossly intact. No obvious focal findings. Extremities: No edema. Capillary refill < 3 seconds. Skin: unremarkable. Results: Elevated WCC 12.7 but decreaserd, BUN 30. Decreased alb 3.1. B.25/63/66. CXR: B infilts. Available chart/ vitals / labs / images reviewed. Video assessment done using teleICU camera, rest of exam as per RN. A/P: Respiratory insufficiency: Continue present management with vent, duonebs, Nimbex. Monitor for increasing oxygenation needs. Wean O2 as cecelia. Critical Care: critically ill patient. Cont. Dex., Levo., PPI, Abx, antifungal, SSI, acyclovir, Venancio. Discussed with HERBERTH Holliday. Asked RN to reach out to eICU if any questions or concerns later. Time spent with patient/coordination of care with other health professionals (mins): 30 Sepsis Event Evaluation Height, Weight, BMI Height: '" Weight: lbs. oz. kg; 29.20 BMI Method: Focused Exam Lactate Level 08/27/21 13:05: Lactic Acid Level 2.79*H 08/27/21 14:50: Lactic Acid Level 2.15*H 08/27/21 17:30: Lactic Acid Level 1.67 Exam Exam Patient acknowledged, consented, and participated in this virtual visit which was conducted using real time audio/video Vital Signs Date Time Temp Pulse Resp B/P (MAP) Pulse Ox O2 Delivery O2 Flow Rate FiO2 08/29/21 09:32 112 28 92 65 08/29/21 08:13 94 Mechanical Ventilator 65 08/29/21 07:45 36.6 08/29/21 07:19 121 28 93 65 08/29/21 06:00 101 27 135/67 (89) 91 Mechanical Ventilator 65.00 08/29/21 05:35 97 28 127/63 08/29/21 05:00 99 28 113/58 (76) 93 Mechanical Ventilator 65.00 08/29/21 04:41 97 28 93 65 08/29/21 04:00 97 27 128/60 (82) 92 Mechanical Ventilator 65.00 08/29/21 03:51 91 Mechanical Ventilator 65 08/29/21 03:08 36.8 Mechanical Ventilator 65.00 08/29/21 03:00 92 28 135/62 (86) 92 Mechanical Ventilator 70.00 08/29/21 02:37 87 28 95 65 08/29/21 02:00 81 27 125/63 (83) 96 Mechanical Ventilator 70.00 08/29/21 01:00 80 08/29/21 01:00 76 27 136/67 (90) 95 Mechanical Ventilator 70.00 08/29/21 00:30 Mechanical Ventilator 70.00 08/29/21 00:00 93 Mechanical Ventilator 60 08/29/21 00:00 64 27 118/97 (104) 94 Mechanical Ventilator 60.00 08/28/21 23:00 66 27 108/65 (79) 94 Mechanical Ventilator 60.00 08/28/21 23:00 36.4 Mechanical Ventilator 60.00 08/28/21 22:44 66 28 107/65 08/28/21 22:42 66 08/28/21 22:23 66 28 94 60 08/28/21 22:00 66 27 107/65 (79) 94 Mechanical Ventilator 60.00 08/28/21 21:00 68 27 101/64 (76) 94 Mechanical Ventilator 60.00 08/28/21 20:00 69 28 107/65 (79) 95 Mechanical Ventilator 60.00 08/28/21 20:00 95 Mechanical Ventilator 60 08/28/21 19:57 35.8 08/28/21 19:00 77 27 102/61 (75) 94 Mechanical Ventilator 60.00 08/28/21 19:00 77 08/28/21 19:00 Mechanical Ventilator 60.00 08/28/21 18:36 79 28 94 60 08/28/21 18:00 86 28 113/64 (82) 96 Mechanical Ventilator 65.00 08/28/21 17:45 94 Mechanical Ventilator 65.00 08/28/21 17:45 86 28 98/57 (71) 95 Mechanical Ventilator 75.00 08/28/21 17:30 86 28 100/62 (74) 97 Mechanical Ventilator 75.00 08/28/21 17:15 85 27 100/64 (77) 97 Mechanical Ventilator 75.00 08/28/21 17:00 89 28 97/63 (75) 96 Mechanical Ventilator 75.00 08/28/21 16:45 93 28 95/56 (70) 96 Mechanical Ventilator 75.00 08/28/21 16:30 93 27 96/55 (70) 95 Mechanical Ventilator 75.00 08/28/21 16:15 97 27 94/57 (69) 95 Mechanical Ventilator 75.00 08/28/21 16:00 98 28 91/61 (69) 95 Mechanical Ventilator 75.00 08/28/21 16:00 94 Mechanical Ventilator 75 08/28/21 15:48 36.4 08/28/21 15:45 100 27 85/53 (64) 96 Mechanical Ventilator 75.00 08/28/21 15:30 101 27 83/53 (66) 95 Mechanical Ventilator 75.00 08/28/21 15:15 102 27 87/44 (67) 95 Mechanical Ventilator 75.00 08/28/21 15:02 105 28 95 75 08/28/21 15:00 107 28 91/46 (62) 94 Mechanical Ventilator 75.00 08/28/21 14:45 112 27 97/48 (64) 93 Mechanical Ventilator 75.00 08/28/21 14:30 111 27 95/47 (64) 93 Mechanical Ventilator 75.00 08/28/21 14:24 105 111/60 08/28/21 14:15 87 30 111/60 (79) Mechanical Ventilator 75.00 08/28/21 14:00 105 27 96/54 (68) 91 Mechanical Ventilator 75.00 08/28/21 13:45 106 28 102/57 (72) 90 Mechanical Ventilator 75.00 08/28/21 13:30 108 28 98/52 (70) 90 Mechanical Ventilator 75.00 08/28/21 13:15 112 27 98/58 (73) 90 Mechanical Ventilator 75.00 08/28/21 13:00 109 27 104/55 (71) 89 Mechanical Ventilator 75.00 08/28/21 12:55 109 08/28/21 12:45 112 28 104/54 (72) 89 Mechanical Ventilator 75.00 08/28/21 12:30 109 28 109/57 (77) 89 Mechanical Ventilator 75.00 08/28/21 12:15 110 28 112/55 (77) 88 Mechanical Ventilator 75.00 08/28/21 12:00 111 27 115/53 (74) 88 Mechanical Ventilator 75.00 08/28/21 12:00 94 Mechanical Ventilator 75 08/28/21 11:48 36.8 08/28/21 11:45 109 27 110/57 (75) 91 Mechanical Ventilator 75.00 08/28/21 11:45 111 116/54 08/28/21 11:30 108 28 112/54 (76) 91 Mechanical Ventilator 75.00 08/28/21 11:15 112 27 121/52 (79) 90 Mechanical Ventilator 75.00 08/28/21 11:00 113 28 123/61 (73) 90 Mechanical Ventilator 75.00 08/28/21 10:48 111 28 90 75 08/28/21 10:45 107 18 130/68 (85) 88 Mechanical Ventilator 75.00 08/28/21 10:30 90 12 137/67 (90) 89 Mechanical Ventilator 75.00 08/28/21 10:15 98 28 132/56 (88) 90 Mechanical Ventilator 75.00 08/28/21 10:00 97 27 136/57 (78) 90 Mechanical Ventilator 75.00 08/28/21 09:45 97 27 130/66 (90) 91 Mechanical Ventilator 75.00 I & O 08/29/21 07:00 Intake Total 5505.0 ml Output Total 4425 ml Balance 1080.0 ml Height & Weight Height: '" Weight: lbs. oz. kg; 29.20 BMI Method: General Appearance: No Apparent Distress, Obese HEENT: PERRL/EOMI, Other (wearing BiPAP mask) Neck: Normal Inspection, Supple Respiratory: Lungs Clear, Other (intubated and mechanically ventilated) Cardiovascular: Regular Rate, Rhythm, No Murmur Capillary Refill: Less Than 3 Seconds Peripheral Pulses: 1+ Dorsalis Pedis (R), 1+ Left Dors-Pedis (L) (See free text.) Extremity: Normal Inspection, Non Tender, Pedal Edema Neurologic/Psychiatric: Other (sedated) Skin: Normal Color, Warm/Dry Results Lab Laboratory Tests 08/27/21 14:50 08/28/21 04:15 08/29/21 03:16 Assessment/Plan Assessment/Plan See free text. Critical Care: Ventilator Management TRACY ROWE MD Aug 29, 2021 09:48
[2021-08-29] MEDS: VANCOMYCIN 1250 MG/NS 250 ML IVPB IV SCH ×2 (10:19)
--- NOTE | 2021-08-29 18:22 | Progress Note - Hospitalist ---
Subjective HPI/CC On Admission Date Seen by Provider: Aug 29, 2021 Time Seen by Provider: 09:50 Chacho Sandoval is a 60 year old female with PMH HTN, hypothyroidism, depression, who was transferred from [place], [place] with acute respiratory failure due to COVID-19. She was admitted there to a critical access hospital. Her oxygen re quirement worsened and they could no longer support her. No beds were available anywhere near their facility and [facility] assisted with locating a bed at our facility. She was transferred by fixed wing plane to ambulance. She was transported on BiPAP. She has been sick for a little over a week. She has had fevers. She has been short of breath and coughing. She denies chest pain. She has not had nausea, vomiting, or diarrhea. Her appetite has been poor. She is unvaccinated. She was being treated with Decadron, Remdesivir, Baricitinib, and antibiotics. Subjective/Events-last exam She remains intubated and sedated. Focused Exam Lactate Level 08/27/21 13:05: Lactic Acid Level 2.79*H 08/27/21 14:50: Lactic Acid Level 2.15*H 08/27/21 17:30: Lactic Acid Level 1.67 Objective Exam Vital Signs Vital Signs Date Time Temp Pulse Resp B/P (MAP) Pulse Ox O2 Delivery O2 Flow Rate FiO2 08/29/21 18:17 112 27 127/72 08/29/21 17:00 92 Mechanical Ventilator 75.00 08/29/21 16:06 35.6 08/29/21 15:29 75 Capillary Refill : Less Than 3 Seconds General Appearance: No Apparent Distress, Obese, Other (intubated and sedated) Respiratory: No Respiratory Distress, Decreased Breath Sounds, Other (intubated and mechanically ventilated) Cardiovascular: No Murmur, Tachycardia Gastrointestinal: Normal Bowel Sounds, Soft Extremity: Normal Inspection, Pedal Edema Neurologic/Psychiatric: Other (sedated) Skin: Normal Color, Warm/Dry Results/Procedures Lab Laboratory Tests 08/29/21 03:16 Patient resulted labs reviewed. Imaging: Reviewed Imaging Report Assessment/Plan Assessment and Plan Assess & Plan/Chief Complaint Severe sepsis Pneumonia Gram positive cocci bacteremia Fungemia Fevers, tachycardia, tachypnea, leukocytosis Continue Vancomycin and Cefepime Blood cultures with gram positive cocci and yeast Continue Eraxis Acute respiratory failure due to COVID-19 Hypercoagulable state associated with COVID-19 Endotracheally intubated COVID+ at outside facility Remains intubated Decadron Transitioned to prophylactic Lovenox s/p Actemra TeleICU following Paralyzed HTN Hypothyroidism Depression Hold home meds DVT prophylaxis: already receiving therapeutic anticoagulation Secondary bacterial pneumonia, resolved Lactic acidosis, resolved Critical Care Critically Ill Patient Diagnosis/Problems Diagnosis/Problems (1) Acute respiratory failure due to COVID-19 Status: Acute (2) Hypercoagulable state associated with COVID-19 Status: Acute (3) Secondary bacterial pneumonia Status: Acute (4) Endotracheally intubated Status: Acute (5) Obesity Status: Chronic (6) HTN (hypertension) Status: Chronic (7) Hypothyroidism Status: Chronic (8) Depression Status: Chronic (9) Severe sepsis Status: Acute (10) PNA (pneumonia) Status: Acute (11) Lactic acidosis Status: Acute (12) Abnormal chest xray Status: Acute JANELLE ALFONSO MD Aug 29, 2021 18:22
[2021-08-29] MEDS ORDERED: ANIDULAFUNGIN INJECTION 100 MG in NS (IVPB) 100 ML IV SCH (21:00)
--- NOTE | 2021-08-29 21:37 | Tele-ICU Progress Note ---
Subjective Date Seen by a Provider: Aug 29, 2021 Time Seen by a Provider: 21:34 Sepsis Event Evaluation Height, Weight, BMI Height: '" Weight: lbs. oz. kg; 29.20 BMI Method: Focused Exam Lactate Level 08/27/21 13:05: Lactic Acid Level 2.79*H 08/27/21 14:50: Lactic Acid Level 2.15*H 08/27/21 17:30: Lactic Acid Level 1.67 Exam Exam Patient acknowledged, consented, and participated in this virtual visit which was conducted using real time audio/video Vital Signs Date Time Temp Pulse Resp B/P (MAP) Pulse Ox O2 Delivery O2 Flow Rate FiO2 08/29/21 20:14 90 Mechanical Ventilator 100 08/29/21 20:00 35.9 08/29/21 19:00 110 08/29/21 19:00 Mechanical Ventilator 100.00 08/29/21 18:48 106 28 89 100 08/29/21 18:17 112 27 127/72 08/29/21 18:15 Mechanical Ventilator 90.00 08/29/21 18:00 110 28 127/70 (89) 93 Mechanical Ventilator 75.00 08/29/21 17:00 112 27 127/72 (90) 92 Mechanical Ventilator 75.00 08/29/21 16:06 35.6 08/29/21 16:00 115 27 125/72 (89) 87 Mechanical Ventilator 75.00 08/29/21 15:29 90 Mechanical Ventilator 75 08/29/21 15:09 112 28 92 75 08/29/21 15:00 115 27 132/74 (93) 86 Mechanical Ventilator 75.00 08/29/21 14:00 112 27 130/71 (90) 91 Mechanical Ventilator 75.00 08/29/21 13:00 113 08/29/21 13:00 113 27 130/64 (86) 91 Mechanical Ventilator 75.00 08/29/21 12:13 93 Mechanical Ventilator 75 08/29/21 12:12 115 27 130/64 08/29/21 12:00 115 27 124/71 (88) 92 Mechanical Ventilator 75.00 08/29/21 11:47 Mechanical Ventilator 75.00 08/29/21 11:45 37.3 08/29/21 11:00 115 27 130/64 (86) 90 Mechanical Ventilator 65.00 08/29/21 10:00 116 28 129/69 (89) 93 Mechanical Ventilator 65.00 08/29/21 09:32 112 28 92 65 08/29/21 09:00 117 28 130/66 (87) 93 Mechanical Ventilator 65.00 08/29/21 08:13 94 Mechanical Ventilator 65 08/29/21 08:00 120 27 128/64 (85) 93 Mechanical Ventilator 65.00 08/29/21 07:45 36.6 08/29/21 07:19 121 28 93 65 08/29/21 07:00 100 08/29/21 07:00 102 28 129/54 (79) 92 Mechanical Ventilator 65.00 08/29/21 06:00 101 27 135/67 (89) 91 Mechanical Ventilator 65.00 08/29/21 05:35 97 28 127/63 08/29/21 05:00 99 28 113/58 (76) 93 Mechanical Ventilator 65.00 08/29/21 04:41 97 28 93 65 08/29/21 04:00 97 27 128/60 (82) 92 Mechanical Ventilator 65.00 08/29/21 03:51 91 Mechanical Ventilator 65 08/29/21 03:08 36.8 Mechanical Ventilator 65.00 08/29/21 03:00 92 28 135/62 (86) 92 Mechanical Ventilator 70.00 08/29/21 02:37 87 28 95 65 08/29/21 02:00 81 27 125/63 (83) 96 Mechanical Ventilator 70.00 08/29/21 01:00 80 08/29/21 01:00 76 27 136/67 (90) 95 Mechanical Ventilator 70.00 08/29/21 00:30 Mechanical Ventilator 70.00 08/29/21 00:00 93 Mechanical Ventilator 60 08/29/21 00:00 64 27 118/97 (104) 94 Mechanical Ventilator 60.00 08/28/21 23:00 66 27 108/65 (79) 94 Mechanical Ventilator 60.00 08/28/21 23:00 36.4 Mechanical Ventilator 60.00 08/28/21 22:44 66 28 107/65 08/28/21 22:42 66 08/28/21 22:23 66 28 94 60 08/28/21 22:00 66 27 107/65 (79) 94 Mechanical Ventilator 60.00 I & O 08/29/21 07:00 Intake Total 5505.0 ml Output Total 4425 ml Balance 1080.0 ml Height & Weight Height: '" Weight: lbs. oz. kg; 29.20 BMI Method: General Appearance: No Apparent Distress, Obese, Other (intubated and sedated) HEENT: PERRL/EOMI, Other (wearing BiPAP mask) Neck: Normal Inspection, Supple Respiratory: No Respiratory Distress, Decreased Breath Sounds, Other (intubated and mechanically ventilated) Cardiovascular: No Murmur, Tachycardia Capillary Refill: Less Than 3 Seconds Peripheral Pulses: 1+ Dorsalis Pedis (R), 1+ Left Dors-Pedis (L) (See free text.) Extremity: Normal Inspection, Pedal Edema Neurologic/Psychiatric: Other (sedated) Skin: Normal Color, Warm/Dry Results Lab Laboratory Tests 08/28/21 04:15 08/29/21 03:16 Assessment/Plan Assessment/Plan Pt is desaturating: peep 12/ flo2 100%; abg/ cxray ordered; start proning. p peak 76/ p pl 40; tv at 370cc EDIE LOPEZ MD Aug 29, 2021 21:37
[2021-08-29 22:01] LABS: ABG BASE EXCESS 1.7 MMOL/L (-2.5-2.5); ABG OXYGEN SATURATION 92 % (94-100); ABG PO2 71 MMHG (79-93); ABG TCO2 33.4 MMOL/L (21.0-31.0)
[2021-08-29 22:03] LABS: ABG PCO2 94 MMHG (35-45); ABG PH 7.13 (7.37-7.43)
[2021-08-29 22:04] LABS: ALLENS TEST YES-POS
[2021-08-29 22:05] LABS: INSPIRED O2 100%; PATIENT TEMP 36.2; VENTILATOR YES
--- NOTE | 2021-08-29 22:29 | Diagnostic Imaging Report ---
EXAMINATION: Chest radiograph, portable AP view. DATE: 08/29/2021 9:54 PM INDICATION: 61-year-old female, shortness of breath. Concern for pneumothorax. COMPARISON: August 29, 2021 at 0209 hours. FINDINGS: There is a very large right pneumothorax. There is collapse of the right lung. The right-sided PIC line overlies the upper SVC. The endotracheal tube is approximately 4.6 cm above the sherice. The nasogastric tube is in the stomach. The mediastinum is shifted to the left. There is multifocal bilateral lung consolidation again noted. IMPRESSION: 1. Very large right pneumothorax with collapse of the right lung and mediastinal shift to the left. 2. Support lines and tubes as above. 3. Redemonstrated multifocal bilateral lung consolidation. Findings called at 2213 hours on August 29, 2021. Dictated by: Dictated on workstation # [id number]
--- NOTE | 2021-08-29 23:01 | Diagnostic Imaging Report ---
EXAMINATION: Chest radiograph, portable AP view. DATE: 08/29/2021 10:57 PM INDICATION: 61-year-old female, chest tube placement. COMPARISON: August 29, 2021 at 2152 hours. FINDINGS: There has been placement of a right-sided chest tube. There is interval decrease in size of the previously noted right-sided pneumothorax which is currently moderate in size. There is no current mediastinal shift. The nasogastric tube is in the stomach. There is a right-sided PICC line overlying the mid SVC. The endotracheal tube is approximately 4.6 cm above the sherice. There is multifocal bilateral lung consolidation again noted. IMPRESSION: 1. Moderate right-sided pneumothorax which is decreased in size since comparison exam with interval placement of right-sided chest tube. 2. No current mediastinal shift. 3. Multifocal bilateral lung consolidation again noted. 4. Support lines and tubes as above. Dictated by: Dictated on workstation # [id number]
[2021-08-30] VITALS (30 sets, daily range): BP systolic 104–137; BP diastolic 43–80
--- NOTE | 2021-08-30 00:04 | Procedure/Intervention Note ---
Procedures/Interventions Chest Tube : Chest Tube Position: Right Upper Chest Tube Location: Mid-Axillary Chest Size of Kazakh Tube (cm): 28 Chest Tube Procedure: betadine prep, sterile drapes applied, sterile dressing applied (Chlorhexidine prep) Hdez of Air White: Yes Number of Attempts: 1 Time of Successful Intubation: 22:30 Tube Drainage: Error and pink serous fluid Tube Sutured to Skin: Yes Post Procedure CXR?: Yes Progress X-ray was reviewed. 18-gauge pleural cath was placed midclavicular line just over the second rib after cleaning the site thoroughly with alcohol. Hdez of air and fluid return. Right mid axillary site was thoroughly cleansed with chlorhexidine and allowed to dry then draped out using the appropriate sterile drapes were provided. We then ascertain between the fourth and fifth rib in the midaxillary line and going over the rib made incision 1-1/2 cm long with the provider 11 blade scalpel. Use her finger to bluntly dissect down to the rib and then guided the curved clamps into place and bluntly dissected into the pleural space where we heard a hdez of air. We removed the clamp and use the trocar and 28 Kazakh chest tube and tried to direct it anterior and apically as we placed it. The tube was placed at 16 cm with no resistance. It was then sutured with 2 sutures and wraps above and below. 2-0 silk suture was used. Xeroform gauze and two opposing drain sponges were placed sterilely and taped in place using silk tape. The nurse then continued taping the hose to the patient. The Pleur-evac was placed which withdrew a couple 100 cc of pleural fluid and air. Patient tolerated procedure well as she was intubated, sedated on fentanyl and Versed. X-ray was reviewed demonstrating the distal tip of the chest tube is pointed basally and needs withdrawn a couple centimeters. Communicated this to the ICU nurse who states the eICU doc reviewed the film and asked Dr. Melendrez's consult. The patient is satting in the upper 90s and lung sanchez are vastly improved afte r the placement the chest tube so he said he would deal with it in the morning. Encourage the ICU nurse to call us or Dr. Melendrez if further intervention is necessary. [facility] [place], [place] NAME: LUCILA DAVILA [facility] REC#: [id number] PT STATUS: ADM IN : 1960 PHYSICIAN: ZAY PARKER MD ADMIT DATE: 08/14/21/ICU Signed Date of Exam:08/29/21 CHEST 1 VIEW, AP/PA ONLY EXAMINATION: Chest radiograph, portable AP view. DATE: 08/29/2021 10:57 PM INDICATION: 61-year-old female, chest tube placement. COMPARISON: August 29, 2021 at 2152 hours. FINDINGS: There has been placement of a right-sided chest tube. There is interval decrease in size of the previously noted right-sided pneumothorax which is currently moderate in size. There is no current mediastinal shift. The nasogastric tube is in the stomach. There is a right-sided PICC line overlying the mid SVC. The endotracheal tube is approximately 4.6 cm above the sherice. There is multifocal bilateral lung consolidation again noted. IMPRESSION: 1. Moderate right-sided pneumothorax which is decreased in size since comparison exam with interval placement of right-sided chest tube. 2. No current mediastinal shift. 3. Multifocal bilateral lung consolidation again noted. 4. Support lines and tubes as above. Dictated by: Dictated on workstation # [id number] Dict: 08/29/212257 Trans: 08/29/212308 [facility] [id number] Interpreted by: MARQUIS FALLON MD Electronically signed by: MARQUIS FALLON MD 08/29/212308 Date of ETT Placement: Aug 18, 2021 Time of ETT Placement: 2019 Tube Size: 7.50 Medications: Etomidate, Rocuronium Positive End Tide CO2: Yes Breath Sounds after Intubation: bilateral-equal Intubation Complications: no complications ZAY PARKER Aug 30, 2021 00:04
[2021-08-30] MEDS: inSUlin ASPART (NovoLOG) 1 UNIT/0.01 ML (CHARGE PER UNIT) SC SCH ×4 (00:57→18:07)
[2021-08-30] MEDS: CEFEPIME INJECTION 1,000 MG in NS (IVPB) 50 ML IV SCH ×4 (00:58→20:26)
[2021-08-30] MEDS: MIDAZOLAM DRIP PRE-MIX 100 ML IV SCH ×4 (01:00→21:44)
[2021-08-30] MEDS: fentaNYL DRIP PRE-MIX 250 ML IV SCH ×6 (01:00→21:44)
[2021-08-30 01:17] LABS: ABG BASE EXCESS 1.5 MMOL/L (-2.5-2.5); ABG OXYGEN SATURATION 98 % (94-100); ABG PO2 94 MMHG (79-93); ABG TCO2 31.7 MMOL/L (21.0-31.0)
[2021-08-30 01:18] LABS: ABG PCO2 78 MMHG (35-45); ABG PH 7.19 (7.37-7.43)
[2021-08-30 01:20] LABS: ALLENS TEST YES-POS; INSPIRED O2 100%; PATIENT TEMP 36.2; VENTILATOR YES
[2021-08-30] MEDS: RT-ALBUTEROL HFA 8.5 GM INHALER IH SCH ×2 (01:57→01:58)
[2021-08-30 03:46] LABS: BASOPHILS # (AUTO) 0.1 10^3/uL (0.0-0.1); BASOPHILS % (AUTO) 0 % (0-10); EOSINOPHILS % (AUTO) 0 % (0-10); HEMATOCRIT 32 % (35-52); HEMOGLOBIN 9.7 g/dL (11.5-16.0); LYMPHOCYTES # (AUTO) 0.9 10^3/uL (1.0-4.0); LYMPHOCYTES % (AUTO) 6 % (12-44); MEAN CORPUSCULAR HEMOGLOBIN 33 pg (25-34); MEAN CORPUSCULAR HGB CONC 30 g/dL (32-36); MEAN CORPUSCULAR VOLUME 107 fL (80-99); MEAN PLATELET VOLUME 10.9 fL (9.0-12.2); MONOCYTES # (AUTO) 0.8 10^3/uL (0.0-1.0); MONOCYTES % (AUTO) 5 % (0-12); NEUTROPHILS # (AUTO) 12.3 10^3/uL (1.8-7.8); NEUTROPHILS % (AUTO) 87 % (42-75); PLATELET COUNT 103 10^3/uL (130-400); WHITE BLOOD COUNT 14.2 10^3/uL (4.3-11.0)
[2021-08-30 03:54] LABS: ALBUMIN 2.9 GM/DL (3.2-4.5)
[2021-08-30 03:56] LABS: CALCIUM 7.9 MG/DL (8.5-10.1)
[2021-08-30 03:57] LABS: TOTAL PROTEIN 5.1 GM/DL (6.4-8.2)
[2021-08-30 03:59] LABS: BILIRUBIN,TOTAL 0.4 MG/DL (0.1-1.0)
[2021-08-30 04:00] LABS: PHOSPHORUS 2.9 MG/DL (2.3-4.7)
[2021-08-30] MEDS ORDERED: TROUGH ORDER-PHARMACY XX NR (04:00)
[2021-08-30 04:01] LABS: CREATININE SERUM 0.61 MG/DL (0.60-1.30)
[2021-08-30 04:04] LABS: MAGNESIUM 2.5 MG/DL (1.6-2.4)
[2021-08-30 04:10] LABS: VANCOMYCIN,TROUGH 11.9 UG/ML (10.0-20.0)
[2021-08-30] MEDS: CISATRACURIUM DRIP 250 ML IV SCH ×5 (04:29→19:55)
[2021-08-30 04:34] LABS: ABG BASE EXCESS 2.3 MMOL/L (-2.5-2.5); ABG OXYGEN SATURATION 97 % (94-100); ABG PO2 80 MMHG (79-93); ABG TCO2 31.6 MMOL/L (21.0-31.0)
[2021-08-30 04:38] LABS: ABG PCO2 71 MMHG (35-45); ABG PH 7.23 (7.37-7.43); ALLENS TEST YES-POS
[2021-08-30 04:39] LABS: INSPIRED O2 100%; PATIENT TEMP 36.2; VENTILATOR YES
[2021-08-30] MEDS: POTASSIUM CL 10MEQ/50ML IVPB 50 ML IV SCH (05:08)
[2021-08-30] MEDS: MAGNESIUM 1 GM/100 ML IVPB 100 ML IV SCH (05:08)
[2021-08-30] MEDS: KCL 20 MEQ TAB (K-DUR) PO SCH (05:08)
[2021-08-30] MEDS: VANCOMYCIN 1250 MG/NS 250 ML IVPB IV SCH ×2 (05:55)
[2021-08-30] MEDS ORDERED: RT-ALBUTEROL/IPRATROPIUM 3 ML (DUONEB) VIAL INH SCH (06:00)
--- NOTE | 2021-08-30 07:06 | Occ Therapy Progress Note ---
Therapy Progress Note Pt is currently intubated. OT to monitor pt and will initiate treatment when pt is medically stable to actively participate in skilled therapy. TRACE WAN Aug 30, 2021 07:06
[2021-08-30] MEDS: RT-ALBUTEROL/IPRATROPIUM 3 ML (DUONEB) VIAL INH SCH ×5 (07:21→21:08)
--- NOTE | 2021-08-30 07:36 | Physical Therapy Progress Note ---
Therapy Progress Note Patient remains sedated and intubated. PT will continue to follow patient status. BARRY BURDICK PT Aug 30, 2021 07:36
[2021-08-30] MEDS: PANTOPRAZOLE 40 MG (PROTONIX) VIAL IV SCH (08:33)
[2021-08-30] MEDS: ANIDULAFUNGIN INJECTION 100 MG in NS (IVPB) 100 ML IV SCH (08:33)
[2021-08-30] MEDS: ENOXAPARIN 40 MG/0.4 ML (LOVENOX) SYR SC SCH (08:34)
[2021-08-30] MEDS: ACYCLOVIR 400 MG TABLET (ZOVIRAX) PO SCH ×2 (08:34→21:07)
[2021-08-30] MEDS: SENNOSIDES 8.6 MG (SENOKOT) TAB PO SCH ×2 (08:35→21:07)
[2021-08-30] MEDS ORDERED: VANCOMYCIN 500 MG/NS 100 ML IV NR ×2 (09:30)
[2021-08-30] MEDS ORDERED: meTOprolol 5 MG/5 ML (LOPRESSOR) VIAL IV ONE (10:45)
[2021-08-30] MEDS ORDERED: meTOprolol 5 MG/5 ML (LOPRESSOR) VIAL ONE (10:45)
[2021-08-30] MEDS: fentaNYL INJ 100 MCG/2 ML AMP IVP PRN (10:48)
[2021-08-30] MEDS ORDERED: LIDOCAINE 1% INJ 20 ML 20 ML VIAL ONE (11:08)
--- NOTE | 2021-08-30 11:14 | Tele-ICU Progress Note ---
Subjective Date Seen by a Provider: Aug 30, 2021 Time Seen by a Provider: 11:14 Sepsis Event Evaluation Height, Weight, BMI Height: '" Weight: lbs. oz. kg; 29.20 BMI Method: Focused Exam Lactate Level 08/27/21 13:05: Lactic Acid Level 2.79*H 08/27/21 14:50: Lactic Acid Level 2.15*H 08/27/21 17:30: Lactic Acid Level 1.67 Exam Exam Patient acknowledged, consented, and participated in this virtual visit which was conducted using real time audio/video Vital Signs Date Time Temp Pulse Resp B/P (MAP) Pulse Ox O2 Delivery O2 Flow Rate FiO2 08/30/21 10:32 160 28 82 100 08/30/21 08:09 36.6 08/30/21 08:00 111 28 110/58 08/30/21 07:21 111 28 93 100 08/30/21 07:00 106 08/30/21 06:00 107 28 115/63 (80) 92 Mechanical Ventilator 100.00 08/30/21 05:00 107 28 118/66 (83) 95 Mechanical Ventilator 100.00 08/30/21 04:00 106 27 114/67 (83) 94 Mechanical Ventilator 100.00 08/30/21 03:45 36.2 Mechanical Ventilator 100.00 08/30/21 03:43 92 Mechanical Ventilator 100 08/30/21 03:00 107 28 115/70 (85) 94 Mechanical Ventilator 100.00 08/30/21 02:46 130 28 94 100 08/30/21 02:00 109 28 114/68 (83) 95 Mechanical Ventilator 100.00 08/30/21 01:05 116 08/30/21 01:00 116 27 106/63 (77) 99 Mechanical Ventilator 100.00 08/30/21 01:00 125 27 123/53 08/30/21 00:00 96 Mechanical Ventilator 100 08/30/21 00:00 125 27 122/57 (78) 99 Mechanical Ventilator 100.00 08/29/21 23:58 36.0 08/29/21 23:00 36.2 Mechanical Ventilator 100.00 08/29/21 23:00 125 27 123/53 (76) 91 Mechanical Ventilator 100.00 08/29/21 22:47 130 28 94 100 08/29/21 22:00 128 35 137/70 (92) 86 Mechanical Ventilator 100.00 08/29/21 21:00 110 28 134/78 (96) 91 Mechanical Ventilator 100.00 08/29/21 20:14 90 Mechanical Ventilator 100 08/29/21 20:00 112 27 117/68 (84) 90 Mechanical Ventilator 100.00 08/29/21 20:00 35.9 08/29/21 19:00 110 08/29/21 19:00 108 28 128/71 (90) 90 Mechanical Ventilator 100.00 08/29/21 19:00 Mechanical Ventilator 100.00 08/29/21 18:48 106 28 89 100 08/29/21 18:17 112 27 127/72 08/29/21 18:15 Mechanical Ventilator 90.00 08/29/21 18:00 110 28 127/70 (89) 93 Mechanical Ventilator 75.00 08/29/21 17:00 112 27 127/72 (90) 92 Mechanical Ventilator 75.00 08/29/21 16:06 35.6 08/29/21 16:00 115 27 125/72 (89) 87 Mechanical Ventilator 75.00 08/29/21 15:29 90 Mechanical Ventilator 75 08/29/21 15:09 112 28 92 75 08/29/21 15:00 115 27 132/74 (93) 86 Mechanical Ventilator 75.00 08/29/21 14:00 112 27 130/71 (90) 91 Mechanical Ventilator 75.00 08/29/21 13:00 113 08/29/21 13:00 113 27 130/64 (86) 91 Mechanical Ventilator 75.00 08/29/21 12:13 93 Mechanical Ventilator 75 08/29/21 12:12 115 27 130/64 08/29/21 12:00 115 27 124/71 (88) 92 Mechanical Ventilator 75.00 08/29/21 11:47 Mechanical Ventilator 75.00 08/29/21 11:45 37.3 I & O 08/30/21 07:00 Intake Total 2315 ml Output Total 3500 ml Balance -1185 ml Height & Weight Height: '" Weight: lbs. oz. kg; 29.20 BMI Method: General Appearance: No Apparent Distress, Obese, Other (intubated and sedated) HEENT: PERRL/EOMI, Other (wearing BiPAP mask) Neck: Normal Inspection, Supple Respiratory: No Respiratory Distress, Decreased Breath Sounds, Other (intubated and mechanically ventilated) Cardiovascular: No Murmur, Tachycardia Capillary Refill: Less Than 3 Seconds Peripheral Pulses: 1+ Dorsalis Pedis (R), 1+ Left Dors-Pedis (L) (See free text.) Extremity: Normal Inspection, Pedal Edema Neurologic/Psychiatric: Other (sedated) Skin: Normal Color, Warm/Dry Results Lab Laboratory Tests 08/29/21 03:16 08/30/21 03:30 Assessment/Plan Assessment/Plan (Tele-ICU Physician , Progress Note ) Available chart/ vitals / labs / Images reviewed Video assessment done using teleICU camera, rest of exam as per RN Discussed with RN , EXAM PER RN Events overnight : AFEBRILE FiO2 - 100% I/O =2 l positive Drips: NS 75 Pressors:LEVO PRN Sedation gtt: fentalyl , versed 10 precedex OFF for bradycrdia ( RASS - 3 ) VENT SETTINGS and ABG reviewed Not candidate for SBT today �REVIEWED Cardiovascular Stability / Sedation S core / FI02/PEEP / ABG / CXR Consultants: Hospital course: (08/14) 60yr old female admitted with Covid pneumonia, TRANSFER FTON OTHER FACILITY 08/15- BIPAP16/7 100%, RR 35 TV 700 , MV 25 , CTA - NO PE 08/16 - BIPAP16/7 100%, RR 33 TV 800 , MV 27, added ROCEPHIN 08/17 - BIPAP 18/10 - 70% rr33 tv 800 mv 29L 08/18-BIPAP 18/ - 75% rr39 tv 1000 , add precedex , DIARRHEA 08/19 INTUBATED AC 375 28 +10 100% 08/20 - FINISHED Rocephin 08/21 - peep 12 , fio2 55% 08/22 peep 12 fio2 85% 08/23- s/p 6 L diuresis- AC [id number] 60% - increased Fio2 100. peep 16 , lactate up - 2 L NS boluses, suspecter mediast air by cxr , HEMOPTYSIS - lovenox ? to proph dose, PARALIZED 08/28 - Fio2 75%. peep 10m, still paralized , still hemoptysis - but less - PTX on LEFT - CT placed 08/30 = tention PTCX on left despite chest tube - second chest tube placed A/P AHRF / ARDS due to severe COVID19 - 08/19 intubated , Fio2 75%. peep 10 - has new hemoptysis on suctionng 08/27 - checjked ddimer - trmding down - will change lovenox to proph dose 08/27 - better today - peep 8 with PTX , paralized Shock, sepsis/ meds - on levo 08/19- try to wean suspecter mediast air by cxr 08/25 - seems worse 08/27 @ left neck - not seen 08/28 DEVELOPED PTX on LEFT 08-29 - chest tube in place -08/30 = tention PTCX on left despite chest tube - second chest tube placed CGMP-Zskrjzbaaas-5/COVID-19 PNA - TRANSFER from OTHER FACILITY --Dexamethasone - TO STOP SOON IF OFF PRESSORS -- s/p [id number]/ 13 ( received one Baricitinib on other hospital (on Acyclovir - 30 days ) -Hypercoagulable state , DDIMER= 20 on -> ( no evidence of large PE on CT 08/15 ) - lovenox to proph dose 08/27 due to hemoptysios , with ddimer 13 monitor for superimposed bact PNA -CT with atelectasis vs RLL infiltrate -s/p Rocephin 08/16 -08/20 = RESUMED ABX 08/27 Thrombocytopenia and anemia 08/28 - after 2 L positive fluid balance - monitor Elev TGL - sedation with versed and fentanyl now Hyperglycemia - ISS , close f/up on steroids Diarrhea 08/18 - resolved - monitor ELV TGL - off propofol Lines : PICC 08/15 (Central Line Necessity Reviewed) Wright: 08/18 OG: Nutrition: TF - tolerate s Analgesia: Anxiety/ delirium VTE Prophylaxis: ulises 40 qd Stress Ulcer Prophylaxis: ppi Plans in collaboration with bedside consultants and IM MDs. Discussed with RN to reach out if any questions or concerns A total of 60 minutes of critical care time was devoted to this patient today, required to treat and/or prevent further deterioration of critical care condition ( as above) . ZEB BERG MD Aug 30, 2021 11:14
--- NOTE | 2021-08-30 11:46 | Procedure/Intervention Note ---
Procedures/Interventions Chest Tube : Chest Tube Position: Right Chest Tube Location: Mid-Axillary Chest Size of Pakistani Tube (cm): 28 Chest Tube Procedure: betadine prep, sterile drapes applied, sterile dressing applied Anesthesia: 1% Lidocaine w/ Epi Volume Anesthetic (ccs): 10 Rojo of Air Bryan: Yes Number of Attempts: 1 Time of Successful Intubation: 11:00 Tube Drainage: see nurses notes Tube Sutured to Skin: Yes Post Procedure CXR?: Yes Progress Called ICU for tension pneumothorax on repeat chest x-ray this morning. She is on ventilator with PEEP of 8 for Covid related respiratory failure. Right lateral chest wall mid axillary line was cleaned with ChloraPrep swab, anestheti zed with 10 mL lidocaine, 2 cm incision was made with a scalpel 15 blade. Blunt dissection carried down to the ribs and curved hemostats were used to go between the ribs and punctured the pleura. The chest tube was then slid along my finger into the pleura and advanced. Sutured to the skin. Covered with Vaseline gauze and 4 x 4. Oxygen saturation then juan josé from 82% to 95%. Date of ETT Placement: Aug 18, 2021 Time of ETT Placement: 2019 Tube Size: 7.50 Medications: Etomidate, Rocuronium Positive End Tide CO2: Yes Breath Sounds after Intubation: bilateral-equal Intubation Complications: no complications JIMMY IYER APRN Aug 30, 2021 11:46
--- NOTE | 2021-08-30 11:51 | Diagnostic Imaging Report ---
INDICATION: Pneumothorax. FINDINGS: AP view of the chest is obtained. Portions of the left thorax is not included. Since the study of earlier in the day, there has been reexpansion of the right lung. There is diffuse airspace disease in the right lung, which may be due to edema. Right upper extremity PICC is in place. Endotracheal tube reaches the thoracic inlet, and nasogastric tube passes below the diaphragm. IMPRESSION: Interval reexpansion of the right lung with diffuse right airspace disease which may be due to edema. Dictated by: Dictated on workstation # [id number]
--- NOTE | 2021-08-30 12:15 | Diagnostic Imaging Report ---
EXAMINATION: Portable erect AP chest at 11:04 a.m. INDICATION: Respiratory distress. FINDINGS: In the interval since the prior exam of 08/29/2021, the right-sided pneumothorax has increased in size considerably. The distance from the bony thorax to the lung edge is now 4.9 cm as opposed to 1.4 cm previously. Much of the right lung is contracted about the right hilum, and there is suggestion of slight shift of the midline to the left. The right-sided chest tube seen previously is again evident and no different. There is generalized increased density throughout the left lung base. The mediastinum is not widened. The osseous structures are intact. The supportive tubes and lines seen previously are again evident. IMPRESSION: 1. The appearance of the chest has worsened since the prior study as the pneumothorax on the right has increased in size. There may be an element of tension developing as well. 2. These results were called to Madelin, the banquet houseperson, at the time of this dictation. CRITICAL FINDING Dictated by: Dictated on workstation # [id number]
[2021-08-30] MEDS: NOREPINEPHRINE 8 MG/250 ML 250 ML IV SCH (14:05)
[2021-08-30] MEDS: METOCLOPRAMIDE INJ 10 MG/2 ML (REGLAN) IVP SCH (17:17)
--- NOTE | 2021-08-30 17:59 | Consultation - Surgery ---
History of Present Illness History of Present Illness Patient Consulted On(amber/time) 08/30/21 17:47 Time Seen by Provider: 11:12 History of Present Illness Surgery asked to consult regarding Tension pneumothorax. I was contacted last night and spoke with the nurse twice; at that time pt was not in respiratory distress. Today just before I came up to see pt she had a recurrence of her tension PTX. I had looked at the CXRs in my office and noted that the previous placement of chest tube appeared to be low and possibly in the abdomen. Had asked nurse to get CT chest/abd/pelvis. Allergies and Home Medications Allergies Coded Allergies: morphine (Verified Allergy, Unknown, Rash, 08/15/21) Patient Home Medication List Home Medication List Reviewed: Yes Escitalopram Oxalate (Escitalopram Oxalate) 10 Mg Tablet, 10 MG PO DAILY, (Reported) Entered as Reported by: STEVO TOBAR on 08/16/211535 Last Action: Reviewed Levothyroxine Sodium (Levothyroxine Sodium) 50 Mcg Tablet, 50 MCG PO DAILY, (Reported) Entered as Reported by: STEVO TOBAR on 08/16/211535 Last Action: Continued Metoprolol Succinate (Metoprolol Succinate) 50 Mg Tab.er.24h, 50 MG PO DAILY, (Reported) Entered as Reported by: STEVO TOBAR on 08/16/211535 Last Action: Reviewed Past Fwlzstj-Cepavt-Icwmzj Hx Cardiovascular Cardiac Disorders: Hypertension Endocrine Endocrine Disorders: Hypothyroidsim Psychosocial Behavioral Health Disorders: Depression Family Medical History Significant Family History: No Pertinent Family Hx Review of Systems-General ROS-Unable to Obtain: pt sedated and intubated Physical Exam-General Problems Physical Exam Vital Signs Vital Signs - First Documented 08/24/21 08/24/21 00:00 00:12 Temp 36.4 Pulse 57 Resp 13 B/P (MAP) 116/63 (80) Pulse Ox 95 O2 Delivery Mechanical Ventilator O2 Flow Rate 55.00 FiO2 55 Capillary Refill : Less Than 3 Seconds General Appearance: severe distress, obese HEENT: No scleral icterus (R), No scleral icterus (L); other (ET tube in place) Neck: supple Respiratory: decreased breath sounds, accessory muscle use, crackles, rhonchi, wheezing Cardiovascular: no murmur, tachycardia Gastrointestinal: soft Extremities: pedal edema Neurologic/Psychiatric: other (pt intubated and sedated) Skin: normal color, warm/dry Data Review Labs Laboratory Tests 08/29/21 17:51: Glucometer 150H 08/29/21 21:50: Blood Gas Puncture Site RT RADIAL, Blood Gas Patient Temperature 36.2, Arterial Blood pH 7.13*L, Arterial Blood Partial Pressure CO2 94*H, Arterial Blood Partial Pressure O2 71L, Arterial Blood HCO3 30H, Arterial Blood Total CO2 33.4H , Arterial Blood Oxygen Saturation 92L, Arterial Blood Base Excess 1.7, Roque Test YES-POS, Blood Gas Ventilator Setting YES, Blood Gas Inspired Oxygen 100% 08/29/21 23:59: Glucometer 122H 08/30/21 00:55: Blood Gas Puncture Site LEFT RADIAL, Blood Gas Patient Temperature 36.2, Arterial Blood pH 7.19*L, Arterial Blood Partial Pressure CO2 78*H, Arterial Blood Partial Pressure O2 94H, Arterial Blood HCO3 29H, Arterial Blood Total CO2 31.7H, Arterial Blood Oxygen Saturation 98, Arterial Blood Base Excess 1.5, Roque Test YES-POS, Blood Gas Ventilator Setting YES, Blood Gas Inspired Oxygen 100% 08/30/21 03:30: White Blood Count 14.2H, Red Blood Count 2.98L, Hemoglobin 9.7L, Hematocrit 32L, Mean Corpuscular Volume 107H, Mean Corpuscular Hemoglobin 33, Mean Corpuscular Hemoglobin Concent 30L, Red Cell Distribution Width 16.0H, Platelet Count 103L, Mean Platelet Volume 10.9, Immature Granulocyte % (Auto) 1, Neutrophils (%) (Auto) 87H, Lymphocytes (%) (Auto) 6L, Monocytes (%) (Auto) 5, Eosinophils (%) (Auto) 0, Basophils (%) (Auto) 0, Neutrophils # (Auto) 12.3H, Lymphocytes # (Auto) 0.9L, Monocytes # (Auto) 0.8, Eosinophils # (Auto) 0.0, Basophils # (Auto) 0.1, Immature Granulocyte # (Auto) 0.2H, Sodium Level 141, Potassium Level 5.0, Chloride Level 108H, Carbon Dioxide Level 27, Anion Gap 6, Blood Urea Nitrogen 25H, Creatinine 0.61, Estimat Glomerular Filtration Rate 100, BUN/Creatinine Ratio 41, Glucose Level 109H, Calcium Level 7.9L, Corrected Calcium 8.8, Phosphorus Level 2.9, Magnesium Level 2.5H, Total Bilirubin 0.4, Aspartate Amino Transf (AST/SGOT) 30, Alanine Aminotransferase (ALT/SGPT) 142H, Alkaline Phosphatase 152H, Total Protein 5.1L, Albumin 2.9L, Vancomycin Level Trough 11.9 08/30/21 04:15: Blood Gas Puncture Site RIGHT RADIAL, Blood Gas Patient Temperature 36.2, Arterial Blood pH 7.23*L, Arterial Blood Partial Pressure CO2 71*H, Arterial Blood Partial Pressure O2 80, Arterial Blood HCO3 29H, Arterial Blood Total CO2 31.6H, Arterial Blood Oxygen Saturation 97, Arterial Blood Base Excess 2.3, Roque Test YES-POS, Blood Gas Ventilator Setting YES, Blood Gas Inspired Oxygen 100% 08/30/21 11:41: Glucometer 101 08/30/21 17:40: Glucometer 131H Microbiology 08/28/21 Blood Culture - Preliminary, Resulted YEAST 08/27/21 Gram Stain - Final, Complete 08/27/21 Sputum Culture - Final, Complete YEAST Usual upper respiratory barrett Radiology Date of Exam:08/29/21 CHEST 1 VIEW, AP/PA ONLY EXAMINATION: Chest radiograph, portable AP view. DATE: 08/29/2021 10:57 PM INDICATION: 61-year-old female, chest tube placement. COMPARISON: August 29, 2021 at 2152 hours. FINDINGS: There has been placement of a right-sided chest tube. There is interval decrease in size of the previously noted right-sided pneumothorax which is currently moderate in size. There is no current mediastinal shift. The nasogastric tube is in the stomach. There is a right-sided PICC line overlying the mid SVC. The endotracheal tube is approximately 4.6 cm above the sherice. There is multifocal bilateral lung consolidation again noted. IMPRESSION: 1. Moderate right-sided pneumothorax which is decreased in size since comparison exam with interval placement of right-sided chest tube. 2. No current mediastinal shift. 3. Multifocal bilateral lung consolidation again noted. 4. Support lines and tubes as above. Dictated by: Dictated on workstation # [id number] Dict: 08/29/218 Trans: 08/29/219 MARA [id number] Interpreted by: MARQUIS FALLON MD Electronically signed by: MARQUIS FALLON MD 08/29/212308 Draft Date of Exam:08/30/21 CHEST 1 VIEW, AP/PA ONLY EXAMINATION: Portable erect AP chest at 11:04 a.m. INDICATION: Respiratory distress. FINDINGS: In the interval since the prior exam of 08/29/2021, the right-sided pneumothorax has increased in size considerably. The distance from the bony thorax to the lung edge is now 4.9 cm as opposed to 1.4 cm previously. Much of the right lung is contracted about the right hilum, and there is suggestion of slight shift of the midline to the left. The right-sided chest tube seen previously is again evident and no different. There is generalized increased density throughout the left lung base. The mediastinum is not widened. The osseous structures are intact. The supportive tubes and lines seen previously are again evident. IMPRESSION: 1. The appearance of the chest has worsened since the prior study as the pneumothorax on the right has increased in size. There may be an element of tension developing as well. 2. These results were called to Madelin, the change house attendant, at the time of this dictation. CRITICAL FINDING Dictated on workstation # [id number] Dict: 08/30/21 1151 Trans: 08/30/21 1214 [id number] Interpreted by: COURTNEY CAAL MD Assessment/Plan Assessment/Plan Assessment/Plan Tension Pneumothorax Respiratory Failure requiring Mechanical Ventilation Covid-19 Pt is now DNR, would leave the first chest tube alone. Pt doing better, O2 sats immediately went up and peek airway pressure went down after second chest tube. Recommend supportive care. CONNIE MOLINA DO Aug 30, 2021 17:59
--- NOTE | 2021-08-30 18:18 | Progress Note - Hospitalist ---
Subjective HPI/CC On Admission Date Seen by Provider: Aug 30, 2021 Time Seen by Provider: 10:00 Chacho Sandoval is a 60 year old female with PMH HTN, hypothyroidism, depression, who was transferred from [place], [place] with acute respiratory failure due to COVID-19. She was admitted there to a critical access hospital. Her oxygen re quirement worsened and they could no longer support her. No beds were available anywhere near their facility and [facility] assisted with locating a bed at our facility. She was transferred by fixed wing plane to ambulance. She was transported on BiPAP. She has been sick for a little over a week. She has had fevers. She has been short of breath and coughing. She denies chest pain. She has not had nausea, vomiting, or diarrhea. Her appetite has been poor. She is unvaccinated. She was being treated with Decadron, Remdesivir, Baricitinib, and antibiotics. Subjective/Events-last exam She remains intubated and sedated. She worsened overnight and was found to have a pneumothorax. She had a chest tube placed emergently. This morning she remains hypoxic on the ventilator. I discussed her poor prognosis with her daughter and . They are planning on driving to visit her today. Objective Exam Vital Signs Vital Signs Date Time Temp Pulse Resp B/P (MAP) Pulse Ox O2 Delivery O2 Flow Rate FiO2 08/30/21 16:15 92 Mechanical Ventilator 100 08/30/21 15:42 36.0 08/30/21 15:03 118 28 08/30/21 15:00 110/60 (77) 100.00 Capillary Refill : Less Than 3 Seconds General Appearance: No Apparent Distress, Other (intubated and sedated) Respiratory: Decreased Breath Sounds, Other (intubated and mechanically ventilated) Cardiovascular: No Murmur, Tachycardia Gastrointestinal: Normal Bowel Sounds, Soft Extremity: Normal Inspection, No Pedal Edema Neurologic/Psychiatric: Other (sedated) Skin: Normal Color, Warm/Dry Results/Procedures Lab Laboratory Tests 08/30/21 03:30 Patient resulted labs reviewed. Imaging: Reviewed Imaging Report Assessment/Plan Assessment and Plan Assess & Plan/Chief Complaint Severe sepsis Pneumonia Fungemia Fevers, tachycardia, tachypnea, leukocytosis Blood cultures with yeast, bacteria appear to be contaminants Continue Eraxis Stop Vancomycin Continue Cefepime Acute respiratory failure due to COVID-19 Hypercoagulable state associated with COVID-19 Endotracheally intubated Pneumothorax on right COVID+ at outside facility Remains intubated Decadron Prophylactic Lovenox s/p Actemra TeleICU following Paralyzed Chest tube placed overnight Worsening pneumothorax Planning for second chest tube placement Poor prognosis Goals of care discussion Discussed poor prognosis with daughter and asked to change to DNR DIscussed possible transition to comfort measures if needed HTN Hypothyroidism Depression Hold home meds DVT prophylaxis: already receiving therapeutic anticoagulation Secondary bacterial pneumonia, resolved Lactic acidosis, resolved Critical Care Critically Ill Patient Diagnosis/Problems Diagnosis/Problems (1) Acute respiratory failure due to COVID-19 Status: Acute (2) Pneumothorax on right Status: Acute (3) Hypercoagulable state associated with COVID-19 Status: Acute (4) Secondary bacterial pneumonia Status: Acute (5) Endotracheally intubated Status: Acute (6) Obesity Status: Chronic (7) HTN (hypertension) Status: Chronic (8) Hypothyroidism Status: Chronic (9) Depression Status: Chronic (10) Severe sepsis Status: Acute (11) PNA (pneumonia) Status: Acute (12) Lactic acidosis Status: Acute (13) Abnormal chest xray Status: Acute (14) Poor prognosis Status: Acute (15) Goals of care, counseling/discussion Status: Acute JANELLE ALFONSO MD Aug 30, 2021 18:18
[2021-08-30] MEDS ORDERED: VANCOMYCIN 1500 MG/NS 500 ML IVPB IV SCH ×2 (23:00)
[2021-08-31] VITALS (14 sets, daily range): BP systolic 103–151; BP diastolic 57–84
[2021-08-31] MEDS: METOCLOPRAMIDE INJ 10 MG/2 ML (REGLAN) IVP SCH ×2 (00:01→05:53)
[2021-08-31] MEDS: inSUlin ASPART (NovoLOG) 1 UNIT/0.01 ML (CHARGE PER UNIT) SC SCH ×2 (00:01→05:34)
[2021-08-31] MEDS: fentaNYL DRIP PRE-MIX 250 ML IV SCH ×2 (01:29→04:55)
[2021-08-31] MEDS: CISATRACURIUM DRIP 250 ML IV SCH ×2 (01:29→04:55)
[2021-08-31] MEDS: CEFEPIME INJECTION 1,000 MG in NS (IVPB) 50 ML IV SCH ×2 (01:29→08:39)
[2021-08-31] MEDS: RT-ALBUTEROL/IPRATROPIUM 3 ML (DUONEB) VIAL INH SCH ×2 (01:38→07:40)
[2021-08-31 04:45] LABS: ABG BASE EXCESS 5.1 MMOL/L (-2.5-2.5); ABG OXYGEN SATURATION 97 % (94-100); ABG PCO2 56 MMHG (35-45); ABG PH 7.35 (7.37-7.43); ABG PO2 83 MMHG (79-93); ABG TCO2 32.2 MMOL/L (21.0-31.0); ALLENS TEST YES-POS; INSPIRED O2 75%; PATIENT TEMP 36.8; VENTILATOR YES
[2021-08-31 04:46] LABS: BASOPHILS # (AUTO) 0.1 10^3/uL (0.0-0.1); BASOPHILS % (AUTO) 0 % (0-10); EOSINOPHILS % (AUTO) 0 % (0-10); HEMATOCRIT 29 % (35-52); HEMOGLOBIN 8.9 g/dL (11.5-16.0); LYMPHOCYTES # (AUTO) 1.2 10^3/uL (1.0-4.0); LYMPHOCYTES % (AUTO) 7 % (12-44); MEAN CORPUSCULAR HEMOGLOBIN 33 pg (25-34); MEAN CORPUSCULAR HGB CONC 31 g/dL (32-36); MEAN CORPUSCULAR VOLUME 106 fL (80-99); MEAN PLATELET VOLUME 10.8 fL (9.0-12.2); MONOCYTES # (AUTO) 0.7 10^3/uL (0.0-1.0); MONOCYTES % (AUTO) 4 % (0-12); NEUTROPHILS # (AUTO) 14.7 10^3/uL (1.8-7.8); NEUTROPHILS % (AUTO) 87 % (42-75); PLATELET COUNT 109 10^3/uL (130-400); WHITE BLOOD COUNT 16.8 10^3/uL (4.3-11.0)
[2021-08-31 04:59] LABS: ALBUMIN 2.3 GM/DL (3.2-4.5); POTASSIUM 3.8 MMOL/L (3.6-5.0)
[2021-08-31 05:01] LABS: CALCIUM 7.1 MG/DL (8.5-10.1)
[2021-08-31 05:02] LABS: TOTAL PROTEIN 4.1 GM/DL (6.4-8.2)
[2021-08-31 05:04] LABS: BILIRUBIN,TOTAL 0.4 MG/DL (0.1-1.0)
[2021-08-31 05:05] LABS: PHOSPHORUS 1.6 MG/DL (2.3-4.7)
[2021-08-31 05:06] LABS: CREATININE SERUM 0.53 MG/DL (0.60-1.30)
[2021-08-31 05:08] LABS: MAGNESIUM 1.9 MG/DL (1.6-2.4)
[2021-08-31] MEDS: MAGNESIUM 1 GM/100 ML IVPB 100 ML IV SCH (05:34)
[2021-08-31] MEDS: KCL 20 MEQ TAB (K-DUR) PO SCH (05:34)
[2021-08-31] MEDS: POTASSIUM CL 10MEQ/50ML IVPB 50 ML IV SCH (05:34)
[2021-08-31] MEDS: NOREPINEPHRINE 8 MG/250 ML 250 ML IV SCH (05:35)
--- NOTE | 2021-08-31 06:52 | Occ Therapy Progress Note ---
Therapy Progress Note Pt currently intubated. OT to monitor pt and will initiate treatment when pt is medically stable and able to actively participate in skilled therapy. TRACE WAN Aug 31, 2021 06:52
[2021-08-31] MEDS ORDERED: POTASSIUM PHOSPHATE INJ 15 MM in NS (IVPB) 250 ML IV ONE (08:00)
--- NOTE | 2021-08-31 08:21 | Physical Therapy Progress Note ---
Therapy Progress Note Patient remains sedated and intubated. PT will continue to follow patient status. CHANDLER SOLIMAN PT Aug 31, 2021 08:21
[2021-08-31] MEDS: SENNOSIDES 8.6 MG (SENOKOT) TAB PO SCH (08:39)
[2021-08-31] MEDS: ACYCLOVIR 400 MG TABLET (ZOVIRAX) PO SCH (08:39)
[2021-08-31] MEDS: PANTOPRAZOLE 40 MG (PROTONIX) VIAL IV SCH (08:39)
[2021-08-31] MEDS: ENOXAPARIN 40 MG/0.4 ML (LOVENOX) SYR SC SCH (08:40)
[2021-08-31] MEDS ORDERED: LEVOTHYROXINE 50 MCG (LEVOTHROID) TAB PO SCH (09:00)
[2021-08-31] MEDS: ANIDULAFUNGIN INJECTION 100 MG in NS (IVPB) 100 ML IV SCH (09:21)
[2021-08-31] MEDS ORDERED: SALIVA STIMULANT MOUTH SPRAY (BIOTENE) 1.5 OZ MM PRN (09:45)
[2021-08-31] MEDS ORDERED: RT-ALBUTEROL/IPRATROPIUM 3 ML (DUONEB) VIAL INH PRN (09:45)
[2021-08-31] MEDS ORDERED: PROMETHAZINE INJ 25 MG/ML (PHENERGAN) AMP IVP PRN (09:45)
[2021-08-31] MEDS ORDERED: GLYCOPYRROLATE 0.2 MG/ML (ROBINUL) 2 ML VIAL IV PRN (09:45)
[2021-08-31] MEDS ORDERED: ARTIFICAL TEARS 0.4 ML UNIT DOSE (REFRESH PLUS) OU PRN (09:45)
[2021-08-31] MEDS ORDERED: ONDANSETRON 4 MG/2 ML (SDV) Z0FRAN IVP PRN (09:45)
[2021-08-31] MEDS ORDERED: LORazepam INJ 2 MG/ML (ATIVAN) VIAL IVP PRN (09:45)
[2021-08-31] MEDS ORDERED: BISACODYL 10 MG SUPP (DULCOLAX) PR PRN (09:45)
[2021-08-31] MEDS ORDERED: ACETAMINOPHEN 650 MG SUPP (TYLENOL) PR PRN (09:45)
[2021-08-31] MEDS ORDERED: morphine INJ 4 MG/ML 1 ML (VIAL/SYRINGE) IV PRN (09:45)
--- NOTE | 2021-08-31 12:55 | Discharge Summary ---
Discharge Summary Hospital Course Was the Problem List Reviewed?: Yes Problems/Dx: (1) Acute respiratory failure due to COVID-19 Status: Acute (2) Pneumothorax on right Status: Acute (3) Hypercoagulable state associated with COVID-19 Status: Acute (4) Secondary bacterial pneumonia Status: Acute (5) Endotracheally intubated Status: Acute (6) Obesity Status: Chronic (7) HTN (hypertension) Status: Chronic (8) Hypothyroidism Status: Chronic (9) Depression Status: Chronic (10) Severe sepsis Status: Acute (11) PNA (pneumonia) Status: Acute (12) Lactic acidosis Status: Acute (13) Abnormal chest xray Status: Acute (14) Poor prognosis Status: Acute (15) Goals of care, counseling/discussion Status: Acute Hospital Course Date of Admission: Aug 14, 2021 at 17:49 Admission Diagnosis : Acute respiratory failure due to COVID-19 Family Physician/Provider: Иван Jovel Physician Date of Discharge: 08/31/21 Discharge Diagnosis: Acute respiratory distress syndrome due to COVID-19, pneumothorax, secondary bacterial pneumonia, fungemia Hospital Course: Chacho Sanodval was a 61 year old female who was transferred from [place], [place] with acute respiratory failure due to COVID-19. She was on BiPAP initially. She had been on steroids and started on Baricitinib. She was continued on steroids and was given Actemra. She continued to worsen and required intubation. Her course was complicated by secondary bacterial pneumonia, hypercoagulability associated with COVID-19, pneumothorax, and fungemia. She continued to worsen and her family made the decision to transition to comfort measures only status. She was palliatively extubated and on 08/31/2021 at 1038. Labs and Pending Lab Test: Laboratory Tests 08/30/21 17:40: Glucometer 131H 08/30/21 22:30: Glucometer 130H 08/31/21 04:30: White Blood Count 16.8H, Red Blood Count 2.73L, Hemoglobin 8.9L, Hematocrit 29L, Mean Corpuscular Volume 106H, Mean Corpuscular Hemoglobin 33, Mean Corpuscular Hemoglobin Concent 31L, Red Cell Distribution Width 16.2H, Platelet Count 109L, Mean Platelet Volume 10.8, Immature Granulocyte % (Auto) 1, Neutrophils (%) (Auto) 87H, Lymphocytes (%) (Auto) 7L, Monocytes (%) (Auto) 4, Eosinophils (%) (Auto) 0, Basophils (%) (Auto) 0, Neutrophils # (Auto) 14.7H, Lymphocytes # (Auto) 1.2, Monocytes # (Auto) 0.7, Eosinophils # (Auto) 0.0, Basophils # (Auto) 0.1, Immature Granulocyte # (Auto) 0.2H, Blood Gas Puncture Site LEFT RADIAL, Blood Gas Patient Temperature 36.8, Arterial Blood pH 7.35L, Arterial Blood Partial Pressure CO2 56H, Arterial Blood Partial Pressure O2 83, Arterial Blood HCO3 30H, Arterial Blood Total CO2 32.2H, Arterial Blood Oxygen Saturation 97, Arterial Blood Base Excess 5.1H, Roque Test YES-POS, Blood Gas Ventilator Setting YES, Blood Gas Inspired Oxygen 75%, Sodium Level 142, Potassium Level 3.8, Chloride Level 110H, Carbon Dioxide Level 26, Anion Gap 6, Blood Urea Nitrogen 18, Creatinine 0.53L, Estimat Glomerular Filtration Rate 118, BUN/Creatinine Ratio 34, Glucose Level 87, Calcium Level 7.1L, Corrected Calcium 8.5, Phosphorus Level 1.6L, Magnesium Level 1.9, Total Bilirubin 0.4, Aspartate Amino Transf (AST/SGOT) 16, Alanine Aminotransferase (ALT/SGPT) 83H, Alkaline Phosphatase 119, Total Protein 4.1L, Albumin 2.3L Microbiology 08/28/21 Blood Culture - Preliminary, Resulted YEAST 08/27/21 Gram Stain - Final, Complete 08/27/21 Sputum Culture - Final, Complete YEAST Usual upper respiratory barrett Home Meds Active Reported Levothyroxine Sodium 50 Mcg Tablet 50 Mcg PO DAILY Metoprolol Succinate 50 Mg Tab.er.24h 50 Mg PO DAILY Escitalopram Oxalate 10 Mg Tablet 10 Mg PO DAILY Assessment/Pt Instructions Patient Discharge Physical Examination Vital Signs Vital Signs Date Time Temp Pulse Resp B/P (MAP) Pulse Ox O2 Delivery O2 Flow Rate FiO2 08/31/21 10:35 42 23 70 Mechanical Ventilator 70.00 08/31/21 08:00 75 08/31/21 07:55 36.1 Allergies: Coded Allergies: morphine (Verified Allergy, Unknown, Rash, 08/15/21) Discharge Summary Date of Admission Aug 14, 2021 at 17:49 Date of Discharge Discharge Date: Aug 31, 2021 Discharge Time: 10:38 Admission Diagnosis Acute respiratory failure due to COVID-19 Comfort Measures/ End of Life Care: Comfort Measures Advance Care discuss with: family member (s) Plan: initiate discussion, clarifying prognosis, identified end-of-life goals, developed treatment plan Time spent on discussion (min): 30 Cardiopulmonary Arrest: Cardiorespiratory Arrest Date of : Aug 31, 2021 Time of : 10:38 Discharge Diagnosis ARDS due to COVID-19 Severe sepsis Secondary bacterial pneumonia Fungemia Hypercoagulable state associated with COVID-19 Endotracheally intubated Pneumothorax on right Poor prognosis Goals of care discussion HTN Hypothyroidism Depression Obesity (1) Acute respiratory failure due to COVID-19 Status: Acute (2) Pneumothorax on right Status: Acute (3) Hypercoagulable state associated with COVID-19 Status: Acute (4) Secondary bacterial pneumonia Status: Acute (5) Endotracheally intubated Status: Acute (6) Obesity Status: Chronic (7) HTN (hypertension) Status: Chronic (8) Hypothyroidism Status: Chronic (9) Depression Status: Chronic (10) Severe sepsis Status: Acute (11) PNA (pneumonia) Status: Acute (12) Lactic acidosis Status: Acute (13) Abnormal chest xray Status: Acute (14) Poor prognosis Status: Acute (15) Goals of care, counseling/discussion Status: Acute JANELLE ALFONSO MD Aug 31, 2021 12:55
== END 2021-08-31 10:38 | disposition expired | DRG 207 ==
LOC: ICU 17:49
PROVIDERS: ADMIT Internal Medicine; ATTEND Internal Medicine
PROC: 5A09557 Assistance with Respiratory Ventilation, Greater than 96 Consecutive Hours, Continuous Positive Airway Pressure (ICD-10-PCS; 2021-08-14)
PROC: 5A1955Z Respiratory Ventilation, Greater than 96 Consecutive Hours (ICD-10-PCS; principal; 2021-08-18)
PROC: 03HY32Z Insertion of Monitoring Device into Upper Artery, Percutaneous Approach (ICD-10-PCS; 2021-08-18)
PROC: 0BH17EZ Insertion of Endotracheal Airway into Trachea, Via Natural or Artificial Opening (ICD-10-PCS; 2021-08-18)
PROC: 0W9930Z Drainage of Right Pleural Cavity with Drainage Device, Percutaneous Approach (ICD-10-PCS; 2021-08-30)
DX: U07.1 COVID-19 (principal); J80 Acute respiratory distress syndrome; J15.9 Unspecified bacterial pneumonia; A41.9 Sepsis, unspecified organism; R65.20 Severe sepsis without septic shock; J93.0 Spontaneous tension pneumothorax; D68.69 Other thrombophilia; R57.9 Shock, unspecified; E87.2 Acidosis; Z66 Do not resuscitate; Z51.5 Encounter for palliative care; B49 Unspecified mycosis; Z73.0 Burn-out; I10 Essential (primary) hypertension; E03.9 Hypothyroidism, unspecified; F32.A Depression, unspecified; R73.9 Hyperglycemia, unspecified; R19.7 Diarrhea, unspecified; D69.6 Thrombocytopenia, unspecified; E66.9 Obesity, unspecified; D64.9 Anemia, unspecified; Z68.32 Body mass index [BMI] 32.0-32.9, adult
CPT/HCPCS: 36415; 36569; 70360; 71045; 71275; 76937; 80048; 80053; 80076; 80202; 82805; 82947; 83605; 83735; 83880; 84100; 84145; 84478; 85007; 85025; 85027; 85379; 87040; 87070; 87077; 87081; 87106; 87205; 94002; 94003; 94640; 94660; 94799